=== PATIENT | male | born 1990 | race Caucasian/White ===

== ENCOUNTER 2016-11-16 18:32 | Emergency (ER) | payer BC, OTHER ==
[~2016-11-16] VITALS: Ht 175.3 cm; Wt 65.0 kg
[~2016-11-16 18:32] MED LIST: ONDA8TAB7 PO; XLD/500 PO
[2016-11-16 18:42] VITALS: TEMP 36.5; Ht 175.3 cm; Wt 65.0 kg
[2016-11-16] MEDS ORDERED: ONDANSETRON INJ 2 MG/ML 2 ML VIAL IV STA (20:11)
[2016-11-16] MEDS ORDERED: SODIUM CHLORIDE 0.9% 1000ML 1,000 ML IV ONE (20:11)
[2016-11-16] MEDS ORDERED: SODIUM CHLORIDE 0.9% 1000ML 1,000 ML IV STA (20:11)
--- NOTE | 2016-11-16 20:16 | EMERGENCY ROOM VISIT NOTE ---
History Report prepared by Jemma: Guerrero Roberts Under the Supervision of: Dr. Guerrero Cervantes M.D. First contact with patient: 19:48 Chief Complaint: VOMITING Stated Complaint: PAIN,THROWING UP, DIZZY LIGHTHEADED History of Present Illness The patient is a 26 year old male who presents to the Emergency Room with complaints of persistent vomiting beginning earlier today. He notes that he has colon cancer which has metastasized to his liver. He takes Capecitabine 500 mg 3 tablets BID, but thinks he took an extra 3 tablets today unintentionally. He has had radiation in the past but not in the last couple of months. He also has a stent in his ureter that he notes is due to come out. He admits to having nausea, chills, lightheadedness, diarrhea last night, lower back pain, and redness in his feet. He denies having any fever, headache, cough, abdominal pain , or groin or testicular pain. He also denies recent trauma or injury. The patient denies having any other medical problems. Source of History: patient, parent, family, spouse/significant other Onset: earlier today Position: other (global) Quality: other (vomiting) Timing: other (persistent) Associated Symptoms: + back pain, + chills, + diarrhea, + nausea, No abdominal pain, No cough, No headache Note: The patient notes having redness in his feet. He denies groin or testicular pain. Review of Systems See HPI for pertinent positives & negatives. A total of 10 systems reviewed and were otherwise negative. Past Medical & Surgical Medical Problems: (1) Cecum mass (2) Colon cancer metastasized to liver (3) GI bleed (4) Hydronephrosis of left kidney (5) Hydronephrosis of right kidney (6) Kidney stone Surgical Problems: (1) History of ureter stent Old medical records were reviewed. Nurse's notes were reviewed and I agree with. Family History FH: cardiovascular disease Social History Smoking Status: Never Smoker Alcohol Use: occasionally Drug Use: none Marital Status: in relationship Housing Status: lives with family Occupation Status: employed Current/Historical Medications Scheduled Capecitabine (Xeloda), 500 MG PO UD Ondansetron Tab (Zofran), 1 TAB PO Q8 Probiotic Product (Probiotic), 1 CAP PO TW Scheduled PRN Ibuprofen Tab (Advil), 400 MG PO Q6H PRN for Pain Allergies Coded Allergies: Cranberry Extract (Verified Allergy, Unknown, HIVES, 11/16/16) Lactose Intolerance (GI) (Verified Allergy, Unknown, ., 11/16/16) Physical Exam Vital Signs Date Time Temp Pulse Resp B/P Pulse Ox O2 Delivery O2 Flow Rate FiO2 11/16/16 22:42 86 16 109/70 98 11/16/16 20:47 78 16 105/61 99 Room Air 11/16/16 18:42 36.5 84 16 108/73 99 Room Air Physical Exam General: Well developed well nourished in no acute distress, breathing comfortably on room air. Normal speech. Non-ill appearing, young male. HEENT: Normal cephalic atraumatic. Pupils are equal round and reactive to light. Extraocular movements are intact. Oropharynx is pink with moist mucous membranes. No swelling of the mouth lips or tongue. Neck: Supple with a midline trachea. No meningeal signs or stiffness, no JVD or bruits. No Stridor. Negative Kernig and Brudzinski signs Chest: Clear to auscultation bilaterally. No wheezes or rhonchi. No increased work of breathing. Heart: regular rate and rhythm. Abdomen: Soft nontender, nondistended without rebound guarding or rigidity. Extremities: No cyanosis clubbing or edema. No calf tenderness or assymetry Spine/Back. Non tender to palpation. No CVA tenderness Skin: Good turgor without rashes. Neurologic exam: Cranial nerves two through 12 are intact. Motor and sensation are intact and symmetrical throughout. Medical Decision & Procedures ER Provider Diagnostic Interpretation: CT results as stated below per my review and radiologist interpretation: CT HEAD WITHOUT CONTRAST (CT) FINDINGS: No intra or extra-axial mass lesions are visualized. There is no CT evidence of acute cortical infarction. There is no evidence of midline shift. There is no acute hemorrhage. No calvarial fractures are visualized. There is no evidence of pathologic ventricular dilatation. There is no evidence of acute sinusitis IMPRESSION: No acute intracranial findings. No evidence of metastatic disease on this noncontrast study Electronically signed by: Brandon Soto M.D. 11/16/2016 9:28 PM Dictated Date/Time: 11/16/2016 9:[address] ABD/PELVIS IV CONTRAST ONLY FINDINGS: Lower chest: The heart is normal in size and configuration, without pericardial effusion. The lung bases and pleural spaces are clear. Liver: There is a 44 mm hypodense mass within the right hepatic lobe centrally. There is a 19 mm hypodense lesion within the right hepatic lobe peripherally. As a 14 mm hypodense mass within the left lobe anteriorly. There is a 5 mm hypodense mass within the lateral segment the left lobe. The findings are consistent with hepatic metastasis. There is trace perihepatic fluid. Gallbladder: Unremarkable. Spleen: Normal in size and attenuation. Pancreas: Unremarkable. Adrenal glands: Unremarkable. Kidneys: There is right-sided hydronephrosis. There is right-sided hydroureter. There is an indwelling right-sided nephroureteral stent. Bowel: There are no transition zones indicate bowel obstruction. There is pathologic bowel wall thickening in the region of the cecum. This could be either neoplastic or inflammatory. Peritoneum: There is trace perihepatic fluid. No free air is visualized. Vasculature: The abdominal aorta is normal in course and caliber. Adenopathy: There are no pathologically enlarged lymph nodes Pelvic viscera: The bladder, and pelvic viscera are unremarkable. Skeletal structures: There are few sclerotic lesions within the left acetabular region, likely representing bone islands. IMPRESSION: 1. No evidence of bowel obstruction. No evidence of free air 2. Increasing hepatic masses, suspicious for progressive metastatic disease 3. Pathologic bowel wall thickening involving the cecum. This could be inflammatory or neoplastic. 4. Increasing right-sided hydroureteronephrosis. Indwelling right-sided nephroureteral stent Electronically signed by: Brandon Soto M.D. 11/16/2016 9:35 PM Dictated Date/Time: 11/16/2016 9:28 PM Laboratory Results 11/16/16 20:00 Red Blood Count 4.90, Mean Corpuscular Volume 88.0, Mean Corpuscular Hemoglobin 32.2, Mean Corpuscular Hemoglobin Concent 36.7, Mean Platelet Volume 9.7, Neutrophils (%) (Auto) 87.8, Lymphocytes (%) (Auto) 4.6, Monocytes (%) (Auto) 5.8, Eosinophils (%) (Auto) 0.9, Basophils (%) (Auto) 0.5, Neutrophils # (Auto) 9.06, Lymphocytes # (Auto) 0.47, Monocytes # (Auto) 0.60, Eosinophils # (Auto) 0.09, Basophils # (Auto) 0.05 11/16/16 20:00 Test 11/16/16 20:00 11/16/16 20:14 11/16/16 20:19 11/16/16 21:15 White Blood Count 10.31 K/uL (4.8-10.8) Red Blood Count 4.90 M/uL (4.7-6.1) Hemoglobin 15.8 g/dL (14.0-18.0) Hematocrit 43.1 % (42-52) Mean Corpuscular Volume 88.0 fL (80-100) Mean Corpuscular Hemoglobin 32.2 pg (25-34) Mean Corpuscular Hemoglobin Concent 36.7 g/dl (32-36) Platelet Count 193 K/uL (130-400) Mean Platelet Volume 9.7 fL (7.4-10.4) Neutrophils (%) (Auto) 87.8 % Lymphocytes (%) (Auto) 4.6 % Monocytes (%) (Auto) 5.8 % Eosinophils (%) (Auto) 0.9 % Basophils (%) (Auto) 0.5 % Neutrophils # (Auto) 9.06 K/uL (1.4-6.5) Lymphocytes # (Auto) 0.47 K/uL (1.2-3.4) Monocytes # (Auto) 0.60 K/uL (0.11-0.59) Eosinophils # (Auto) 0.09 K/uL (0-0.5) Basophils # (Auto) 0.05 K/uL (0-0.2) RDW Standard Deviation 45.0 fL (36.4-46.3) RDW Coefficient of Variation 14.1 % (11.5-14.5) Immature Granulocyte % (Auto) 0.4 % Immature Granulocyte # (Auto) 0.04 K/uL (0.00-0.02) Prothrombin Time 11.1 SECONDS (9.0-12.0) Prothromb Time International Ratio 1.0 (0.9-1.1) Activated Partial Thromboplast Time 24.3 SECONDS (21.0-31.0) Partial Thromboplastin Ratio 0.9 Est Creatinine Clear Calc Drug Dose 107.2 ml/min Estimated GFR () 125.9 Estimated GFR (Non- 108.7 BUN/Creatinine Ratio 12.0 (10-20) Calcium Level 9.2 mg/dl (8.5-10.1) Total Bilirubin 1.2 mg/dl (0.2-1) Direct Bilirubin 0.2 mg/dl (0-0.2) Aspartate Amino Transf (AST/SGOT) 21 U/L (15-37) Alanine Aminotransferase (ALT/SGPT) 25 U/L (12-78) Alkaline Phosphatase 83 U/L (45-117) Total Protein 7.6 gm/dl (6.4-8.2) Albumin 4.2 gm/dl (3.4-5.0) Lipase 77 U/L (73-393) Bedside Hemoglobin 15.6 g/dl (14.0-18.0) Bedside Hematocrit 46 % (42-52) Bedside Sodium 139 mEq/L (135-144) Bedside Potassium 4.3 mEq/L (3.3-5.0) Bedside Chloride 101 mEq/L (101-112) Bedside Total CO2 26 mEq/l (24-31) Anion Gap 17.0 mmol/L (16-25) Bedside Blood Urea Nitrogen 13 mg/dl (7-18) Bedside Creatinine 0.9 mg/dl (0.6-1.3) Bedside Glucose (other) 95 mg/dl (70-99) Bedside Ionized Calcium (Jayson) 1.16 mmol/l (1.12-1.32) Bedside Troponin I 0.000 ng/ml (0-0.045) Urine Color YELLOW Urine Appearance CLEAR (CLEAR) Urine pH 6.5 (4.5-7.5) Urine Specific Brothers 1.019 (1.000-1.030) Urine Protein NEG (NEG) Urine Glucose (UA) NEG (NEG) Urine Ketones NEG (NEG) Urine Occult Blood 2+ (NEG) Urine Nitrite NEG (NEG) Urine Bilirubin NEG (NEG) Urine Urobilinogen NEG (NEG) Urine Leukocyte Esterase NEG (NEG) Urine WBC (Auto) 1-5 /hpf (0-5) Urine RBC (Auto) 10-30 /hpf (0-4) Urine Hyaline Casts (Auto) 1-5 /lpf (0-5) Urine Epithelial Cells (Auto) 20-30 /lpf (0-5) Urine Bacteria (Auto) NEG (NEG) Laboratory studies as stated above per my review. Medications Administered Medications (Trade) Dose Ordered Sig/Raúl Route Start Time Stop Time Status Last Admin Dose Admin Sodium Chloride 1,000 ml @ 999 mls/hr Q1H1M STAT IV 11/16/16 20:11 11/16/16 21:11 DC 11/16/16 20:42 999 MLS/HR Sodium Chloride (Nss 1000ml) 1,000 ml @ 200 mls/hr Q5H ONCE IV 11/16/16 20:11 11/17/16 00:30 DC 11/16/16 21:48 200 MLS/HR Ondansetron HCl (Zofran Inj) 4 mg NOW STAT IV 11/16/16 20:11 11/16/16 20:12 DC 11/16/16 20:41 4 MG ECG Indication: vomiting Rate (beats per minute): 77 Rhythm: normal sinus Findings: no acute ischemic change, no ectopy Comparison ECG Date: January 11, 2015 Change: no significant change ED Course 1957: Past medical records reviewed. The patient was evaluated in room A12B, and a complete history and physical examination were performed. 2010: Ordered Zofran Inj 4 mg IV, NSS 1,000 ml @ 200 mls/hr IV, and NSS 1,000 ml @ 999 mls/hr IV. 2230: I reassessed the patient and he is feeling better. 2240: Upon reevaluation, the patient is hemodynamically stable. I discussed the results and treatment plan with the patient. He verbalized agreement of the treatment plan. The patient was discharged home. Medical Decision Differentials include side-effect from chemotherapy, accidental overdose, infection, electrolyte or metabolic abnormality, and arrhythmia. This patient comes in as described above. He was placed in room A 12. He does have a history of metastatic colon cancer and is on oral chemotherapeutic agent. he may have accidentally taken an extra dose last night had some nausea and vomiting today although is feeling a little bit better. IV access was established and he was hydrated with IV normal saline and given IV Zofran and felt significantly better. He had multiple blood tests was obtained. he has no white count or fever to suggest infection. he is not anemic. He has no acute electrolyte or metabolic abnormalities. I did a CAT scan of his head and he has no acute cranial process. He had a CAT scan of his abdomen and pelvis and he may have some more mets in his liver compared to a CAT scan a year and half ago. he does have hydronephrosis on the right which might be a more pronounced. his urinalysis does not suggest definite UTI with a suboptimal specimen. At this point, he has nothing to suggest sepsis. He has no flank tenderness or abdominal tenderness. he feels up to go home and I think it is reasonable to discharge him home. this may be a side effect from his chemotherapy but I do think he needs close follow-up with his regular doctor and urologist. he should rest and drink plenty fluids. use Zofran if needed for nausea. return if not tolerating fluids, fever or chills, worsening of symptoms , any new problems or concerns. The patient and his family are happy with the plan and he was discharged to home. Impression Primary Impression: Vomiting Additional Impression: Chemotherapy adverse reaction Scribe Attestation The scribe's documentation has been prepared under my direction and personally reviewed by me in its entirety. I confirm that the note above accurately reflects all work, treatment, procedures, and medical decision making performed by me. Departure Information Referrals Luisito Cheema D.O. (PCP) Patient Instructions My [facility] Additional Instructions Rest. Drink plenty of fluids. May use Zofran if needed for nausea Return if: Fever, worsening symptoms, not tolerating fluids, any new problems or concerns. Follow-up with your doctor, call tomorrow for recheck. Problem Qualifiers
[2016-11-16 20:25] LABS: BASO % 0.5 %; BASO ABS # 0.05 K/uL (0-0.2); COMPLETE YES; EOS % 0.9 %; HEMATOCRIT 43.1 % (42-52); IG% 0.4 %; LYMPH % 4.6 %; LYMPH ABS # 0.47 K/uL (1.2-3.4); MEAN CORPUSCULAR HEMOGLOBIN 32.2 pg (25-34); MEAN CORPUSCULAR HGB CONC 36.7 g/dl (32-36); MEAN PLATELET VOLUME 9.7 fL (7.4-10.4); MONO % 5.8 %; NEUT % 87.8 %; PLATELET COUNT 193 K/uL (130-400); WHITE BLOOD COUNT 10.31 K/uL (4.8-10.8)
[2016-11-16 20:31] LABS: ISTAT CREATININE 0.9 mg/dl (0.6-1.3); ISTAT HEMOGLOBIN 15.6 g/dl (14.0-18.0); ISTAT IONIZED CALCIUM 1.16 mmol/l (1.12-1.32)
[2016-11-16 20:40] LABS: PARTIAL THROMBOPLASTIN RATIO 0.9; PROTHROMBIN TIME (PATIENT) 11.1 SECONDS (9.0-12.0)
[2016-11-16 20:45] LABS: CALCIUM 9.2 mg/dl (8.5-10.1); CREATININE 0.96 mg/dl (0.60-1.40); POTASSIUM 4.2 mmol/L (3.5-5.1)
[2016-11-16] MEDS ORDERED: OPTIRAY 320 IV PRN (21:00)
[2016-11-16 21:29] LABS: URINE APPEARANCE CLEAR (CLEAR); URINE BILIRUBIN NEG (NEG); URINE COLOR YELLOW; URINE EPITHELIAL CELL AUTO 20-30 /lpf (0-5); URINE NITRITE NEG (NEG); URINE PH 6.5 (4.5-7.5); URINE SPECIFIC GRAVITY 1.019 (1.000-1.030); UROBILINOGEN NEG (NEG)
--- NOTE | 2016-11-16 21:30 | DIAGNOSTIC IMAGING REPORT ---
CT HEAD WITHOUT CONTRAST (CT) CLINICAL HISTORY: Change in mental status. Metastatic colon carcinoma. COMPARISON STUDY: 04/23/2012 TECHNIQUE: Axial CT of the brain is performed from the vertex to the skull base. IV contrast was not administered for this examination. CT DOSE: FINDINGS: No intra or extra-axial mass lesions are visualized. There is no CT evidence of acute cortical infarction. There is no evidence of midline shift. There is no acute hemorrhage. No calvarial fractures are visualized. There is no evidence of pathologic ventricular dilatation. There is no evidence of acute sinusitis IMPRESSION: No acute intracranial findings. No evidence of metastatic disease on this noncontrast study Electronically signed by: Brandon Soto M.D. 11/16/2016 9:28 PM Dictated Date/Time: 11/16/2016 9:26 PM
[2016-11-16 21:31] LABS: MANUAL MICROSCOPIC REQUIRED? NO; REVIEW REQ? NO
--- NOTE | 2016-11-16 21:37 | DIAGNOSTIC IMAGING REPORT ---
CT ABD/PELVIS IV CONTRAST ONLY CLINICAL HISTORY: Abdominal pain. Metastatic colon carcinoma. History of right ureteral stent. COMPARISON STUDY: CT scan dated 05/09/2015 TECHNIQUE: Following the IV administration of 93 mL of [id number], CT scan of the abdomen and pelvis was performed from the lung bases to the proximal femurs. Images are reviewed in the axial, sagittal, and coronal planes. IV contrast was administered without complication. CT DOSE: 964.46 mGy.cm FINDINGS: Lower chest: The heart is normal in size and configuration, without pericardial effusion. The lung bases and pleural spaces are clear. Liver: There is a 44 mm hypodense mass within the right hepatic lobe centrally. There is a 19 mm hypodense lesion within the right hepatic lobe peripherally. As a 14 mm hypodense mass within the left lobe anteriorly. There is a 5 mm hypodense mass within the lateral segment the left lobe. The findings are consistent with hepatic metastasis. There is trace perihepatic fluid. Gallbladder: Unremarkable. Spleen: Normal in size and attenuation. Pancreas: Unremarkable. Adrenal glands: Unremarkable. Kidneys: There is right-sided hydronephrosis. There is right-sided hydroureter. There is an indwelling right-sided nephroureteral stent. Bowel: There are no transition zones indicate bowel obstruction. There is pathologic bowel wall thickening in the region of the cecum. This could be either neoplastic or inflammatory. Peritoneum: There is trace perihepatic fluid. No free air is visualized. Vasculature: The abdominal aorta is normal in course and caliber. Adenopathy: There are no pathologically enlarged lymph nodes Pelvic viscera: The bladder, and pelvic viscera are unremarkable. Skeletal structures: There are few sclerotic lesions within the left acetabular region, likely representing bone islands. IMPRESSION: 1. No evidence of bowel obstruction. No evidence of free air 2. Increasing hepatic masses, suspicious for progressive metastatic disease 3. Pathologic bowel wall thickening involving the cecum. This could be inflammatory or neoplastic. 4. Increasing right-sided hydroureteronephrosis. Indwelling right-sided nephroureteral stent Electronically signed by: Brandon Soto M.D. 11/16/2016 9:35 PM Dictated Date/Time: 11/16/2016 9:28 PM
[2016-11-16 22:42] VITALS: BP 109/70; PULSE 86; O2SAT 98
[2017-04-01] MEDS ORDERED: ZLF/100 PO (15:16)
[2017-04-01] MEDS ORDERED: ONDA-63 PO (15:16)
[2017-04-01] MEDS ORDERED: IBUP-103 PO (15:55)
[2017-04-01] MEDS ORDERED: MISCCAP80 PO (16:48)
== END 2016-11-16 22:42 | disposition home or self-care (01) ==
LOC: C.EDB 18:33 → C.EDA 22:42
DX: T88.7XXA Unspecified adverse effect of drug or medicament, initial encounter (principal); X58.XXXA Exposure to other specified factors, initial encounter; R11.2 Nausea with vomiting, unspecified; Z85.038 Personal history of other malignant neoplasm of large intestine; N13.30 Unspecified hydronephrosis; Z92.3 Personal history of irradiation; Z87.19 Personal history of other diseases of the digestive system; Z87.442 Personal history of urinary calculi; Z85.05 Personal history of malignant neoplasm of liver; Z79.899 Other long term (current) drug therapy; Z91.018 Allergy to other foods; Z91.011 Allergy to milk products; Z82.49 Family history of ischemic heart disease and other diseases of the circulatory system

== ENCOUNTER 2017-03-22 13:08 | Emergency (ER) | payer BC, OTHER ==
[2017-03-22 13:12] VITALS: TEMP 36.7; Ht 175.3 cm
[2017-03-22] MEDS ORDERED: SODIUM CHLORIDE 0.9% 1000ML 1,000 ML IV STA (13:24)
--- NOTE | 2017-03-22 13:43 | EMERGENCY ROOM VISIT NOTE ---
History Report prepared by Jemma: Carlos Manuel Wahl Under the Supervision of: Dr. Lupis Donis M.D. First contact with patient: 13:24 Chief Complaint: ILLNESS Stated Complaint: DISORIENTED,BLOODY URINE/STOOL,CANCER PT History of Present Illness The patient is a 27 year old male who presents to the Emergency Room with concerns over blood in his urine and stool that he first noticed a few hours prior to arrival. The patient also notes that he was light headed and dizzy today, as well as intermittently disoriented and fatigued. He claims that a small cut on his finger from a few days ago started to bleed yesterday, and he seemed to be bleeding easily. He has also had multiple nose bleeds over the past couple of days. 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 He has had a GI bleed in the past. The patient notes that he has not eaten much today secondary to his nausea. 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 Review of Systems See HPI for pertinent positives & negatives. A total of 10 systems reviewed and were otherwise negative. Past Medical & Surgical Medical Problems: (1) Cecum mass (2) Colon cancer metastasized to liver (3) GI bleed (4) Hydronephrosis of left kidney (5) Hydronephrosis of right kidney (6) Kidney stone Surgical Problems: (1) History of ureter stent Family History FH: cardiovascular disease Social History Smoking Status: Never Smoker Alcohol Use: occasionally Drug Use: none Marital Status: in relationship Housing Status: lives with family Occupation Status: employed Current/Historical Medications Scheduled Cephalexin Monohydrate (Keflex), 500 MG PO TID Probiotic Product (Probiotic), 1 CAP PO TW Scheduled PRN Ibuprofen Tab (Advil), 400 MG PO Q6H PRN for Pain Ondansetron (Ondansetron HCl), 1 TAB PO Q8 PRN for Nausea or Vomiting Sertraline HCl (Sertraline HCl), 0.5 TAB PO for Depression Allergies Coded Allergies: Cranberry Extract (Verified Allergy, Unknown, HIVES, 03/22/17) Lactose Intolerance (GI) (Verified Allergy, Unknown, ., 03/22/17) Physical Exam Vital Signs Date Time Temp Pulse Resp B/P Pulse Ox O2 Delivery O2 Flow Rate FiO2 03/22/17 14:53 88 18 127/86 97 Room Air 03/22/17 14:39 74 03/22/17 13:12 36.7 84 16 121/80 96 Room Air Physical Exam Vital signs reviewed. General: Chronically-ill appearing male, in no significant distress. HEENT: No scleral icterus, PERRLA, neck supple. Atraumatic. Cardiovascular: Regular rate and rhythm, no extra sounds. Pulmonary: Clear to auscultation bilaterally, normal work of breathing. Abdomen: Soft, nontender, nondistended, positive bowel sounds. Musculoskeletal: Atraumatic, no peripheral edema. Neurologic: Patient awake alert and oriented x 3, full strength in all 4 extremities. Cranial nerves 2 through 12 grossly intact. Skin: Warm, dry, no rash Medical Decision & Procedures Laboratory Results 03/22/17 13:47 Red Blood Count 4.28, Mean Corpuscular Volume 86.9, Mean Corpuscular Hemoglobin 29.4, Mean Corpuscular Hemoglobin Concent 33.9, Mean Platelet Volume 9.6, Neutrophils (%) (Auto) 81.7, Lymphocytes (%) (Auto) 11.1, Monocytes (%) (Auto) 5.6, Eosinophils (%) (Auto) 0.8, Basophils (%) (Auto) 0.5, Neutrophils # (Auto) 5.22, Lymphocytes # (Auto) 0.71, Monocytes # (Auto) 0.36, Eosinophils # (Auto) 0.05, Basophils # (Auto) 0.03 03/22/17 13:47 Test 03/22/17 13:47 03/22/17 13:58 White Blood Count 6.39 K/uL (4.8-10.8) Red Blood Count 4.28 M/uL (4.7-6.1) Hemoglobin 12.6 g/dL (14.0-18.0) Hematocrit 37.2 % (42-52) Mean Corpuscular Volume 86.9 fL (80-100) Mean Corpuscular Hemoglobin 29.4 pg (25-34) Mean Corpuscular Hemoglobin Concent 33.9 g/dl (32-36) Platelet Count 206 K/uL (130-400) Mean Platelet Volume 9.6 fL (7.4-10.4) Neutrophils (%) (Auto) 81.7 % Lymphocytes (%) (Auto) 11.1 % Monocytes (%) (Auto) 5.6 % Eosinophils (%) (Auto) 0.8 % Basophils (%) (Auto) 0.5 % Neutrophils # (Auto) 5.22 K/uL (1.4-6.5) Lymphocytes # (Auto) 0.71 K/uL (1.2-3.4) Monocytes # (Auto) 0.36 K/uL (0.11-0.59) Eosinophils # (Auto) 0.05 K/uL (0-0.5) Basophils # (Auto) 0.03 K/uL (0-0.2) RDW Standard Deviation 45.1 fL (36.4-46.3) RDW Coefficient of Variation 14.1 % (11.5-14.5) Immature Granulocyte % (Auto) 0.3 % Immature Granulocyte # (Auto) 0.02 K/uL (0.00-0.02) Prothrombin Time 10.5 SECONDS (9.0-12.0) Prothromb Time International Ratio 1.0 (0.9-1.1) Activated Partial Thromboplast Time 42.9 SECONDS (21.0-31.0) Partial Thromboplastin Ratio 1.7 Anion Gap 6.0 mmol/L (3-11) Estimated GFR () 122.0 Estimated GFR (Non- 105.2 BUN/Creatinine Ratio 14.3 (10-20) Calcium Level 8.3 mg/dl (8.5-10.1) Total Bilirubin 0.8 mg/dl (0.2-1) Direct Bilirubin 0.2 mg/dl (0-0.2) Aspartate Amino Transf (AST/SGOT) 13 U/L (15-37) Alanine Aminotransferase (ALT/SGPT) 21 U/L (12-78) Alkaline Phosphatase 53 U/L (45-117) Total Protein 6.5 gm/dl (6.4-8.2) Albumin 3.7 gm/dl (3.4-5.0) Lipase 103 U/L (73-393) Urine Color ORANGE Urine Appearance CLEAR (CLEAR) Urine pH (4.5-7.5) Urine Specific [place] 1.025 (1.000-1.030) Urine Protein POS (NEG) Urine Glucose (UA) (NEG) Urine Ketones (NEG) Urine Occult Blood (NEG) Urine Nitrite (NEG) Urine Bilirubin (NEG) Urine Urobilinogen (NEG) Urine Leukocyte Esterase (NEG) Urine RBC >30 /hpf (0-4) Urine WBC 10-30 /hpf (0-5) Urine Epithelial Cells 10-20 /lpf (0-5) Urine Bacteria 1+ (NEG) Laboratory results per my review. Medications Administered Medications (Trade) Dose Ordered Sig/Raúl Route Start Time Stop Time Status Last Admin Dose Admin Sodium Chloride (Nss 1000ml) 1,000 ml @ 125 mls/hr Q8H STAT IV 03/22/17 13:24 03/22/17 16:34 DC 03/22/17 13:53 125 MLS/HR Ondansetron HCl (Zofran Inj) 4 mg NOW STAT IV 03/22/17 14:03 03/22/17 14:10 DC 03/22/17 14:06 4 MG Cephalexin Monohydrate (Keflex Cap) 500 mg NOW ONCE PO 03/22/17 15:00 03/22/17 15:01 DC 03/22/17 15:22 500 MG Heparin Sodium (Porcine) (Heparin 100 Unit/ml 5ml Flush) 5 ml STK-MED ONCE .ROUTE 03/22/17 15:00 03/22/17 15:01 DC 03/22/17 15:22 5 ML ED Course 1329: Past medical records reviewed. The patient was evaluated in room B3. A complete history and physical examination was performed. 1324: Ordered Sodium Chloride 1000 mL @ 125 mL/hr IV. 1403: Ordered Zofran 4 mg IV. 1427: Upon reevaluation, the patient appeared to have improvement of his symptoms. I discussed findings with him. He verbalized agreement of the treatment plan. The patient was discharged home. 1500: Ordered Keflex 500 mg PO. Medical Decision Differential diagnosis: Etiologies such as diverticulosis, AVM, coagulopathy, colitis, inflammatory bowel disease, malignancy, [place] tear, esophagitis, peptic ulcer disease , variceal bleed, gastritis, epistaxis, fissure, hemorrhoids, as well as others were entertained. This patient was evaluated and appeared to be in no significant distress. IV access was obtained and laboratory work was drawn. The patient was placed on the home administrator and found to be in a normal sinus rhythm. Vital signs are stable. The patient was hydrated with normal saline solution. Rectal exam reveals guaiac negative sample. Rectal mucosa is normal. Laboratory work reveals a stable H&H. Urinalysis is discolored, likely due to [id number] Azo. Given the patient's elevated WBC and urinary stent, patient will be placed on Keflex 500 mg 3 times a day for 7 days and urine cultures are pending. I do not believe the patient is unstable at this time. Is encouraged to drink plenty of fluids, take the antibiotics as prescribed and follow-up with his physician within the next several days for reevaluation. He will return to the ER for worsening of symptoms or any medical concerns. Impression Primary Impression: Hematuria Additional Impressions: Ureteral stent retained Personal history of colon cancer, stage IV Scribe Attestation The scribe's documentation has been prepared under my direction and personally reviewed by me in its entirety. I confirm that the note above accurately reflects all work, treatment, procedures, and medical decision making performed by me. Departure Information Dispostion Home / Self-Care Prescriptions Cephalexin Monohydrate (Keflex) 500 Mg Cap 500 MG PO TID, #21 CAP Prov: Lupis Donis M.D. 03/22/17 Referrals Luisito Cheema D.OCatie (PCP) Forms HOME CARE DOCUMENTATION FORM, IMPORTANT VISIT INFORMATION, WORK / SCHOOL INSTRUCTIONS Patient Instructions My [facility] [employer] Additional Instructions Diagnosis: Hematuria, ureteral stent Keflex 500 mg 3 times daily for 7 days. Drink plenty of clear fluids. Follow-up with Dr. Shabazz of oncology and Dr. Doran of urology. Return to the emergency department for worsening of symptoms, fever, increased bleeding or any medical concerns. Problem Qualifiers
[2017-03-22 14:00] LABS: BASO % 0.5 %; BASO ABS # 0.03 K/uL (0-0.2); COMPLETE YES; EOS % 0.8 %; HEMATOCRIT 37.2 % (42-52); IG% 0.3 %; LYMPH % 11.1 %; LYMPH ABS # 0.71 K/uL (1.2-3.4); MEAN CELL VOLUME 86.9 fL (80-100); MEAN CORPUSCULAR HEMOGLOBIN 29.4 pg (25-34); MEAN CORPUSCULAR HGB CONC 33.9 g/dl (32-36); MEAN PLATELET VOLUME 9.6 fL (7.4-10.4); MONO % 5.6 %; NEUT % 81.7 %; PLATELET COUNT 206 K/uL (130-400); RED BLOOD COUNT 4.28 M/uL (4.7-6.1); WHITE BLOOD COUNT 6.39 K/uL (4.8-10.8)
[2017-03-22] MEDS ORDERED: ONDANSETRON INJ 2 MG/ML 2 ML VIAL IV STA (14:03)
[2017-03-22 14:10] LABS: PARTIAL THROMBOPLASTIN RATIO 1.7; PROTHROMBIN TIME (PATIENT) 10.5 SECONDS (9.0-12.0)
[2017-03-22 14:20] LABS: ALT/SGPT 21 U/L (12-78); AST/SGOT 13 U/L (15-37); BLOOD UREA NITROGEN 14 mg/dl (7-18); BUN/CREATININE RATIO 14.3 (10-20); CALCIUM 8.3 mg/dl (8.5-10.1); CARBON DIOXIDE 26 mmol/L (21-32); CHLORIDE 110 mmol/L (98-107); CREATININE 0.98 mg/dl (0.60-1.40); GLUCOSE 81 mg/dl (70-99); POTASSIUM 3.8 mmol/L (3.5-5.1); SODIUM 142 mmol/L (136-145)
[2017-03-22 14:22] LABS: ALKALINE PHOSPHATASE 53 U/L (45-117)
[2017-03-22 14:22] LABS: MANUAL MICROSCOPIC REQUIRED? YES; REVIEW REQ? NO; URINE APPEARANCE CLEAR (CLEAR); URINE COLOR ORANGE
[2017-03-22 14:27] LABS: URINE SPECIFIC GRAVITY 1.025 (1.000-1.030)
[2017-03-22 14:37] LABS: URINE BACTERIA 1+ (NEG); URINE RBC >30 /hpf (0-4)
[2017-03-22 14:38] LABS: ZZUR CULT IF INDIC CLEAN CATCH YES
[2017-03-22 14:53] VITALS: BP 127/86; PULSE 88; O2SAT 97
[2017-03-22] MEDS ORDERED: CEPH500C PO (14:54)
[2017-03-22] MEDS ORDERED: CEPHALEXIN MONOHYDRATE 250 MG CAP PO ONE (15:00)
[2017-04-01] MEDS ORDERED: ZLF/100 PO (15:16)
[2017-04-01] MEDS ORDERED: ONDA-63 PO (15:16)
[2017-04-01] MEDS ORDERED: IBUP-103 PO (15:55)
[2017-04-01] MEDS ORDERED: MISCCAP80 PO (16:48)
[2017-07-11] MEDS ORDERED: DIPH1TAB87 PO (18:22)
== END 2017-03-22 15:10 | disposition home or self-care (01) ==
LOC: C.EDB 13:10
DX: R31.9 Hematuria, unspecified (principal); Z96.0 Presence of urogenital implants; C78.7 Secondary malignant neoplasm of liver and intrahepatic bile duct; Z85.038 Personal history of other malignant neoplasm of large intestine; Z87.442 Personal history of urinary calculi; Z79.899 Other long term (current) drug therapy; Z91.018 Allergy to other foods; Z91.011 Allergy to milk products; Z82.49 Family history of ischemic heart disease and other diseases of the circulatory system

== ENCOUNTER 2017-04-01 20:16 | Emergency (ER) | payer BC, OTHER ==
[~2017-04-01] VITALS: Ht 175.3 cm; Wt 61.1 kg
[~2017-04-01 20:16] MED LIST changes: +CEPH500C PO; +IBUP-103 PO; +MISCCAP80 PO; +ONDA-63 PO; -ONDA8TAB7 PO; -XLD/500 PO; +ZLF/100 PO
[2017-04-01 20:17] VITALS: TEMP 36.3; Ht 175.3 cm; Wt 61.1 kg
[2017-04-01] MEDS ORDERED: SODIUM CHLORIDE 0.9% 1000ML 1,000 ML IV STA (20:37)
[2017-04-01] MEDS ORDERED: HYDROmorphone INJ 1 MG/ML SYR IV STA (20:37)
[2017-04-01] MEDS ORDERED: KETOROLAC TROMETHAMINE 30 MG/ML VIAL IV STA (20:37)
[2017-04-01] MEDS ORDERED: ONDANSETRON INJ 2 MG/ML 2 ML VIAL IV STA (20:37)
--- NOTE | 2017-04-01 20:52 | EMERGENCY ROOM VISIT NOTE ---
History Report prepared by Jemma: Rosa Thomason Under the Supervision of: Dr. Remy Mckeon M.D. First contact with patient: 20:28 Chief Complaint: FLANK PAIN Stated Complaint: R SIDE PAIN History of Present Illness The patient is a 27 year old male who presents to the Emergency Room with complaints of an episode of severe flank pain starting a few days ago. He describes the pain like "someone is punching me in the back." The patient states that he was here eighteen days ago with similar symptoms and found to have kidney stones. He states that a stent was placed. He reports that he talked to his urologist's office, but his urologist is one vacation and they didn't seem worried about it. He reports that the Peridium he is taking is not helping and that he has run out of Keflex. The patient reports that he has taken nothing for the pain today. He notes that he has stage four colon cancer that has spread. The patient states his last chemotherapy treatment was almost two weeks ago. Source of History: patient Onset: few days ago Position: other (flank) Symptom Intensity: severe Quality: other ("someone is punching me in the back") Timing: other (episode) Associated Symptoms: + back pain Review of Systems See HPI for pertinent positives & negatives. A total of 10 systems reviewed and were otherwise negative. Past Medical & Surgical Medical Problems: (1) Cecum mass (2) Colon cancer metastasized to liver (3) GI bleed (4) Hydronephrosis of left kidney (5) Hydronephrosis of right kidney (6) Kidney stone Surgical Problems: (1) History of ureter stent Family History FH: cardiovascular disease Social History Smoking Status: Former Smoker Alcohol Use: occasionally Drug Use: none Marital Status: in relationship Housing Status: lives with family Occupation Status: employed Current/Historical Medications Scheduled Docusate Sodium (Colace), 1 CAP PO BID Probiotic Product (Probiotic), 1 CAP PO DAILY Sennosides (Senokot), 8.6 MG PO HS Sulfa/Trimethoprim (Bactrim Ds 800MG/160MG), 1 TAB PO BID Scheduled PRN Hydrocodone/Acetaminophen 5MG/325MG ([place] 5MG/325MG), 2 TABLETS PO Q6 PRN for Pain Ibuprofen Tab (Advil), 400 MG PO Q6H PRN for Pain Ondansetron (Ondansetron HCl), 1 TAB PO Q8 PRN for Nausea or Vomiting Sertraline HCl (Sertraline HCl), 0.5 TAB PO for Depression Allergies Coded Allergies: Cranberry Extract (Verified Allergy, Unknown, HIVES, 03/22/17) Lactose Intolerance (GI) (Verified Allergy, Unknown, ., 03/22/17) Physical Exam Vital Signs Date Time Temp Pulse Resp B/P Pulse Ox O2 Delivery O2 Flow Rate FiO2 04/01/17 23:56 80 18 127/81 97 04/01/17 23:07 84 18 122/89 97 Room Air 04/01/17 21:52 80 04/01/17 21:49 86 18 124/86 96 Room Air 04/01/17 20:17 36.3 78 16 122/78 100 Room Air Physical Exam GENERAL: Patient is a healthy-appearing well-nourished HEAD: Normocephalic atraumatic EYES: Ocular movements intact pupils equal and react to light OROPHARYNX mucous membranes are moist no exudates present no erythema or edema present NECK: Supple no nuchal rigidity CHEST: Good equal expansion LUNGS: Clear and equal to auscultation CARDIAC: Normal S1 and S2 ABDOMEN: Soft, tender in right lower quadrant, no guarding BACK: No CVA tenderness EXTREMITIES: No pain upon palpation normal muscle strength in all groups no clubbing cyanosis or edema NEURO: Patient is following commands is answering questions appropriately. Alert and oriented x3 Cranial Nerves 2-12 grossly intact Medical Decision & Procedures ER Provider Diagnostic Interpretation: KUB HISTORY: Pt c/o Rt sided flank pain COMPARISON: Abdomen and pelvis CT 11/16/2016. FINDINGS: The bowel gas pattern is unremarkable. There are no dilated loops of small bowel to suggest an obstruction. No renal calculi. No ureteral calculi. No pneumoperitoneum or pneumatosis. A right ureteral stent appears to be in good position. There are a few pelvic phleboliths. IMPRESSION: No renal or ureteral stones. A right ureteral stent appears to be in good position. Electronically signed by: Yuniel Quevedo M.D. 04/01/2017 11:03 PM Dictated Date/Time: 04/01/2017 11:02 PM ENAL ULTRASOUND HISTORY: Pt c/o Rt sided flank pain COMPARISON: Abdomen and pelvis CT 11/16/2016. FINDINGS: Right kidney: 9.1 cm. Mild to moderate hydronephrosis which has improved. A right ureteral stent is identified. Left kidney: 10.9 cm. No hydronephrosis. Bladder: No bladder wall thickening. The ureteral stent is identified within the bladder. Small amount of debris surrounding the ureteral stent. IMPRESSION: Mild to moderate right-sided hydronephrosis which has improved. No left-sided hydronephrosis. A right ureteral stent appears to be in good position. Electronically signed by: Yuniel Quevedo M.D. 04/01/2017 10:58 PM Dictated Date/Time: 04/01/2017 10:56 PM Laboratory Results 04/01/17 22:04 Red Blood Count 4.08, Mean Corpuscular Volume 88.7, Mean Corpuscular Hemoglobin 29.7, Mean Corpuscular Hemoglobin Concent 33.4, Mean Platelet Volume 8.8, Neutrophils (%) (Auto) 68.6, Lymphocytes (%) (Auto) 17.9, Monocytes (%) (Auto) 9.0, Eosinophils (%) (Auto) 3.5, Basophils (%) (Auto) 0.6, Neutrophils # (Auto) 3.58, Lymphocytes # (Auto) 0.93, Monocytes # (Auto) 0.47, Eosinophils # (Auto) 0.18, Basophils # (Auto) 0.03 04/01/17 21:00 Test 04/01/17 21:00 04/01/17 21:08 04/01/17 22:04 Urine Color YELLOW Urine Appearance CLEAR (CLEAR) Urine pH >= 9.0 (4.5-7.5) Urine Specific [place] 1.023 (1.000-1.030) Urine Protein 1+ (NEG) Urine Glucose (UA) NEG (NEG) Urine Ketones NEG (NEG) Urine Occult Blood 3+ (NEG) Urine Nitrite NEG (NEG) Urine Bilirubin NEG (NEG) Urine Urobilinogen NEG (NEG) Urine Leukocyte Esterase SMALL (NEG) Urine WBC (Auto) 1-5 /hpf (0-5) Urine RBC (Auto) >30 /hpf (0-4) Urine Hyaline Casts (Auto) 1-5 /lpf (0-5) Urine Epithelial Cells (Auto) 10-20 /lpf (0-5) Urine Bacteria (Auto) NEG (NEG) Anion Gap 6.0 mmol/L (3-11) Est Creatinine Clear Calc Drug Dose 105.4 ml/min Estimated GFR () 133.4 Estimated GFR (Non- 115.1 BUN/Creatinine Ratio 13.8 (10-20) Calcium Level 8.3 mg/dl (8.5-10.1) Total Bilirubin 0.5 mg/dl (0.2-1) Direct Bilirubin 0.1 mg/dl (0-0.2) Aspartate Amino Transf (AST/SGOT) 13 U/L (15-37) Alanine Aminotransferase (ALT/SGPT) 23 U/L (12-78) Alkaline Phosphatase 57 U/L (45-117) Total Protein 6.6 gm/dl (6.4-8.2) Albumin 3.4 gm/dl (3.4-5.0) Lipase 93 U/L (73-393) Bedside Lactic Acid Venous 0.72 mmol/L (0.90-1.70) White Blood Count 5.21 K/uL (4.8-10.8) Red Blood Count 4.08 M/uL (4.7-6.1) Hemoglobin 12.1 g/dL (14.0-18.0) Hematocrit 36.2 % (42-52) Mean Corpuscular Volume 88.7 fL (80-100) Mean Corpuscular Hemoglobin 29.7 pg (25-34) Mean Corpuscular Hemoglobin Concent 33.4 g/dl (32-36) Platelet Count 200 K/uL (130-400) Mean Platelet Volume 8.8 fL (7.4-10.4) Neutrophils (%) (Auto) 68.6 % Lymphocytes (%) (Auto) 17.9 % Monocytes (%) (Auto) 9.0 % Eosinophils (%) (Auto) 3.5 % Basophils (%) (Auto) 0.6 % Neutrophils # (Auto) 3.58 K/uL (1.4-6.5) Lymphocytes # (Auto) 0.93 K/uL (1.2-3.4) Monocytes # (Auto) 0.47 K/uL (0.11-0.59) Eosinophils # (Auto) 0.18 K/uL (0-0.5) Basophils # (Auto) 0.03 K/uL (0-0.2) RDW Standard Deviation 46.9 fL (36.4-46.3) RDW Coefficient of Variation 14.3 % (11.5-14.5) Immature Granulocyte % (Auto) 0.4 % Immature Granulocyte # (Auto) 0.02 K/uL (0.00-0.02) Labs reviewed by ED physician. Medications Administered Medications (Trade) Dose Ordered Sig/Raúl Route Start Time Stop Time Status Last Admin Dose Admin Sodium Chloride (Nss 1000ml) 1,000 ml @ 999 mls/hr Q1H1M STAT IV 04/01/17 20:37 04/01/17 21:37 DC 04/01/17 21:16 999 MLS/HR Ketorolac Tromethamine (Toradol Inj) 30 mg NOW STAT IV 04/01/17 20:37 04/01/17 20:39 DC 04/01/17 21:16 30 MG Hydromorphone HCl (Dilaudid Inj) 1 mg NOW STAT IV 04/01/17 20:37 04/01/17 20:39 DC 04/01/17 21:16 1 MG Ondansetron HCl (Zofran Inj) 4 mg NOW STAT IV 04/01/17 20:37 04/01/17 20:39 DC 04/01/17 21:26 4 MG Trimethoprim/ Sulfamethoxazole (Septra Ds 800/ 160MG Tab) 1 tab NOW STAT PO 04/01/17 22:25 04/01/17 22:26 DC 04/01/17 23:02 1 TAB Ceftriaxone Sodium (Rocephin Inj) 1 gm NOW STAT IV 04/01/17 22:25 04/01/17 22:26 DC 04/01/17 23:02 1 GM Acetaminophen/ Hydrocodone Bitart ([place] 5/325mg Home Pack) 1 homepack UD ONCE PO 04/01/17 23:30 04/01/17 23:31 DC 04/01/17 23:45 1 HOMEPACK Trimethoprim/ Sulfamethoxazole (Sulfameth/ Trimeth Ds 800/ 160MG Home Pack) 1 homepack UD ONCE PO 04/01/17 23:30 04/01/17 23:31 DC 04/01/17 23:45 1 HOMEPACK Heparin Sodium (Porcine) (Heparin 100 Unit/ml 5ml Flush) 5 ml STK-MED ONCE .ROUTE 04/01/17 23:49 04/01/17 23:50 DC 04/01/17 23:51 5 ML ED Course 2030: Past medical records reviewed. The patient was evaluated in room B8. A complete history and physical examination was performed. 2036: Ordered Zofran Inj 4 mg IV, Dilaudid Inj 1 mg IV, Toradol Inj 30 mg IV, NSS 1000 ml @ 999 mls/hr IV. Medical Decision Medication Reconciliation: I attest that I have personally reviewed the patient' s current medication list Blood Pressure Screening: Patient was found to have an elevated blood pressure and was referred to their primary care doctor for recheck and further treatment Differential diagnosis: Etiologies such as appendicitis, diverticulitis, PUD, biliary pathology, UTI, pancreatitis, obstruction, mesenteric ischemia, aortic pathology, infections, inflammatory bowel disease, renal colic, as well as others were entertained. This is a 27-year-old male who presents emergency department complaining of right-sided flank pain. The patient does have a urinary stent placement. He has a moderate amount of blood in his urine. The patient feels he needs an antibiotic. I will note that he does not have an elevation in his white blood count. Serial abdominal examinations were performed on the patient in the emergency department and at no tender the patient exhibited a surgical abdomen. Using shared medical decision-making with the patient and family we decided that we could forgo a CAT scan instead settled on a KUB as well as a ultrasound. The ultrasound shows improving hydronephrosis and I believe that the patient can be safely discharged home. He was given Bactrim for possible UTI. I stressed the need for follow-up with urology. Patient family were in agreement with the treatment plan. Impression Primary Impression: Right flank pain Scribe Attestation The scribe's documentation has been prepared under my direction and personally reviewed by me in its entirety. I confirm that the note above accurately reflects all work, treatment, procedures, and medical decision making performed by me. Departure Information Dispostion Home / Self-Care Prescriptions Docusate Sodium (COLACE) 100 Mg Cap 1 CAP PO BID for 10 Days, #20 CAP Prov: Remy Mckeon MD 04/01/17 Sennosides (SENOKOT) 8.6 Mg Tab 8.6 MG PO HS, #10 TAB Prov: Remy Mckeon MD 04/01/17 Hydrocodone/Acetaminophen 5MG/325MG ([place] 5MG/325MG) Tab 2 TABLETS PO Q6 Y for Pain, #14 TAB Prov: Remy Mckeon MD 04/01/17 Sulfa/Trimethoprim (Bactrim Ds 800MG/160MG) Tab 1 TAB PO BID for 10 Days, #20 TAB Prov: Remy Mckeon MD 04/01/17 Referrals Luisito Cheema D.OCatie (PCP) Patient Instructions [facility]
[2017-04-01 21:28] LABS: URINE APPEARANCE CLEAR (CLEAR); URINE BILIRUBIN NEG (NEG); URINE COLOR YELLOW; URINE NITRITE NEG (NEG); URINE PH >= 9.0 (4.5-7.5); URINE SPECIFIC GRAVITY 1.023 (1.000-1.030); UROBILINOGEN NEG (NEG)
[2017-04-01 21:31] LABS: MANUAL MICROSCOPIC REQUIRED? NO; REVIEW REQ? NO
[2017-04-01 21:32] LABS: BUN/CREATININE RATIO 13.8 (10-20); CREATININE 0.91 mg/dl (0.60-1.40); POTASSIUM 3.5 mmol/L (3.5-5.1)
[2017-04-01 21:46] LABS: SULFASALICYLIC ACID POS (NEG)
[2017-04-01 21:56] LABS: CALCIUM 8.3 mg/dl (8.5-10.1)
[2017-04-01 22:17] LABS: BASO % 0.6 %; BASO ABS # 0.03 K/uL (0-0.2); COMPLETE YES; EOS % 3.5 %; HEMATOCRIT 36.2 % (42-52); IG% 0.4 %; LYMPH % 17.9 %; LYMPH ABS # 0.93 K/uL (1.2-3.4); MEAN CELL VOLUME 88.7 fL (80-100); MEAN CORPUSCULAR HEMOGLOBIN 29.7 pg (25-34); MEAN CORPUSCULAR HGB CONC 33.4 g/dl (32-36); MEAN PLATELET VOLUME 8.8 fL (7.4-10.4); NEUT % 68.6 %; PLATELET COUNT 200 K/uL (130-400); RED BLOOD COUNT 4.08 M/uL (4.7-6.1); WHITE BLOOD COUNT 5.21 K/uL (4.8-10.8)
[2017-04-01] MEDS ORDERED: SULFAMETHOXAZOLE/TRIMETHOPRIM DS 800/160MG TAB PO STA (22:25)
[2017-04-01] MEDS ORDERED: CEFTRIAXONE SOD INJ 1 GM ADDVIAL IV STA (22:25)
--- NOTE | 2017-04-01 23:00 | DIAGNOSTIC IMAGING REPORT ---
RENAL ULTRASOUND HISTORY: Pt c/o Rt sided flank pain COMPARISON: Abdomen and pelvis CT 11/16/2016. FINDINGS: Right kidney: 9.1 cm. Mild to moderate hydronephrosis which has improved. A right ureteral stent is identified. Left kidney: 10.9 cm. No hydronephrosis. Bladder: No bladder wall thickening. The ureteral stent is identified within the bladder. Small amount of debris surrounding the ureteral stent. IMPRESSION: Mild to moderate right-sided hydronephrosis which has improved. No left-sided hydronephrosis. A right ureteral stent appears to be in good position. Electronically signed by: Yuniel Quevedo M.D. 04/01/2017 10:58 PM Dictated Date/Time: 04/01/2017 10:56 PM
--- NOTE | 2017-04-01 23:05 | DIAGNOSTIC IMAGING REPORT ---
KUB HISTORY: Pt c/o Rt sided flank pain COMPARISON: Abdomen and pelvis CT 11/16/2016. FINDINGS: The bowel gas pattern is unremarkable. There are no dilated loops of small bowel to suggest an obstruction. No renal calculi. No ureteral calculi. No pneumoperitoneum or pneumatosis. A right ureteral stent appears to be in good position. There are a few pelvic phleboliths. IMPRESSION: No renal or ureteral stones. A right ureteral stent appears to be in good position. Electronically signed by: Yuniel Quevedo M.D. 04/01/2017 11:03 PM Dictated Date/Time: 04/01/2017 11:02 PM
[2017-04-01] MEDS ORDERED: SULF800T23 PO (23:23)
[2017-04-01] MEDS ORDERED: SENN1TAB77 PO (23:23)
[2017-04-01] MEDS ORDERED: DOCU-94 PO (23:23)
[2017-04-01] MEDS ORDERED: HYDR-5688 PO (23:23)
[2017-04-01] MEDS ORDERED: NORCO 5/325MG HOME PACK PO ONE (23:30)
[2017-04-01] MEDS ORDERED: SEPTRA DS HOME PACK 1 EA VIAL PO ONE (23:30)
[2017-04-01 23:56] VITALS: BP 127/81; PULSE 80; O2SAT 97
[2017-07-11] MEDS ORDERED: DIPH1TAB87 PO (18:22)
== END 2017-04-01 23:56 | disposition home or self-care (01) ==
LOC: C.EDB 20:17
DX: R10.9 Unspecified abdominal pain (principal); R31.9 Hematuria, unspecified; C18.9 Malignant neoplasm of colon, unspecified; C78.7 Secondary malignant neoplasm of liver and intrahepatic bile duct; Z79.899 Other long term (current) drug therapy; Z87.19 Personal history of other diseases of the digestive system; Z87.448 Personal history of other diseases of urinary system; Z82.49 Family history of ischemic heart disease and other diseases of the circulatory system

== ENCOUNTER 2017-04-07 04:03 | Emergency (ER) | payer BC, OTHER ==
[~2017-04-07] VITALS: Ht 175.3 cm; Wt 65.0 kg
[~2017-04-07 04:03] MED LIST changes: -CEPH500C PO; +DOCU-94 PO; +HYDR-5688 PO; +SENN1TAB77 PO; +SULF800T23 PO
[2017-04-07 04:09] VITALS: TEMP 36.4; Ht 175.3 cm; Wt 65.0 kg
[2017-04-07] MEDS ORDERED: SODIUM CHLORIDE 0.9% 1000ML 1,000 ML IV STA (04:21)
[2017-04-07] MEDS ORDERED: ONDANSETRON INJ 2 MG/ML 2 ML VIAL IV STA (04:21)
--- NOTE | 2017-04-07 04:29 | EMERGENCY ROOM VISIT NOTE ---
History Report prepared by Jemma: Carlos Manuel Wahl Under the Supervision of: Dr. Gomez Reyes D.O. First contact with patient: 04:13 Chief Complaint: VOMITING Stated Complaint: EXTREME PAIN,VOMITING History of Present Illness The patient is a 27 year old male who presents to the Emergency Room with complaints of persistent and severe abdominal pain and vomiting that began today several hours prior to arrival. He has not been able to eat secondary to his pain. The patient has been diagnosed with Stage IV colon cancer with metastasis to the abdomen. He had a Chemotherapy treatment on Sunday, four days prior to this visit. The patient commonly experiences nausea with his chemo treatments, but never to this severity. 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 A total of ten systems were reviewed and were otherwise negative. Past Medical & Surgical Medical Problems: (1) Cecum mass (2) Colon cancer metastasized to liver (3) GI bleed (4) Hydronephrosis of left kidney (5) Hydronephrosis of right kidney (6) Kidney stone Surgical Problems: (1) History of ureter stent Family History FH: cardiovascular disease Social History Smoking Status: Never Smoker Alcohol Use: occasionally Drug Use: none Marital Status: in relationship Housing Status: lives with family Occupation Status: employed Current/Historical Medications Scheduled Docusate Sodium (Colace), 1 CAP PO BID Probiotic Product (Probiotic), 1 CAP PO DAILY Sennosides (Senokot), 8.6 MG PO HS Sulfa/Trimethoprim (Bactrim Ds 800MG/160MG), 1 TAB PO BID Scheduled PRN Hydrocodone/Acetaminophen 5MG/325MG (Clint 5MG/325MG), 2 TABLETS PO Q6 PRN for Pain Ibuprofen Tab (Advil), 400 MG PO Q6H PRN for Pain Ondansetron (Ondansetron HCl), 1 TAB PO Q8 PRN for Nausea or Vomiting Sertraline HCl (Sertraline HCl), 0.5 TAB PO for Depression Allergies Coded Allergies: Cranberry Extract (Verified Allergy, Unknown, HIVES, 03/22/17) Lactose Intolerance (GI) (Verified Allergy, Unknown, ., 03/22/17) Physical Exam Vital Signs Date Time Temp Pulse Resp B/P (MAP) Pulse Ox O2 Delivery O2 Flow Rate FiO2 04/07/17 05:05 71 04/07/17 04:09 36.4 88 18 103/68 99 Room Air Physical Exam GENERAL: Awake, alert, cachetic appearing appearing and in pain. HENT: Normocephalic, atraumatic. Oropharynx unremarkable. EYES: Normal conjunctiva. Sclera non-icteric. NECK: Supple. No nuchal rigidity. FROM. No JVD. RESPIRATORY: Clear to auscultation. CARDIAC: Regular rate, normal rhythm. Extremities warm and well perfused. Pulses equal. ABDOMEN: Soft, non-distended. Tenderness in the RUQ. No rebound or guarding. No masses. RECTAL: Deferred. MUSCULOSKELETAL: Chest examination reveals no tenderness. The back is symmetrical on inspection without obvious abnormality. There is no CVA tenderness to palpation. No joint edema. LOWER EXTREMITIES: Calves are equal size bilaterally and non-tender. No edema. No discoloration. NEURO: Normal sensorium. No sensory or motor deficits noted. SKIN: No rash or jaundice noted. Medical Decision & Procedures ER Provider Diagnostic Interpretation: X ray results as stated below per my interpretation and radiologist interpretation. Other radiology results as stated below per my review and radiologist interpretation CT ABDOMEN & PELVIS: Comparison: CT abdomen and pelvis, 11/16/16. Hypoattenuating liver masses consistent with metastases. Gallbladder, spleen, pancreas, and adrenal glands are unremarkable. Right-sided ureteral stent appropriately positioned. Atrophic right kidney without hydronephrosis. Normal-appearing left kidney without hydronephrosis. No evidence of bowel obstruction. Again demonstrated is mural thickening in the cecum and distal ileum, and poorly evaluated without contrast. The appendix is not identified. Mild free pelvic fluid. Unremarkable urinary bladder and prostate. No acute osseous findings. Radiologist: Natan Noel M.D. Laboratory Results 04/07/17 04:45 Red Blood Count 4.46, Mean Corpuscular Volume 86.5, Mean Corpuscular Hemoglobin 29.8, Mean Corpuscular Hemoglobin Concent 34.5, Mean Platelet Volume 9.0, Neutrophils (%) (Auto) 75.5, Lymphocytes (%) (Auto) 14.8, Monocytes (%) (Auto) 6.5, Eosinophils (%) (Auto) 2.3, Basophils (%) (Auto) 0.7, Neutrophils # (Auto) 3.26, Lymphocytes # (Auto) 0.64, Monocytes # (Auto) 0.28, Eosinophils # (Auto) 0.10, Basophils # (Auto) 0.03 04/07/17 04:45 Test 04/07/17 04:45 White Blood Count 4.32 K/uL (4.8-10.8) Red Blood Count 4.46 M/uL (4.7-6.1) Hemoglobin 13.3 g/dL (14.0-18.0) Hematocrit 38.6 % (42-52) Mean Corpuscular Volume 86.5 fL (80-100) Mean Corpuscular Hemoglobin 29.8 pg (25-34) Mean Corpuscular Hemoglobin Concent 34.5 g/dl (32-36) Platelet Count 219 K/uL (130-400) Mean Platelet Volume 9.0 fL (7.4-10.4) Neutrophils (%) (Auto) 75.5 % Lymphocytes (%) (Auto) 14.8 % Monocytes (%) (Auto) 6.5 % Eosinophils (%) (Auto) 2.3 % Basophils (%) (Auto) 0.7 % Neutrophils # (Auto) 3.26 K/uL (1.4-6.5) Lymphocytes # (Auto) 0.64 K/uL (1.2-3.4) Monocytes # (Auto) 0.28 K/uL (0.11-0.59) Eosinophils # (Auto) 0.10 K/uL (0-0.5) Basophils # (Auto) 0.03 K/uL (0-0.2) RDW Standard Deviation 43.9 fL (36.4-46.3) RDW Coefficient of Variation 13.9 % (11.5-14.5) Immature Granulocyte % (Auto) 0.2 % Immature Granulocyte # (Auto) 0.01 K/uL (0.00-0.02) Anion Gap 8.0 mmol/L (3-11) Est Creatinine Clear Calc Drug Dose 92.7 ml/min Estimated GFR () 106.1 Estimated GFR (Non- 91.5 BUN/Creatinine Ratio 12.6 (10-20) Calcium Level 8.5 mg/dl (8.5-10.1) Total Bilirubin 0.8 mg/dl (0.2-1) Direct Bilirubin 0.2 mg/dl (0-0.2) Aspartate Amino Transf (AST/SGOT) 14 U/L (15-37) Alanine Aminotransferase (ALT/SGPT) 21 U/L (12-78) Alkaline Phosphatase 56 U/L (45-117) Total Protein 7.0 gm/dl (6.4-8.2) Albumin 3.8 gm/dl (3.4-5.0) Lipase 79 U/L (73-393) Laboratory results reviewed by me Medications Administered Medications (Trade) Dose Ordered Sig/Raúl Route Start Time Stop Time Status Last Admin Dose Admin Ondansetron HCl (Zofran Inj) 4 mg NOW STAT IV 04/07/17 04:21 04/07/17 04:24 DC 04/07/17 04:57 4 MG Hydromorphone HCl (Dilaudid Inj) 1 mg Q15M PRN IV 04/07/17 04:30 04/21/17 04:29 04/07/17 04:57 1 MG Sodium Chloride 1,000 ml @ 999 mls/hr Q1H1M STAT IV 04/07/17 04:21 04/07/17 05:21 DC 04/07/17 04:57 999 MLS/HR ED Course 0416: The patient was evaluated in room B6. A complete history and physical exam was performed. 0421: Ordered Sodium Chloride 1000 mL @ 999 mL/hr IV, Zofran 4 mg IV. 0430: Ordered Dilaudid 1 mg IV. 0539: I reevaluated the patient. Discussed results and discharge instructions with the patient and his family: He verbalized understanding and agreement. The patient is ready for discharge. Medical Decision Blood pressure screening: Patient was found to have normal blood pressure on screening and does not require follow-up. Medication Reconciliation: I attest that I have personally reviewed the patient' s current medication list. Differential Diagnosis include; exacerbation of cancer, bowel obstruction, gastroenteritis, dehydration. Resting in no distress on repeat examination. I discussed the evaluation the patient patient's family at bedside. Patient states he's much improved. Patient's CAT scan was reviewed by me labs were reviewed I discussed those results with the patient and family. Impression Primary Impression: Abdominal pain Additional Impression: Liver cancer Scribe Attestation The scribe's documentation has been prepared under my direction and personally reviewed by me in its entirety. I confirm that the note above accurately reflects all work, treatment, procedures, and medical decision making performed by me. Departure Information Dispostion Home / Self-Care Referrals Luisito Cheema D.O. (PCP) Patient Instructions Abdominal Pain, My [facility] Problem Qualifiers
[2017-04-07] MEDS ORDERED: HYDROmorphone INJ 1 MG/ML SYR IV PRN (04:30)
[2017-04-07 04:58] LABS: BASO % 0.7 %; BASO ABS # 0.03 K/uL (0-0.2); COMPLETE YES; EOS % 2.3 %; HEMATOCRIT 38.6 % (42-52); IG% 0.2 %; LYMPH % 14.8 %; LYMPH ABS # 0.64 K/uL (1.2-3.4); MEAN CELL VOLUME 86.5 fL (80-100); MEAN CORPUSCULAR HEMOGLOBIN 29.8 pg (25-34); MEAN CORPUSCULAR HGB CONC 34.5 g/dl (32-36); MONO % 6.5 %; NEUT % 75.5 %; PLATELET COUNT 219 K/uL (130-400); RED BLOOD COUNT 4.46 M/uL (4.7-6.1); WHITE BLOOD COUNT 4.32 K/uL (4.8-10.8)
[2017-04-07 05:19] LABS: BUN/CREATININE RATIO 12.6 (10-20); CALCIUM 8.5 mg/dl (8.5-10.1); CREATININE 1.1 mg/dl (0.60-1.40)
[2017-04-07 05:58] VITALS: BP 112/70; PULSE 75; O2SAT 100
--- NOTE | 2017-04-07 07:13 | DIAGNOSTIC IMAGING REPORT ---
ABDOMEN AND PELVIS CT WITHOUT CONTRAST CT DOSE: 276.19 mGy.cm HISTORY: Generalized abdominal pain pain TECHNIQUE: Multiaxial CT images of the abdomen and pelvis were performed without contrast. COMPARISON STUDY: Abdomen and pelvis CT 11/16/2016. FINDINGS: The lung bases are clear. No suspicious lytic or blastic osseous lesions. There are few hypodense lesions within the liver. Dominant lesion within the right hepatic lobe measures 3.7 x 3.1 cm, previously measuring 3.6 x 2.7 cm. There is a new 11 mm hypodense lesion within the anterior segment of the right hepatic lobe. There is increased in size in an 11 mm lesion within the left hepatic lobe. The unenhanced gallbladder, spleen, pancreas, and adrenal glands are unremarkable. Normal left kidney. Mild atrophy of the right kidney. A right ureteral stent is in good position. No bladder wall thickening. Suboptimal evaluation for bowel pathology due to the lack of intravenous and oral contrast. No evidence for bowel obstruction. There is again noted thickening of the cecum. There is also mild thickening of the distal ileal loops within the right lower quadrant. This is similar to the prior study. No retroperitoneal lymphadenopathy. Trace pelvic free fluid. IMPRESSION: 1. Slight increase in size and number of the hepatic masses consistent with metastases. 2. Pathologic bowel wall thickening involving the cecum in the distal ileal loops within the right lower quadrant. This is similar to the prior study. 3. Right ureteral stent is in good position. No right hydronephrosis. Electronically signed by: Yuniel Quevedo M.D. 04/07/2017 7:11 AM Dictated Date/Time: 04/07/2017 7:04 AM
[2017-07-11] MEDS ORDERED: DIPH1TAB87 PO (18:22)
== END 2017-04-07 05:59 | disposition home or self-care (01) ==
LOC: C.EDB 04:04
DX: C78.7 Secondary malignant neoplasm of liver and intrahepatic bile duct (principal); R10.9 Unspecified abdominal pain; C18.9 Malignant neoplasm of colon, unspecified; Z87.442 Personal history of urinary calculi; Z87.19 Personal history of other diseases of the digestive system; Z79.899 Other long term (current) drug therapy; Z91.018 Allergy to other foods; Z91.011 Allergy to milk products; Z82.49 Family history of ischemic heart disease and other diseases of the circulatory system

== ENCOUNTER 2017-06-25 12:05 | Emergency (ER) | payer BC, OTHER ==
[~2017-06-25] VITALS: Ht 177.8 cm; Wt 65.0 kg
[~2017-06-25 12:05] MED LIST changes: -DOCU-94 PO; -SENN1TAB77 PO; -SULF800T23 PO
[2017-06-25 12:15] VITALS: Ht 177.8 cm; Wt 65.0 kg
[2017-06-25] MEDS ORDERED: TRAM-10 PO (13:02)
[2017-06-25] MEDS ORDERED: MoRPHine SULFATE 4 MG/ML 1 ML CARP\\VIAL IV STA ×2 (14:11→17:06)
[2017-06-25] MEDS ORDERED: SODIUM CHLORIDE 0.9% 1000ML 1,000 ML IV STA ×2 (14:11→17:14)
[2017-06-25] MEDS ORDERED: ONDANSETRON INJ 2 MG/ML 2 ML VIAL IV STA (14:11)
--- NOTE | 2017-06-25 14:23 | EMERGENCY ROOM VISIT NOTE ---
History First contact with patient: 13:47 Chief Complaint: DIZZY Stated Complaint: FAINTED IN PARKING LOT, Nursing Triage Summary: hx colon cancer last chemo last week pt c/o nausea, vomiting for "last couple days." pt was shopping and fainted in a parking lot. +loc History of Present Illness The patient is a 27 year old male with past medical history stage IV colon cancer with metastasis to the liver who presents to the Emergency Room for evaluation of abdominal pain and a syncopal episode. The patient states that he last received chemotherapy 6 days ago. He states he has not been feeling well since then. He has had vomiting and has been unable to keep much food down. He does report he was able to eat this morning. He states that he went to the store with his girlfriend, and when he got out of the car he was not feeling well and felt like he was going to pass out. He had a syncopal episode which was witnessed by his girlfriend. She reports positive loss of consciousness which lasted less than 30 seconds. He reports he has had a sharp right-sided abdominal pain. He has had abdominal pain in the past, but states this is slightly more severe than previous. He reports he has been feeling fatigued over the last few days. He currently denies any chest pain, shortness of breath, changes in bowel movements, blood in his stools or urinary symptoms. He denies any recent illnesses or fevers/chills. Review of Systems A complete 10 point review of systems was reviewed with the patient with pertinent positives and negatives as per history of present illness. All else were negative. Past Medical/Surgical History Medical Problems: (1) Cecum mass (2) Colon cancer metastasized to liver (3) GI bleed (4) Hydronephrosis of left kidney (5) Hydronephrosis of right kidney (6) Kidney stone Surgical Problems: (1) History of ureter stent Family History FH: cardiovascular disease Social History Smoking Status: Former Smoker Alcohol Use: occasionally Drug Use: none Marital Status: in relationship Housing Status: lives with family Occupation Status: employed Current/Historical Medications Scheduled Probiotic Product (Probiotic), 1 CAP PO DAILY Scheduled PRN Ondansetron (Ondansetron HCl), 1 TAB PO Q8 PRN for Nausea or Vomiting Prochlorperazine Maleate (Compazine), 5-10 MG PO QID PRN for Nausea or Vomiting Sertraline HCl (Sertraline HCl), 0.5 TAB PO for Depression Tramadol (Ultram), 1 TAB PO TID PRN for Pain Allergies Coded Allergies: Cranberry Extract (Verified Allergy, Unknown, HIVES, 04/07/17) Lactose Intolerance (GI) (Verified Allergy, Unknown, ., 04/07/17) Physical Exam Vital Signs Date Time Temp Pulse Resp B/P (MAP) Pulse Ox O2 Delivery O2 Flow Rate FiO2 06/25/17 19:45 37.0 88 16 135/69 96 06/25/17 19:17 88 16 135/69 96 Room Air 06/25/17 19:05 87 16 06/25/17 18:35 88 21 06/25/17 18:05 97 17 06/25/17 17:35 94 15 06/25/17 17:30 96 22 06/25/17 17:25 91 20 06/25/17 17:22 115 06/25/17 17:21 145/78 06/25/17 15:45 80 12 06/25/17 15:40 78 14 06/25/17 15:35 87 17 06/25/17 15:30 79 16 131/95 06/25/17 15:00 79 20 129/91 06/25/17 14:55 76 14 06/25/17 14:50 83 24 06/25/17 14:45 88 19 06/25/17 14:40 81 23 06/25/17 14:35 85 18 06/25/17 14:30 87 26 06/25/17 14:25 87 15 06/25/17 14:20 104 24 06/25/17 14:15 73 14 06/25/17 14:10 79 16 06/25/17 14:05 85 22 06/25/17 14:00 89 15 06/25/17 13:55 78 13 06/25/17 13:50 94 19 06/25/17 13:46 113/71 06/25/17 13:45 84 18 06/25/17 13:40 76 16 06/25/17 13:35 79 14 06/25/17 13:30 83 18 06/25/17 13:25 72 9 06/25/17 13:20 85 13 06/25/17 13:15 74 11 06/25/17 13:10 80 21 06/25/17 13:05 82 13 06/25/17 13:02 109 06/25/17 13:01 130/73 06/25/17 13:01 90 128/77 98 Room Air 101 116/82 106 130/73 06/25/17 12:15 37.0 92 18 111/78 94 Room Air Physical Exam VITALS: Vitals are noted on the nurse's note and reviewed by myself. Vital signs stable. GENERAL: This is a 27-year-old male, in no acute distress, very thin appearing. HEAD: Normocephalic atraumatic. EARS: External auditory canals clear, tympanic membranes pearly [place] without erythema or effusion bilaterally. EYES: Pupils equal round and reactive to light and accommodation. Conjunctivae without injection, sclerae without icterus. Extraocular movements intact. MOUTH: Mucous membranes moist. NECK: Supple without nuchal rigidity. HEART: Regular rate and rhythm without murmurs gallops or rubs. LUNGS: Clear to auscultation bilaterally without wheezes, rales or rhonchi. ABDOMEN: Positive bowel sounds x 4. Soft, nondistended. There is tenderness to palpation in the right upper quadrant and right lower quadrant with no guarding or rebound tenderness. MUSCULOSKELETAL: Full range of motion throughout. NEURO: Patient was alert and oriented to person place and time. Medical Decision & Procedures ER Provider Diagnostic Interpretation: ABDOMEN 2VIEW W/PA CHEST RTN CLINICAL HISTORY: 27 years-old Male presenting with right sided abd pain, hx colon ca. TECHNIQUE: PA view of the chest and supine and upright views of the abdomen were obtained. COMPARISON: 04/01/[address] from 04/07/2017. FINDINGS: Left subclavian Mediport terminates in the superior vena cava. Cardiomediastinal silhouette normal. Lungs and pleural spaces clear. Right ureteral stent in place. Moderate stool burden in the ascending and descending colon. Stool degrade evaluation of the kidneys for calculi. Normal bowel gas pattern. No evidence of free intraperitoneal gas, pneumatosis, or portal venous gas. Osseous structures normal. IMPRESSION: 1. No acute cardiopulmonary disease. 2. No radiographic evidence of acute intra-abdominal pathology. Laboratory Results 06/25/17 14:30 Red Blood Count 4.32, Mean Corpuscular Volume 86.8, Mean Corpuscular Hemoglobin 29.9, Mean Corpuscular Hemoglobin Concent 34.4, Mean Platelet Volume 9.8, Neutrophils (%) (Auto) 73.2, Lymphocytes (%) (Auto) 16.5, Monocytes (%) (Auto) 7.5, Eosinophils (%) (Auto) 1.4, Basophils (%) (Auto) 0.9, Neutrophils # (Auto) 4.12, Lymphocytes # (Auto) 0.93, Monocytes # (Auto) 0.42, Eosinophils # (Auto) 0.08, Basophils # (Auto) 0.05 06/25/17 14:30 Test 06/25/17 14:30 06/25/17 16:50 White Blood Count 5.63 K/uL (4.8-10.8) Red Blood Count 4.32 M/uL (4.7-6.1) Hemoglobin 12.9 g/dL (14.0-18.0) Hematocrit 37.5 % (42-52) Mean Corpuscular Volume 86.8 fL (80-100) Mean Corpuscular Hemoglobin 29.9 pg (25-34) Mean Corpuscular Hemoglobin Concent 34.4 g/dl (32-36) Platelet Count 227 K/uL (130-400) Mean Platelet Volume 9.8 fL (7.4-10.4) Neutrophils (%) (Auto) 73.2 % Lymphocytes (%) (Auto) 16.5 % Monocytes (%) (Auto) 7.5 % Eosinophils (%) (Auto) 1.4 % Basophils (%) (Auto) 0.9 % Neutrophils # (Auto) 4.12 K/uL (1.4-6.5) Lymphocytes # (Auto) 0.93 K/uL (1.2-3.4) Monocytes # (Auto) 0.42 K/uL (0.11-0.59) Eosinophils # (Auto) 0.08 K/uL (0-0.5) Basophils # (Auto) 0.05 K/uL (0-0.2) RDW Standard Deviation 41.4 fL (36.4-46.3) RDW Coefficient of Variation 12.8 % (11.5-14.5) Immature Granulocyte % (Auto) 0.5 % Immature Granulocyte # (Auto) 0.03 K/uL (0.00-0.02) Anion Gap 8.0 mmol/L (3-11) Est Creatinine Clear Calc Drug Dose 132.5 ml/min Estimated GFR () 144.1 Estimated GFR (Non- 124.4 BUN/Creatinine Ratio 15.8 (10-20) Calcium Level 7.8 mg/dl (8.5-10.1) Magnesium Level 2.0 mg/dl (1.8-2.4) Total Bilirubin 0.4 mg/dl (0.2-1) Aspartate Amino Transf (AST/SGOT) 11 U/L (15-37) Alanine Aminotransferase (ALT/SGPT) 15 U/L (12-78) Alkaline Phosphatase 51 U/L (45-117) Total Protein 6.1 gm/dl (6.4-8.2) Albumin 3.3 gm/dl (3.4-5.0) Globulin 2.8 gm/dl (2.5-4.0) Albumin/Globulin Ratio 1.2 (0.9-2) Lipase 70 U/L (73-393) Urine Color DK YELLOW Urine Appearance CLOUDY (CLEAR) Urine pH 8.5 (4.5-7.5) Urine Specific [place] 1.026 (1.000-1.030) Urine Protein NEG (NEG) Urine Glucose (UA) NEG (NEG) Urine Ketones 1+ (NEG) Urine Occult Blood 2+ (NEG) Urine Nitrite NEG (NEG) Urine Bilirubin NEG (NEG) Urine Urobilinogen NEG (NEG) Urine Leukocyte Esterase TRACE (NEG) Urine WBC (Auto) 1-5 /hpf (0-5) Urine RBC (Auto) >30 /hpf (0-4) Urine Hyaline Casts (Auto) 5-10 /lpf (0-5) Urine Epithelial Cells (Auto) >30 /lpf (0-5) Urine Bacteria (Auto) 1+ (NEG) Urine Renal Epithelial Cells 0-5 /lpf (0-5) Medications Administered Medications (Trade) Dose Ordered Sig/Raúl Route Start Time Stop Time Status Last Admin Dose Admin Sodium Chloride 1,000 ml @ 999 mls/hr Q1H1M STAT IV 06/25/17 14:11 06/25/17 15:11 DC 06/25/17 14:56 999 MLS/HR Ondansetron HCl (Zofran Inj) 4 mg NOW STAT IV 06/25/17 14:11 06/25/17 14:13 DC 06/25/17 14:56 4 MG Morphine Sulfate (MoRPHine SULFATE INJ) 4 mg NOW STAT IV 06/25/17 14:11 06/25/17 14:13 DC 06/25/17 14:55 4 MG Morphine Sulfate (MoRPHine SULFATE INJ) 4 mg NOW STAT IV 06/25/17 17:06 06/25/17 17:07 DC 06/25/17 17:33 4 MG Prochlorperazine Edisylate (Compazine Inj) 10 mg NOW STAT IV 06/25/17 17:14 06/25/17 17:16 DC 06/25/17 17:33 10 MG Sodium Chloride 1,000 ml @ 999 mls/hr Q1H1M STAT IV 06/25/17 17:14 06/25/17 18:14 DC 06/25/17 17:32 999 MLS/HR Diphenhydramine HCl (Benadryl Inj) 25 mg NOW STAT IV 06/25/17 18:08 06/25/17 18:09 DC 06/25/17 18:10 25 MG Heparin Sodium (Porcine) (Heparin 10 Unit/ ml 5 ml Flush) 5 ml STK-MED ONCE .ROUTE 06/25/17 19:17 06/25/17 19:18 DC 06/25/17 19:17 5 ML ECG Rate (beats per minute): 77 Rhythm: normal sinus Findings: no acute ischemic change, no ectopy Change: no significant change ED Course The patient was evaluated as above. Labs were drawn and IV access was obtained. Patient was medicated with 4 mg morphine, 4 mg Zofran and 1 L normal saline solution. Patient was reevaluated and findings were discussed. His pain is returning. He was given an additional 4 mg morphine. Patient states he is feeling nauseous again. He was given 10 mg Compazine. Patient was feeling slightly anxious and shaky. He was given a dose of Benadryl with relief. Patient was reevaluated and states he is feeling much better. Discharge instructions were discussed. The patient verbalized understanding of my assessment and treatment plan and was discharged home in good condition. Medical Decision Differential diagnosis includes chemotherapy-induced vomiting, bowel obstruction , colitis, cholecystitis, appendicitis, gastroenteritis, among others. The patient is a 27-year-old male with history of stage IV colon cancer who presents today complaining of vomiting and a syncopal episode. Labs revealed no leukocytosis. Patient has a stable, chronic anemia. Calcium was low, however when corrected for albumin was found to be 8.3. X-ray showed no evidence of obstruction. EKG was interpreted by myself and is unremarkable. Orthostatic vital signs were positive for increase of heart rate by 16 bpm. The patient has not been eating or drinking much due to nausea and vomiting. I feel he was likely dehydrated, causing the syncopal episode today. The patient takes Zofran at home for his nausea, but states that this does not always work. I spoke with the ED pharmacist, who consulted one of the oncology pharmacist, who recommended adding on Compazine for adequate control of nausea and vomiting. This will be prescribed to him at home. The patient does have some right lower quadrant abdominal pain, which has been intermittent for him since his diagnosis of colon cancer. He does state it is more severe today than it is at other times. We discussed possibly performing a CT scan versus discharge home with close observation and the patient prefers to be discharged home. He understands he is welcome to return at any time if further testing or treatment is needed. The patient's case was reviewed with Dr. Vicente, ED attending physician, who agreed with my assessment and treatment plan. Based on the patient's presentation and work up, I feel the patient is stable for outpatient treatment. The patient was educated to return to the emergency department for any worsening of their current condition or new/concerning symptoms. He will follow up with his oncologist. Medication reconciliation: I attest that I have personally reviewed the patient 's current medication list. Blood pressure screening: Patient was found to have normal blood pressure on screening and does not require follow-up. Impression Primary Impression: Dehydration Additional Impression: Vomiting due to chemotherapy Departure Information Dispostion Home / Self-Care Condition GOOD Prescriptions Prochlorperazine Maleate (COMPAZINE) 5 Mg Tab 5-10 MG PO QID Y for Nausea or Vomiting, #30 TAB Prov: Janene Lynn .CARLY 06/25/17 Referrals Luisito Cheema D.O. (PCP) Patient Instructions My [facility] Additional Instructions You may take the Compazine, 1-2 tablets up to 4 times daily as needed for nausea /vomiting that is not controlled by the Zofran. Rest and stay well hydrated. For pain control, you can use the following [id number] medicines (if >12 yo): - Regular strength (325mg/tab) Tylenol (acetaminophen) 2 tabs every 4-6 hours as needed. Do not exceed 12 tablets in a 24 hour period. Avoid taking more than 4 grams (4000 mg) of Tylenol per day. This includes any other sources of acetaminophen you may take on a regular basis. - Regular strength (200 mg/tab) Advil (ibuprofen) 1-2 tabs every 4-6 hours as needed. Do not exceed a dose of 3200 mg per day. Follow-up with your oncologist and primary care provider for further hydration. Return to the emergency department with any worsening pain, intractable vomiting , fevers or other new/concerning symptoms. Problem Qualifiers
[2017-06-25 14:59] LABS: BASO % 0.9 %; BASO ABS # 0.05 K/uL (0-0.2); COMPLETE YES; EOS % 1.4 %; HEMATOCRIT 37.5 % (42-52); IG% 0.5 %; LYMPH % 16.5 %; LYMPH ABS # 0.93 K/uL (1.2-3.4); MEAN CELL VOLUME 86.8 fL (80-100); MEAN CORPUSCULAR HEMOGLOBIN 29.9 pg (25-34); MEAN CORPUSCULAR HGB CONC 34.4 g/dl (32-36); MEAN PLATELET VOLUME 9.8 fL (7.4-10.4); MONO % 7.5 %; NEUT % 73.2 %; PLATELET COUNT 227 K/uL (130-400); RED BLOOD COUNT 4.32 M/uL (4.7-6.1); WHITE BLOOD COUNT 5.63 K/uL (4.8-10.8)
[2017-06-25 15:13] LABS: BUN/CREATININE RATIO 15.8 (10-20); CALCIUM 7.8 mg/dl (8.5-10.1); CREATININE 0.77 mg/dl (0.60-1.40); POTASSIUM 3.7 mmol/L (3.5-5.1)
[2017-06-25 15:15] LABS: ALB/GLOB RATIO 1.2 (0.9-2)
--- NOTE | 2017-06-25 15:32 | DIAGNOSTIC IMAGING REPORT ---
ABDOMEN 2VIEW W/PA CHEST RTN CLINICAL HISTORY: 27 years-old Male presenting with right sided abd pain, hx colon ca. TECHNIQUE: PA view of the chest and supine and upright views of the abdomen were obtained. COMPARISON: 04/01/[address] from 04/07/2017. FINDINGS: Left subclavian Mediport terminates in the superior vena cava. Cardiomediastinal silhouette normal. Lungs and pleural spaces clear. Right ureteral stent in place. Moderate stool burden in the ascending and descending colon. Stool degrade evaluation of the kidneys for calculi. Normal bowel gas pattern. No evidence of free intraperitoneal gas, pneumatosis, or portal venous gas. Osseous structures normal. IMPRESSION: 1. No acute cardiopulmonary disease. 2. No radiographic evidence of acute intra-abdominal pathology. Electronically signed by: Pancho Kendrick M.D. 06/25/2017 3:31 PM Dictated Date/Time: 06/25/2017 3:29 PM
[2017-06-25 17:07] LABS: URINE APPEARANCE CLOUDY (CLEAR); URINE BILIRUBIN NEG (NEG); URINE COLOR DK YELLOW; URINE EPITHELIAL CELL AUTO >30 /lpf (0-5); URINE NITRITE NEG (NEG); URINE PH 8.5 (4.5-7.5); URINE SPECIFIC GRAVITY 1.026 (1.000-1.030); UROBILINOGEN NEG (NEG); ZZUR CULT IF INDIC CLEAN CATCH NO
[2017-06-25 17:09] LABS: MANUAL MICROSCOPIC REQUIRED? NO; REVIEW REQ? YES
[2017-06-25 17:10] LABS: SULFASALICYLIC ACID NEG (NEG)
[2017-06-25] MEDS ORDERED: PROCHLORPERAZINE 5 MG/ML 2 ML VIAL IV STA (17:14)
[2017-06-25] MEDS ORDERED: DiphenhydrAMINE HCL 50 MG/ML VIAL IV STA (18:08)
[2017-06-25] MEDS ORDERED: DiphenhydrAMINE HCL 50 MG/ML VIAL ONE (18:10)
[2017-06-25] MEDS ORDERED: PROC5TAB PO (19:21)
[2017-06-25 19:45] VITALS: BP 135/69; PULSE 88; TEMP 37; O2SAT 96
== END 2017-06-25 19:52 | disposition home or self-care (01) ==
LOC: C.EDB 12:06 → C.EDC 19:52
DX: E86.0 Dehydration (principal); R11.10 Vomiting, unspecified; Z87.891 Personal history of nicotine dependence

== ENCOUNTER 2017-07-11 17:48 | Inpatient (IN) | payer BC, OTHER ==
[~2017-07-11] VITALS: Ht 177.8 cm; Wt 56.5 kg
[~2017-07-11 17:48] MED LIST changes: -HYDR-5688 PO; -IBUP-103 PO; +TRAM-10 PO
[2017-07-11] MEDS ORDERED: LORAZEPAM 2 MG/ML 1 ML VIAL IV STA (17:58)
[2017-07-11] MEDS ORDERED: ONDANSETRON INJ 2 MG/ML 2 ML VIAL IV STA (17:58)
[2017-07-11] MEDS ORDERED: SODIUM CHLORIDE 0.9% 1000ML 1,000 ML IV ONE (18:00)
[2017-07-11] MEDS ORDERED: DIPH1TAB PO (18:22)
--- NOTE | 2017-07-11 18:24 | DIAGNOSTIC IMAGING REPORT ---
CHEST ONE VIEW PORTABLE CLINICAL HISTORY: Syncope vs seizure COMPARISON STUDY: Chest radiograph June 25, 2017. FINDINGS: A left subclavian [id number]-j-[id number] is in place. Lung volumes are normal. There is no pneumothorax or pleural effusion. Pulmonary vascularity is normal. Cardiomediastinal silhouette is normal. IMPRESSION: No acute cardiopulmonary findings. Electronically signed by: Naeem Alvarado M.D. 07/11/2017 6:22 PM Dictated Date/Time: 07/11/2017 6:20 PM
[2017-07-11 18:26] LABS: BASO % 0.7 %; BASO ABS # 0.06 K/uL (0-0.2); COMPLETE YES; EOS % 1.1 %; HEMATOCRIT 43.3 % (42-52); LYMPH % 12.3 %; LYMPH ABS # 1.11 K/uL (1.2-3.4); MEAN CELL VOLUME 88.4 fL (80-100); MEAN CORPUSCULAR HEMOGLOBIN 28.8 pg (25-34); MEAN CORPUSCULAR HGB CONC 32.6 g/dl (32-36); MEAN PLATELET VOLUME 9.5 fL (7.4-10.4); MONO % 10.3 %; NEUT % 74.6 %; PLATELET COUNT 245 K/uL (130-400); WHITE BLOOD COUNT 9.01 K/uL (4.8-10.8)
[2017-07-11 18:38] LABS: PROTHROMBIN TIME (PATIENT) 10.8 SECONDS (9.0-12.0)
[2017-07-11 18:53] LABS: BUN/CREATININE RATIO 9.5 (10-20); CALCIUM 9.2 mg/dl (8.5-10.1); CREATININE 1.3 mg/dl (0.60-1.40); MAGNESIUM 2.3 mg/dl (1.8-2.4); POTASSIUM 3.5 mmol/L (3.5-5.1)
[2017-07-11 19:04] LABS: ALB/GLOB RATIO 1.1 (0.9-2); PHOSPHORUS 2.4 mg/dl (2.5-4.9); THYROID STIMULATING HORMONE 2.55 uIu/ml (0.300-4.500)
--- NOTE | 2017-07-11 19:11 | DIAGNOSTIC IMAGING REPORT ---
CT OF THE HEAD WITHOUT CONTRAST CLINICAL HISTORY: Syncope vs Seizure. History of colon cancer. COMPARISON STUDY: Head CT November 16, 2016. CT DOSE: 537.48 mGy.cm TECHNIQUE: Helical axial images of the head were obtained without IV contrast. Automated exposure control was utilized for the study. A dose lowering technique was utilized adhering to the principles of ALARA. FINDINGS: No acute intracranial hemorrhage, midline shift or mass effect is present. Brain volume is normal. Ventricular system is normal. Basilar cisterns are patent. There are no extra-axial collections. Malagon-white differentiation is maintained. There are no findings to suggest acute dural sinus thrombosis or acute territorial infarct. There are no significant calvarial abnormalities. Visualized portions of the sinuses and mastoid air cells are clear. IMPRESSION: No acute intracranial findings. Electronically signed by: Naeem Alvarado M.D. 07/11/2017 7:10 PM Dictated Date/Time: 07/11/2017 7:07 PM
[2017-07-11 19:51] LABS: URINE APPEARANCE CLOUDY (CLEAR); URINE BILIRUBIN NEG (NEG); URINE COLOR YELLOW; URINE EPITHELIAL CELL AUTO >30 /lpf (0-5); URINE NITRITE NEG (NEG); URINE SPECIFIC GRAVITY 1.024 (1.000-1.030); UROBILINOGEN NEG (NEG); ZZUR CULT IF INDIC CLEAN CATCH YES
[2017-07-11 19:52] LABS: MANUAL MICROSCOPIC REQUIRED? NO; REVIEW REQ? YES
[2017-07-11 20:10] LABS: BENZODIAZEPINE, URINE NEG (NEG); COCAINE,URINE NEG (NEG); PHENCYCLIDINE, URINE NEG (NEG)
[2017-07-11] MEDS ORDERED: OPTIRAY 320 IV PRN (21:30)
--- NOTE | 2017-07-11 22:07 | EMERGENCY ROOM VISIT NOTE ---
History First contact with patient: 17:53 Chief Complaint: SEIZURE Stated Complaint: POSS. 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 History of Present Illness The patient is a 27 year old male who presents to the Emergency Room with complaints of syncopal episode versus seizure that happened just prior to arrival. The patient's was at a local department store when he awoke on the floor. The patient arrives via ambulance and while he was mildly confused initially did not seem distinct the post ictal. The patient is not having shoulder pain or mouth pain. He is nauseated and did have one episode of emesis. The patient has a significant history of stage IV colon cancer. He is not currently undergoing chemotherapy, and evidently his last treatment was about 3 or 4 weeks ago. The patient has now had 2 of these syncopal versus seizure episodes in the past 16 days. He is having significant dizziness with change in position. He is describing the room as spinning. He is not complaining of head pain, neck pain, chest pain, chest tightness, shortness of breath, palpitations, or abdominal discomfort. He does not describe any cardiac symptoms before or after the event. He rates his current discomfort a 5 /10. Review of Systems More than 10 systems were reviewed and otherwise negative with the exception of history of present illness. Past Medical/Surgical History Medical Problems: (1) Cecum mass (2) Colon cancer metastasized to liver (3) GI bleed (4) Hydronephrosis of left kidney (5) Hydronephrosis of right kidney (6) Kidney stone Surgical Problems: (1) History of ureter stent Family History FH: cardiovascular disease Social History Smoking Status: Never Smoker Alcohol Use: occasionally Drug Use: none Marital Status: in relationship Housing Status: lives with family Occupation Status: employed Current/Historical Medications Scheduled Probiotic Product (Probiotic), 1 CAP PO DAILY Scheduled PRN Diphenhydramine Hcl (Benadryl Allergy), 25 MG PO DAILY PRN for PRN Ondansetron (Ondansetron HCl), 1 TAB PO Q8 PRN for Nausea or Vomiting Sertraline HCl (Sertraline HCl), 0.5 TAB PO for Depression Tramadol (Ultram), 1 TAB PO TID PRN for Pain Physical Exam Vital Signs Date Time Temp Pulse Resp B/P (MAP) Pulse Ox O2 Delivery O2 Flow Rate FiO2 07/11/17 22:53 86 16 124/84 97 Room Air 07/11/17 22:50 82 07/11/17 20:47 36.4 90 24 132/85 100 Room Air 07/11/17 18:43 103 18 133/91 98 Room Air 07/11/17 18:23 36.5 137 20 140/86 Room Air 98 07/11/17 18:17 98 Room Air 07/11/17 18:17 98 Room Air 07/11/17 18:17 98 Room Air 07/11/17 18:02 98 Room Air 07/11/17 18:02 98 Room Air 07/11/17 18:02 36.5 137 20 148/86 98 Room Air 07/11/17 17:59 129 Physical Exam VITALS: Vitals are noted on the nurse's note and reviewed by myself. Vital signs with tachycardia GENERAL: Thin and pale appearing white male who is resting comfortably in his emergency department bed. He is answering questions appropriate. GCS 15. HEAD: Normocephalic atraumatic. MOUTH: Mucous membranes moist. Tonsils are not enlarged. Pharynx without erythema, blood, or exudate. Uvula midline. Airway patent. NECK: Supple without nuchal rigidity. No lymphadenopathy. No thyromegaly. Cervical spine is nontender. HEART: Tachycardic rate with regular rhythm LUNGS: Clear to auscultation bilaterally without wheezes, rales or rhonchi. No retractions or accessory muscle use. ABDOMEN: Positive normal bowel sounds x 4. Soft, nontender, without masses or organomegaly. No guarding or rebound tenderness. MUSCULOSKELETAL: No muscle atrophy, erythema, or edema noted. Full range of motion without joint tenderness in all extremities. NEURO: Patient was alert and oriented to person place and time. CN II through XII grossly intact. Deep tendon reflexes 2+ throughout. No focal neurological deficits SKIN: The skin was without rashes, erythema, edema, or bruising. Capillary reflex less than 2 seconds. Medical Decision & Procedures ER Provider Diagnostic Interpretation: CT OF THE HEAD WITHOUT CONTRAST CLINICAL HISTORY: Syncope vs Seizure. History of colon cancer. COMPARISON STUDY: Head CT November 16, 2016. CT DOSE: 537.48 mGy.cm TECHNIQUE: Helical axial images of the head were obtained without IV contrast. Automated exposure control was utilized for the study. A dose lowering technique was utilized adhering to the principles of ALARA. FINDINGS: No acute intracranial hemorrhage, midline shift or mass effect is present. Brain volume is normal. Ventricular system is normal. Basilar cisterns are patent. There are no extra-axial collections. Malagon-white differentiation is maintained. There are no findings to suggest acute dural sinus thrombosis or acute territorial infarct. There are no significant calvarial abnormalities. Visualized portions of the sinuses and mastoid air cells are clear. IMPRESSION: No acute intracranial findings. CHEST ONE VIEW PORTABLE CLINICAL HISTORY: Syncope vs seizure COMPARISON STUDY: Chest radiograph June 25, 2017. FINDINGS: A left subclavian [id number]-a-[id number] is in place. Lung volumes are normal. There is no pneumothorax or pleural effusion. Pulmonary vascularity is normal. Cardiomediastinal silhouette is normal. IMPRESSION: No acute cardiopulmonary findings. Laboratory Results 07/11/17 18:15 Red Blood Count 4.90, Mean Corpuscular Volume 88.4, Mean Corpuscular Hemoglobin 28.8, Mean Corpuscular Hemoglobin Concent 32.6, Mean Platelet Volume 9.5, Neutrophils (%) (Auto) 74.6, Lymphocytes (%) (Auto) 12.3, Monocytes (%) (Auto) 10.3, Eosinophils (%) (Auto) 1.1, Basophils (%) (Auto) 0.7, Neutrophils # (Auto ) 6.72, Lymphocytes # (Auto) 1.11, Monocytes # (Auto) 0.93, Eosinophils # (Auto ) 0.10, Basophils # (Auto) 0.06 07/11/17 18:15 Test 07/11/17 18:15 07/11/17 18:22 07/11/17 19:24 White Blood Count 9.01 K/uL (4.8-10.8) Red Blood Count 4.90 M/uL (4.7-6.1) Hemoglobin 14.1 g/dL (14.0-18.0) Hematocrit 43.3 % (42-52) Mean Corpuscular Volume 88.4 fL (80-100) Mean Corpuscular Hemoglobin 28.8 pg (25-34) Mean Corpuscular Hemoglobin Concent 32.6 g/dl (32-36) Platelet Count 245 K/uL (130-400) Mean Platelet Volume 9.5 fL (7.4-10.4) Neutrophils (%) (Auto) 74.6 % Lymphocytes (%) (Auto) 12.3 % Monocytes (%) (Auto) 10.3 % Eosinophils (%) (Auto) 1.1 % Basophils (%) (Auto) 0.7 % Neutrophils # (Auto) 6.72 K/uL (1.4-6.5) Lymphocytes # (Auto) 1.11 K/uL (1.2-3.4) Monocytes # (Auto) 0.93 K/uL (0.11-0.59) Eosinophils # (Auto) 0.10 K/uL (0-0.5) Basophils # (Auto) 0.06 K/uL (0-0.2) RDW Standard Deviation 42.0 fL (36.4-46.3) RDW Coefficient of Variation 12.9 % (11.5-14.5) Immature Granulocyte % (Auto) 1.0 % Immature Granulocyte # (Auto) 0.09 K/uL (0.00-0.02) Prothrombin Time 10.8 SECONDS (9.0-12.0) Prothromb Time International Ratio 1.0 (0.9-1.1) Activated Partial Thromboplast Time 26.6 SECONDS (21.0-31.0) Partial Thromboplastin Ratio 1.0 Anion Gap 18.0 mmol/L (3-11) Est Creatinine Clear Calc Drug Dose 77.0 ml/min Estimated GFR () 86.7 Estimated GFR (Non- 74.8 BUN/Creatinine Ratio 9.5 (10-20) Bedside Glucose 115 mg/dl (70-99) Calcium Level 9.2 mg/dl (8.5-10.1) Phosphorus Level 2.4 mg/dl (2.5-4.9) Magnesium Level 2.3 mg/dl (1.8-2.4) Total Bilirubin 0.3 mg/dl (0.2-1) Aspartate Amino Transf (AST/SGOT) 19 U/L (15-37) Alanine Aminotransferase (ALT/SGPT) 18 U/L (12-78) Alkaline Phosphatase 66 U/L (45-117) Total Protein 7.7 gm/dl (6.4-8.2) Albumin 4.1 gm/dl (3.4-5.0) Globulin 3.6 gm/dl (2.5-4.0) Albumin/Globulin Ratio 1.1 (0.9-2) Thyroid Stimulating Hormone (TSH) 2.550 uIu/ml (0.300-4.500) Bedside Troponin I < 0.030 ng/ml (0-0.045) Urine Color YELLOW Urine Appearance CLOUDY (CLEAR) Urine pH 5.0 (4.5-7.5) Urine Specific [place] 1.024 (1.000-1.030) Urine Protein 2+ (NEG) Urine Glucose (UA) NEG (NEG) Urine Ketones NEG (NEG) Urine Occult Blood 3+ (NEG) Urine Nitrite NEG (NEG) Urine Bilirubin NEG (NEG) Urine Urobilinogen NEG (NEG) Urine Leukocyte Esterase NEG (NEG) Urine WBC (Auto) 10-30 /hpf (0-5) Urine RBC (Auto) >30 /hpf (0-4) Urine Hyaline Casts (Auto) /lpf (0-5) Urine Epithelial Cells (Auto) >30 /lpf (0-5) Urine Bacteria (Auto) 1+ (NEG) Urine Renal Epithelial Cells /lpf (0-5) Urine Pathogenic Casts /lpf (0) Urine Opiates Screen NEG (NEG) Urine Methadone, Qualitative NEG (NEG) Urine Barbiturates NEG (NEG) Urine Phencyclidine (PCP) Level NEG (NEG) Ur Amphetamine/Methamphetamine NEG (NEG) MDMA (Ecstasy) Screen NEG (NEG) Urine Benzodiazepines Screen NEG (NEG) Urine Cocaine Metabolite NEG (NEG) Urine Marijuana (THC) NEG (NEG) Medications Administered Medications (Trade) Dose Ordered Sig/Raúl Route Start Time Stop Time Status Last Admin Dose Admin Sodium Chloride 1,000 ml @ 999 mls/hr Q1H1M ONCE IV 07/11/17 18:00 07/11/17 19:00 DC 07/11/17 18:29 999 MLS/HR Ondansetron HCl (Zofran Inj) 4 mg NOW STAT IV 07/11/17 17:58 07/11/17 18:03 DC 07/11/17 18:09 4 MG Lorazepam (Ativan Inj) 0.5 mg NOW STAT IV 07/11/17 17:58 07/11/17 18:03 DC 07/11/17 17:58 0.5 MG ED Course Physical exam and history were performed. Nursing notes, EMR, and Medication List were personally reviewed. Patient appears to have had a syncopal versus seizure episode today prompting his presentation to the department. The patient has a history of stage IV colon cancer. IV access was established and labs were obtained. The patient placed on the court recording monitor. EKG showed sinus tachycardia without acute ST elevation or evidence of ischemia. The patient was hydrated and medicated as above. He does describe some vertiginous symptoms at this point, and I did elect to perform CT scan of his head. Portable chest was performed that did not show acute findings. The patient was reevaluated multiple times with course of his stay. He does not have a significant elevated white blood cell count or gross anemia, bandemia , or significant electrolyte imbalance. His CT scan of his head does not show significant acute findings, and after hydration and medication his heart rate did begin to normalize. I discussed the case with the patient's on-call oncologist. He normally sees Dr. Shabazz of [facility] oncology, and I did speak with Dr. Malagon. Evidently the patient did have a routine follow-up 5 days ago with the oncology office, and orders for outpatient CT scan of the chest, abdomen, and pelvis were ordered for staging, but not scheduled. The episodes of syncope versus seizure are new for the patient, and oncology felt that admission may be necessary. Considering that the patient has new symptoms and he is tachycardic today I certainly will need a CT scan of his chest now that his headache has been cleared. I will also add on the abdomen and pelvis studies due to his significant history of colon cancer. The patient and I had a lengthy discussion regarding further options of care. I do feel the patient needs admission for further care and evaluation. The case was discussed with the on-call hospitalist, who agreed to evaluate the patient here in the department. Please see their dictation for further vision course, plan, and disposition. The chart was completed utilizing [employer] Voice Recognition Software. Grammatical errors, random word insertions, pronoun errors, and incomplete sentences are an occasional consequence of this system due to software limitations, ambient noise, and hardware issues. Any formal questions or concerns about the content, text, or information contained within the body of this dictation should be directly addressed to the provider for clarification. . Medical Decision Differential diagnosis: Etiologies such as vasovagal event, infection, hypoglycemia, electrolyte abnormalities, cardiac sources, intracerebral event, toxicologic, neurologic, as well as others were entertained. Head Trauma GCS Score: 15 Medication Reconcilliation Current Medication List: was personally reviewed by me Blood Pressure Screening Blood pressure disposition: Elevated BP felt to be situational Impression Primary Impression: Syncope and collapse Additional Impressions: Tachycardia Nausea & vomiting Vertigo Departure Information Referrals Luisito Cheema D.O. (PCP) Patient Instructions My [facility] Problem Qualifiers
--- NOTE | 2017-07-11 22:15 | DIAGNOSTIC IMAGING REPORT ---
CT ANGIOGRAPHY OF THE CHEST, PULMONARY EMBOLUS PROTOCOL CLINICAL HISTORY: Possible seizure. History of colon cancer. COMPARISON STUDY: Chest CT January 31, 2016, PET CT April 12, 2016 and chest radiograph performed earlier today. TECHNIQUE: Following IV administration of 115 mL of Optiray-320, helical axial images of the chest were obtained utilizing the pulmonary embolus protocol. Maximal intensity projections and sagittal and coronal reformats were viewed on an independent 3D workstation. IV contrast was administered without complication. A dose lowering technique was utilized adhering to the principles of ALARA. CT DOSE: 510.25 mGy.cm FINDINGS: No pulmonary emboli are identified. There is no evidence of thoracic aortic dissection. The size of the heart is normal. There is no pericardial effusion. A left subclavian Cgiecu-r-Kowd is in place. No enlarged axillary, mediastinal or hilar lymph nodes are present. There are no areas of consolidation. No pneumothorax or pleural effusion is present. There are no suspicious pulmonary nodule. No acute rib or thoracic spine fracture is identified on this exam. Multiple hepatic masses are better depicted on the CT of the abdomen and pelvis. Right hydroureteronephrosis with ureteral stent is in place. Right renal atrophy is noted. These findings are better depicted on the abdominal CT. IMPRESSION: 1. No pulmonary emboli identified. 2. No acute intrathoracic findings. 3. No evidence of metastatic disease within the chest. 4. Multiple hepatic lesions which are better depicted on the abdominal CT. Please see that report for further description. Electronically signed by: Naeem Alvarado M.D. 07/11/2017 10:14 PM Dictated Date/Time: 07/11/2017 10:04 PM
--- NOTE | 2017-07-11 22:30 | DIAGNOSTIC IMAGING REPORT ---
CT OF THE ABDOMEN AND PELVIS WITH CONTRAST CLINICAL HISTORY: Seizure/Syncope. History of metastatic colon cancer COMPARISON STUDY: CT of the abdomen and pelvis April 07, 2017. TECHNIQUE: Following IV administration of 115 mL of Optiray-320, axial images of the abdomen and pelvis were obtained from the lung bases to the proximal femurs. Images were reviewed in the axial, sagittal, and coronal planes. IV contrast was administered without complication. A dose lowering technique was utilized adhering to the principles of ALARA. Oral contrast was administered. FINDINGS: No pneumoperitoneum is present. There is a small amount of low-attenuation fluid within the left lower quadrant. Several hepatic lesions have not significantly changed since exam of April 07, 2017 and include a right hepatic lobe lesion that measures 2.6 x 2.9 cm. A segment 5 lesion measures 1 cm. A segment 2 lesion measures 1.3 cm. No new hepatic lesions are present. The spleen, adrenal glands and pancreas are normal as is the left kidney. Severe right hydronephrosis has increased since prior exam. A right ureteral stent is in place. There is moderate right renal atrophy. Wall thickening of the cecum and terminal ileum is noted. This is either stable or slightly increased since prior exam. This is at site of primary tumor shown on CT of January 11, 2015. No enlarged abdominal or pelvic lymph nodes are present. No acute lumbar spine or pelvic fracture is identified. IMPRESSION: 1. Small amount of low-attenuation fluid within the left lower quadrant, a nonspecific finding. 2. No significant change in several hepatic lesions since exam of April 07, 2017. These likely reflect metastases. No new hepatic lesions identified. 3. Severe right hydronephrosis which has increased since prior exam. Right ureteral stent in place. Moderate right renal atrophy. 4. Mild wall thickening of the cecum and terminal ileum which is either stable or slightly increased since prior exam. This is at site of primary tumor shown on CT of January 11, 2015. No abdominal or pelvic lymphadenopathy. Electronically signed by: Naeem Alvarado M.D. 07/11/2017 10:28 PM Dictated Date/Time: 07/11/2017 10:18 PM
[2017-07-12] MEDS ORDERED: ACETAMINOPHEN 325 MG TAB PO PRN (01:00)
[2017-07-12] MEDS ORDERED: POLYETHYLENE (MIRALAX) 17 GM PACK PO PRN (01:00)
[2017-07-12] MEDS ORDERED: ONDANSETRON 8 MG TAB PO PRN (01:00)
[2017-07-12] MEDS ORDERED: ONDANSETRON INJ 2 MG/ML 2 ML VIAL IV PRN (01:00)
[2017-07-12] MEDS ORDERED: ALUMINUM/MAGNESIUM/SIMETH (MAALOX MAX) 30 ML UDC PO PRN (01:00)
[2017-07-12] MEDS ORDERED: SERTRALINE HCL 100 MG TAB PO PRN (01:00)
--- NOTE | 2017-07-12 01:04 | History and Physical ---
History & Physical Date & Time of Service: Jul 12, 2017 at 01:04 Chief Complaint: Poss. Seizure Primary Care Physician: Luisito Cheema D.O. History of Present Illness Source: patient 27-year-old male with a past medical history of cecal cancer with liver metastasis presented to the ER with complaints of a possible syncopal episode prior to arrival. Per the patient's fianc, he had passed out at a department store and was probably unconscious for about 2-5 minutes . This episode was not witnessed by anyone. There was no bowel or bladder incontinence or tongue biting. He was mildly confused initially but was still oriented. He was diagnosed with stage IV cecal cancer and is currently undergoing chemotherapy. His last chemotherapy was about 3 weeks ago. Complains of nausea and diarrhea which is at baseline. Denies any fevers or chills, urinary complaints. He does have a history of urinary stenting on his right side due to obstruction by the cancer. Denies any chest pain, shortness of breath, palpitations. Denies any injury to the head. Past Medical/Surgical History Medical Problems: (1) Cecum mass Status: Chronic (2) Colon cancer metastasized to liver Permanent Comment: DIAGNOSIS: Colorectal, cecum, adenocarcinoma, metastatic to the liver TREATMENT: 1. Currently receiving FOLFOX chemotherapy 2. Status post completion of radiation therapy 06/26/2016 combined with chemotherapy. Chemotherapy comprised of Xeloda. Radiation dose 5400 cGy Status: Chronic (3) GI bleed Status: Resolved (4) Hydronephrosis of left kidney Status: Resolved (5) Hydronephrosis of right kidney Status: Resolved (6) Kidney stone Status: Resolved Surgical Problems: (1) History of ureter stent Status: Chronic Family History FH: cardiovascular disease Social History Smoking Status: Never Smoker Smokeless Tobacco Use: No Alcohol Use: none Drug Use: none Marital Status: in relationship Housing status: lives with family Occupational Status: employed Immunizations History of Influenza Vaccine: Unknown History of Tetanus Vaccine?: Unknown History of Pneumococcal: Unknown History of Hepatitis B Vaccine: Unknown Multi-Drug Resistant Organisms History of MDRO: No Allergies Coded Allergies: Cranberry Extract (Verified Allergy, Unknown, HIVES, 07/11/17) Lactose Intolerance (GI) (Verified Allergy, Unknown, ., 07/11/17) Oxaliplatin (Unverified Allergy, Unknown, THROAT CLOSING, 07/11/17) Home Medications Scheduled Probiotic Product (Probiotic), 1 CAP PO DAILY Scheduled PRN Diphenhydramine Hcl (Benadryl Allergy), 25 MG PO DAILY PRN for PRN Ondansetron (Ondansetron HCl), 1 TAB PO Q8 PRN for Nausea or Vomiting Sertraline HCl (Sertraline HCl), 0.5 TAB PO for Depression Tramadol (Ultram), 1 TAB PO TID PRN for Pain Review of Systems Constitutional: No fever, No chills Eyes: No worsening of vision ENT: No hearing loss Respiratory: No cough, No sputum Cardiovascular: No chest pain Abdomen: + nausea (chronic), + diarrhea (chronic), No pain Genitourinary - Male: No hematuria, No dysuria Endocrine: No fatigue Hematologic / Lymphatic: No abnormal bleeding/bruising Physical Exam Vital Signs Date Time Temp Pulse Resp B/P (MAP) Pulse Ox O2 Delivery O2 Flow Rate FiO2 07/12/17 00:24 75 16 116/74 97 Room Air 07/11/17 22:53 86 16 124/84 97 Room Air 07/11/17 22:50 82 07/11/17 20:47 36.4 90 24 132/85 100 Room Air 07/11/17 18:43 103 18 133/91 98 Room Air 07/11/17 18:23 36.5 137 20 140/86 Room Air 98 07/11/17 18:17 98 Room Air 07/11/17 18:17 98 Room Air 07/11/17 18:17 98 Room Air 07/11/17 18:02 98 Room Air 07/11/17 18:02 98 Room Air 07/11/17 18:02 36.5 137 20 148/86 98 Room Air 07/11/17 17:59 129 General Appearance: WD/WN, + thin Eyes: normal inspection ENT: hearing grossly normal Neck: supple Respiratory/Chest: chest non-tender, lungs clear, normal breath sounds, no respiratory distress, no accessory muscle use Cardiovascular: + tachycardia Abdomen/GI: normal bowel sounds, non tender, soft Back: normal range of motion Neurologic/Psych: alert, normal mood/affect, oriented x 3 Diagnostics Laboratory Results Results Past 24 Hours Test 07/11/17 18:15 07/11/17 18:22 07/11/17 19:24 Range/Units White Blood Count 9.01 4.8-10.8 K/uL Red Blood Count 4.90 4.7-6.1 M/uL Hemoglobin 14.1 14.0-18.0 g/dL Hematocrit 43.3 42-52 % Mean Corpuscular Volume 88.4 80-100 fL Mean Corpuscular Hemoglobin 28.8 25-34 pg Mean Corpuscular Hemoglobin Concent 32.6 32-36 g/dl Platelet Count 245 130-400 K/uL Mean Platelet Volume 9.5 7.4-10.4 fL Neutrophils (%) (Auto) 74.6 % Lymphocytes (%) (Auto) 12.3 % Monocytes (%) (Auto) 10.3 % Eosinophils (%) (Auto) 1.1 % Basophils (%) (Auto) 0.7 % Neutrophils # (Auto) 6.72 1.4-6.5 K/uL Lymphocytes # (Auto) 1.11 1.2-3.4 K/uL Monocytes # (Auto) 0.93 0.11-0.59 K/uL Eosinophils # (Auto) 0.10 0-0.5 K/uL Basophils # (Auto) 0.06 0-0.2 K/uL RDW Standard Deviation 42.0 36.4-46.3 fL RDW Coefficient of Variation 12.9 11.5-14.5 % Immature Granulocyte % (Auto) 1.0 % Immature Granulocyte # (Auto) 0.09 0.00-0.02 K/uL Prothrombin Time 10.8 9.0-12.0 SECONDS Prothromb Time International Ratio 1.0 0.9-1.1 Activated Partial Thromboplast Time 26.6 21.0-31.0 SECONDS Partial Thromboplastin Ratio 1.0 Sodium Level 136 136-145 mmol/L Potassium Level 3.5 3.5-5.1 mmol/L Chloride Level 102 98-107 mmol/L Carbon Dioxide Level 16 21-32 mmol/L Anion Gap 18.0 3-11 mmol/L Blood Urea Nitrogen 12 7-18 mg/dl Creatinine 1.30 0.60-1.40 mg/dl Est Creatinine Clear Calc Drug Dose 77.0 ml/min Estimated GFR () 86.7 Estimated GFR (Non- 74.8 BUN/Creatinine Ratio 9.5 10-20 Bedside Glucose 115 70-99 mg/dl Random Glucose 113 70-99 mg/dl Calcium Level 9.2 8.5-10.1 mg/dl Phosphorus Level 2.4 2.5-4.9 mg/dl Magnesium Level 2.3 1.8-2.4 mg/dl Total Bilirubin 0.3 0.2-1 mg/dl Aspartate Amino Transf (AST/SGOT) 19 15-37 U/L Alanine Aminotransferase (ALT/SGPT) 18 12-78 U/L Alkaline Phosphatase 66 45-117 U/L Total Protein 7.7 6.4-8.2 gm/dl Albumin 4.1 3.4-5.0 gm/dl Globulin 3.6 2.5-4.0 gm/dl Albumin/Globulin Ratio 1.1 0.9-2 Thyroid Stimulating Hormone (TSH) 2.550 0.300-4.500 uIu/ml Bedside Troponin I < 0.030 0-0.045 ng/ml Urine Color YELLOW Urine Appearance CLOUDY CLEAR Urine pH 5.0 4.5-7.5 Urine Specific [place] 1.024 1.000-1.030 Urine Protein 2+ NEG Urine Glucose (UA) NEG NEG Urine Ketones NEG NEG Urine Occult Blood 3+ NEG Urine Nitrite NEG NEG Urine Bilirubin NEG NEG Urine Urobilinogen NEG NEG Urine Leukocyte Esterase NEG NEG Urine WBC (Auto) 10-30 0-5 /hpf Urine RBC (Auto) >30 0-4 /hpf Urine Hyaline Casts (Auto) 0-5 /lpf Urine Epithelial Cells (Auto) >30 0-5 /lpf Urine Bacteria (Auto) 1+ NEG Urine Renal Epithelial Cells 0-5 /lpf Urine Pathogenic Casts 0 /lpf Urine Opiates Screen NEG NEG Urine Methadone, Qualitative NEG NEG Urine Barbiturates NEG NEG Urine Phencyclidine (PCP) Level NEG NEG Ur Amphetamine/Methamphetamine NEG NEG MDMA (Ecstasy) Screen NEG NEG Urine Benzodiazepines Screen NEG NEG Urine Cocaine Metabolite NEG NEG Urine Marijuana (THC) NEG NEG Microbiology Results 07/11/17 Urine Culture, Received Pending Diagnostic Radiology [~ rep ct add3]] CT OF THE HEAD WITHOUT CONTRAST CLINICAL HISTORY: Syncope vs Seizure. History of colon cancer. COMPARISON STUDY: Head CT November 16, 2016. CT DOSE: 537.48 mGy.cm TECHNIQUE: Helical axial images of the head were obtained without IV contrast. Automated exposure control was utilized for the study. A dose lowering technique was utilized adhering to the principles of ALARA. FINDINGS: No acute intracranial hemorrhage, midline shift or mass effect is present. Brain volume is normal. Ventricular system is normal. Basilar cisterns are patent. There are no extra-axial collections. Malagon-white differentiation is maintained. There are no findings to suggest acute dural sinus thrombosis or acute territorial infarct. There are no significant calvarial abnormalities. Visualized portions of the sinuses and mastoid air cells are clear. IMPRESSION: No acute intracranial findings. Electronically signed by: Naeem Alvarado M.D. 07/11/2017 7:10 PM CHEST ONE VIEW PORTABLE CLINICAL HISTORY: Syncope vs seizure COMPARISON STUDY: Chest radiograph June 25, 2017. FINDINGS: A left subclavian [id number] is in place. Lung volumes are normal. There is no pneumothorax or pleural effusion. Pulmonary vascularity is normal. Cardiomediastinal silhouette is normal. IMPRESSION: No acute cardiopulmonary findings. Electronically signed by: Naeem Alvarado M.D. 07/11/2017 6:22 PM Dictated Date/Time: 07/11/2017 6:20 PM [~ rep ct add3]] CT ANGIOGRAPHY OF THE CHEST, PULMONARY EMBOLUS PROTOCOL CLINICAL HISTORY: Possible seizure. History of colon cancer. COMPARISON STUDY: Chest CT January 31, 2016, PET CT April 12, 2016 and chest radiograph performed earlier today. TECHNIQUE: Following IV administration of 115 mL of Optiray-320, helical axial images of the chest were obtained utilizing the pulmonary embolus protocol. Maximal intensity projections and sagittal and coronal reformats were viewed on an independent 3D workstation. IV contrast was administered without complication. A dose lowering technique was utilized adhering to the principles of ALARA. CT DOSE: 510.25 mGy.cm FINDINGS: No pulmonary emboli are identified. There is no evidence of thoracic aortic dissection. The size of the heart is normal. There is no pericardial effusion. A left subclavian Jefrwc-[id number]-[id number] is in place. No enlarged axillary, mediastinal or hilar lymph nodes are present. There are no areas of consolidation. No pneumothorax or pleural effusion is present. There are no suspicious pulmonary nodule. No acute rib or thoracic spine fracture is identified on this exam. Multiple hepatic masses are better depicted on the CT of the abdomen and pelvis. Right hydroureteronephrosis with ureteral stent is in place. Right renal atrophy is noted. These findings are better depicted on the abdominal CT. IMPRESSION: 1. No pulmonary emboli identified. 2. No acute intrathoracic findings. 3. No evidence of metastatic disease within the chest. 4. Multiple hepatic lesions which are better depicted on the abdominal CT. Please see that report for further description. Electronically signed by: Naeem Alvarado M.D. 07/11/2017 10:14 PM Dictated Date/Time: 07/11/2017 10:04 PM [~ rep ct add3]] CT OF THE ABDOMEN AND PELVIS WITH CONTRAST CLINICAL HISTORY: Seizure/Syncope. History of metastatic colon cancer COMPARISON STUDY: CT of the abdomen and pelvis April 07, 2017. TECHNIQUE: Following IV administration of 115 mL of Optiray-320, axial images of the abdomen and pelvis were obtained from the lung bases to the proximal femurs. Images were reviewed in the axial, sagittal, and coronal planes. IV contrast was administered without complication. A dose lowering technique was utilized adhering to the principles of ALARA. Oral contrast was administered. FINDINGS: No pneumoperitoneum is present. There is a small amount of low-attenuation fluid within the left lower quadrant. Several hepatic lesions have not significantly changed since exam of April 07, 2017 and include a right hepatic lobe lesion that measures 2.6 x 2.9 cm. A segment 5 lesion measures 1 cm. A segment 2 lesion measures 1.3 cm. No new hepatic lesions are present. The spleen, adrenal glands and pancreas are normal as is the left kidney. Severe right hydronephrosis has increased since prior exam. A right ureteral stent is in place. There is moderate right renal atrophy. Wall thickening of the cecum and terminal ileum is noted. This is either stable or slightly increased since prior exam. This is at site of primary tumor shown on CT of January 11, 2015. No enlarged abdominal or pelvic lymph nodes are present. No acute lumbar spine or pelvic fracture is identified. IMPRESSION: 1. Small amount of low-attenuation fluid within the left lower quadrant, a nonspecific finding. 2. No significant change in several hepatic lesions since exam of April 07, 2017. These likely reflect metastases. No new hepatic lesions identified. 3. Severe right hydronephrosis which has increased since prior exam. Right ureteral stent in place. Moderate right renal atrophy. 4. Mild wall thickening of the cecum and terminal ileum which is either stable or slightly increased since prior exam. This is at site of primary tumor shown on CT of January 11, 2015. No abdominal or pelvic lymphadenopathy. Electronically signed by: Naeem Alvarado M.D. 07/11/2017 10:28 PM Dictated Date/Time: 07/11/2017 10:18 PM EKG Sinus tachycardia Rightward axis Borderline ECG When compared with ECG of 25-JUN-2017 15:02, Vent. rate has increased BY 38 BPM Nonspecific T wave abnormality no longer evident in Anterior leads Confirmed by EUSEBIA HALLMAN MD ([id number]) on 07/11/2017 7:45:06 PM 25mm/s 10mm/mV 150Hz 8.0 SP2 12SL 241 JACKIE: 0 Referred by: ED Confirmed By: EUSEBIA Impression Assessment and Plan 27-year-old male with a past medical history of cecal cancer with liver metastasis presented to the ER with complaints of a possible syncopal episode prior to arrival. Unwitnessed syncopal episode versus seizure - Questionable postictal state - EKG revealed sinus tachycardia - CT chest negative for PE, no metastases found - CT head negative for intracranial bleed - MRI brain ordered to rule out possible metastases - EEG ordered - Orthostatic vitals - Continue IV hydration Severe right-sided hydronephrosis: - History of right-sided ureteral stent performed in 2014 - Urology consult Stage IV cecal cancer with hepatic metastases- stable - Currently undergoing chemotherapy Full code DVT prophylaxis: scds Disposition: Admitted to telemetry Attending Addendum: I have physically seen and examined this patient, have directed the resident's medical activities, and agree with the H&P as noted above with the following exceptions as noted. The patient is awake, alert and oriented 3, well-developed and well-nourished , normocephalic and atraumatic, lying in bed and in no acute distress. HEENT--PERRL, EOMI, mucous membranes and oropharynx dry. Neck--supple, no JVD or bruits, thyroid normal, trachea midline, no adenopathy. Heart--normal S1 and S2, no extra beats, no murmurs, rubs or gallops. Lungs--clear bilaterally with good air movement, no respiratory distress, no accessory muscle use. Abdomen--normal bowel sounds and soft, nontender and nondistended, no hernias or masses, no organomegaly. Extremities--no cyanosis, clubbing or edema. There are good distal pulses b/l. Dermatologic--normal skin turgor, normal color, warm and dry, no abnormal lymph nodes, no rash. Neurologic--cranial nerves II through XII grossly intact, motor and sensory examination normal. Rheumatologic--normal range of motion, nontender, muscles and joints. Psychiatric--normal affect. Assessment and Plan: Unwitnessed syncopal episode versus seizure-- Admitted to the telemetry unit for frequent neuro checks and rhythm monitoring. Order MRI the brain combo to assess for possible metastases. Order EEG. Continue IV fluids for rehydration. Seizure precautions. Consult neurology. Progressive severe right hydronephrosis/status post right sided ureteral stent in 2015-- Question possibility of UTI/dysfunctional stent/contribution to metabolic encephalopathy. Place on ceftriaxone 1 g IV daily. Consult urology Dr. Doran who placed the stent in 2014. Level of Care Telemetry Advanced Directives Existing Advance Directive: No Existing Living Will: No Existing Power of Mental Health Coordinator: No Resuscitation Status FULL RESUSCITATION VTE Prophylaxis VTE Risk Assessment Done? Y/N: Yes Risk Level: Moderate Given or contraindicated: SCD's Resident Tracking Resident Involvement: Resident Care Provided Care Provided: Adult Hospital Medicine
[2017-07-12 02:00] VITALS: BP 135/96; PULSE 80; TEMP 36.5; O2SAT 98; Ht 177.8 cm; Wt 56.5 kg
[2017-07-12] MEDS: TRAMADOL HCL 50 MG TAB PO PRN ×2 (02:24→14:36)
[2017-07-12] MEDS ORDERED: SODIUM CHLORIDE 0.9% 1000ML 1,000 ML IV SCH (02:30)
[2017-07-12 04:00] VITALS: BP 116/82; PULSE 78; TEMP 36.6; O2SAT 98
[2017-07-12 06:36] LABS: HEMATOCRIT 35.4 % (42-52); MEAN CELL VOLUME 88.1 fL (80-100); MEAN CORPUSCULAR HEMOGLOBIN 29.9 pg (25-34); MEAN CORPUSCULAR HGB CONC 33.9 g/dl (32-36); MEAN PLATELET VOLUME 9.3 fL (7.4-10.4); PLATELET COUNT 183 K/uL (130-400); RED BLOOD COUNT 4.02 M/uL (4.7-6.1); WHITE BLOOD COUNT 4.92 K/uL (4.8-10.8)
--- NOTE | 2017-07-12 06:37 | DIAGNOSTIC IMAGING REPORT ---
ORBITS FOR MRI HISTORY: Pre-MRI pre-MRI screening. COMPARISON: None. FINDINGS: There are no radiopaque foreign bodies identified within the orbits. IMPRESSION: No radiopaque foreign bodies identified within the orbits. The above report was generated using voice recognition software. It may contain grammatical, syntax or spelling errors. Electronically signed by: Pardeep Duron M.D. 07/12/2017 6:36 AM Dictated Date/Time: 07/12/2017 6:35 AM
[2017-07-12 07:16] LABS: BUN/CREATININE RATIO 12.6 (10-20); CALCIUM 8.1 mg/dl (8.5-10.1); CREATININE 0.7 mg/dl (0.60-1.40); POTASSIUM 3.6 mmol/L (3.5-5.1)
[2017-07-12 07:57] VITALS: BP 114/76; PULSE 78; TEMP 36.7; O2SAT 99
[2017-07-12] MEDS ORDERED: LACTOBACILLUS ACIDOPHILUS (FLORANEX) TAB PO SCH (09:00)
[2017-07-12] MEDS ORDERED: GADAVIST IV PRN (09:15)
--- NOTE | 2017-07-12 09:24 | DIAGNOSTIC IMAGING REPORT ---
MRI OF THE BRAIN COMBO CLINICAL HISTORY: Colon cancer. Question syncope versus seizure. COMPARISON STUDY: CT of the brain dated 07/11/2017. TECHNIQUE: MRI of the brain was performed utilizing various T1 and T2-weighted sequences in the axial, sagittal, and coronal planes. Contrast-enhanced sequences were acquired following the administration of 5.5 cc of Gadavist. The examination is performed using the seizure protocol. FINDINGS: Brain parenchyma: There are at least 2 punctate foci of signal in amount within the frontal white matter. This is of doubtful significance as an isolated finding. The brain parenchyma is otherwise normal in appearance. There is no hemorrhage or mass effect. There is no restricted diffusion to suggest acute ischemia. No enhancing mass lesion is identified on the postcontrast images. Malagon-white matter differentiation is preserved. No extra-axial fluid collection is seen. The cerebellar tonsils are normal in configuration. The hippocampi are normal and symmetric. Ventricles, sulci, and cisterns: Normal in configuration. Pituitary and sella: Unremarkable. Intracranial vasculature: Normal flow voids are maintained at the skull base. Orbits: The bony orbits are grossly intact. Orbital contents are normal in appearance. Sinuses and mastoids: There is a retention cyst in the right maxillary antrum. The remaining paranasal sinuses are clear. Calvarium: Unremarkable. Cervical cord: Partially visualized cervical spinal cord is normal in morphology and signal intensity. IMPRESSION: No acute intracranial abnormality. Specifically, there is no evidence of intracranial metastatic disease as clinically queried. Electronically signed by: Damian Buitrago M.D. 07/12/2017 9:22 AM Dictated Date/Time: 07/12/2017 9:17 AM
[2017-07-12 12:00] VITALS: BP_SYST 118; BP_SYST 122; BP_SYST 127; BP_DIAS 72; BP_DIAS 80; BP_DIAS 82; PULSE 100; PULSE 82; PULSE 88; TEMP 36.6; O2SAT 98
--- NOTE | 2017-07-12 16:05 | ECHOCARDIOGRAM REPORT ---
*NOTICE TO RECEIVING REPUBLICAN AGENCY This information is strictly Confidential and protected under [place] law. [place] law prohibits you from making any further disclosure of this information unless further disclosure is expressly permitted by the written consent of the person to whom it pertains or is authorized by law. A general authorization for the release of medical or other information is not sufficient for this purpose. Hospital accepts no responsibility if the information is made available to any other person, INCLUDING THE PATIENT. Interpretation Summary * Name: TORO GOMEZ Study Date: 07/12/2017 02:14 PM BP: 122/82 mmHg * Patient Location: .2T\S\S239\S\1 HR: 100 * : 1990 (M/d/yyyy) Gender: Male Height: 70 in * Age: 27 yrs Ethnicity: [place] Weight: 124 lb * Ordering Physician: Ammon Mcbride * Referring Physician: Self, Referred * Performed By: Angélica Lema RDCS * * Reason For Study: SYNCOPE * BSA: 1.7 m2 * -- Conclusions -- * 1. Normal left ventricular size and systolic function. EF 55-60%. No regional wall motion abnormalities. No left ventricular hypertrophy. No significant diastolic dysfunction. * 2. No significant valvular abnormalities visualized. * 3. No prior study available for comparison. Procedure Details * A complete two-dimensional transthoracic echocardiogram was performed (2D, M-mode, Doppler and color flow Doppler). Left Ventricle * Normal left ventricular size and systolic function. EF 55-60%. No regional wall motion abnormalities. No left ventricular hypertrophy. No significant diastolic dysfunction. Right Ventricle * The right ventricle is normal in size and function. * The right ventricular systolic function is normal as assessed by tricuspid annular plane systolic excursion (TAPSE) (normal >1.5 cm). Atria * The left atrial size is normal. * Right atrial size is normal. * There is no evidence of atrial septal defect, but resolution does not allow assessment for a patent foramen ovale. Mitral Valve * The mitral valve leaflets appear normal. There is no evidence of stenosis, fluttering, or prolapse. * There is trace mitral regurgitation. Tricuspid Valve * The tricuspid valve anatomy is normal. * There is no tricuspid stenosis. * There is trace tricuspid regurgitation. Aortic Valve * The aortic valve is trileaflet. * The aortic valve is normal in structure and function. * No hemodynamically significant valvular aortic stenosis. * No aortic regurgitation is present. Pulmonic Valve * The pulmonic valve is not well seen, but is grossly normal. * There is no pulmonic valvular stenosis. * Trace pulmonic valvular regurgitation. Great Vessels * The aortic root is normal size. Pericardium/Pleural * There is no pericardial effusion. Great Vessels * Normal inferior vena cava size and collapsability with sniff indicates a normal right atrial pressure of 3 mmHg MMode 2D Measurements and Calculations IVSd 0.98 cm IVSs 1.4 cm LVIDd 4.9 cm LVIDs 3.2 cm LVPWd 0.93 cm LVPWs 1.2 cm IVS/LVPW 1.1 FS 35.2 % EDV(Teich) 112.4 ml ESV(Teich) 40.0 ml EF(Teich) 64.4 % EDV(cubed) 117.2 ml ESV(cubed) 31.9 ml EF(cubed) 72.8 % % IVS thick 41.8 % % LVPW thick 32.0 % LV mass(C)d 165.5 grams LV mass(C)dI 97.1 grams/m\S\2 LV mass(C)s 135.7 grams LV mass(C)sI 79.7 grams/m\S\2 SV(Teich) 72.4 ml SI(Teich) 42.5 ml/m\S\2 SV(cubed) 85.3 ml SI(cubed) 50.1 ml/m\S\2 Ao root diam 3.0 cm Ao root area 7.2 cm\S\2 LA dimension 3.1 cm LA/Ao 1.0 LVAd ap4 28.1 cm\S\2 LVLd ap4 7.6 cm EDV(MOD-sp4) 87.6 ml EDV(sp4-el) 88.5 ml LVAs ap4 16.8 cm\S\2 LVLs ap4 6.5 cm ESV(MOD-sp4) 38.9 ml ESV(sp4-el) 36.9 ml EF(MOD-sp4) 55.7 % EF(sp4-el) 58.3 % LVAd ap2 26.7 cm\S\2 LVLd ap2 7.6 cm EDV(MOD-sp2) 80.2 ml EDV(sp2-el) 80.3 ml LVAs ap2 15.9 cm\S\2 LVLs ap2 6.6 cm ESV(MOD-sp2) 33.5 ml ESV(sp2-el) 32.2 ml EF(MOD-sp2) 58.3 % EF(sp2-el) 59.9 % LVLd %diff 2.5 % EDV(MOD-bp) 85.0 ml LVLs %diff 4.8 % ESV(MOD-bp) 36.8 ml EF(MOD-bp) 56.7 % SV(MOD-sp4) 48.8 ml SI(MOD-sp4) 28.6 ml/m\S\2 SV(MOD-sp2) 46.7 ml SI(MOD-sp2) 27.4 ml/m\S\2 SV(MOD-bp) 48.2 ml SI(MOD-bp) 28.3 ml/m\S\2 SV(sp4-el) 51.6 ml SI(sp4-el) 30.3 ml/m\S\2 SV(sp2-el) 48.1 ml SI(sp2-el) 28.2 ml/m\S\2 Doppler Measurements and Calculations MV E max deisi 64.4 cm/sec MV A max deisi 57.9 cm/sec MV E/A 1.1 MV dec time 0.30 sec Ao V2 max 105.5 cm/sec Ao max PG 4.4 mmHg Ao max PG (full) 1.5 mmHg LV V1 max PG 2.9 mmHg LV V1 max 85.3 cm/sec TV E max deisi 57.4 cm/sec RAP systole 3.0 mmHg
[2017-07-12 16:13] VITALS: BP 117/72; PULSE 89; TEMP 37; O2SAT 99
--- NOTE | 2017-07-12 18:14 | Urology Consultation ---
History General Date of Service: Jul 12, 2017. Primary Care Physician: Luisito Cheema D.O. History of Present Illness patient well known to me I reviewed ct scan right hydro is worse. He feels fine today. His creatinine is normal with fluids. He has poor tolerance to the stent due to bladder pain. The current size location and softness of stent is good for him pain mora. Urine not infected. Imaging Imaging: CT Laboratory Results Past 24 Hours Test 07/11/17 18:15 07/11/17 18:22 07/11/17 19:24 07/12/17 06:17 Range/Units White Blood Count 9.01 4.92 4.8-10.8 K/uL Red Blood Count 4.90 4.02 4.7-6.1 M/uL Hemoglobin 14.1 12.0 14.0-18.0 g/dL Hematocrit 43.3 35.4 42-52 % Mean Corpuscular Volume 88.4 88.1 80-100 fL Mean Corpuscular Hemoglobin 28.8 29.9 25-34 pg Mean Corpuscular Hemoglobin Concent 32.6 33.9 32-36 g/dl Platelet Count 245 183 130-400 K/uL Mean Platelet Volume 9.5 9.3 7.4-10.4 fL Neutrophils (%) (Auto) 74.6 % Lymphocytes (%) (Auto) 12.3 % Monocytes (%) (Auto) 10.3 % Eosinophils (%) (Auto) 1.1 % Basophils (%) (Auto) 0.7 % Neutrophils # (Auto) 6.72 1.4-6.5 K/uL Lymphocytes # (Auto) 1.11 1.2-3.4 K/uL Monocytes # (Auto) 0.93 0.11-0.59 K/uL Eosinophils # (Auto) 0.10 0-0.5 K/uL Basophils # (Auto) 0.06 0-0.2 K/uL RDW Standard Deviation 42.0 42.4 36.4-46.3 fL RDW Coefficient of Variation 12.9 13.1 11.5-14.5 % Immature Granulocyte % (Auto) 1.0 % Immature Granulocyte # (Auto) 0.09 0.00-0.02 K/uL Prothrombin Time 10.8 9.0-12.0 SECONDS Prothromb Time International Ratio 1.0 0.9-1.1 Activated Partial Thromboplast Time 26.6 21.0-31.0 SECONDS Partial Thromboplastin Ratio 1.0 Sodium Level 136 138 136-145 mmol/L Potassium Level 3.5 3.6 3.5-5.1 mmol/L Chloride Level 102 107 98-107 mmol/L Carbon Dioxide Level 16 27 21-32 mmol/L Anion Gap 18.0 4.0 3-11 mmol/L Blood Urea Nitrogen 12 9 7-18 mg/dl Creatinine 1.30 0.70 0.60-1.40 mg/dl Est Creatinine Clear Calc Drug Dose 77.0 126.7 ml/min Estimated GFR () 86.7 149.9 Estimated GFR (Non- 74.8 129.3 BUN/Creatinine Ratio 9.5 12.6 10-20 Bedside Glucose 115 70-99 mg/dl Random Glucose 113 67 70-99 mg/dl Calcium Level 9.2 8.1 8.5-10.1 mg/dl Phosphorus Level 2.4 2.5-4.9 mg/dl Magnesium Level 2.3 1.8-2.4 mg/dl Total Bilirubin 0.3 0.2-1 mg/dl Aspartate Amino Transf (AST/SGOT) 19 15-37 U/L Alanine Aminotransferase (ALT/SGPT) 18 12-78 U/L Alkaline Phosphatase 66 45-117 U/L Total Protein 7.7 6.4-8.2 gm/dl Albumin 4.1 3.4-5.0 gm/dl Globulin 3.6 2.5-4.0 gm/dl Albumin/Globulin Ratio 1.1 0.9-2 Thyroid Stimulating Hormone (TSH) 2.550 0.300-4.500 uIu/ml Bedside Troponin I < 0.030 0-0.045 ng/ml Urine Color YELLOW Urine Appearance CLOUDY CLEAR Urine pH 5.0 4.5-7.5 Urine Specific [place] 1.024 1.000-1.030 Urine Protein 2+ NEG Urine Glucose (UA) NEG NEG Urine Ketones NEG NEG Urine Occult Blood 3+ NEG Urine Nitrite NEG NEG Urine Bilirubin NEG NEG Urine Urobilinogen NEG NEG Urine Leukocyte Esterase NEG NEG Urine WBC (Auto) 10-30 0-5 /hpf Urine RBC (Auto) >30 0-4 /hpf Urine Hyaline Casts (Auto) 0-5 /lpf Urine Epithelial Cells (Auto) >30 0-5 /lpf Urine Bacteria (Auto) 1+ NEG Urine Renal Epithelial Cells 0-5 /lpf Urine Pathogenic Casts 0 /lpf Urine Opiates Screen NEG NEG Urine Methadone, Qualitative NEG NEG Urine Barbiturates NEG NEG Urine Phencyclidine (PCP) Level NEG NEG Ur Amphetamine/Methamphetamine NEG NEG MDMA (Ecstasy) Screen NEG NEG Urine Benzodiazepines Screen NEG NEG Urine Cocaine Metabolite NEG NEG Urine Marijuana (THC) NEG NEG Microbiology Results 07/11/17 Urine Culture - Preliminary, Resulted NO GROWTH - LESS THAN 1,000 COLONIES/... Labs were reviewed and are within normal limits unless listed below. 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) Pt had a problem w anesthesia?: No Past Surgical History: no surgical history, colonoscopy Family History FH: cardiovascular disease Social History Hx Tobacco Use In Past Year?: No Smoking: less than 1 pack/day Alcohol: occasional Drug use: none Marital status: in relationship Housing status: lives with family Occupation status: disabled History of MDRO No Allergies Coded Allergies: Cranberry Extract (Verified Allergy, Unknown, HIVES, 07/11/17) Lactose Intolerance (GI) (Verified Allergy, Unknown, ., 07/11/17) Oxaliplatin (Unverified Allergy, Unknown, THROAT CLOSING, 07/11/17) Medications Home Medications: Home Meds and Scripts Medications Dose Route/Sig Max Daily Dose Days Date Category Dose Instructions Benadryl Allergy (Diphenhydramine Hcl) 25 Mg Tab 25 Mg PO DAILY PRN 07/11/17 Reported Ultram (Tramadol HCl) 50 Mg Tab 1 Tab PO TID PRN 30 06/25/17 Reported Ondansetron HCl (Ondansetron) 8 Mg Tab 1 Tab PO Q8 PRN 03/22/17 Reported Sertraline HCl 100 Mg Tab 0.5 Tab PO PRN 03/22/17 Reported Probiotic (Probiotic Product) 1 Cap Cap 1 Cap PO DAILY 06/05/16 Reported "takes when the diarrhea gets bad " Inpatient Medications: Current Inpatient Medications Medications (Trade) Dose Ordered Sig/Raúl Route Start Time Stop Time Status Last Admin Dose Admin Ioversol (Optiray 320) 100 ml UD PRN IV 07/11/17 21:30 07/15/17 21:29 Sodium Chloride 1,000 ml @ 100 mls/hr Q10H IV 07/12/17 02:30 08/11/17 02:29 07/12/17 02:25 80 MLS/HR Acetaminophen (Tylenol Tab) 650 mg Q4H PRN PO 07/12/17 01:00 08/11/17 00:59 Al Hydrox/Mg Hydrox/Simethicone (Maalox Max Susp) 15 ml Q4H PRN PO 07/12/17 01:00 08/11/17 00:59 Ondansetron HCl (Zofran Inj) 4 mg Q6H PRN IV 07/12/17 01:00 08/11/17 00:59 Polyethylene (Miralax Powder Packet) 17 gm DAILY PRN PO 07/12/17 01:00 08/11/17 00:59 Ondansetron HCl (Zofran Tab) 8 mg Q8 PRN PO 07/12/17 01:00 08/11/17 00:59 Sertraline HCl (Zoloft Tab) 50 mg DAILY PRN PO 07/12/17 01:00 08/11/17 00:59 Tramadol HCl (Ultram Tab) 50 mg TID PRN PO 07/12/17 01:00 08/11/17 00:59 07/12/17 14:36 50 MG Diphenhydramine HCl (Benadryl Cap) 25 mg DAILY PRN PO 07/12/17 01:00 08/11/17 00:59 Lactobacillus Acidophilus (Floranex Tab) 1 tab DAILY PO 07/12/17 09:00 08/11/17 08:59 Gadobutrol (Gadavist) 5.5 mmol UD PRN IV 07/12/17 09:15 07/16/17 09:14 Miscellaneous Information (Nursing Heparin Flush Order) 1 ea PRN PRN N/A 07/12/17 17:45 08/11/17 17:44 UNV Review of Systems Review of Systems Constitutional: No fever, No chills Neurological: + dizzy, + passing out Male : + frequent urination, + painful urination, + blood in urine, + infections Physical Exam Vital Signs: Vital Signs Past 12 Hours Date Time Temp Pulse Resp B/P (MAP) Pulse Ox O2 Delivery O2 Flow Rate FiO2 07/12/17 16:13 37.0 89 16 117/72 (87) 99 Room Air 07/12/17 16:00 Room Air 07/12/17 12:00 36.6 82 16 127/72 (90) 98 Room Air 88 118/80 (93) 100 122/82 (95) 07/12/17 12:00 Room Air 07/12/17 08:00 Room Air 07/12/17 07:57 36.7 78 16 114/76 (89) 99 Room Air Physical Exam: General Appearance: WD/WN, no apparent distress, + thin Eyes: bilateral eyes normal inspection ENT: hearing grossly normal Neurologic/Psychiatric: alert, normal mood/affect, oriented x 3 Assessment & Plan Assessment & Plan right hydronephrosis worse than last scan I offered him options; do nothing as this stent is comfortable and his renal function is safe. upsize the stent. this will improve drainage but at the expense of bladder pain. [place] [facility] [place]rost[place]- will provide maximal drainage but in very thin people there is discomfort from the plastic tubes outside the body. He opts to do nothing for now.
--- NOTE | 2017-07-12 18:17 | Discharge Instructions ---
Discharge Instructions Date of Service Jul 12, 2017. Admission Reason for Admission: Episode Of Syncope Discharge Discharge Diagnosis / Problem: syncope (fainting spell) likely from volume depletion and transient BP drop Discharge Goals Goal(s): Diagnostic testing, Therapeutic intervention Activity Recommendations Activity Limitations: resume your previous activity . Instructions / Follow-Up Instructions / Follow-Up the fainting spell was most likely a "vasoactive" event (in the family of what would be called vasovagal events or orthostatic events, but a bit of a crossover between the two) -- what appears to have happened is that from everything you're going through you got volume depleted (dehydrated, but more from medical circumstances than what you'd typically look at as getting dehydrated) and then from there, these vasoactive events typically are an inappropriate drop in blood pressure that makes you faint. fortunately with time and IV fluids this has resolved, and is unlikely to happen again your testing for cardiac, neurologic, and infectious reasons for the faint were all very reassuring/normal. the EEG (brainwave test) is still pending being read by neurology, but I do not anticipate any abnormalities - if there are we' ll call you right away Current Hospital Diet Patient's current hospital diet: Regular Diet Discharge Diet Recommended Diet: Regular Diet (try to get in at least 70oz of fluid a day) Pending Studies Studies pending at discharge: yes List of pending studies: EEG reading Medical Emergencies . Who to Call and When: Medical Emergencies: If at any time you feel your situation is an emergency, please call 911 immediately. . Non-Emergent Contact Non-Emergency issues call your: Primary Care Provider . . "Provider Documentation" section prepared by Ammon Mcbride. . VTE Core Measure Inpt VTE Proph given/why not?: SCD's
[2017-07-12 19:00] VITALS: BP 117/72; PULSE 89; TEMP 37; O2SAT 99
--- NOTE | 2017-07-12 20:48 | Medical Student: [facility] ---
Med Student History & Physical Date & Time of Service: Jul 12, 2017 at 20:01 Chief Complaint: Episode Of Syncope Primary Care Physician: Luisito Cheema D.O. History of Present Illness Source: patient Mr. Maldonado is a 27yo male with a medical history significant for stage IV colon cancer who presented to the ED with a syncopal episode. On 07/11/17, he was pushing a cart through an aisle of [employer] when he suddenly felt dizzy and passed out. He experienced a loss of consciousness for a unspecified period of time. His fall was not witnessed, but he reported no loss of bowel or bladder function and no tongue bleeding. He remembers regaining consciousness as he was being transported out of the ambulance and into the ED. Upon regaining consciousness, he reported slow mentation and disorientation. Denies nausea, fever, vomiting, shortness of breath, and palpitations. Mr. Maldonado was seen in the ED on 06/25/2017 for a fainting episode that was attributed to dehydration. Past Medical/Surgical History Past medical history stage IV colon cancer metastatic to the liver-- diagnosed 2yrs ago; currently on chemotherapy regimen right hydronephrosis No past surgical history Family History Father- living; no medical conditions Mother- living; CKD- etiology unknown Maternal family history of brain aneurysms Social History Smoking Status: Former Smoker (1 pack year history; quit 3-4 years ago) Smokeless Tobacco Use: No Alcohol Use: socially (not while on chemotherapy ) Drug Use: none Marital Status: in relationship Housing status: lives with family Occupational Status: disabled Allergies Coded Allergies: Cranberry Extract (Verified Allergy, Unknown, HIVES, 07/11/17) Lactose Intolerance (GI) (Verified Allergy, Unknown, ., 07/11/17) Oxaliplatin (Unverified Allergy, Unknown, THROAT CLOSING, 07/11/17) Medications Diphenhydramine Hcl (Benadryl Allergy), 25 MG PO DAILY PRN for PRN Ondansetron (Ondansetron HCl), 1 TAB PO Q8 PRN for Nausea or Vomiting Probiotic Product (Probiotic), 1 CAP PO DAILY Sertraline HCl (Sertraline HCl), 0.5 TAB PO for Depression Tramadol (Ultram), 1 TAB PO TID PRN for Pain Review of Systems Constitutional: + fatigue, No fever, No chills, No sweats Eyes: No worsening of vision, No eye pain ENT: + sore throat (2 day history of odynophagia), No hearing loss, No nasal symptoms Respiratory: No cough, No sputum, No wheezing, No shortness of breath Cardiovascular: No chest pain, No palpitations Abdomen: + diarrhea (a couple days of loose stools), + problem reported (right lower abdominal pain), No pain, No nausea, No vomiting Musculoskeletal: No joint pain, No muscle pain, No swelling Genitourinary - Male: No dysuria, No urinary frequency, No urinary urgency Neurologic: No paralysis, No numbness/tingling Endocrine: No excessive thirst, No excessive urination Hematologic / Lymphatic: No abnormal bleeding/bruising, No swollen lymph nodes Integumentary: No rash Physical Exam Vital Signs (24 Hours) Date Time Temp Pulse Resp B/P (MAP) Pulse Ox O2 Delivery O2 Flow Rate FiO2 07/12/17 19:00 37.0 89 16 99 Room Air 07/12/17 16:13 37.0 89 16 117/72 (87) 99 Room Air 07/12/17 16:00 Room Air 07/12/17 12:00 36.6 82 16 127/72 (90) 98 Room Air 88 118/80 (93) 100 122/82 (95) 07/12/17 12:00 Room Air 07/12/17 08:00 Room Air 07/12/17 07:57 36.7 78 16 114/76 (89) 99 Room Air 07/12/17 04:00 98 Room Air 07/12/17 04:00 36.6 78 116/82 (93) 98 Room Air 07/12/17 02:00 36.5 80 18 135/96 98 Room Air 07/12/17 01:52 65 16 130/83 97 07/12/17 01:11 81 16 125/84 98 Room Air 07/12/17 00:24 75 16 116/74 97 Room Air 07/11/17 22:53 86 16 124/84 97 Room Air 07/11/17 22:50 82 07/11/17 20:47 36.4 90 24 132/85 100 Room Air General Appearance: WD/WN, + thin Head: normocephalic, atraumatic Eyes: normal inspection, EOMI, sclerae normal ENT: + pharyngeal erythema Neck: supple, no adenopathy, thyroid normal Respiratory/Chest: lungs clear, normal breath sounds Cardiovascular: regular rate, rhythm, no edema, no murmur Abdomen/GI: normal bowel sounds, + tenderness (right lower quadrant ) Back: + right CVA tenderness Extremities/Musculoskelatal: normal inspection, no pedal edema Neurologic/Psych: alert, normal mood/affect, oriented x 3 Skin: normal color, warm/dry, no rash Diagnostics Laboratory Results Results Past 24 Hours Test 07/12/17 06:17 Range/Units White Blood Count 4.92 4.8-10.8 K/uL Red Blood Count 4.02 4.7-6.1 M/uL Hemoglobin 12.0 14.0-18.0 g/dL Hematocrit 35.4 42-52 % Mean Corpuscular Volume 88.1 80-100 fL Mean Corpuscular Hemoglobin 29.9 25-34 pg Mean Corpuscular Hemoglobin Concent 33.9 32-36 g/dl RDW Standard Deviation 42.4 36.4-46.3 fL RDW Coefficient of Variation 13.1 11.5-14.5 % Platelet Count 183 130-400 K/uL Mean Platelet Volume 9.3 7.4-10.4 fL Sodium Level 138 136-145 mmol/L Potassium Level 3.6 3.5-5.1 mmol/L Chloride Level 107 98-107 mmol/L Carbon Dioxide Level 27 21-32 mmol/L Anion Gap 4.0 3-11 mmol/L Blood Urea Nitrogen 9 7-18 mg/dl Creatinine 0.70 0.60-1.40 mg/dl Est Creatinine Clear Calc Drug Dose 126.7 ml/min Estimated GFR () 149.9 Estimated GFR (Non- 129.3 BUN/Creatinine Ratio 12.6 10-20 Random Glucose 67 70-99 mg/dl Calcium Level 8.1 8.5-10.1 mg/dl Diagnostic Radiology CT OF THE HEAD WITHOUT CONTRAST CLINICAL HISTORY: Syncope vs Seizure. History of colon cancer. COMPARISON STUDY: Head CT November 16, 2016. CT DOSE: 537.48 mGy.cm TECHNIQUE: Helical axial images of the head were obtained without IV contrast. Automated exposure control was utilized for the study. A dose lowering technique was utilized adhering to the principles of ALARA. FINDINGS: No acute intracranial hemorrhage, midline shift or mass effect is present. Brain volume is normal. Ventricular system is normal. Basilar cisterns are patent. There are no extra-axial collections. Malagon-white differentiation is maintained. There are no findings to suggest acute dural sinus thrombosis or acute territorial infarct. There are no significant calvarial abnormalities. Visualized portions of the sinuses and mastoid air cells are clear. IMPRESSION: No acute intracranial findings. Electronically signed by: Naeem Alvarado M.D. 07/11/2017 7:10 PM CHEST ONE VIEW PORTABLE CLINICAL HISTORY: Syncope vs seizure COMPARISON STUDY: Chest radiograph June 25, 2017. FINDINGS: A left subclavian [id number] is in place. Lung volumes are normal. There is no pneumothorax or pleural effusion. Pulmonary vascularity is normal. Cardiomediastinal silhouette is normal. IMPRESSION: No acute cardiopulmonary findings. Electronically signed by: Naeem Alvarado M.D. 07/11/2017 6:22 PM Dictated Date/Time: 07/11/2017 6:[address] ANGIOGRAPHY OF THE CHEST, PULMONARY EMBOLUS PROTOCOL CLINICAL HISTORY: Possible seizure. History of colon cancer. COMPARISON STUDY: Chest CT January 31, 2016, PET CT April 12, 2016 and chest radiograph performed earlier today. TECHNIQUE: Following IV administration of 115 mL of Optiray-320, helical axial images of the chest were obtained utilizing the pulmonary embolus protocol. Maximal intensity projections and sagittal and coronal reformats were viewed on an independent 3D workstation. IV contrast was administered without complication. A dose lowering technique was utilized adhering to the principles of ALARA. CT DOSE: 510.25 mGy.cm FINDINGS: No pulmonary emboli are identified. There is no evidence of thoracic aortic dissection. The size of the heart is normal. There is no pericardial effusion. A left subclavian [id number] is in place. No enlarged axillary, mediastinal or hilar lymph nodes are present. There are no areas of consolidation. No pneumothorax or pleural effusion is present. There are no suspicious pulmonary nodule. No acute rib or thoracic spine fracture is identified on this exam. Multiple hepatic masses are better depicted on the CT of the abdomen and pelvis. Right hydroureteronephrosis with ureteral stent is in place. Right renal atrophy is noted. These findings are better depicted on the abdominal CT. IMPRESSION: 1. No pulmonary emboli identified. 2. No acute intrathoracic findings. 3. No evidence of metastatic disease within the chest. 4. Multiple hepatic lesions which are better depicted on the abdominal CT. Please see that report for further description. Electronically signed by: Naeem Alvarado M.D. 07/11/2017 10:14 PM Dictated Date/Time: 07/11/2017 10:[address] OF THE ABDOMEN AND PELVIS WITH CONTRAST CLINICAL HISTORY: Seizure/Syncope. History of metastatic colon cancer COMPARISON STUDY: CT of the abdomen and pelvis April 07, 2017. TECHNIQUE: Following IV administration of 115 mL of Optiray-320, axial images of the abdomen and pelvis were obtained from the lung bases to the proximal femurs. Images were reviewed in the axial, sagittal, and coronal planes. IV contrast was administered without complication. A dose lowering technique was utilized adhering to the principles of ALARA. Oral contrast was administered. FINDINGS: No pneumoperitoneum is present. There is a small amount of low-attenuation fluid within the left lower quadrant. Several hepatic lesions have not significantly changed since exam of April 07, 2017 and include a right hepatic lobe lesion that measures 2.6 x 2.9 cm. A segment 5 lesion measures 1 cm. A segment 2 lesion measures 1.3 cm. No new hepatic lesions are present. The spleen, adrenal glands and pancreas are normal as is the left kidney. Severe right hydronephrosis has increased since prior exam. A right ureteral stent is in place. There is moderate right renal atrophy. Wall thickening of the cecum and terminal ileum is noted. This is either stable or slightly increased since prior exam. This is at site of primary tumor shown on CT of January 11, 2015. No enlarged abdominal or pelvic lymph nodes are present. No acute lumbar spine or pelvic fracture is identified. IMPRESSION: 1. Small amount of low-attenuation fluid within the left lower quadrant, a nonspecific finding. 2. No significant change in several hepatic lesions since exam of April 07, 2017. These likely reflect metastases. No new hepatic lesions identified. 3. Severe right hydronephrosis which has increased since prior exam. Right ureteral stent in place. Moderate right renal atrophy. 4. Mild wall thickening of the cecum and terminal ileum which is either stable or slightly increased since prior exam. This is at site of primary tumor shown on CT of January 11, 2015. No abdominal or pelvic lymphadenopathy. Electronically signed by: Neaem Alvarado M.D. 07/11/2017 10:28 PM Dictated Date/Time: 07/11/2017 10:18 PM MRI OF THE BRAIN COMBO CLINICAL HISTORY: Colon cancer. Question syncope versus seizure. COMPARISON STUDY: CT of the brain dated 07/11/2017. TECHNIQUE: MRI of the brain was performed utilizing various T1 and T2-weighted sequences in the axial, sagittal, and coronal planes. Contrast-enhanced sequences were acquired following the administration of 5.5 cc of Gadavist. The examination is performed using the seizure protocol. FINDINGS: Brain parenchyma: There are at least 2 punctate foci of signal in amount within the frontal white matter. This is of doubtful significance as an isolated finding. The brain parenchyma is otherwise normal in appearance. There is no hemorrhage or mass effect. There is no restricted diffusion to suggest acute ischemia. No enhancing mass lesion is identified on the postcontrast images. Malagon-white matter differentiation is preserved. No extra-axial fluid collection is seen. The cerebellar tonsils are normal in configuration. The hippocampi are normal and symmetric. Ventricles, sulci, and cisterns: Normal in configuration. Pituitary and sella: Unremarkable. Intracranial vasculature: Normal flow voids are maintained at the skull base. Orbits: The bony orbits are grossly intact. Orbital contents are normal in appearance. Sinuses and mastoids: There is a retention cyst in the right maxillary antrum. The remaining paranasal sinuses are clear. Calvarium: Unremarkable. Cervical cord: Partially visualized cervical spinal cord is normal in morphology and signal intensity. IMPRESSION: No acute intracranial abnormality. Specifically, there is no evidence of intracranial metastatic disease as clinically queried. Electronically signed by: Damian Buitrago M.D. 07/12/2017 9:22 AM Dictated Date/Time: 07/12/2017 9:17 AM Impression Assessment and Plan Assessment Mr. Maldonado is a 27yo male with a medical history significant for stage IV colon cancer who is on day 1 of hospitalization for a syncopal episode. Seizure is unlikely given lack of clinical seizure-like symptoms coupled with unremarkable head CT and MRI. Although he was tachycardic at presentation, an arrhythmia is unlikely given his EKG was normal. Cardiac valvular source can be ruled out based on a normal echo and absence of murmur. Negative urine tox screen r/o illicit drug source. Afebrile with WBC WNL r/o infection. Reasonable glucose levels r/o hypoglycemia. RBC, Hgb, and Hct WNL r/o anemia. Given his elevated Cr and high urine specific gravity at presentation, he was likely volume depleted and fainted due to hypotension. Plan Syncopal episode --resolved --responded well to IV fluids --will d/c patient today --will recommend adequate hydration and nutrition as pt is currently receiving chemotherapy Level of Care Med/Surg Advanced Directives Existing Living Will: No Existing Power of Metal Coater: No
--- NOTE | 2017-07-13 20:07 | Discharge Summary ---
Discharge Summary Date of Service Jul 12, 2017. Discharge Summary Admission Date: Jul 12, 2017 at 01:03 Discharge Date: Jul 12, 2017 Discharge Disposition: Home Principal Diagnosis: vasoactive syncope, volume depletion Immunizations: Have You Had Influenza Vaccine: Unknown History of Tetanus Vaccine?: Unknown History of Pneumococcal: Unknown History of Hepatitis B Vaccine: Unknown Procedures: Interpretation Summary * Name: TORO GOMEZ Study Date: 07/12/2017 02:14 PM BP: 122/82 mmHg * Patient Location: [facility]S\\1 HR: 100 * : 1990 (M/d/yyyy) Gender: Male Height: 70 in * Age: 27 yrs Ethnicity: MO Weight: 124 lb * Ordering Physician: Ammon Mcbride * Referring Physician: Self, Referred * Performed By: Angélica Lema RDCS * * Reason For Study: SYNCOPE * BSA: 1.7 m2 * -- Conclusions -- * 1. Normal left ventricular size and systolic function. EF 55-60%. No regional wall motion abnormalities. No left ventricular hypertrophy. No significant diastolic dysfunction. * 2. No significant valvular abnormalities visualized. * 3. No prior study available for comparison. Procedure Details * A complete two-dimensional transthoracic echocardiogram was performed (2D, M-mode, Doppler and color flow Doppler). Left Ventricle * Normal left ventricular size and systolic function. EF 55-60%. No regional wall motion abnormalities. No left ventricular hypertrophy. No significant diastolic dysfunction. Right Ventricle * The right ventricle is normal in size and function. * The right ventricular systolic function is normal as assessed by tricuspid annular plane systolic excursion (TAPSE) (normal >1.5 cm). Atria * The left atrial size is normal. * Right atrial size is normal. * There is no evidence of atrial septal defect, but resolution does not allow assessment for a patent foramen ovale. Mitral Valve * The mitral valve leaflets appear normal. There is no evidence of stenosis, fluttering, or prolapse. * There is trace mitral regurgitation. Tricuspid Valve * The tricuspid valve anatomy is normal. * There is no tricuspid stenosis. * There is trace tricuspid regurgitation. Aortic Valve * The aortic valve is trileaflet. * The aortic valve is normal in structure and function. * No hemodynamically significant valvular aortic stenosis. * No aortic regurgitation is present. Pulmonic Valve * The pulmonic valve is not well seen, but is grossly normal. * There is no pulmonic valvular stenosis. * Trace pulmonic valvular regurgitation. Great Vessels * The aortic root is normal size. Pericardium/Pleural * There is no pericardial effusion. Great Vessels * Normal inferior vena cava size and collapsability with sniff indicates a normal right atrial pressure of 3 mmHg EEG results pending MRI OF THE BRAIN COMBO CLINICAL HISTORY: Colon cancer. Question syncope versus seizure. COMPARISON STUDY: CT of the brain dated 07/11/2017. TECHNIQUE: MRI of the brain was performed utilizing various T1 and T2-weighted sequences in the axial, sagittal, and coronal planes. Contrast-enhanced sequences were acquired following the administration of 5.5 cc of Gadavist. The examination is performed using the seizure protocol. FINDINGS: Brain parenchyma: There are at least 2 punctate foci of signal in amount within the frontal white matter. This is of doubtful significance as an isolated finding. The brain parenchyma is otherwise normal in appearance. There is no hemorrhage or mass effect. There is no restricted diffusion to suggest acute ischemia. No enhancing mass lesion is identified on the postcontrast images. Malagon-white matter differentiation is preserved. No extra-axial fluid collection is seen. The cerebellar tonsils are normal in configuration. The hippocampi are normal and symmetric. Ventricles, sulci, and cisterns: Normal in configuration. Pituitary and sella: Unremarkable. Intracranial vasculature: Normal flow voids are maintained at the skull base. Orbits: The bony orbits are grossly intact. Orbital contents are normal in appearance. Sinuses and mastoids: There is a retention cyst in the right maxillary antrum. The remaining paranasal sinuses are clear. Calvarium: Unremarkable. Cervical cord: Partially visualized cervical spinal cord is normal in morphology and signal intensity. IMPRESSION: No acute intracranial abnormality. Specifically, there is no evidence of intracranial metastatic disease as clinically queried. Electronically signed by: Damian Buitrago M.D. 07/12/2017 9:22 AM Dictated Date/Time: 07/12/2017 9:17 AM [~ rep ct add3]] CT OF THE ABDOMEN AND PELVIS WITH CONTRAST CLINICAL HISTORY: Seizure/Syncope. History of metastatic colon cancer COMPARISON STUDY: CT of the abdomen and pelvis April 07, 2017. TECHNIQUE: Following IV administration of 115 mL of Optiray-320, axial images of the abdomen and pelvis were obtained from the lung bases to the proximal femurs. Images were reviewed in the axial, sagittal, and coronal planes. IV contrast was administered without complication. A dose lowering technique was utilized adhering to the principles of ALARA. Oral contrast was administered. FINDINGS: No pneumoperitoneum is present. There is a small amount of low-attenuation fluid within the left lower quadrant. Several hepatic lesions have not significantly changed since exam of April 07, 2017 and include a right hepatic lobe lesion that measures 2.6 x 2.9 cm. A segment 5 lesion measures 1 cm. A segment 2 lesion measures 1.3 cm. No new hepatic lesions are present. The spleen, adrenal glands and pancreas are normal as is the left kidney. Severe right hydronephrosis has increased since prior exam. A right ureteral stent is in place. There is moderate right renal atrophy. Wall thickening of the cecum and terminal ileum is noted. This is either stable or slightly increased since prior exam. This is at site of primary tumor shown on CT of January 11, 2015. No enlarged abdominal or pelvic lymph nodes are present. No acute lumbar spine or pelvic fracture is identified. IMPRESSION: 1. Small amount of low-attenuation fluid within the left lower quadrant, a nonspecific finding. 2. No significant change in several hepatic lesions since exam of April 07, 2017. These likely reflect metastases. No new hepatic lesions identified. 3. Severe right hydronephrosis which has increased since prior exam. Right ureteral stent in place. Moderate right renal atrophy. 4. Mild wall thickening of the cecum and terminal ileum which is either stable or slightly increased since prior exam. This is at site of primary tumor shown on CT of January 11, 2015. No abdominal or pelvic lymphadenopathy. Electronically signed by: Naeem Alvarado M.D. 07/11/2017 10:28 PM Dictated Date/Time: 07/11/2017 10:18 PM [~ rep ct add3]] CT ANGIOGRAPHY OF THE CHEST, PULMONARY EMBOLUS PROTOCOL CLINICAL HISTORY: Possible seizure. History of colon cancer. COMPARISON STUDY: Chest CT January 31, 2016, PET CT April 12, 2016 and chest radiograph performed earlier today. TECHNIQUE: Following IV administration of 115 mL of Optiray-320, helical axial images of the chest were obtained utilizing the pulmonary embolus protocol. Maximal intensity projections and sagittal and coronal reformats were viewed on an independent 3D workstation. IV contrast was administered without complication. A dose lowering technique was utilized adhering to the principles of ALARA. CT DOSE: 510.25 mGy.cm FINDINGS: No pulmonary emboli are identified. There is no evidence of thoracic aortic dissection. The size of the heart is normal. There is no pericardial effusion. A left subclavian [id number] is in place. No enlarged axillary, mediastinal or hilar lymph nodes are present. There are no areas of consolidation. No pneumothorax or pleural effusion is present. There are no suspicious pulmonary nodule. No acute rib or thoracic spine fracture is identified on this exam. Multiple hepatic masses are better depicted on the CT of the abdomen and pelvis. Right hydroureteronephrosis with ureteral stent is in place. Right renal atrophy is noted. These findings are better depicted on the abdominal CT. IMPRESSION: 1. No pulmonary emboli identified. 2. No acute intrathoracic findings. 3. No evidence of metastatic disease within the chest. 4. Multiple hepatic lesions which are better depicted on the abdominal CT. Please see that report for further description. Electronically signed by: Naeem Alvarado M.D. 07/11/2017 10:14 PM Dictated Date/Time: 07/11/2017 10:04 PM CHEST ONE VIEW PORTABLE CLINICAL HISTORY: Syncope vs seizure COMPARISON STUDY: Chest radiograph June 25, 2017. FINDINGS: A left subclavian [id number] is in place. Lung volumes are normal. There is no pneumothorax or pleural effusion. Pulmonary vascularity is normal. Cardiomediastinal silhouette is normal. IMPRESSION: No acute cardiopulmonary findings. Electronically signed by: Naeem Alvarado M.D. 07/11/2017 6:22 PM Dictated Date/Time: 07/11/2017 6:[address] OF THE HEAD WITHOUT CONTRAST CLINICAL HISTORY: Syncope vs Seizure. History of colon cancer. COMPARISON STUDY: Head CT November 16, 2016. CT DOSE: 537.48 mGy.cm TECHNIQUE: Helical axial images of the head were obtained without IV contrast. Automated exposure control was utilized for the study. A dose lowering technique was utilized adhering to the principles of ALARA. FINDINGS: No acute intracranial hemorrhage, midline shift or mass effect is present. Brain volume is normal. Ventricular system is normal. Basilar cisterns are patent. There are no extra-axial collections. Malagon-white differentiation is maintained. There are no findings to suggest acute dural sinus thrombosis or acute territorial infarct. There are no significant calvarial abnormalities. Visualized portions of the sinuses and mastoid air cells are clear. IMPRESSION: No acute intracranial findings. Electronically signed by: Naeem Alvarado M.D. 07/11/2017 7:10 PM Last Resulted CBC 07/12/17 06:17 Last Resulted BMP 07/12/17 06:17 Consultations: urology Medication Reconciliation Continued Medications: Diphenhydramine Hcl (Benadryl Allergy) 25 Mg Tab 25 MG PO DAILY PRN for PRN Ondansetron (Ondansetron HCl) 8 Mg Tab 1 TAB PO Q8 PRN for Nausea or Vomiting, #60 Probiotic Product (Probiotic) 1 Cap Cap 1 CAP PO DAILY "takes when the diarrhea gets bad " Sertraline HCl (Sertraline HCl) 100 Mg Tab 0.5 TAB PO PRN for Depression, #30 Tramadol (Ultram) 50 Mg Tab 1 TAB PO TID PRN for Pain for 30 Days, #90 TAB Discharge Exam Physical Exam: General Appearance: no apparent distress Eyes: EOMI ENT: hearing grossly normal Neck: trachea midline Respiratory/Chest: no respiratory distress, no accessory muscle use Extremities: normal inspection Neurologic/Psychiatric: 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 concern on multitude of etiologies due to his metastatic cancer status --nothign appearing cardiac (EKG, rhythm monitoring, echo OK) --nothing appearing neurologic (MRI brain without lesions, no reported findings on EEG although formal read still pending) --most c/w volume depletion and vasoactive (vasovagal//orthostatic) type of event -- Cr was up --> improved w fluid, urine sp grav was high, he noted he'd not really eaten that day extensive discussions - he and agree w dx and plan. stable for home. PO fluids, PCP and oncology f/u Total Time Spent: Less than 30 minutes This includes examination of the patient, discharge planning, medication reconciliation, and communication with other providers. Discharge Instructions Please refer to the electronic Patient Visit Report (Discharge Instructions) for additional information. Additional Copies To Luisito Cheema D.O.
== END 2017-07-12 19:15 | disposition home or self-care (01) | DRG 312 ==
LOC: EDBD 17:48 → C.EDC 17:49 → EEVIPCON 07-12 01:03 → C.2T 07-12 01:03 → UNDOADMIN 07-12 01:30 → EDBEDREQ 07-12 01:44 → ENRESERV 07-12 01:48 → EDBEDREQ 07-12 01:48 → C.2T 07-12 02:15 → EEVIPCON 07-12 02:15 → UNDOADMIN 07-12 02:15
PROVIDERS: ADMIT Family Medicine; ATTEND Family Medicine
DX: R55 Syncope and collapse (principal); N13.30 Unspecified hydronephrosis; C18.0 Malignant neoplasm of cecum; C78.7 Secondary malignant neoplasm of liver and intrahepatic bile duct; E86.9 Volume depletion, unspecified; Z82.49 Family history of ischemic heart disease and other diseases of the circulatory system; Z96.0 Presence of urogenital implants

== ENCOUNTER → 2017-08-08 | Outpatient (CLI) | payer BC, OTHER ==
[~2017-08-08] MED LIST changes: +DIPH1TAB PO
--- NOTE | 2017-08-08 14:11 | DIAGNOSTIC IMAGING REPORT ---
KUB CLINICAL HISTORY: 27 years-old Male presenting with N13.30 Hydronephrosis of right [id number]. TECHNIQUE: Single supine view of the abdomen was obtained. COMPARISON: 06/25/2017. FINDINGS: Right ureteral stent remains in place. No renal calculi evident. Moderate stool burden in the right colon. No gross pneumoperitoneum. Multiple pelvic phleboliths unchanged in distribution. Osseous structures demonstrate a bone island in the left superior acetabulum. IMPRESSION: 1. No change from the prior exam. Right ureteral stent remains in place. Electronically signed by: Pancho Kendrick M.D. 08/08/2017 2:10 PM Dictated Date/Time: 08/08/2017 1:58 PM
== END | disposition home or self-care (01) ==
LOC: C.RAD 13:12
PROVIDERS: ATTEND Urology
DX: N13.30 Unspecified hydronephrosis (principal)

== ENCOUNTER → 2017-08-15 | Outpatient (CLI) | payer BC, OTHER ==
[~2017-08-15] MED LIST changes: +GADOXETATE DISODIUM (NON-WT BASED PROCEDURE) IV PRN
--- NOTE | 2017-08-15 14:33 | DIAGNOSTIC IMAGING REPORT ---
LIVER COMBO CLINICAL HISTORY: 27 years-old Male presenting with COLORECTAL CA. TECHNIQUE: Multisequence, multiplanar MR imaging of the abdomen was performed before and after the administration of intravenous contrast. IV contrast: 10 mL of Eovist. COMPARISON: CT from 07/11/2017. FINDINGS: Localizer images: Unremarkable. Lung bases: Lung bases clear. Normal heart size. No pericardial or pleural effusion. Liver: Normal morphology. No evidence of hepatic steatosis. Patent hepatic vasculature. Multiple T2 hyperintense lesions in the liver which demonstrate early thin peripheral enhancement and do not retain hepatobiliary specific contrast. These lesions are numerous below: -Segment 8 measuring 3.5 x 2.8 cm, previously 3.6 x 2.9 cm, unchanged. -Segment 2 measuring 1.4 cm, previously 1.3 cm, unchanged. -Segment 2 measuring 1.7 cm, previously 1.3 cm, differing measurements likely technical related to different imaging modalities. -Segment 5/8 measuring 9 mm, previously 10 mm, unchanged. Biliary: No intrahepatic or extrahepatic biliary ductal dilatation. Normal gallbladder. Pancreas: Normal. Spleen: Normal. Adrenal glands: Normal. Kidneys: The right renal collecting system is decompressed with a right ureteral stent. Atrophy of the right kidney noted. Left kidney normal. Bowel: Normal. No bowel obstruction. Peritoneal cavity: No free fluid or intraperitoneal gas. Lymph nodes: No enlarged lymph nodes in the abdomen or pelvis. Vasculature: Aorta and IVC patent and normal in caliber. Abdominal wall: Normal. Musculoskeletal: Normal. IMPRESSION: 1. Multiple hepatic masses, which do not retain hepatobiliary specific contrast. If there has been tissue confirmation of hepatic metastatic disease, these are most consistent with metastases, overall stable from prior. No new hepatic lesions. If there has not been tissue confirmation, differential considerations include hemangiomas. Subsequent follow-up liver MR could be performed with Gadavist, which would allow differentiation of these two entities if clinically necessary. Electronically signed by: Pancho Kendrick M.D. 08/15/2017 2:32 PM Dictated Date/Time: 08/15/2017 2:12 PM
== END | disposition home or self-care (01) ==
LOC: C.MRI 12:06
PROVIDERS: ATTEND Surgery
DX: C19 Malignant neoplasm of rectosigmoid junction (principal); C78.7 Secondary malignant neoplasm of liver and intrahepatic bile duct

== ENCOUNTER → 2017-08-21 | Outpatient (CLI) | payer BC, OTHER ==
[~2017-08-21] MED LIST changes: -GADOXETATE DISODIUM (NON-WT BASED PROCEDURE) IV PRN
--- NOTE | 2017-08-22 08:14 | DIAGNOSTIC IMAGING REPORT ---
RENAL SCAN DIURETIC (MAG 3) CLINICAL HISTORY: Right-sided hydronephrosis. Right ureteral stent in place. COMPARISON STUDY: CT of the abdomen and pelvis July 11, 2017, KUB August 08, 2017 and liver MRI August 15, 2017. TECHNIQUE: 8.084 mCi of technetium 99m MAG3 was injected IV at 1:00 PM on August 21, 2017. Flow images were obtained immediately and the posterior projection. Flow and function curves were obtained. 20 mg of Lasix was administered IV at 1:21 PM. Imaging was carried out for an additional 20 minutes. FINDINGS: Flow to the left kidney is preserved. There is asymmetric decreased flow and function within the right kidney. Split function was 84% left kidney and 16% right kidney. Excretion from the left kidney was normal. There was delayed excretion of radiotracer from the right kidney. Excretion into the right ureter/stent was noted following Lasix administration IMPRESSION: 1. Significantly decreased flow and function of the right kidney. Split function of 84% left kidney and 16% right kidney. 2. Excretion into the right ureter/stent following Lasix administration. No evidence for obstruction with stent in place. Electronically signed by: Naeem Alvarado M.D. 08/22/2017 8:13 AM Dictated Date/Time: 08/21/2017 2:09 PM
== END | disposition home or self-care (01) ==
LOC: C.NUCL 12:15
PROVIDERS: ATTEND Urology
DX: N13.30 Unspecified hydronephrosis (principal); N25.9 Disorder resulting from impaired renal tubular function, unspecified

== ENCOUNTER → 2017-08-22 | Outpatient (CLI) | payer BC, OTHER | END | disposition home or self-care (01) | LOC: C.LABSPEC 10:29 | PROVIDERS: ATTEND Urology | DX: T83.84XA Pain due to genitourinary prosthetic devices, implants and grafts, initial encounter (principal); X58.XXXA Exposure to other specified factors, initial encounter; R33.9 Retention of urine, unspecified; N39.0 Urinary tract infection, site not specified; N26.1 Atrophy of kidney (terminal) ==

== ENCOUNTER 2017-09-17 09:44 | Inpatient (IN) | payer BC, OTHER ==
[~2017-09-17] VITALS: Ht 170.2 cm; Wt 53.0 kg
[~2017-09-17 09:44] MED LIST changes: -DIPH1TAB PO; +DIPH1TAB87 PO
[2017-09-17] MEDS ORDERED: HYDROmorphone INJ 1 MG/ML SYR IV STA (10:02)
[2017-09-17] MEDS ORDERED: SODIUM CHLORIDE 0.9% 1000ML 1,000 ML IV STA (10:02)
[2017-09-17] MEDS ORDERED: ONDANSETRON INJ 2 MG/ML 2 ML VIAL IV STA (10:02)
[2017-09-17] MEDS ORDERED: OPTIRAY 320 IV PRN (10:15)
[2017-09-17] MEDS ORDERED: FENTANYL CITRATE INJ 50 MCG/1 ML 2 ML VIAL IV STA (10:34)
[2017-09-17 10:45] LABS: ISTAT HEMOGLOBIN 12.6 g/dl (14.0-18.0); ISTAT IONIZED CALCIUM 1.13 mmol/l (1.12-1.32)
[2017-09-17 10:53] LABS: BASO % 0.5 %; BASO ABS # 0.04 K/uL (0-0.2); COMPLETE YES; EOS % 0.8 %; HEMATOCRIT 37.7 % (42-52); IG% 0.2 %; LYMPH % 10.3 %; LYMPH ABS # 0.87 K/uL (1.2-3.4); MEAN CELL VOLUME 85.9 fL (80-100); MEAN CORPUSCULAR HEMOGLOBIN 29.6 pg (25-34); MEAN CORPUSCULAR HGB CONC 34.5 g/dl (32-36); MEAN PLATELET VOLUME 9.9 fL (7.4-10.4); MONO % 7.5 %; NEUT % 80.7 %; PLATELET COUNT 279 K/uL (130-400); RED BLOOD COUNT 4.39 M/uL (4.7-6.1); WHITE BLOOD COUNT 8.41 K/uL (4.8-10.8)
[2017-09-17 11:11] LABS: BUN/CREATININE RATIO 13.7 (10-20); CALCIUM 8.9 mg/dl (8.5-10.1); CREATININE 0.92 mg/dl (0.60-1.40); POTASSIUM 3.2 mmol/L (3.5-5.1)
--- NOTE | 2017-09-17 11:36 | DIAGNOSTIC IMAGING REPORT ---
ABD/PELVIS IV CONTRAST ONLY CLINICAL HISTORY: 27 years-old Male presenting with 4 hrs diffuse abdominal pain. Colon CA.. TECHNIQUE: Multidetector CT of the abdomen and pelvis was performed after the administration of intravenous contrast. IV contrast: 94 L of Optiray 320. A dose lowering technique was used consistent with the principles of ALARA (as low as reasonably achievable). COMPARISON: 07/11/2017. CT DOSE (mGy.cm): The estimated cumulative dose is 260.47 mGy.cm. FINDINGS: [employer] Crewmember topogram: Unremarkable. Lung bases: Lung bases clear. Normal heart size. No pericardial or pleural effusion. Liver: Normal morphology. Interval increase in size of hepatic metastatic disease. The dominant lesion in the right hepatic lobe now measures 5.2 cm in maximal axial dimension, previously 3.4 cm. Conglomerate lesion in the lateral left hepatic lobe now measures 4.0 cm, previously 1.2 cm more superior lateral left hepatic lobe lesion now measures 2.2 cm, previously 1.2 cm. Patent hepatic vasculature. Biliary: No intrahepatic or extrahepatic biliary ductal dilatation. Normal gallbladder. Pancreas: Normal. Spleen: Normal. Adrenal glands: Normal. Kidneys and ureters: Significant interval increase in severe right hydronephrosis with chronic thinning of the right renal parenchyma. The right ureteral stent has been removed. Diffuse dilatation of the right ureter. Left renal collecting system nondilated. Bladder: Incompletely evaluated secondary to underdistention. Pelvic organs: Prostate and seminal vesicles normal. Bowel: Interval development of small bowel wall thickening in the distal ileum. Masslike thickening at the terminal ileum and ileocecal valve unchanged, site of primary malignancy. Interval development of colonic wall thickening primarily involving the transverse colon through the sigmoid. No bowel obstruction. Peritoneal cavity: Trace free fluid in the pelvis. Lymph nodes: No enlarged lymph nodes in the abdomen or pelvis. Vasculature: Aorta and IVC patent and normal in caliber. Abdominal wall: Normal. Musculoskeletal: Normal. IMPRESSION: 1. Findings concerning for progression of disease given increased size of multiple hepatic metastatic lesions. 2. Interval development of diffuse large bowel wall thickening concerning for an infectious colitis. Distal small bowel enteritis may also be present given new distal small bowel wall thickening. 3. Unchanged appearance of the masslike thickening at the terminal ileum/ileocecal valve at the site of primary malignancy. 4. Significant worsening of severe right hydroureteronephrosis with chronic atrophy of the right kidney. Electronically signed by: Pancho Kendrick M.D. 09/17/2017 11:35 AM Dictated Date/Time: 09/17/2017 11:26 AM
[2017-09-17 13:00] VITALS: O2SAT 96; BMI 17.7
[2017-09-17] MEDS ORDERED: ONDANSETRON INJ 2 MG/ML 2 ML VIAL IV PRN (13:00)
[2017-09-17] MEDS: POTASSIUM CHLR 10 MEQ / WTR 10 MEQ in PREMIXED WATER 100 ML IV SCH ×2 (13:11→14:33)
--- NOTE | 2017-09-17 13:55 | EMERGENCY ROOM VISIT NOTE ---
History Report prepared by Jemma: Matheus Thompson Under the Supervision of: Dr. Ritesh Conklin M.D. First contact with patient: 09:58 Chief Complaint: ABDOMINAL PAIN Stated Complaint: SEVERE PAIN, THROWING UP, STOMACH PAIN Nursing Triage Summary: pt to the ED with abd pain for that started this am and pt thought it might be just constipation but is not sure has CA stage 4 colon to liver c/o hands feel tingling just had a ton of tests done in [place] and is being seen there + nausea no vomitting only pain med he took today is tramadol History of Present Illness The patient is a 27 year old male who presents to the Emergency Room with complaints of constant left sided abdominal pain beginning one hour ago. He has a history of stage 4 colon cancer with metastases to the liver. The patient also complains of vomiting, and hand and lip tingling. He has taken Tramadol for his pain, but nothing has improved his symptoms. His last bowel movement was this morning, though appeared small. The patient is schedule for partial colectomy within the next few weeks. He notes that he had a right ureteral stent removed two weeks ago by Dr. Stewart. Source of History: patient Onset: One hour ago Position: abdomen (left sided) Timing: constant Modifying Factors (Relieving): other (none) Associated Symptoms: + vomiting Note: The patient also complains of lip and hand tingling. Review of Systems See HPI for pertinent positives & negatives. A total of 10 systems reviewed and were otherwise negative. Past Medical & Surgical Medical Problems: (1) Abdominal pain (2) Cecum mass (3) Colon cancer metastasized to liver (4) Episode of syncope (5) GI bleed (6) Hydronephrosis of left kidney (7) Hydronephrosis of right kidney (8) Kidney stone Surgical Problems: (1) History of ureter stent Family History FH: cardiovascular disease Social History Smoking Status: Former Smoker Alcohol Use: occasionally Drug Use: none Marital Status: in relationship Housing Status: lives with family Occupation Status: disabled Current/Historical Medications Scheduled PRN Diphenhydramine Hcl (Benadryl Allergy), 25 MG PO DAILY PRN for PRN Ondansetron (Ondansetron HCl), 1 TAB PO Q8 PRN for Nausea or Vomiting Sertraline HCl (Sertraline HCl), 0.5 TAB PO for Depression Tramadol (Ultram), 1 TAB PO TID PRN for Pain Allergies Coded Allergies: Cranberry Extract (Verified Allergy, Unknown, HIVES, 09/17/17) Lactose Intolerance (GI) (Verified Allergy, Unknown, ., 09/17/17) Oxaliplatin (Unverified Allergy, Unknown, THROAT CLOSING, 09/17/17) Physical Exam Vital Signs Date Time Temp Pulse Resp B/P (MAP) Pulse Ox O2 Delivery O2 Flow Rate FiO2 09/17/17 13:17 82 09/17/17 13:10 87 16 120/93 96 Room Air 09/17/17 13:00 96 Nasal Cannula 3.0 09/17/17 11:26 89 18 122/78 96 Nasal Cannula 3.0 09/17/17 09:45 36.4 72 40 129/78 100 Physical Exam GENERAL: Patient is very uncomfortable appearing and in moderate distress. Cachectic. Wasted extremities. HEENT: No acute trauma, normocephalic atraumatic, mucous membranes moist, no nasal congestion, no scleral icterus. NECK: No stridor, no adenopathy, no meningismus, trachea is midline. LUNGS: No dyspnea. Clear to auscultation and equal bilaterally. No wheeze, no rhonchi. HEART: Regular rate and rhythm. No murmurs, rubs, gallops appreciated. ABDOMEN: Soft, bowel sounds positive, no masses appreciated, no peritonitis. Severe tenderness with light palpation of the abdomen. BACK: No midline tenderness, no CVA tenderness EXTREMITIES: Normal motion all extremities, no cyanosis, no edema. NEUROLOGIC: Alert and oriented, no acute motor or sensory deficits, no focal weakness, cranial nerves grossly intact. SKIN: No rash, no jaundice, no diaphoresis. Medical Decision & Procedures ER Provider Diagnostic Interpretation: Radiology results and stated below per my review and radiologist interpretation: ABD/PELVIS IV CONTRAST ONLY FINDINGS: Pole Climber topogram: Unremarkable. Lung bases: Lung bases clear. Normal heart size. No pericardial or pleural effusion. Liver: Normal morphology. Interval increase in size of hepatic metastatic disease. The dominant lesion in the right hepatic lobe now measures 5.2 cm in maximal axial dimension, previously 3.4 cm. Conglomerate lesion in the lateral left hepatic lobe now measures 4.0 cm, previously 1.2 cm more superior lateral left hepatic lobe lesion now measures 2.2 cm, previously 1.2 cm. Patent hepatic vasculature. Biliary: No intrahepatic or extrahepatic biliary ductal dilatation. Normal gallbladder. Pancreas: Normal. Spleen: Normal. Adrenal glands: Normal. Kidneys and ureters: Significant interval increase in severe right hydronephrosis with chronic thinning of the right renal parenchyma. The right ureteral stent has been removed. Diffuse dilatation of the right ureter. Left renal collecting system nondilated. Bladder: Incompletely evaluated secondary to underdistention. Pelvic organs: Prostate and seminal vesicles normal. Bowel: Interval development of small bowel wall thickening in the distal ileum. Masslike thickening at the terminal ileum and ileocecal valve unchanged, site of primary malignancy. Interval development of colonic wall thickening primarily involving the transverse colon through the sigmoid. No bowel obstruction. Peritoneal cavity: Trace free fluid in the pelvis. Lymph nodes: No enlarged lymph nodes in the abdomen or pelvis. Vasculature: Aorta and IVC patent and normal in caliber. Abdominal wall: Normal. Musculoskeletal: Normal. IMPRESSION: 1. Findings concerning for progression of disease given increased size of multiple hepatic metastatic lesions. 2. Interval development of diffuse large bowel wall thickening concerning for an infectious colitis. Distal small bowel enteritis may also be present given new distal small bowel wall thickening. 3. Unchanged appearance of the masslike thickening at the terminal ileum/ileocecal valve at the site of primary malignancy. 4. Significant worsening of severe right hydroureteronephrosis with chronic atrophy of the right kidney. Electronically signed by: Pancho Kendrick M.D. 09/17/2017 11:35 AM Laboratory Results 09/17/17 10:10 Red Blood Count 4.39, Mean Corpuscular Volume 85.9, Mean Corpuscular Hemoglobin 29.6, Mean Corpuscular Hemoglobin Concent 34.5, Mean Platelet Volume 9.9, Neutrophils (%) (Auto) 80.7, Lymphocytes (%) (Auto) 10.3, Monocytes (%) (Auto) 7.5, Eosinophils (%) (Auto) 0.8, Basophils (%) (Auto) 0.5, Neutrophils # (Auto) 6.78, Lymphocytes # (Auto) 0.87, Monocytes # (Auto) 0.63, Eosinophils # (Auto) 0.07, Basophils # (Auto) 0.04 09/17/17 10:10 Test 09/17/17 10:10 09/17/17 10:20 09/17/17 10:24 White Blood Count 8.41 K/uL (4.8-10.8) Red Blood Count 4.39 M/uL (4.7-6.1) Hemoglobin 13.0 g/dL (14.0-18.0) Hematocrit 37.7 % (42-52) Mean Corpuscular Volume 85.9 fL (80-100) Mean Corpuscular Hemoglobin 29.6 pg (25-34) Mean Corpuscular Hemoglobin Concent 34.5 g/dl (32-36) Platelet Count 279 K/uL (130-400) Mean Platelet Volume 9.9 fL (7.4-10.4) Neutrophils (%) (Auto) 80.7 % Lymphocytes (%) (Auto) 10.3 % Monocytes (%) (Auto) 7.5 % Eosinophils (%) (Auto) 0.8 % Basophils (%) (Auto) 0.5 % Neutrophils # (Auto) 6.78 K/uL (1.4-6.5) Lymphocytes # (Auto) 0.87 K/uL (1.2-3.4) Monocytes # (Auto) 0.63 K/uL (0.11-0.59) Eosinophils # (Auto) 0.07 K/uL (0-0.5) Basophils # (Auto) 0.04 K/uL (0-0.2) RDW Standard Deviation 39.5 fL (36.4-46.3) RDW Coefficient of Variation 12.5 % (11.5-14.5) Immature Granulocyte % (Auto) 0.2 % Immature Granulocyte # (Auto) 0.02 K/uL (0.00-0.02) Est Creatinine Clear Calc Drug Dose 95.5 ml/min Estimated GFR () 131.6 Estimated GFR (Non- 113.6 BUN/Creatinine Ratio 13.7 (10-20) Calcium Level 8.9 mg/dl (8.5-10.1) Magnesium Level 2.1 mg/dl (1.8-2.4) Total Bilirubin 0.5 mg/dl (0.2-1) Direct Bilirubin 0.1 mg/dl (0-0.2) Aspartate Amino Transf (AST/SGOT) 26 U/L (15-37) Alanine Aminotransferase (ALT/SGPT) 25 U/L (12-78) Alkaline Phosphatase 74 U/L (45-117) Total Protein 7.3 gm/dl (6.4-8.2) Albumin 3.8 gm/dl (3.4-5.0) Lipase 89 U/L (73-393) Bedside Lactic Acid Venous 1.73 mmol/L (0.90-1.70) Bedside Hemoglobin 12.6 g/dl (14.0-18.0) Bedside Hematocrit 37 % (42-52) Bedside Sodium 140 mEq/L (135-144) Bedside Potassium 3.2 mEq/L (3.3-5.0) Bedside Chloride 103 mEq/L (101-112) Bedside Total CO2 20 mEq/l (24-31) Anion Gap 21.0 mmol/L (16-25) Bedside Blood Urea Nitrogen 12 mg/dl (7-18) Bedside Creatinine 1.0 mg/dl (0.6-1.3) Bedside Glucose (other) 118 mg/dl (70-99) Bedside Ionized Calcium (Jayson) 1.13 mmol/l (1.12-1.32) Laboratory results as reviewed by me. Medications Administered Medications (Trade) Dose Ordered Sig/Raúl Route Start Time Stop Time Status Last Admin Dose Admin Hydromorphone HCl (Dilaudid Inj) 1 mg NOW STAT IV 09/17/17 10:02 09/17/17 10:04 DC 09/17/17 10:19 1 MG Ondansetron HCl (Zofran Inj) 4 mg NOW STAT IV 09/17/17 10:02 09/17/17 10:04 DC 09/17/17 10:21 4 MG Sodium Chloride 1,000 ml @ 999 mls/hr Q1H1M STAT IV 09/17/17 10:02 09/17/17 11:02 DC 09/17/17 10:02 999 MLS/HR Fentanyl Citrate (Fentanyl Inj) 100 mcg NOW STAT IV 09/17/17 10:34 09/17/17 10:35 DC 09/17/17 10:41 100 MCG Potassium Chloride 10 meq/ Prmx 100 ml @ 100 mls/hr TODAY@1300,1400 IV 09/17/17 13:00 09/17/17 14:59 09/17/17 13:11 100 MLS/HR ED Course 0959: The patient was evaluated in room B4B. A complete history and physical exam was performed. 1002: Ordered Sodium Chloride 1000 ml @ 999 mls/hr IV, Zofran Inj 4 mg IV, Dilaudid Inj 1 mg IV. 1034: Ordered Fentanyl Inj 100 mcg IV. 1128: I reassessed the patient. He feels better. 1200: spoke with mother. She demanded that the patient have his colon surgery moved to today. I advised that she speak with his surgeon. The patient is agreeable to staying in the hospital here. 1210: Upon reevaluation, the patient is resting. Discussed results and treatment plan with the patient. He verbalized understanding and agreement with the treatment plan. The patient will be evaluated for further management. Medical Decision Differential: Ruptured bowel, obstruction, bleeding, appendicitis, PUD/ Gastritis, Biliary Pathology, Pyelonephritis, Renal Colic, amongst other pathologies entertained. 27 yr old male arrives with acute abdominal pain in setting of metastatic colon CA. Recently had right ureteral stent removed after treatment for hydro. Quite uncomfortable on arrival though much improved with IV narcotics and fluids. CT with evidence severe right hydro and some enteritis. Urology on board and hospitalist to bring in for further treatment. Stable and feeling much better at time of admission. Medication Reconcilliation Current Medication List: was personally reviewed by me Blood Pressure Screening Patient's blood pressure: Normal blood pressure Blood pressure disposition: Did not require urgent referral Consults Time Called: 1149 Consulting Physician: Xiomara COLBY -Urology Returned Call: 1150 Discussed the patient's case. Xiomara COLBY will discuss the patient's case with Dr. Stewart and return the call. 1158: I spoke with Xiomara COLBY again. Urology is willing to take care of the patient's hydronephrosis if the hospitalist service is willing to admit him. Additional Consults: Time Called: 1201 Consulted [facility] [place] Call: 1205 Additional Comments: Discussed the patient's case. The patient will be evaluated for further treatment and disposition. Impression Primary Impression: Hydronephrosis of right kidney Additional Impressions: Enteritis Dehydration Colon cancer metastasized to liver Scribe Attestation The scribe's documentation has been prepared under my direction and personally reviewed by me in its entirety. I confirm that the note above accurately reflects all work, treatment, procedures, and medical decision making performed by me. Departure Information Dispostion Being Evaluated By Hospitalist Referrals Luisito Cheema D.O. (PCP) Patient Instructions [facility] Problem Qualifiers
--- NOTE | 2017-09-17 13:55 | History and Physical ---
History & Physical Date & Time of Service: Sep 17, 2017 at 12:18 Chief Complaint: Severe Pain, Throwing Up, Stomach Pain Primary Care Physician: Luisito Cheema D.O. History of Present Illness 27yo male with stage 4 colon cancer who presents with epigastric abdominal pain starting 3 hours prior to presentation. He was driving with his fiance this morning when the pain started acutely. He mentions he had a very small bowel movement that was very hard and associated with straining early this am prior to leaving his home. After getting home from dropping his fiance off he tried to give himself a dulcolax suppository (thinking his pain was constipation related) but had no results. About 15 minutes later he had severe vomiting. No fever. No diarrhea. No dysuria or hematuria. No radiation of his pain to the back. He last saw [facility] for his colon ca last Sunday. He is scheduled for hemicolectomy with Dr. Norris at [place] within the next few of weeks. Last chemotherapy was about 2 months ago under the direction of Dr. Andres at [facility]. He uses tramadol prn for pain at home. He had a right-sided ureteral stent for hydronephrosis but this was removed about [address] Stewart. Past Medical/Surgical History Medical Problems: (1) Cecum mass Status: Chronic (2) Colon cancer metastasized to liver Permanent Comment: DIAGNOSIS: Colorectal, cecum, adenocarcinoma, metastatic to the liver TREATMENT: 1. Currently receiving FOLFOX chemotherapy 2. Status post completion of radiation therapy 06/26/2016 combined with chemotherapy. Chemotherapy comprised of Xeloda. Radiation dose 5400 cGy Status: Chronic (3) GI bleed Status: Resolved (4) Hydronephrosis of left kidney Status: Resolved (5) Hydronephrosis of right kidney Status: Resolved (6) Kidney stone Status: Resolved Surgical Problems: (1) History of ureter stent on right Status: Chronic (2) port placement Family History colon cancer - multiple family members - both sides of family...but at older ages mother - CKD, HTN father - HTN Social History Smoking Status: Former Smoker Smokeless Tobacco Use: No Alcohol Use: none Drug Use: none Marital Status: in relationship Housing status: lives with family (in [place]) Occupational Status: disabled (various jobs prior) Immunizations History of Influenza Vaccine: Unknown History of Tetanus Vaccine?: Unknown History of Pneumococcal: Unknown History of Hepatitis B Vaccine: Unknown Multi-Drug Resistant Organisms History of MDRO: No Allergies Coded Allergies: Cranberry Extract (Verified Allergy, Unknown, HIVES, 09/17/17) Lactose Intolerance (GI) (Verified Allergy, Unknown, ., 09/17/17) Oxaliplatin (Unverified Allergy, Unknown, THROAT CLOSING, 09/17/17) Home Medications Scheduled PRN Diphenhydramine Hcl (Benadryl Allergy), 25 MG PO DAILY PRN for PRN Ondansetron (Ondansetron HCl), 1 TAB PO Q8 PRN for Nausea or Vomiting Sertraline HCl (Sertraline HCl), 0.5 TAB PO for Depression Tramadol (Ultram), 1 TAB PO TID PRN for Pain Review of Systems Constitutional: No fever, No chills, No weight loss Eyes: No worsening of vision ENT: + sore throat, No hearing loss Respiratory: No cough, No shortness of breath, No dyspnea on exertion Cardiovascular: No chest pain Abdomen: + pain, + nausea, + vomiting, + constipation, No GI bleeding Genitourinary - Male: No hematuria, No dysuria, No urinary hesitancy, No urinary retention, No urinary incontinence Neurologic: No paralysis, No weakness, No numbness/tingling Psychiatric: + depression symptoms, + anxiety Endocrine: + fatigue Hematologic / Lymphatic: No abnormal bleeding/bruising Integumentary: No rash Physical Exam Vital Signs Date Time Temp Pulse Resp B/P (MAP) Pulse Ox O2 Delivery O2 Flow Rate FiO2 09/17/17 11:26 89 18 122/78 96 Nasal Cannula 3.0 09/17/17 09:45 36.4 72 40 129/78 100 General Appearance: no apparent distress, + cachetic Head: normocephalic, atraumatic Eyes: PERRL ENT: hearing grossly normal, TMs normal, pharynx normal Neck: supple, no adenopathy, thyroid normal, no JVD Respiratory/Chest: lungs clear, normal breath sounds, no respiratory distress, no accessory muscle use Cardiovascular: regular rate, rhythm, no gallop, no murmur, normal peripheral pulses Abdomen/GI: normal bowel sounds, soft, + tenderness (epigastric area, junction of RUQ/RLQ, as well as left side of abdomen; worst is epigastric to the right of midline), + hepatomegaly (liver edge palpable), + pertinent finding ( fullness of the right side of abdomen) Back: no CVA tenderness Extremities/Musculoskelatal: no pedal edema Neurologic/Psych: no motor/sensory deficits, alert, normal reflexes, oriented x 3 Skin: no rash, + pertinent finding (port, left upper chest, clean/nontender) Lymphatic: no adenopathy (cervical or inguinal ) Diagnostics Laboratory Results Results Past 24 Hours Test 09/17/17 10:10 09/17/17 10:20 09/17/17 10:24 Range/Units White Blood Count 8.41 4.8-10.8 K/uL Red Blood Count 4.39 4.7-6.1 M/uL Hemoglobin 13.0 14.0-18.0 g/dL Hematocrit 37.7 42-52 % Mean Corpuscular Volume 85.9 80-100 fL Mean Corpuscular Hemoglobin 29.6 25-34 pg Mean Corpuscular Hemoglobin Concent 34.5 32-36 g/dl Platelet Count 279 130-400 K/uL Mean Platelet Volume 9.9 7.4-10.4 fL Neutrophils (%) (Auto) 80.7 % Lymphocytes (%) (Auto) 10.3 % Monocytes (%) (Auto) 7.5 % Eosinophils (%) (Auto) 0.8 % Basophils (%) (Auto) 0.5 % Neutrophils # (Auto) 6.78 1.4-6.5 K/uL Lymphocytes # (Auto) 0.87 1.2-3.4 K/uL Monocytes # (Auto) 0.63 0.11-0.59 K/uL Eosinophils # (Auto) 0.07 0-0.5 K/uL Basophils # (Auto) 0.04 0-0.2 K/uL RDW Standard Deviation 39.5 36.4-46.3 fL RDW Coefficient of Variation 12.5 11.5-14.5 % Immature Granulocyte % (Auto) 0.2 % Immature Granulocyte # (Auto) 0.02 0.00-0.02 K/uL Sodium Level 139 136-145 mmol/L Potassium Level 3.2 3.5-5.1 mmol/L Chloride Level 105 98-107 mmol/L Carbon Dioxide Level 22 21-32 mmol/L Anion Gap 12.0 21.0 16-25 mmol/L Blood Urea Nitrogen 13 7-18 mg/dl Creatinine 0.92 0.60-1.40 mg/dl Est Creatinine Clear Calc Drug Dose 95.5 ml/min Estimated GFR () 131.6 Estimated GFR (Non- 113.6 BUN/Creatinine Ratio 13.7 10-20 Random Glucose 115 70-99 mg/dl Calcium Level 8.9 8.5-10.1 mg/dl Total Bilirubin 0.5 0.2-1 mg/dl Direct Bilirubin 0.1 0-0.2 mg/dl Aspartate Amino Transf (AST/SGOT) 26 15-37 U/L Alanine Aminotransferase (ALT/SGPT) 25 12-78 U/L Alkaline Phosphatase 74 45-117 U/L Total Protein 7.3 6.4-8.2 gm/dl Albumin 3.8 3.4-5.0 gm/dl Lipase 89 73-393 U/L Bedside Lactic Acid Venous 1.73 0.90-1.70 mmol/L Bedside Hemoglobin 12.6 14.0-18.0 g/dl Bedside Hematocrit 37 42-52 % Bedside Sodium 140 135-144 mEq/L Bedside Potassium 3.2 3.3-5.0 mEq/L Bedside Chloride 103 101-112 mEq/L Bedside Total CO2 20 24-31 mEq/l Bedside Blood Urea Nitrogen 12 7-18 mg/dl Bedside Creatinine 1.0 0.6-1.3 mg/dl Bedside Glucose (other) 118 70-99 mg/dl Bedside Ionized Calcium (Jayson) 1.13 1.12-1.32 mmol/l Diagnostic Radiology CT abd/pelvis: IMPRESSION: 1. Findings concerning for progression of disease given increased size of multiple hepatic metastatic lesions. 2. Interval development of diffuse large bowel wall thickening concerning for an infectious colitis. Distal small bowel enteritis may also be present given new distal small bowel wall thickening. 3. Unchanged appearance of the masslike thickening at the terminal ileum/ileocecal valve at the site of primary malignancy. 4. Significant worsening of severe right hydroureteronephrosis with chronic atrophy of the right kidney. Impression Assessment and Plan 27yo male with known stage 4 colon cancer, original primary site was the ileocecal valve, s/p chemo/radiation, who presents with acute abdominal pain beginning this AM. On CT he has evidence of worsening right-sided hydronephrosis, worsening liver mets, and evidence of colitis. The right-sided hydronephrosis has been managed by Dr. Modesto Stewart and he had a stent as recently as two weeks ago. At that time the stent was removed. 1. abdominal pain - Dr. York from urology and Dr. Holland from [facility] have been consulted. Dr. York feels that the bulk of the pain is colon in origin. I tend to agree with Dr. York. The colitis is certainly a new finding from his previous CT. I am uncertain of the etiology. He is not having diarrhea stools to suggest infectious colitis. He is rather young to have ischemia. He has had radiation in the past but I doubt this is radiation colitis. Dr. Holland will see him later today; will await his recommendations. In the meantime will do the following - * NPO except meds * IVF * IV pain meds and anti-emetics * H2 Marshall IV if there is any gastritis * IV cipro/flagyl for the colitis * check c. diff toxin and stool culture if he has diarrhea stools I have spoken directly with Dr. Holland and with Dr. Yuri Wang, onc-surgery at [facility] -- who just saw him last week in the onc clinic (he confirmed he is planning on colonic resection next month). Dr. Wang recommended treatment of the colitis and agreed with the current plan of care. 2. right-sided hydronephrosis - appreciate Dr. York' consult. At this time he is planning to hold off on ureteral stenting. Check u/a and urine culture to r/o concomitant UTI. 3. hypokalemia - 2nd to vomiting - check mag level. 20meq of KCL IV x 1 now. Then add KCL to maintenance fluids. 4. mild lactic acidosis - likely due to vomiting/dehydration. He does not appear toxic to suggest an acute surgical abdominal emergency. 5. DVT proph - since no procedure is planned at this time will give heparin 5000 BID. 6. FEN - NPO except meds, IVF, BMP in am. If there is no vomiting as the day goes on then consider starting clears. 7. depression/anxiety - continue zoloft. 8. constipation - the patient reports severe constipation as of late, having to take numerous meds for this. In light of the CT findings will hold off on any bowel agents. I suspect this is related to the cancer itself (he only takes prn tramadol at home and thus I don't believe it is narcotic-related). Spoke with Dr. Andres, oncology, who is aware that the patient is here. He confirms there is nothing from an oncological standpoint to do at the current moment. I agree with such. Level of Care Med/Surg Resuscitation Status FULL RESUSCITATION VTE Prophylaxis Risk Level: High Given or contraindicated: SCD's Note time 70 minutes Additional Copies To Luisito Cheema D.O.; Wayne Andres D.O.; Modesto Stewart MD, Urology; Minor York D.O. Reggie Madrid M.D.
[2017-09-17 14:05] VITALS: BP 126/86; PULSE 89; TEMP 36.7; O2SAT 96
--- NOTE | 2017-09-17 14:05 | Urology Consultation ---
History General Date of Service: Sep 17, 2017. Chief Complaint: Abd Pain. Colon Cancer Primary Care Physician: Luisito Cheema D.O. Pt seen a urologist before?: Yes If yes, why?: Right obstruction History of Present Illness 27 Male with known stage 4 Colon Ca with history of right ureteral obstruction and poor functioning kidney and liver mets. Patient had stent removed as kidney on right had minimal function and stent caused considerable symptoms. Patient had worsening of disease and is currently being set up to have surgery in [place] for resection of primary tumor. CT imaging found worsening thickening and concern for inflammation near the mass. Increased hydro on right. Has been having poor oral intake, ill feelings, and worsening abd pain for 1-2 days and now severe. Had small BM yesterday. No flank pain. Is urinating well per patient without blood in urine. Improved urinary symptoms since stent removal. Severe pain in rlq comes in waves and localized with moderate periumbilical discomfort. HPI - Stones Patient has: + nausea, + hydronephrosis Laboratory Labs were reviewed and are within normal limits unless listed below. Labs are available in the chart and at [facility] Problem List Medical Problems: (1) Abdominal pain Status: Acute (2) Chemotherapy adverse reaction Status: Acute (3) Corneal foreign body Status: Acute (4) Liver cancer Status: Acute (5) Nausea & vomiting Status: Acute (6) Personal history of colon cancer, stage IV Status: Acute (7) Right flank pain Status: Acute (8) Syncope and collapse Status: Acute (9) Tachycardia Status: Acute (10) Ureteral stent retained Status: Acute (11) Vertigo Status: Acute (12) Vomiting Status: Acute Past History bowel obstruction, cancer - colon, liver disease, pyelonephritis, other Pt had a problem w anesthesia?: No Past Surgical History: no surgical history, colonoscopy, ureteral stent Family History FH: cardiovascular disease Social History Hx Tobacco Use In Past Year?: No Smoking: less than 1 pack/day Alcohol: occasional Drug use: none Marital status: in relationship Housing status: lives with family Occupation status: disabled Immunizations History of Influenza Vaccine: Unknown History of Tetanus Vaccine?: Unknown History of Pneumococcal: Unknown History of Hepatitis B Vaccine: Unknown History of MDRO No Allergies Coded Allergies: Cranberry Extract (Verified Allergy, Unknown, HIVES, 09/17/17) Lactose Intolerance (GI) (Verified Allergy, Unknown, ., 09/17/17) Oxaliplatin (Unverified Allergy, Unknown, THROAT CLOSING, 09/17/17) Medications Home Medications: Home Meds and Scripts Medications Dose Route/Sig Max Daily Dose Days Date Category Benadryl Allergy (Diphenhydramine Hcl) 25 Mg Tab 25 Mg PO DAILY PRN 07/11/17 Reported Ultram (Tramadol HCl) 50 Mg Tab 1 Tab PO TID PRN 30 06/25/17 Reported Ondansetron HCl (Ondansetron) 8 Mg Tab 1 Tab PO Q8 PRN 03/22/17 Reported Sertraline HCl 100 Mg Tab 0.5 Tab PO PRN 03/22/17 Reported Inpatient Medications: Current Inpatient Medications Medications (Trade) Dose Ordered Sig/Raúl Route Start Time Stop Time Status Last Admin Dose Admin Ioversol (Optiray 320) 125 ml UD PRN IV 09/17/17 10:15 09/21/17 10:14 Potassium Chloride 10 meq/ Prmx 100 ml @ 100 mls/hr TODAY@1300,1400 IV 09/17/17 13:00 09/17/17 14:59 09/17/17 13:11 100 MLS/HR Ondansetron HCl (Zofran Inj) 4 mg Q6H PRN IV 09/17/17 13:00 10/17/17 12:59 Sertraline HCl (Zoloft Tab) 50 mg DAILY PO 09/18/17 09:00 10/18/17 08:59 UNV Potassium Chloride/Dextrose/ Sod Cl 1,000 ml @ 125 mls/hr Q8H IV 09/17/17 13:00 10/17/17 12:59 UNV Hydromorphone HCl (Dilaudid Inj) 0.5 mg Q3H PRN IV 09/17/17 13:00 10/01/17 12:59 Famotidine 20 mg/ Dextrose 102 ml @ 200 mls/hr Q12H IV 09/17/17 13:00 10/17/17 12:59 UNV Ciprofloxacin/ Dextrose 400 mg/ Prmx 200 ml @ 100 mls/hr Q12 IV 09/17/17 13:45 09/27/17 13:44 UNV Metronidazole 500 mg/Prmx 100 ml @ 100 mls/hr Q8H IV 09/17/17 13:45 09/27/17 13:44 UNV Heparin Sodium (Porcine) (Heparin Sq 5000 Unit/0.5ml) 5,000 unit Q12 SQ 09/17/17 21:00 10/17/17 20:59 UNV Review of Systems Review of Systems All Other Systems: Reviewed and Negative Additional Comments: All reviewed. Pertinent positives and negatives in HPI. Physical Exam Vital Signs: Vital Signs Past 12 Hours Date Time Temp Pulse Resp B/P (MAP) Pulse Ox O2 Delivery O2 Flow Rate FiO2 09/17/17 13:17 82 09/17/17 13:10 87 16 120/93 96 Room Air 09/17/17 13:00 96 Nasal Cannula 3.0 09/17/17 11:26 89 18 122/78 96 Nasal Cannula 3.0 09/17/17 09:45 36.4 72 40 129/78 100 Physical Exam: General Appearance: WD/WN, no apparent distress Eyes: bilateral eyes normal inspection ENT: normal ENT inspection, hearing grossly normal Neck: supple, no JVD Respiratory/Chest: chest non-tender, no respiratory distress, no accessory muscle use Cardiovascular: regular rate, rhythm Gastrointestinal: Abdomen: RLQ tenderness Bladder: normal bladder Renal: normal renal Extremities: normal range of motion, non-tender Neurologic/Psychiatric: chief resource officer II-XII nml as tested, no motor/sensory deficits, alert, normal mood/affect, oriented x 3 Skin: normal color, warm/dry, no rash Lymphatic: no adenopathy (moderate diffuse abd pain localizing into right lower quadrant. No flank or suprapubic discomfort. moderate distension. ) Assessment & Plan Assessment & Plan 1. Obst Right Kidney with 15% function 2. Stage 4 colon ca 3. Colitis vs enterocolitis Long discussion with patient, family, and hospitalist team. Patient had severe discomfort with stent that had been removed. Poor functioning right kidney on imaging. Patient's abd pain and illness more likely related to advancing malignancy with possibility of obstruction or local invasion with perforation. Patient to be seen by GI and medicine who will likely will need to discuss with the Patient's surgical team in [place]. Due to concern of worsening/ advancement of disease, may need to consider change in plan/surgical intervention. Patient wishes to hold off on stent at this time. Also discussed nephrostomy tube as option. Will be available for stent placement should need arise. Call if any concerns.
[2017-09-17] MEDS ORDERED: METRONIDAZOLE / NSS 500 MG in PREMIXED NSS 100 ML IV SCH (14:30)
[2017-09-17] MEDS ORDERED: CIPROFLOXACIN / D5W 400 MG in PREMIXED IN D5W 200 ML IV SCH (14:30)
[2017-09-17 14:53] LABS: HEMATOCRIT 37.7 % (42-52); MEAN CELL VOLUME 87.5 fL (80-100); MEAN CORPUSCULAR HEMOGLOBIN 29.2 pg (25-34); MEAN CORPUSCULAR HGB CONC 33.4 g/dl (32-36); MEAN PLATELET VOLUME 9.7 fL (7.4-10.4); PLATELET COUNT 255 K/uL (130-400); RED BLOOD COUNT 4.31 M/uL (4.7-6.1); WHITE BLOOD COUNT 10.02 K/uL (4.8-10.8)
[2017-09-17 15:00] LABS: INR 1.6 (0.9-1.1); PROTHROMBIN TIME (PATIENT) 17.2 SECONDS (9.0-12.0)
[2017-09-17 15:01] LABS: URINE APPEARANCE CLEAR (CLEAR); URINE BILIRUBIN NEG (NEG); URINE COLOR YELLOW; URINE NITRITE NEG (NEG); URINE SPECIFIC GRAVITY > 1.045 (1.000-1.030); UROBILINOGEN NEG (NEG); ZZUR CULT IF INDIC CLEAN CATCH NO
[2017-09-17 15:15] LABS: MANUAL MICROSCOPIC REQUIRED? NO; REVIEW REQ? NO
[2017-09-17] MEDS: FAMOTIDINE IV INJ 20 MG in SYRINGE 3 ML IV SCH (15:18)
[2017-09-17] MEDS: HYDROmorphone INJ 0.5 MG/0.5 ML SYR IV PRN ×2 (15:18→23:36)
[2017-09-17] MEDS: D5NSS + 20MEQ KCL 1,000 ML IV SCH ×2 (15:19→23:36)
[2017-09-17] MEDS: VANCOMYCIN HCL 125 MG/2.5ML SOLN PO SCH ×2 (17:08→20:32)
[2017-09-17] MEDS: RASPBERRY SYRUP 5 ML UDP PO SCH ×2 (17:08→20:32)
[2017-09-17] MEDS ORDERED: FAMOTIDINE IV INJ 20 MG in DEXTROSE 5% 100ML 100 ML IV SCH (18:00)
[2017-09-17 19:43] VITALS: BP 127/85; PULSE 77; TEMP 36.8; O2SAT 99
[2017-09-17] MEDS: HEPARIN SOD 5000 UNIT/0.5 ML CARP SQ SCH (20:00)
--- NOTE | 2017-09-17 20:01 | Progress Note ---
Progress Note Date of Service Sep 17, 2017. Progress Note C diff returned positive. This is likely the cause of his presenting GI symptoms and colitis seen on CT. Vanco QID started. Pt aware of c. diff. Can stop the cipro/flagyl. Jaciel FARMER MD
[2017-09-17] MEDS: ONDANSETRON INJ 8 MG in DEXTROSE 5% 50ML 50 ML IV PRN (20:37)
[2017-09-18] VITALS (8 sets, daily range): BP systolic 113–137; BP diastolic 74–88; PULSE 74–86; TEMP 36.5–36.8; O2SAT 98–100; BMI 18.5
[2017-09-18] MEDS: FAMOTIDINE IV INJ 20 MG in SYRINGE 3 ML IV SCH ×2 (01:50→15:05)
[2017-09-18 05:45] LABS: BASO % 0.7 %; BASO ABS # 0.04 K/uL (0-0.2); COMPLETE YES; EOS % 3.1 %; HEMATOCRIT 34.4 % (42-52); IG% 0.3 %; LYMPH % 13.2 %; LYMPH ABS # 0.76 K/uL (1.2-3.4); MEAN CELL VOLUME 88.2 fL (80-100); MEAN CORPUSCULAR HEMOGLOBIN 28.7 pg (25-34); MEAN CORPUSCULAR HGB CONC 32.6 g/dl (32-36); MEAN PLATELET VOLUME 9.4 fL (7.4-10.4); MONO % 10.9 %; NEUT % 71.8 %; PLATELET COUNT 217 K/uL (130-400); WHITE BLOOD COUNT 5.77 K/uL (4.8-10.8)
[2017-09-18] MEDS: ONDANSETRON INJ 8 MG in DEXTROSE 5% 50ML 50 ML IV PRN (06:14)
[2017-09-18] MEDS: HYDROmorphone INJ 0.5 MG/0.5 ML SYR IV PRN ×3 (06:15→20:33)
[2017-09-18 06:25] LABS: BLOOD UREA NITROGEN 4 mg/dl (7-18); BUN/CREATININE RATIO 5.9 (10-20); CARBON DIOXIDE 24 mmol/L (21-32); CHLORIDE 109 mmol/L (98-107); CREATININE 0.68 mg/dl (0.60-1.40); GLUCOSE 91 mg/dl (70-99); POTASSIUM 4.2 mmol/L (3.5-5.1); SODIUM 141 mmol/L (136-145)
[2017-09-18] MEDS: HEPARIN SOD 5000 UNIT/0.5 ML CARP SQ SCH ×2 (07:10→19:34)
[2017-09-18] MEDS: RASPBERRY SYRUP 5 ML UDP PO SCH ×4 (07:57→20:26)
[2017-09-18] MEDS: SERTRALINE HCL 100 MG TAB PO SCH (07:57)
[2017-09-18] MEDS: D5NSS + 20MEQ KCL 1,000 ML IV SCH ×2 (07:57→15:05)
[2017-09-18] MEDS: VANCOMYCIN HCL 125 MG/2.5ML SOLN PO SCH ×4 (07:57→20:27)
[2017-09-18] MEDS ORDERED: NURSING VERBAL MED ORDER ONE (08:15)
[2017-09-18] MEDS: PROMETHAZINE HCL INJ 25 MG in SODIUM CHLORIDE 0.9% 50ML 50 ML IV PRN ×2 (08:57→21:20)
--- NOTE | 2017-09-18 09:36 | GASTROINTESTINAL CONSULTATION ---
DATE OF CONSULTATION: 09/17/2017 TIME: 6:00 p.m. CHIEF COMPLAINT: Abdominal pain. REQUESTING PHYSICIAN: Dr. Allen. HISTORY OF PRESENT ILLNESS: Mr. Maldonado is a 27-year-old white male with a history of stage IV colorectal cancer with metastasis to the liver and involvement of the right ureter due to the mass in the region of the right pelvis. The patient was anticipating surgery for resection of this area on 10/11/2017, however, developed abdominal pain. The patient is followed by Dr. Winters at [facility]. There was evidence of an increasing hydronephrosis on the right side and the patient had previously had ureteral stents in place, although these apparently were symptomatic for the patient and not providing any meaningful relief given that his renal function is only at 15% on that side. Therefore, they were removed. The patient denied any fever or shaking chills but did have episodes of nausea and vomiting on the period of time leading up to his admission to the hospital. Pain actually started fairly acutely and represented discomfort in more of the upper abdomen than down in the lower pelvic region. He has been experiencing constipation, mostly presumably through the use of Ultram for pain control. He denied any fevers, shaking chills, dysuria, hematuria or blood in the stool. The patient received chemotherapy approximately 2 months ago and a couple sessions of radiation therapy. He has no other significant past medical history regarding kidneys, lungs, blood pressure, cardiopulmonary disease or prior surgeries. FAMILY HISTORY: Significant for colon cancer in multiple family members on both sides but generally in a sporadic pattern and not at an early age. His father has hypertension. Mother has chronic kidney disease as well as hypertension. SOCIAL HISTORY: The patient did smoke but no longer uses tobacco products. Denies alcoholic beverages. Lives with his family. Has a fiancee and is currently disabled. REVIEW OF SYSTEMS: Otherwise noncontributory based on 13-point exam except for mentioned above. ALLERGIES: HE IS ALLERGIC TO LACTOSE, CRANBERRY AND OXALIPLATIN. HOME MEDICATIONS: Include Benadryl, Zofran, Zoloft and tramadol. PHYSICAL EXAMINATION: VITAL SIGNS: On admission showed a temperature of 36.4, heart rate 72, respirations 40, blood pressure 129/78 and pulse ox 100%. Subsequent evaluation an hour and a half later showed a heart rate of 89, respirations 18, blood pressure 122/78 and 96% on 3 liters. GENERAL: At this present time, the patient is resting comfortably in bed overall, he has no significant abdominal pain and is not in respiratory distress. HEENT: Sclerae are anicteric, conjunctivae moist. Oral mucosa moist. Normocephalic, atraumatic. LUNGS: Clear to auscultation without rales, rhonchi or wheezes. HEART: Normal S1, S2. ABDOMEN: Soft, minimally tender in the epigastrium and across the upper abdomen more so than in the lower portion of the abdomen, below the umbilicus. There is no rebound or guarding. I do not appreciate any tense ascites or evidence of shifting dullness. EXTREMITIES: Normal range of motion. Without clubbing, cyanosis or edema. RECTAL: Deferred at this time. LABORATORY STUDIES: On admission, white count 8.4, hemoglobin 13, MCV 86, platelets 279,000. BUN and creatinine at 13 and 0.9, potassium is low at 3.2, bicarbonate 22. LFTs: Total bilirubin 0.5, direct 0.1, AST 26, ALT 25, alkaline phosphatase 74, albumin 3.8, lipase 89. The patient had a CT of the abdomen and pelvis which showed thickening in the colon wall in a diffuse pattern suggesting a possible infectious colitis. There is also probable distal small-bowel enteritis. The mass appearance in the terminal ileum-ileocecal valve region is unchanged. There is worsening, however, of the right hydronephrosis. There is no adenopathy; however, the liver shows an interval increase in the size of the hepatic mass up to 5.2 cm and had been 3.4. Conglomerate lesion in the left lobe is 4 cm, previously 1.2 cm. His urinalysis revealed 2+ ketones but no convincing evidence for urinary tract infection with negative nitrites, leukocyte esterase, white blood cells of 1-5 and no urine bacteria. LFTs were all normal as was albumin and lipase levels. Microbiology did, however, show positive C. diff toxin and this is a likely cause of the diffuse colon wall thickening identified on today's CT scan. CURRENT MEDICATIONS: Include recent initiation of oral vancomycin 125 mg 4 times daily, famotidine, metronidazole, ciprofloxacin, Zofran and pain management medications. I made the following recommendations. I suspect the patient's abdominal pain may reflect the diffuse pattern of colitis that is likely C. difficile colitis. Oral vancomycin is reasonable. In addition, if there is any concern that this is more advanced, addition of IV Flagyl, which is currently on, can be continued, although currently the patient is afebrile without a leukocytosis. There is no clear evidence of a bowel obstruction on today's exam and on imaging studies. At some point, once this colitis is resolved, it may be prudent to have the patient follow with Dr. Winters locally in order to see if any change in his timing for colon resection is recommended. We will continue to follow with you. At the present time, would maintain a liquid diet this evening and into tomorrow, but at some point can advance slowly with a low-residue diet if the patient tolerates. Regarding his chronic constipation, in the absence of an obstruction, this likely reflects the use of Ultram and it may be reasonable to provide a home dose of either MiraLax or Senokot in order to aid in bowel evacuation. Dr. Montes will be covering on Sunday. All questions answered for the patient.
--- NOTE | 2017-09-18 12:14 | Progress Note ---
Subjective Date of Service: Sep 18, 2017. Subjective Pt evaluation today including: conversation w/ patient, conversation w/ family , chart review, lab review Voiding: no voiding problems 27 yo male with stage IV colon cancer. Pt reports his abdominal pain has improved today. Positive c-diff culture noted. He denies diarrhea today. + n/v earlier, but this has improved. Renal function remains stable. Problem List Medical Problems: (1) Abdominal pain Status: Acute (2) Chemotherapy adverse reaction Status: Acute (3) Colon cancer metastasized to liver Permanent Comment: DIAGNOSIS: Colorectal, cecum, adenocarcinoma, metastatic to the liver TREATMENT: 1. Currently receiving FOLFOX chemotherapy 2. Status post completion of radiation therapy 06/26/2016 combined with chemotherapy. Chemotherapy comprised of Xeloda. Radiation dose 5400 cGy Status: Chronic (4) Corneal foreign body Status: Acute (5) Dehydration Status: Acute (6) Enteritis Status: Acute (7) Liver cancer Status: Acute (8) Nausea & vomiting Status: Acute (9) Personal history of colon cancer, stage IV Status: Acute (10) Right flank pain Status: Acute (11) Syncope and collapse Status: Acute (12) Tachycardia Status: Acute (13) Ureteral stent retained Status: Acute (14) Vertigo Status: Acute (15) Vomiting Status: Acute Review of Systems Constitutional: No fever, No chills Respiratory: No shortness of breath Cardiac: No chest pain Abdomen: + see HPI, No pain, No diarrhea Male : No dysuria, No hematuria Heme: No abnormal bleeding/bruising Objective Vital Signs Date Time Temp Pulse Resp B/P (MAP) Pulse Ox O2 Delivery O2 Flow Rate FiO2 09/18/17 11:49 36.8 74 13 121/82 (95) 98 Room Air 09/18/17 10:12 99 Room Air 09/18/17 08:03 Room Air 09/18/17 07:32 36.5 79 16 137/88 (104) 100 Room Air 09/18/17 04:00 36.6 80 20 117/77 (90) 99 Room Air 09/18/17 00:25 36.7 86 20 124/81 (95) 100 Room Air 09/17/17 20:00 Room Air 09/17/17 19:43 36.8 77 16 127/85 (99) 99 Room Air 09/17/17 16:20 Room Air 09/17/17 14:05 36.7 89 18 126/86 (99) 96 Room Air 09/17/17 13:17 82 09/17/17 13:10 87 16 120/93 96 Room Air 09/17/17 13:00 96 Nasal Cannula 3.0 Physical Exam General Appearance: no apparent distress Eyes: normal inspection ENT: hearing grossly normal Neck: no JVD Respiratory/Chest: no respiratory distress, no accessory muscle use Cardiovascular: no JVD Extremities: normal inspection Neurologic/Psychiatric: alert, normal mood/affect, oriented x 3 Skin: normal color Laboratory Results Last 24 Hours Test 09/17/17 14:28 09/17/17 14:39 09/18/17 05:37 White Blood Count 10.02 K/uL 5.77 K/uL Red Blood Count 4.31 M/uL 3.90 M/uL Hemoglobin 12.6 g/dL 11.2 g/dL Hematocrit 37.7 % 34.4 % Mean Corpuscular Volume 87.5 fL 88.2 fL Mean Corpuscular Hemoglobin 29.2 pg 28.7 pg Mean Corpuscular Hemoglobin Concent 33.4 g/dl 32.6 g/dl RDW Standard Deviation 40.4 fL 41.1 fL RDW Coefficient of Variation 12.5 % 12.7 % Platelet Count 255 K/uL 217 K/uL Mean Platelet Volume 9.7 fL 9.4 fL Prothrombin Time 17.2 SECONDS Prothromb Time International Ratio 1.6 Urine Color YELLOW Urine Appearance CLEAR Urine pH 6.0 Urine Specific [place] > 1.045 Urine Protein NEG Urine Glucose (UA) NEG Urine Ketones 2+ Urine Occult Blood NEG Urine Nitrite NEG Urine Bilirubin NEG Urine Urobilinogen NEG Urine Leukocyte Esterase NEG Urine WBC (Auto) 1-5 /hpf Urine RBC (Auto) 0-4 /hpf Urine Hyaline Casts (Auto) 1-5 /lpf Urine Epithelial Cells (Auto) 5-10 /lpf Urine Bacteria (Auto) NEG Neutrophils (%) (Auto) 71.8 % Lymphocytes (%) (Auto) 13.2 % Monocytes (%) (Auto) 10.9 % Eosinophils (%) (Auto) 3.1 % Basophils (%) (Auto) 0.7 % Neutrophils # (Auto) 4.14 K/uL Lymphocytes # (Auto) 0.76 K/uL Monocytes # (Auto) 0.63 K/uL Eosinophils # (Auto) 0.18 K/uL Basophils # (Auto) 0.04 K/uL Immature Granulocyte % (Auto) 0.3 % Immature Granulocyte # (Auto) 0.02 K/uL Sodium Level 141 mmol/L Potassium Level 4.2 mmol/L Chloride Level 109 mmol/L Carbon Dioxide Level 24 mmol/L Anion Gap 8.0 mmol/L Blood Urea Nitrogen 4 mg/dl Creatinine 0.68 mg/dl Est Creatinine Clear Calc Drug Dose 129.2 ml/min Estimated GFR () > 150.0 Estimated GFR (Non- 130.9 BUN/Creatinine Ratio 5.9 Random Glucose 91 mg/dl Calcium Level 8.0 mg/dl Assessment and Plan A/P: Right hydronephrosis secondary to obstruction from stage IV colon cancer AFVSS. Abdominal pain improved. Suspect this has most likely been r/t to his colitis rather than hydro. Renal function remains stable. Would avoid replacing stent at this time as the pt's pain has improved, previous stent was poorly tolerated, renal function is stable, and right kidney noted to be atrophic with 14% function left. Would consider PCN placement if the kidney needed decompression in the future as likely to be better tolerated by the pt. Will continue to follow along with primary service.
--- NOTE | 2017-09-18 15:57 | PROGRESS NOTE ---
DATE: 09/18/2017 SUBJECTIVE: The patient has some mild abdominal pain. OBJECTIVE: He has only had 1 bowel movement today. His stools positive for C. diff and he was started on oral vancomycin yesterday. This is day #2. He remains afebrile and his white count is normal. IMPRESSION: The patient has metastatic colon cancer with liver metastases and right ureteral obstruction. I had had a discussion with Dr. Winters, colorectal surgeon from [place] today and he recommends that he stay on vancomycin through to the time of the surgery that which originally scheduled for October 11. This may be modified and he contacted the liver surgeons at [facility] as there are surgical interventions taking priority over the colon surgery at this time once they have a decision about the timing of when they think they can begin surgery. I will notify the patient. In the meantime, he will stay on vancomycin up until the time of his surgery. We will continue to follow him during his hospital stay.
--- NOTE | 2017-09-18 16:38 | Family Medicine Progress Note ---
Progress Note Date of Service Sep 18, 2017. Subjective Pt evaluation today including: conversation w/ patient, conversation w/ family , physical exam, chart review, lab review, conversation w/ sap basis consultant, review of inpatient medication list Pain: minimal PO Intake: poor Voiding: no voiding problems Patient nauseated this morning but since receiving phenergan has been feeling better Diarrhea has improved today He still has mild abdominal pain Appetite is poor Denies any fevers, chills or sweats Constitutional: + fatigue, No fever, No chills, No sweats Respiratory: No cough, No sputum, No shortness of breath Cardiovascular: No chest pain, No edema, No palpitations Abdomen: + pain, + nausea, + diarrhea, No vomiting, No GI bleeding Musculoskeletal: No joint pain Male : No dysuria, No urinary frequency, No hematuria Skin: No rash, No itch Medications Current Inpatient Medications Medications (Trade) Dose Ordered Sig/Raúl Route Start Time Stop Time Status Last Admin Dose Admin Ioversol (Optiray 320) 125 ml UD PRN IV 09/17/17 10:15 09/21/17 10:14 Ondansetron HCl (Zofran Inj) 4 mg Q6H PRN IV 09/17/17 13:00 10/17/17 12:59 09/17/17 16:50 4 MG Sertraline HCl (Zoloft Tab) 50 mg DAILY PO 09/18/17 08:00 10/18/17 08:59 09/18/17 07:57 50 MG Potassium Chloride/Dextrose/ Sod Cl 1,000 ml @ 125 mls/hr Q8H IV 09/17/17 14:30 10/17/17 14:29 09/18/17 15:05 125 MLS/HR Hydromorphone HCl (Dilaudid Inj) 0.5 mg Q3H PRN IV 09/17/17 13:00 10/01/17 12:59 09/18/17 06:15 0.5 MG Heparin Sodium (Porcine) (Heparin Sq 5000 Unit/0.5ml) 5,000 unit Q12@0800,2000 SQ 09/17/17 20:00 10/17/17 19:59 Famotidine 20 mg/ Syringe 5 ml @ 2.5 mls/min Q12@0200,1400 IV 09/17/17 14:30 10/17/17 14:29 09/18/17 15:05 2.5 MLS/MIN Vancomycin HCl (Vancomycin Oral Soln) 125 mg QID PO 09/17/17 17:00 09/27/17 16:59 09/18/17 12:04 125 MG Raspberry (Raspberry Syrup 5ml Cup) 5 ml QID PO 09/17/17 17:00 09/27/17 16:59 09/18/17 12:04 5 ML Ondansetron HCl 8 mg/Dextrose 54 ml @ 200 mls/hr Q8 PRN IV 09/17/17 19:45 10/17/17 19:44 09/18/17 06:14 200 MLS/HR Heparin Sodium (Porcine) (Heparin 100 Unit/ml 5ml Flush) 5 ml PRN PRN IV 09/18/17 00:45 10/18/17 00:44 Promethazine HCl 25 mg/Sodium Chloride 51 ml @ 204 mls/hr Q4H PRN IV 09/18/17 08:15 10/18/17 08:14 09/18/17 08:57 204 MLS/HR Objective Vital Signs Date Time Temp Pulse Resp B/P (MAP) Pulse Ox O2 Delivery O2 Flow Rate FiO2 09/18/17 15:47 36.6 81 16 120/76 (91) 99 Room Air 09/18/17 11:49 36.8 74 13 121/82 (95) 98 Room Air 09/18/17 10:12 99 Room Air 09/18/17 08:03 Room Air 09/18/17 07:32 36.5 79 16 137/88 (104) 100 Room Air 09/18/17 04:00 36.6 80 20 117/77 (90) 99 Room Air 09/18/17 00:25 36.7 86 20 124/81 (95) 100 Room Air 09/17/17 20:00 Room Air 09/17/17 19:43 36.8 77 16 127/85 (99) 99 Room Air 09/17/17 16:20 Room Air Physical Exam General Appearance: WD/WN, no apparent distress ENT: hearing grossly normal Neck: no JVD, trachea midline Respiratory/Chest: lungs clear, no respiratory distress, no accessory muscle use Cardiovascular: regular rate, rhythm, no JVD, no murmur, + pertinent finding ( permcath in R upper chest (without surrounding erythema)) Abdomen: normal bowel sounds, soft, + tenderness (mild tenderness throughout) Extremities: non-tender, no pedal edema, no calf tenderness Neurologic/Psychiatric: alert, normal mood/affect, oriented x 3 Skin: normal color, warm/dry, no rash Laboratory Results Results Past 24 Hours Test 09/18/17 05:37 Range/Units White Blood Count 5.77 4.8-10.8 K/uL Red Blood Count 3.90 4.7-6.1 M/uL Hemoglobin 11.2 14.0-18.0 g/dL Hematocrit 34.4 42-52 % Mean Corpuscular Volume 88.2 80-100 fL Mean Corpuscular Hemoglobin 28.7 25-34 pg Mean Corpuscular Hemoglobin Concent 32.6 32-36 g/dl Platelet Count 217 130-400 K/uL Mean Platelet Volume 9.4 7.4-10.4 fL Neutrophils (%) (Auto) 71.8 % Lymphocytes (%) (Auto) 13.2 % Monocytes (%) (Auto) 10.9 % Eosinophils (%) (Auto) 3.1 % Basophils (%) (Auto) 0.7 % Neutrophils # (Auto) 4.14 1.4-6.5 K/uL Lymphocytes # (Auto) 0.76 1.2-3.4 K/uL Monocytes # (Auto) 0.63 0.11-0.59 K/uL Eosinophils # (Auto) 0.18 0-0.5 K/uL Basophils # (Auto) 0.04 0-0.2 K/uL RDW Standard Deviation 41.1 36.4-46.3 fL RDW Coefficient of Variation 12.7 11.5-14.5 % Immature Granulocyte % (Auto) 0.3 % Immature Granulocyte # (Auto) 0.02 0.00-0.02 K/uL Sodium Level 141 136-145 mmol/L Potassium Level 4.2 3.5-5.1 mmol/L Chloride Level 109 98-107 mmol/L Carbon Dioxide Level 24 21-32 mmol/L Anion Gap 8.0 3-11 mmol/L Blood Urea Nitrogen 4 7-18 mg/dl Creatinine 0.68 0.60-1.40 mg/dl Est Creatinine Clear Calc Drug Dose 129.2 ml/min Estimated GFR () > 150.0 Estimated GFR (Non- 130.9 BUN/Creatinine Ratio 5.9 10-20 Random Glucose 91 70-99 mg/dl Calcium Level 8.0 8.5-10.1 mg/dl Assessment and Plan 27yo male with known stage 4 colon cancer, original primary site was the ileocecal valve, s/p chemo/radiation, who presented with acute abdominal pain & was found to have c.diff and is currently being treated with PO vancomycin Acute abdominal pain sec to C.difficile colitis continue 125mg PO vancomycin qid nausea medication with phenergen 25mg q4 and zofran 8mg q8 famotidine q12 for gastritis IVF 125mls/hr as patient with poor appetite pain medication with dilaudid 0.5 q3hrs Stage 4 colorectal cancer worsening metastasis to the liver Currently receiving FOLFOX chemotherapy (last chemotherapy session was 1 month ago) Status post completion of radiation therapy 06/26/2016 combined with chemotherapy. Chemotherapy comprised of Xeloda. Radiation dose 5400 cGy plan to go to [place] October 11 for debulking surgery- GI spoke to surgeons in [place] and recommend continuing vancomycin PO until surgery Right sided hydronephrosis urology was consulted and currently going to hold off on replacing stent creatinine has been stable, continue to monitor I/O's Hypokalemia (resolved) received 20meq of KCLx1 and KCL in maintenance fluids Depression continue zoloft Constipation of note had been taking several meds at home will continue to monitor as diarrhea resolves DVT prophylaxis: heparin 5000 bid Diet: currently on clear liquid diet Code: Full Continued [facility] stay due to: inadequate po fluid intake Discharge planning: uncertain Reviewed: Pt Seen/Exam by Me History diarrhea better today no more abdominal pain Constitutional: denies: fever Respiratory: negative: short of breath Cardiovascular: denies chest pain General Appearance: no apparent distress Respiratory: lungs clear, no respiratory distress Cardiovascular: regular rate, rhythm Gastrointestinal: normal bowel sounds, non tender, soft Neurologic/Psychiatric: alert, oriented x 3 Skin Characteristics: warm/dry Assessment/Plan Resident Physician Supervision Note: I independently interviewed and examined the patient and verified the gregory history and physical, reviewed labs and image studies, discussed the case with the resident Dr. Dye and agree with the findings and care plan.
[2017-09-19] VITALS (7 sets, daily range): BP systolic 114–144; BP diastolic 76–83; PULSE 76–88; TEMP 36.5–37; O2SAT 97–100; Ht 170.2 cm; Wt 53.0 kg
[2017-09-19] MEDS: D5NSS + 20MEQ KCL 1,000 ML IV SCH ×3 (00:15→14:17)
[2017-09-19] MEDS: FAMOTIDINE IV INJ 20 MG in SYRINGE 3 ML IV SCH ×2 (01:46→14:13)
[2017-09-19] MEDS: HYDROmorphone INJ 0.5 MG/0.5 ML SYR IV PRN ×3 (05:38→11:56)
[2017-09-19 06:07] LABS: BASO ABS # 0.05 K/uL (0-0.2); COMPLETE YES; EOS % 3.5 %; HEMATOCRIT 34.3 % (42-52); IG% 0.2 %; LYMPH % 13.2 %; LYMPH ABS # 0.68 K/uL (1.2-3.4); MEAN CELL VOLUME 89.1 fL (80-100); MEAN CORPUSCULAR HEMOGLOBIN 29.1 pg (25-34); MEAN CORPUSCULAR HGB CONC 32.7 g/dl (32-36); MEAN PLATELET VOLUME 9.3 fL (7.4-10.4); NEUT % 71.1 %; PLATELET COUNT 209 K/uL (130-400); RED BLOOD COUNT 3.85 M/uL (4.7-6.1); WHITE BLOOD COUNT 5.17 K/uL (4.8-10.8)
[2017-09-19 06:41] LABS: CALCIUM 8.2 mg/dl (8.5-10.1); CREATININE 0.73 mg/dl (0.60-1.40)
[2017-09-19 06:44] LABS: ALB/GLOB RATIO 0.9 (0.9-2)
[2017-09-19] MEDS: HEPARIN SOD 5000 UNIT/0.5 ML CARP SQ SCH (08:00)
[2017-09-19] MEDS: PROMETHAZINE HCL INJ 25 MG in SODIUM CHLORIDE 0.9% 50ML 50 ML IV PRN (08:01)
[2017-09-19] MEDS: RASPBERRY SYRUP 5 ML UDP PO SCH ×2 (08:04→11:59)
[2017-09-19] MEDS: VANCOMYCIN HCL 125 MG/2.5ML SOLN PO SCH ×2 (08:04→11:59)
[2017-09-19] MEDS: SERTRALINE HCL 100 MG TAB PO SCH (08:04)
--- NOTE | 2017-09-19 09:03 | ONCOLOGY CONSULTATION ---
DATE OF CONSULTATION: 09/19/2017 REASON FOR CONSULTATION: Continuum of care of a 27-year-old gentleman with metastatic colorectal cancer. HISTORY OF PRESENT ILLNESS: Thomas is a pleasant but unfortunate 27-year-old well-known to [facility] with a diagnosis of metastatic colorectal cancer (hepatic metastasis). The patient was admitted on 09/17/2017 for subacute onset epigastric pain. He denied any diarrhea, fevers, chills; however, the crampy-like pain intensified despite giving himself stool softeners. Thomas was recently seen by Dr. Madrid who is considering limited hepatic resection along with resection of cecal mass. Thomas's case will be presented to [facility]'s tumor board and final decision is upcoming. Thomas imparts recently having right ureteral stent removed by Dr. Modesto Stewart. Again, on admission, CT scan of the abdomen and pelvis was performed with findings concerning for disease progression and interval development of diffuse large bowel wall thickening concerning for infectious colitis. Stool sample was taken confirming the presence of Clostridium difficile toxin. He is now on broad-spectrum antimicrobials. From an oncologic standpoint, the plan will be medical stability, followed by limited resection and further adjuvant chemotherapy. PAST MEDICAL HISTORY: Again, significant for metastatic colorectal cancer, hydronephrosis necessitating ureteral stenting. MEDICATIONS: Prior to admission include Zofran 8 mg p.o. q. 8 hours p.r.n. for nausea, sertraline 0.5 mg p.o. for depression, tramadol 50 mg p.o. t.i.d. p.r.n. for pain and Benadryl 25 mg daily p.r.n. ALLERGIES: TO CRANBERRY EXTRACT, LACTOSE INTOLERANCE AND OXALIPLATIN. FAMILY HISTORY: Multiple members with colorectal cancer. Mother, chronic kidney disease and hypertension. Father suffers from hypertension. SOCIAL HISTORY: The patient lives with his family, currently on disability. He is a former smoker. Negative for alcohol or illicit drugs. REVIEW OF SYSTEMS: GENERAL: Negative for fevers, chills or night sweats. Positive for anorexia. No current weight loss. SKIN: No rashes or lesions. No history of dermatosis. HEENT: Negative for headaches, lightheadedness or dizziness. No visual or hearing deficits. No sinus symptoms, sore throat or dysphagia. LYMPH: No history of lymphoproliferative disease. CARDIAC: Negative for coronary artery disease. No angina or palpitation. PULMONARY: Negative for shortness of breath, dyspnea or orthopnea. No cough or hemoptysis. GASTROINTESTINAL: Positive for epigastric abdominal pain, nausea, vomiting. Positive for constipation. No hematochezia, melena or kvng rectal bleeding presently. GENITOURINARY: No history of prostate disease. No hematuria, dysuria or urinary incontinence. PSYCHIATRIC: Positive for depression. Positive for anxiety. ENDOCRINE: Negative for diabetes or thyroid disease. NEUROLOGIC: Negative for seizure, stroke or migraine headache. HEMATOLOGIC: Negative for anemia, thrombophilia or bleeding diathesis. PHYSICAL EXAMINATION: GENERAL: Cachectic-appearing 27-year-old gentleman, in no acute distress. VITAL SIGNS: Temperature 36.7, pulse 88, respirations 18, blood pressure 119/79. SKIN: Warm, dry, noncyanotic, without petechia, rash or ecchymosis. HEENT: Head atraumatic, normocephalic. Eyes, PERRLA, EOMI. Sclerae nonicteric. No conjunctival injection. Nares are patent without rhinorrhea or discharge. Throat is clear. Tongue is midline. Mucous membranes are moist. NECK: Supple without JVD or thyromegaly. LYMPH: No cervical, supraclavicular or axillary palpable nodes. HEART: Regular rate and rhythm. No clicks, rubs, murmurs, gallops. LUNGS: Clear to auscultation bilaterally. ABDOMEN: Soft, nontender, nondistended. No palpable hepatosplenomegaly. EXTREMITIES: Musculoskeletal strength and pulses are equal. No clubbing, cyanosis or edema. NEUROLOGICAL: He is awake, alert and oriented x3. Cranial nerves II-XII are intact. No gross motor or sensory deficits are noted. LABORATORY DATA: WBC count 5170, hemoglobin 11.2, platelet count 209,000. Sodium 142, potassium 4.0, chloride 112, carbon dioxide 25, creatinine 0.73. Albumin 2.9. RADIOGRAPHIC DATA: CT scan of the abdomen and pelvis, again suggestive of disease progression and pancolitis. IMPRESSION: 1. Clostridium difficile colitis. 2. Metastatic colorectal cancer (hepatic metastasis). 3. Hypoalbuminemia. PLAN: Thomas is well known to [facility] with a diagnosis of metastatic colorectal cancer. He was admitted to [facility] on 09/17/[address] scan of the abdomen and pelvis suggestive of disease progression and pancolitis. C. diff toxin is present and the patient is now on Flagyl and vancomycin. Abdominal pain has subsided. Thomas was recently down at [facility] in consultation with Dr. Madrid to discuss limited hepatic resection and resection of the primary colonic tumor. Obviously, with Clostridium, surgery is not feasible until he is well past his infection. There are no plans to initiate chemotherapy until his surgery is complete. I have encouraged him to maintain appointments with Dr. Madrid and myself. I agree with current medical management and have nothing further to add. Thank you very much for allowing me to participate in the care of this very pleasant gentleman.
--- NOTE | 2017-09-19 10:13 | Progress Note ---
Subjective Date of Service: Sep 19, 2017. Subjective Pt evaluation today including: conversation w/ patient, chart review, lab review Voiding: no voiding problems Pt denies pain, n/v, dysuria, or hematuria today. Cr stable. Problem List Medical Problems: (1) Abdominal pain Status: Acute (2) Chemotherapy adverse reaction Status: Acute (3) Colon cancer metastasized to liver Permanent Comment: DIAGNOSIS: Colorectal, cecum, adenocarcinoma, metastatic to the liver TREATMENT: 1. Currently receiving FOLFOX chemotherapy 2. Status post completion of radiation therapy 06/26/2016 combined with chemotherapy. Chemotherapy comprised of Xeloda. Radiation dose 5400 cGy Status: Chronic (4) Corneal foreign body Status: Acute (5) Dehydration Status: Acute (6) Enteritis Status: Acute (7) Liver cancer Status: Acute (8) Nausea & vomiting Status: Acute (9) Personal history of colon cancer, stage IV Status: Acute (10) Right flank pain Status: Acute (11) Syncope and collapse Status: Acute (12) Tachycardia Status: Acute (13) Ureteral stent retained Status: Acute (14) Vertigo Status: Acute (15) Vomiting Status: Acute Review of Systems Constitutional: No fever, No chills Respiratory: No shortness of breath Cardiac: No chest pain Abdomen: No pain, No nausea, No vomiting Male : No dysuria, No hematuria Heme: No abnormal bleeding/bruising Objective Vital Signs Date Time Temp Pulse Resp B/P (MAP) Pulse Ox O2 Delivery O2 Flow Rate FiO2 09/19/17 08:34 97 Room Air 09/19/17 04:04 36.7 88 18 119/79 (92) 97 Room Air 09/19/17 00:27 36.9 78 18 117/83 (94) 99 Room Air 09/18/17 23:59 100 Room Air 09/18/17 20:01 36.8 80 16 113/74 (87) 100 09/18/17 20:00 Room Air 09/18/17 16:58 Room Air 09/18/17 15:47 36.6 81 16 120/76 (91) 99 Room Air 09/18/17 11:49 36.8 74 13 121/82 (95) 98 Room Air 09/18/17 10:12 99 Room Air Physical Exam General Appearance: no apparent distress Eyes: normal inspection ENT: hearing grossly normal Neck: no JVD Respiratory/Chest: no respiratory distress, no accessory muscle use Cardiovascular: no JVD Extremities: normal inspection Neurologic/Psychiatric: alert, normal mood/affect, oriented x 3 Skin: normal color Laboratory Results Last 24 Hours Test 09/19/17 05:58 White Blood Count 5.17 K/uL Red Blood Count 3.85 M/uL Hemoglobin 11.2 g/dL Hematocrit 34.3 % Mean Corpuscular Volume 89.1 fL Mean Corpuscular Hemoglobin 29.1 pg Mean Corpuscular Hemoglobin Concent 32.7 g/dl Platelet Count 209 K/uL Mean Platelet Volume 9.3 fL Neutrophils (%) (Auto) 71.1 % Lymphocytes (%) (Auto) 13.2 % Monocytes (%) (Auto) 11.0 % Eosinophils (%) (Auto) 3.5 % Basophils (%) (Auto) 1.0 % Neutrophils # (Auto) 3.68 K/uL Lymphocytes # (Auto) 0.68 K/uL Monocytes # (Auto) 0.57 K/uL Eosinophils # (Auto) 0.18 K/uL Basophils # (Auto) 0.05 K/uL RDW Standard Deviation 41.1 fL RDW Coefficient of Variation 12.9 % Immature Granulocyte % (Auto) 0.2 % Immature Granulocyte # (Auto) 0.01 K/uL Sodium Level 142 mmol/L Potassium Level 4.0 mmol/L Chloride Level 112 mmol/L Carbon Dioxide Level 25 mmol/L Anion Gap 5.0 mmol/L Blood Urea Nitrogen 1 mg/dl Creatinine 0.73 mg/dl Est Creatinine Clear Calc Drug Dose 115.5 ml/min Estimated GFR () 147.3 Estimated GFR (Non- 127.1 BUN/Creatinine Ratio 2.0 Random Glucose 136 mg/dl Calcium Level 8.2 mg/dl Total Bilirubin 0.3 mg/dl Aspartate Amino Transf (AST/SGOT) 18 U/L Alanine Aminotransferase (ALT/SGPT) 19 U/L Alkaline Phosphatase 60 U/L Total Protein 6.1 gm/dl Albumin 2.9 gm/dl Globulin 3.2 gm/dl Albumin/Globulin Ratio 0.9 Assessment and Plan A/P: Right hydronephrosis secondary to obstruction from stage IV colon cancer AFVSS. Abdominal pain improved. Suspect this has most likely been r/t to his colitis rather than hydro. Renal function remains stable. Would avoid replacing stent at this time as the pt's pain has improved, previous stent was poorly tolerated, renal function is stable, and right kidney noted to be atrophic with 14% function left. Would consider PCN placement if the kidney needed decompression in the future as likely to be better tolerated by the pt. No further management at this time. Recall PRN issues. Will arrange for outpatient f/u with Dr. Stewart in 1-2 weeks. Continued [facility] stay due to: inadequate po fluid intake Discharge planning: uncertain
[2017-09-19] MEDS ORDERED: PROM25TA9 PO (14:50)
[2017-09-19] MEDS ORDERED: NF1094 PO (14:50)
--- NOTE | 2017-09-19 14:55 | Discharge Instructions ---
Discharge Instructions Date of Service Sep 19, 2017. Admission Reason for Admission: Abdominal Pain Discharge Discharge Diagnosis / Problem: Clostridium Difficile infection Discharge Goals Goal(s): Decrease discomfort, Therapeutic intervention, Prevent Disease Progression Activity Recommendations Activity Limitations: per Instructions/Follow-up section . Instructions / Follow-Up Instructions / Follow-Up You came to the hospital because of abdominal pain, and nausea. You were found to have an abdominal infection called Clostridium Difficile. We will be prescribing you with a medication to help cure this infection. Please take the vancomycin as prescribed. You will need to take it up until your surgery. Please follow up with your surgeon in [place] as well as Dr. Andres for the management of your cancer. If you have any worsening abdominal pain, vomiting, or fever >100.4 then please come back to the emergency department. Current Hospital Diet Patient's current hospital diet: Regular Diet, Low Lactose Diet Discharge Diet Recommended Diet: Regular Diet Pending Studies Studies pending at discharge: no Medical Emergencies . Who to Call and When: Medical Emergencies: If at any time you feel your situation is an emergency, please call 911 immediately. . Non-Emergent Contact Non-Emergency issues call your: Primary Care Provider, Oncologist . . "Provider Documentation" section prepared by Ritesh Dye. . VTE Core Measure Inpt VTE Proph given/why not?: SCD's
--- NOTE | 2017-09-19 15:32 | Discharge Summary ---
Discharge Summary Date of Service Sep 19, 2017. (Ritesh Dye MD) Discharge Summary Admission Date: Sep 17, 2017 at 13:02 Discharge Date: Sep 19, 2017 Discharge Disposition: Home Principal Diagnosis: Clostridium Difficile Problems/Secondary Diagnoses: (1) Colon cancer metastasized to liver Status: Chronic Immunizations: Have You Had Influenza Vaccine: Unknown History of Tetanus Vaccine?: Unknown History of Pneumococcal: Unknown History of Hepatitis B Vaccine: Unknown Consultations: GI Oncology (Ritesh Dye MD) Medication Reconciliation New Medications: Promethazine Hcl (Phenergan) 25 Mg Tab 25 MG PO Q6H PRN for Nausea for 10 Days, #40 TAB Vancomycin HCl (Vancomycin HCl) 100 Mg/Ml Inj 125 MG PO DIRECTED for 21 Days, #210 ML Please take 125 mg 4 times daily for 7 days then please take 125mg 2 times daily for 14 days Continued Medications: Diphenhydramine Hcl (Benadryl Allergy) 25 Mg Tab 25 MG PO DAILY PRN for PRN Ondansetron (Ondansetron HCl) 8 Mg Tab 1 TAB PO Q8 PRN for Nausea or Vomiting, #60 Sertraline HCl (Sertraline HCl) 100 Mg Tab 0.5 TAB PO PRN for Depression, #30 Tramadol (Ultram) 50 Mg Tab 1 TAB PO TID PRN for Pain for 30 Days, #90 TAB Discharge Exam Patient without any abdominal pain, nausea or vomiting Patient was able to tolerate meal without any problem Very small amount of diarrhea yesterday Feeling much better Review of Systems: Constitutional: No fever, No chills, No sweats Respiratory: No cough, No sputum, No shortness of breath Cardiovascular: No chest pain Abdomen: + diarrhea, No pain, No nausea, No vomiting Genitourinary - Male: No hematuria, No dysuria, No urinary frequency Hematologic / Lymphatic: No abnormal bleeding/bruising, No clotting problems Integumentary: No rash, No itch Physical Exam: General Appearance: WD/WN, no apparent distress ENT: hearing grossly normal, pharynx normal Respiratory/Chest: lungs clear, no respiratory distress, no accessory muscle use Cardiovascular: regular rate, rhythm, no murmur, normal peripheral pulses, + pertinent finding (permacath on left chest wall) Abdomen / GI: normal bowel sounds, soft, + tenderness (very mild tenderness throughout) Neurologic/Psychiatric: alert, normal mood/affect, oriented x 3 (Ritesh Dye MD) no more abdominal pain/diarrhea. Ate well Review of Systems: Constitutional: No fever Respiratory: No shortness of breath Cardiovascular: No chest pain Physical Exam: General Appearance: no apparent distress Respiratory/Chest: lungs clear, no respiratory distress Cardiovascular: regular rate, rhythm Abdomen / GI: normal bowel sounds, non tender, soft Neurologic/Psychiatric: alert, oriented x 3 Skin: warm/dry (Pattie Rashid M.D.) Hospital Course 27yo male with known stage 4 colon cancer, original primary site was the ileocecal valve, s/p chemo/radiation, who presented with acute abdominal pain & was found to have c.diff and is currently being treated with PO vancomycin Acute abdominal pain sec to C.difficile colitis continue 125mg PO vancomycin qid for 7 days and then bid until GI surgery discharged with nausea medication with phenergen 25mg q6 and zofran 8mg q8 famotidine q12 IV while in hospital pain medication with dilaudid 0.5 q3hrs IV while in hospital Stage 4 colorectal cancer worsening metastasis to the liver Currently receiving FOLFOX chemotherapy (last chemotherapy session was 1 month ago) Status post completion of radiation therapy 06/26/2016 combined with chemotherapy. Chemotherapy comprised of Xeloda. Radiation dose 5400 cGy plan to go to [place] October 11 for debulking surgery- GI spoke to surgeons in [place] and recommend continuing vancomycin PO until surgery Right sided hydronephrosis urology was consulted and currently going to hold off on replacing stent creatinine has been stable Hypokalemia (resolved) received 20meq of KCLx1 and KCL in maintenance fluids 4.0 upon discharge Depression continue zoloft Constipation of note had been taking several meds at home will continue to monitor as diarrhea resolves Total Time Spent: Less than 30 minutes This includes examination of the patient, discharge planning, medication reconciliation, and communication with other providers. (Ritesh Dye MD) Resident Physician Supervision Note: I independently interviewed and examined the patient and verified the gregory history and physical, reviewed labs and image studies, discussed the case with the resident Dr. Dye and agree with the findings and care plan. Total Time Spent: Greater than 30 minutes (35) (Pattie Rashid M.D.) Discharge Instructions Please refer to the electronic Patient Visit Report (Discharge Instructions) for additional information. (Ritesh Dye MD) Additional Copies To Luisito Cheema D.O.; Louie Montes M.D.; Wayne Andres D.O.; Dorina Winters M.D.
== END 2017-09-19 16:00 | disposition home or self-care (01) | DRG 372 ==
LOC: C.EDB 09:45 → C.4E 13:02 → ENRESERV 13:24
PROVIDERS: ADMIT Internal Medicine; ATTEND Family Medicine
DX: A04.72 Enterocolitis due to Clostridium difficile, not specified as recurrent (principal); C18.0 Malignant neoplasm of cecum; C78.7 Secondary malignant neoplasm of liver and intrahepatic bile duct; E87.2 Acidosis; R64 Cachexia; Z68.1 Body mass index [BMI] 19.9 or less, adult; N13.39 Other hydronephrosis; N26.1 Atrophy of kidney (terminal); N28.9 Disorder of kidney and ureter, unspecified; E87.6 Hypokalemia; E88.09 Other disorders of plasma-protein metabolism, not elsewhere classified; E86.0 Dehydration; R11.2 Nausea with vomiting, unspecified; K59.00 Constipation, unspecified; T40.4X5A Adverse effect of other synthetic narcotics, initial encounter; F41.9 Anxiety disorder, unspecified; F32.9 Major depressive disorder, single episode, unspecified; Z92.21 Personal history of antineoplastic chemotherapy; Z79.899 Other long term (current) drug therapy

== ENCOUNTER 2017-10-16 04:05 | Emergency (ER) | payer BC, OTHER ==
[~2017-10-16] VITALS: Ht 175.3 cm; Wt 53.0 kg
[~2017-10-16 04:05] MED LIST changes: -MISCCAP80 PO; +NF1094 PO
[2017-10-16 04:08] VITALS: Ht 175.3 cm; Wt 53.0 kg
--- NOTE | 2017-10-16 04:29 | EMERGENCY ROOM VISIT NOTE ---
History First contact with patient: 04:13 Chief Complaint: BACK PAIN Stated Complaint: PAIN,MUSCLE SPASMS,NAUSEA,ABDOMINAL PAIN History of Present Illness The patient is a 27 year old male who presents to the Emergency Room for evaluation of thoracic back spasms. h/o metastatic colon CA to liver with Chemo over last 2 years, periodic issues with right hydronephrosis and awaiting surgical resection of primary tumor at ileocecal area. He notes periodic issues with spasm of muscles in back. Chronic vomiting/nausea and after vomiting yesterday with mid thoracic spasm. Spasm has not resolved with tramadol nor massage. Does get better briefly with massage. Worse with raising arms. Denies leg weakness, urinary/bowel loss of control. Chronic abdominal pain, diarrhea, fatigue, weakness. Fiance notes he does look a bit paler than usual. Tramadol and Zofran [employer]. Currently no nausea. Denies trauma , injury nor falls. Denies cp, sob, syncope, swelling, rashes, fevers, headache /neck pain, nor other symptoms. Review of Systems See HPI for pertinent positives & negatives. A total of 10 systems reviewed and were otherwise negative. Past Medical/Surgical History Medical Problems: (1) Abdominal pain (2) Cecum mass (3) Colon cancer metastasized to liver (4) Episode of syncope (5) GI bleed (6) Hydronephrosis of left kidney (7) Hydronephrosis of right kidney (8) Kidney stone Surgical Problems: (1) History of ureter stent Family History FH: cardiovascular disease Social History Smoking Status: Never Smoker Alcohol Use: occasionally Drug Use: none Marital Status: in relationship Housing Status: lives with family Occupation Status: disabled Current/Historical Medications Scheduled Vancomycin Hcl (Vancomycin), 125 MG PO DIRECTED Scheduled PRN Diazepam (Valium), 5 MG PO Q6H PRN for Pain Diphenhydramine Hcl (Benadryl Allergy), 25 MG PO DAILY PRN for PRN Naproxen (Aleve), 220-440 MG PO DIRECTED PRN for Pain Ondansetron (Ondansetron HCl), 1 TAB PO Q8 PRN for Nausea or Vomiting Promethazine Hcl (Phenergan), 25 MG PO DIRECTED PRN for Nausea Tramadol (Ultram), 1 TAB PO TID PRN for Pain Physical Exam Vital Signs Date Time Temp Pulse Resp B/P (MAP) Pulse Ox O2 Delivery O2 Flow Rate FiO2 12/12/17 05:57 36.7 92 20 112/59 99 Room Air 10/16/17 04:08 36.7 108 20 110/76 99 Room Air Physical Exam GENERAL: Patient is chronically unwell appearing and in mild distress. Pale and cachectic HEENT: Pale Conjunctiva, no acute trauma, normocephalic atraumatic, mucous membranes moist, no nasal congestion, no scleral icterus. NECK: No stridor, no adenopathy, no meningismus, trachea is midline. LUNGS: No dyspnea. Clear to auscultation and equal bilaterally. No wheeze, no rhonchi. HEART: Regular rate and rhythm. No murmurs, rubs, gallops appreciated. ABDOMEN: Vague diffuse TTP which patient notes is at baseline. Soft, nontender , bowel sounds positive, no masses appreciated, no peritonitis. BACK: TTP and spasm of the bilateral mid thoracic paraspinal/rhomboid muscles. No midline tenderness, no CVA tenderness EXTREMITIES: Normal motion all extremities, no cyanosis, no edema. NEUROLOGIC: Alert and oriented, no acute motor or sensory deficits, no focal weakness, cranial nerves grossly intact. SKIN: No rash, no jaundice, no diaphoresis. Medical Decision & Procedures ER Provider Diagnostic Interpretation: X ray results are stated below per my interpretation: Chest: 1 view: No infiltrate, no effusion, normal cardiac border. Thoracic: 3 view: Mild straightening. No fractures. No compressions appreciated. No dislocation. Laboratory Results 10/16/17 04:30 Red Blood Count 4.11, Mean Corpuscular Volume 86.4, Mean Corpuscular Hemoglobin 28.7, Mean Corpuscular Hemoglobin Concent 33.2, Mean Platelet Volume 9.4, Neutrophils (%) (Auto) 73.1, Lymphocytes (%) (Auto) 13.0, Monocytes (%) (Auto) 10.5, Eosinophils (%) (Auto) 2.5, Basophils (%) (Auto) 0.6, Neutrophils # (Auto ) 5.77, Lymphocytes # (Auto) 1.03, Monocytes # (Auto) 0.83, Eosinophils # (Auto ) 0.20, Basophils # (Auto) 0.05 10/16/17 04:30 Test 10/16/17 04:30 White Blood Count 7.90 K/uL (4.8-10.8) Red Blood Count 4.11 M/uL (4.7-6.1) Hemoglobin 11.8 g/dL (14.0-18.0) Hematocrit 35.5 % (42-52) Mean Corpuscular Volume 86.4 fL (80-100) Mean Corpuscular Hemoglobin 28.7 pg (25-34) Mean Corpuscular Hemoglobin Concent 33.2 g/dl (32-36) Platelet Count 308 K/uL (130-400) Mean Platelet Volume 9.4 fL (7.4-10.4) Neutrophils (%) (Auto) 73.1 % Lymphocytes (%) (Auto) 13.0 % Monocytes (%) (Auto) 10.5 % Eosinophils (%) (Auto) 2.5 % Basophils (%) (Auto) 0.6 % Neutrophils # (Auto) 5.77 K/uL (1.4-6.5) Lymphocytes # (Auto) 1.03 K/uL (1.2-3.4) Monocytes # (Auto) 0.83 K/uL (0.11-0.59) Eosinophils # (Auto) 0.20 K/uL (0-0.5) Basophils # (Auto) 0.05 K/uL (0-0.2) RDW Standard Deviation 40.3 fL (36.4-46.3) RDW Coefficient of Variation 12.6 % (11.5-14.5) Immature Granulocyte % (Auto) 0.3 % Immature Granulocyte # (Auto) 0.02 K/uL (0.00-0.02) Anion Gap 5.0 mmol/L (3-11) Est Creatinine Clear Calc Drug Dose 109.4 ml/min Estimated GFR () 144.9 Estimated GFR (Non- 125.0 BUN/Creatinine Ratio 15.6 (10-20) Calcium Level 8.7 mg/dl (8.5-10.1) Total Bilirubin 0.6 mg/dl (0.2-1) Aspartate Amino Transf (AST/SGOT) 32 U/L (15-37) Alanine Aminotransferase (ALT/SGPT) 24 U/L (12-78) Alkaline Phosphatase 78 U/L (45-117) Total Protein 6.9 gm/dl (6.4-8.2) Albumin 3.5 gm/dl (3.4-5.0) Globulin 3.4 gm/dl (2.5-4.0) Albumin/Globulin Ratio 1.0 (0.9-2) Medications Administered Medications (Trade) Dose Ordered Sig/Raúl Route Start Time Stop Time Status Last Admin Dose Admin Sodium Chloride 1,000 ml @ 999 mls/hr Q1H1M STAT IV 10/16/17 04:21 10/16/17 05:21 DC 10/16/17 04:30 999 MLS/HR Fentanyl Citrate (Fentanyl Inj) 100 mcg NOW STAT IV 10/16/17 04:21 10/16/17 04:24 DC 10/16/17 04:31 100 MCG Diazepam (Valium Inj) 5 mg NOW STAT IV 10/16/17 04:59 10/16/17 05:00 DC 10/16/17 05:05 5 MG Medical Decision Differential: Musculoskeletal, Metastasis, Disc Herniation, Fracture, Cord Compression, Discitis, Infectious, Cauda Equina, amongst other pathologies entertained. 27 yr old male on chemo with known metastatic colon CA arrives with complaint of bilateral upper thoracic back pain. Clearly having muscular spasm on exam. Admits this has happened before. With his history labs done to make sure electrolytes/hgb OK which are at baseline. I did get thoracic films which don' t show obvious evidence of thoracic fracture nor other obvious signs of metastasis. Feeling much improved with above. Wishes to go home. Declines further testing as he is feeling much better. His fiance is comfortable with him going home as well. We discussed symptoms requiring return. Impression Primary Impression: Muscle spasm of back Additional Impression: Malnutrition Departure Information Dispostion Home / Self-Care Condition FAIR Prescriptions Diazepam (Valium) 5 Mg Tab 5 MG PO Q6H Y for Pain, #15 TAB Prov: Ritesh Conklin M.D. 10/16/17 Referrals Luisito Cheema D.O. (PCP) Patient Instructions ED Spasm Back No Trauma, My [facility] Additional Instructions You have received a benzodiazepine medication prescription. These medications may cause drowsiness and should not be used with other sedative medications. Do not drive, drink alcohol, perform dangerous activities, nor make important decisions after taking these medications. [facility] use or inappropriate use may lead to addiction. Problem Qualifiers
[2017-10-16] MEDS: SODIUM CHLORIDE 0.9% 1000ML 1,000 ML IV STA (04:30)
[2017-10-16] MEDS: FENTANYL CITRATE INJ 50 MCG/1 ML 2 ML VIAL IV STA (04:31)
[2017-10-16] MEDS ORDERED: VANC5CAP PO (04:39)
[2017-10-16] MEDS ORDERED: PROM25TA9 PO (04:42)
[2017-10-16] MEDS ORDERED: NAPR1TAB9 PO (04:43)
[2017-10-16 04:51] LABS: BASO % 0.6 %; BASO ABS # 0.05 K/uL (0-0.2); COMPLETE YES; EOS % 2.5 %; HEMATOCRIT 35.5 % (42-52); IG% 0.3 %; LYMPH ABS # 1.03 K/uL (1.2-3.4); MEAN CELL VOLUME 86.4 fL (80-100); MEAN CORPUSCULAR HEMOGLOBIN 28.7 pg (25-34); MEAN CORPUSCULAR HGB CONC 33.2 g/dl (32-36); MEAN PLATELET VOLUME 9.4 fL (7.4-10.4); MONO % 10.5 %; NEUT % 73.1 %; PLATELET COUNT 308 K/uL (130-400); RED BLOOD COUNT 4.11 M/uL (4.7-6.1)
[2017-10-16] MEDS: DIAZEPAM INJ 5 MG/ML 2 ML CARP IV STA (05:05)
[2017-10-16 05:14] LABS: BUN/CREATININE RATIO 15.6 (10-20); CALCIUM 8.7 mg/dl (8.5-10.1); CREATININE 0.76 mg/dl (0.60-1.40); POTASSIUM 3.6 mmol/L (3.5-5.1)
[2017-10-16 05:57] VITALS: BP 112/59; PULSE 92; TEMP 36.7; O2SAT 99
[2017-10-16] MEDS ORDERED: DIAZ-165 PO (06:01)
--- NOTE | 2017-10-16 06:45 | DIAGNOSTIC IMAGING REPORT ---
CHEST ONE VIEW PORTABLE HISTORY: 27 years-old Male mid thoracic spine pain/spasm, h.o metastatic CA acute mid back pain with history of metastatic colon cancer COMPARISON: CT abdomen and pelvis 09/17/2017, chest radiograph 07/11/2017 TECHNIQUE: Upright PA view of the chest FINDINGS: Cardiomediastinal and hilar silhouettes are within normal limits. Left subclavian [id number] catheter is noted with distal tip in the region of the mid SVC. No pneumothorax, pleural effusion, focal airspace consolidation or overt pulmonary edema. IMPRESSION: No acute process. The above report was generated using voice recognition software. It may contain grammatical, syntax or spelling errors. Electronically signed by: David Schneider M.D. 10/16/2017 6:44 AM Dictated Date/Time: 10/16/2017 6:41 AM
--- NOTE | 2017-10-16 06:47 | DIAGNOSTIC IMAGING REPORT ---
THORACIC SPINE 3 VIEWS ROUTINE CLINICAL HISTORY: 27 years-old Male presenting with mid thoracic spine pain/spasm, h.o metastatic CA. TECHNIQUE: 3 views of the thoracic spine were obtained. COMPARISON: CT from 07/11/2017. FINDINGS: Left subclavian Mediport terminates in the SVC. Cardiac mediastinal silhouette normal. Visualized portion of the lungs and pleural spaces clear. No thoracic scoliosis. Normal thoracic kyphosis. Vertebral bodies maintain normal height and alignment. Intervertebral disc spaces maintained. Few Schmorl's nodes suggested in the lower thoracic spine. No evidence of a compression deformity in the thoracic spine. No subluxation. No advanced degenerative change. Evaluation for a destructive osseous lesion is limited on radiograph. IMPRESSION: No radiographic evidence of acute osseous injury of the thoracic spine. Assessment for osseous metastatic disease is extremely limited by radiograph. Electronically signed by: Pancho Kendrick M.D. 10/16/2017 6:46 AM Dictated Date/Time: 10/16/2017 6:44 AM
== END 2017-10-16 06:05 | disposition home or self-care (01) ==
LOC: C.EDB 04:06
DX: M62.830 Muscle spasm of back (principal); E46 Unspecified protein-calorie malnutrition; Z85.038 Personal history of other malignant neoplasm of large intestine; Z85.05 Personal history of malignant neoplasm of liver; Z87.19 Personal history of other diseases of the digestive system; Z87.891 Personal history of nicotine dependence; Z82.49 Family history of ischemic heart disease and other diseases of the circulatory system

== ENCOUNTER 2017-11-01 21:37 | Emergency (ER) | payer BC, OTHER ==
[~2017-11-01] VITALS: Ht 175.3 cm; Wt 52.0 kg
[~2017-11-01 21:37] MED LIST changes: +DIAZ-165 PO; +NAPR1TAB9 PO; -NF1094 PO; +PROM25TA9 PO; +VANC5CAP PO; -ZLF/100 PO
[2017-11-01 21:38] VITALS: TEMP 37.8; Ht 175.3 cm; Wt 52.0 kg
[2017-11-01] MEDS ORDERED: SODIUM CHLORIDE 0.9% 1000ML 1,000 ML IV STA (22:13)
[2017-11-01] MEDS ORDERED: IBUPROFEN 600 MG TAB PO STA (22:13)
--- NOTE | 2017-11-01 22:30 | DIAGNOSTIC IMAGING REPORT ---
CHEST ONE VIEW PORTABLE CLINICAL HISTORY: 27 years-old Male presenting with fever. TECHNIQUE: Portable upright AP view of the chest was obtained. COMPARISON: 10/16/2017. FINDINGS: Left subclavian Mediport terminates in the lower SVC. Cardiomediastinal silhouette normal. Lungs and pleural spaces clear. Osseous structures normal. Upper abdomen normal. IMPRESSION: 1. No acute cardiopulmonary disease. Electronically signed by: Pancho Kendrick M.D. 11/01/2017 10:29 PM Dictated Date/Time: 11/01/2017 10:28 PM
[2017-11-01 22:49] LABS: BASO % 1.1 %; BASO ABS # 0.05 K/uL (0-0.2); EOS % 0.6 %; EOS ABS # 0.03 K/uL (0-0.5); HEMATOCRIT 35.3 % (42-52); HEMOGLOBIN 11.9 g/dL (14.0-18.0); IG# 0.02 K/uL (0.00-0.02); LYMPH % 3.8 %; LYMPH ABS # 0.18 K/uL (1.2-3.4); MEAN CELL VOLUME 82.1 fL (80-100); MEAN CORPUSCULAR HEMOGLOBIN 27.7 pg (25-34); MEAN CORPUSCULAR HGB CONC 33.7 g/dl (32-36); MEAN PLATELET VOLUME 8.6 fL (7.4-10.4); MONO % 11.5 %; MONO ABS # 0.54 K/uL (0.11-0.59); NEUT % 82.6 %; NEUT ABS # 3.88 K/uL (1.4-6.5); PLATELET COUNT 182 K/uL (130-400); RED CELL DISTRIBUTION WIDTH CV 12.3 % (11.5-14.5); RED CELL DISTRIBUTION WIDTH SD 36.5 fL (36.4-46.3)
[2017-11-01 23:06] LABS: ALBUMIN 3.1 gm/dl (3.4-5.0); CALCIUM 8.4 mg/dl (8.5-10.1); CREATININE 0.78 mg/dl (0.60-1.40); POTASSIUM 3.6 mmol/L (3.5-5.1)
[2017-11-01 23:08] LABS: TOTAL PROTEIN 7.1 gm/dl (6.4-8.2)
[2017-11-01] MEDS ORDERED: REGO40TA PO (23:10)
[2017-11-01] MEDS ORDERED: OXYC-164 PO (23:10)
[2017-11-01] MEDS ORDERED: LOPERAMIDE HCL 2 MG CAP PO STA (23:21)
[2017-11-01 23:29] LABS: INFLUENZA B ANTIGEN Neg for Influ B (NEG)
[2017-11-02] MEDS ORDERED: OSELTAMIVIR PHOSPHATE 75 MG CAP PO STA (00:01)
[2017-11-02 00:05] VITALS: BP 133/85; PULSE 76; O2SAT 95
[2017-11-02] MEDS ORDERED: OSEL75CA12 PO ×2 (00:12→00:13)
--- NOTE | 2017-11-02 00:15 | EMERGENCY ROOM VISIT NOTE ---
History First contact with patient: 21:59 Chief Complaint: FEVER Stated Complaint: TEMP OF 103 CHILLS PAINS History of Present Illness The patient is a 27 year old male who presents to the Emergency Room with complaints of flulike symptoms. The patient reports he has had diarrhea, sore throat, fever, chills and body aches for the past 2 days. He has been taking Tylenol for his fevers. The patient has stage IV colon cancer and is currently on oral chemotherapy. He did not receive a flu vaccine this year. He reports overall discomfort a /10. He does state that several family members have been sick recently. He denies any blood in his stools, nausea/vomiting, cough, shortness of breath or chest pain. Review of Systems A complete 10 point review of systems was reviewed with the patient with pertinent positives and negatives as per history of present illness. All else were negative. Past Medical/Surgical History Medical Problems: (1) Abdominal pain (2) Cecum mass (3) Colon cancer metastasized to liver (4) Episode of syncope (5) GI bleed (6) Hydronephrosis of left kidney (7) Hydronephrosis of right kidney (8) Kidney stone Surgical Problems: (1) History of ureter stent Family History FH: cardiovascular disease Social History Smoking Status: Never Smoker Alcohol Use: occasionally Drug Use: none Marital Status: in relationship Housing Status: lives with family Occupation Status: disabled Current/Historical Medications Scheduled Oseltamivir (Tamiflu), 75 MG PO BID Oxycodone Hcl (Oxycodone Hcl), 10 MG PO PRN UD Regorafenib (Stivarga), 40 MG PO QID UD Scheduled PRN Diazepam (Valium), 5 MG PO Q6H PRN for Pain Diphenhydramine Hcl (Benadryl Allergy), 25 MG PO DAILY PRN for PRN Naproxen (Aleve), 220-440 MG PO DIRECTED PRN for Pain Ondansetron (Ondansetron HCl), 1 TAB PO Q8 PRN for Nausea or Vomiting Tramadol (Ultram), 1 TAB PO TID PRN for Pain Physical Exam Vital Signs Date Time Temp Pulse Resp B/P (MAP) Pulse Ox O2 Delivery O2 Flow Rate FiO2 11/02/17 00:05 76 16 133/85 95 Room Air 11/01/17 23:06 83 16 144/94 98 Room Air 11/01/17 21:38 37.8 105 20 121/76 96 Room Air Physical Exam VITALS: Vitals are noted on the nurse's note and reviewed by myself. Vital signs stable. GENERAL: This is a 27-year-old male, thin and chronically ill-appearing. SKIN: The skin was without rashes. EARS: External auditory canals clear, tympanic membranes mildly injected bilaterally. EYES: Pupils equal round and reactive to light and accommodation. NOSE: Patent, turbinates without inflammation or discharge. MOUTH: Mucous membranes moist. Tonsils are not enlarged. Posterior oropharynx mildly injected. NECK: Supple without nuchal rigidity. No lymphadenopathy. HEART: Regular rate and rhythm without murmurs gallops or rubs. LUNGS: Clear to auscultation bilaterally without wheezes, rales or rhonchi. No retractions or accessory muscle use. ABDOMEN: Positive bowel sounds x 4. Soft, mild right lower quadrant tenderness to palpation (patient states this is chronic). No guarding or rebound tenderness. NEURO: Patient was alert and oriented to person place and time. Medical Decision & Procedures ER Provider Diagnostic Interpretation: CHEST ONE VIEW PORTABLE CLINICAL HISTORY: 27 years-old Male presenting with fever. TECHNIQUE: Portable upright AP view of the chest was obtained. COMPARISON: 10/16/2017. FINDINGS: Left subclavian Mediport terminates in the lower SVC. Cardiomediastinal silhouette normal. Lungs and pleural spaces clear. Osseous structures normal. Upper abdomen normal. IMPRESSION: 1. No acute cardiopulmonary disease. Laboratory Results 11/01/17 22:23 Red Blood Count 4.30, Mean Corpuscular Volume 82.1, Mean Corpuscular Hemoglobin 27.7, Mean Corpuscular Hemoglobin Concent 33.7, Mean Platelet Volume 8.6, Neutrophils (%) (Auto) 82.6, Lymphocytes (%) (Auto) 3.8, Monocytes (%) (Auto) 11.5, Eosinophils (%) (Auto) 0.6, Basophils (%) (Auto) 1.1, Neutrophils # (Auto ) 3.88, Lymphocytes # (Auto) 0.18, Monocytes # (Auto) 0.54, Eosinophils # (Auto ) 0.03, Basophils # (Auto) 0.05 11/01/17 22:23 Test 11/01/17 22:23 11/01/17 22:42 11/01/17 23:05 White Blood Count 4.70 K/uL (4.8-10.8) Red Blood Count 4.30 M/uL (4.7-6.1) Hemoglobin 11.9 g/dL (14.0-18.0) Hematocrit 35.3 % (42-52) Mean Corpuscular Volume 82.1 fL (80-100) Mean Corpuscular Hemoglobin 27.7 pg (25-34) Mean Corpuscular Hemoglobin Concent 33.7 g/dl (32-36) Platelet Count 182 K/uL (130-400) Mean Platelet Volume 8.6 fL (7.4-10.4) Neutrophils (%) (Auto) 82.6 % Lymphocytes (%) (Auto) 3.8 % Monocytes (%) (Auto) 11.5 % Eosinophils (%) (Auto) 0.6 % Basophils (%) (Auto) 1.1 % Neutrophils # (Auto) 3.88 K/uL (1.4-6.5) Lymphocytes # (Auto) 0.18 K/uL (1.2-3.4) Monocytes # (Auto) 0.54 K/uL (0.11-0.59) Eosinophils # (Auto) 0.03 K/uL (0-0.5) Basophils # (Auto) 0.05 K/uL (0-0.2) RDW Standard Deviation 36.5 fL (36.4-46.3) RDW Coefficient of Variation 12.3 % (11.5-14.5) Immature Granulocyte % (Auto) 0.4 % Immature Granulocyte # (Auto) 0.02 K/uL (0.00-0.02) Anion Gap 7.0 mmol/L (3-11) Est Creatinine Clear Calc Drug Dose 104.6 ml/min Estimated GFR () 143.4 Estimated GFR (Non- 123.7 BUN/Creatinine Ratio 13.1 (10-20) Lactic Acid Level 0.9 mmol/L (0.4-2.0) Calcium Level 8.4 mg/dl (8.5-10.1) Total Bilirubin 0.9 mg/dl (0.2-1) Aspartate Amino Transf (AST/SGOT) 42 U/L (15-37) Alanine Aminotransferase (ALT/SGPT) 23 U/L (12-78) Alkaline Phosphatase 84 U/L (45-117) Total Protein 7.1 gm/dl (6.4-8.2) Albumin 3.1 gm/dl (3.4-5.0) Globulin 4.0 gm/dl (2.5-4.0) Albumin/Globulin Ratio 0.8 (0.9-2) Urine Color DK YELLOW Urine Appearance CLEAR (CLEAR) Urine pH 5.0 (4.5-7.5) Urine Specific [place] > 1.045 (1.000-1.030) Urine Protein 1+ (NEG) Urine Glucose (UA) NEG (NEG) Urine Ketones 2+ (NEG) Urine Occult Blood NEG (NEG) Urine Nitrite NEG (NEG) Urine Bilirubin NEG (NEG) Urine Urobilinogen NEG (NEG) Urine Leukocyte Esterase TRACE (NEG) Urine WBC (Auto) 1-5 /hpf (0-5) Urine RBC (Auto) 0-4 /hpf (0-4) Urine Hyaline Casts (Auto) 10-30 /lpf (0-5) Urine Epithelial Cells (Auto) >30 /lpf (0-5) Urine Bacteria (Auto) NEG (NEG) Influenza Type A Antigen Neg for Influ A (NEG) Influenza Type B Antigen Neg for Influ B (NEG) Medications Administered Medications (Trade) Dose Ordered Sig/Raúl Route Start Time Stop Time Status Last Admin Dose Admin Sodium Chloride 1,000 ml @ 999 mls/hr Q1H1M STAT IV 11/01/17 22:13 11/01/17 23:13 DC 11/01/17 22:46 999 MLS/HR Ibuprofen (Motrin Tab) 600 mg NOW STAT PO 11/01/17 22:13 11/01/17 22:16 DC 11/01/17 22:47 600 MG Loperamide HCl (Imodium Cap) 2 mg NOW STAT PO 11/01/17 23:21 11/01/17 23:22 DC 11/01/17 23:34 2 MG Oseltamivir Phosphate (Tamiflu Cap) 75 mg NOW STAT PO 11/02/17 00:01 11/02/17 00:02 DC 11/02/17 00:15 75 MG Heparin Sodium (Porcine) (Heparin 100 Unit/ml 5ml Flush) 5 ml STK-MED ONCE .ROUTE 11/02/17 00:07 11/02/17 00:08 DC 11/02/17 00:07 5 ML ED Course The patient was evaluated as above. Labs were drawn and IV access was obtained. Patient was medicated with 600 mg ibuprofen and 1 L normal saline solution. Patient requested an antidiarrheal medication and was given 2 mg loperamide. Patient was reevaluated and stated he was feeling better. Findings were discussed. One dose of Tamiflu was ordered. Discharge instructions were reviewed with the patient. The patient verbalized understanding of my assessment and treatment plan and was discharged home in good condition. Medical Decision Differential diagnosis includes influenza, viral illness, pneumonia, strep pharyngitis, sepsis, among others. The patient is a 27-year-old male who presents today complaining of flulike illness. Labs revealed mild leukopenia and anemia. There were no concerning electrolyte abnormalities. Lactic acid is not elevated. Urinalysis was not suggestive of infection. Chest x-ray shows no evidence of pneumonia. Rapid Influenza testing was negative. Blood cultures are pending. The patient's presentation is consistent with influenza or a flulike illness. Although his rapid testing was negative, I did feel the patient would benefit from Tamiflu empirically given his immunosuppression. He was treated with ibuprofen and fluids with good relief. He did receive antidiarrheal medication in the ER. On reassessment he was feeling better. He will contact his oncologist Nadir schedule follow-up. He will return for any worsening or new/concerning symptoms. The patient's case was reviewed with Dr. Hurst, ED attending physician, who agreed with my assessment and treatment plan. Based on the patient's presentation and work up, I feel the patient is stable for outpatient treatment. The patient was educated to return to the emergency department for any worsening of their current condition or new/concerning symptoms. He will follow up with his oncologist. Medication Reconcilliation Current Medication List: was personally reviewed by me Blood Pressure Screening Patient's blood pressure: Normal blood pressure Impression Primary Impression: Influenza-like symptoms Departure Information Dispostion Home / Self-Care Condition FAIR Prescriptions Oseltamivir (Tamiflu) 75 Mg Cap 75 MG PO BID for 5 Days, #9 CAP Prov: Janene Lynn ., CARLY 11/02/17 Referrals Luisito Cheema D.O. (PCP) Wayne Andres D.O. Patient Instructions [facility] Additional Instructions Tamiflu as prescribed. Alternate Tylenol and ibuprofen as needed for pain/fevers. Rest and drink plenty of fluids. Contact your oncologist tomorrow to schedule a follow-up appointment. Return here with worsening fever, lightheadedness/passing out, weakness or any other new/concerning or worsening symptoms.
[2018-02-06] MEDS ORDERED: VANC1SUS PO (13:24)
[2018-02-06] MEDS ORDERED: ATV/1 PO (13:24)
[2018-02-06] MEDS ORDERED: NYSS5 PO (13:24)
[2018-03-01] MEDS ORDERED: HYDR4TAB2 PO ×2 (18:15→18:18)
== END 2017-11-02 00:25 | disposition home or self-care (01) ==
LOC: C.EDB 21:38 → C.EDA 11-02 00:25
DX: R69 Illness, unspecified (principal); Z82.49 Family history of ischemic heart disease and other diseases of the circulatory system

== ENCOUNTER 2017-12-04 16:55 | Emergency (ER) | payer OTHER ==
[~2017-12-04] VITALS: Ht 175.3 cm; Wt 49.0 kg
[~2017-12-04 16:55] MED LIST changes: -MIRT15TA2 PO; -OPTIRAY 320 IV PRN; -PHEN-905 PO; -SERT-234 PO; -[UNRECOGNIZED DRUG - CODE] PO
[2017-12-04 17:08] VITALS: TEMP 36.8; Ht 175.3 cm; Wt 49.0 kg
--- NOTE | 2017-12-04 17:21 | EMERGENCY ROOM VISIT NOTE ---
History Report prepared by Jemma: Dashawn Diaz Under the Supervision of: Dr. Lucas Prakash M.D. First contact with patient: 17:13 Chief Complaint: ABNORMAL DIAGNOSTIC TESTING Stated Complaint: ABDOMINAL PAIN- ABN CT SCAN History of Present Illness The patient is a 27 year old white, male with a past medical history of stage IV colon cancer, kidney stones, ureter stent, bilateral hydronephrosis who presents to the ED with a cc of intermittent abdominal pain beginning a week ago. He rates his episodes a 10/10 in severity. Pt states he suffers chronic constipation, and it has worsened a week ago. He reports he has tried to use his routine stool softeners, and passed mild stool yesterday. The patient had a right ureteral stent placed by Dr. Stewart which was removed 4-5 months ago. Positive chills and nausea. Negative blood in stool, fevers, vomiting. Source of History: patient Onset: a week ago Position: abdomen Symptom Intensity: 10/10 Timing: intermittent Associated Symptoms: + chills, + nausea, No fevers, No vomiting Note: Associated symptoms: passing mild stool yesterday Denies: blood in stool Review of Systems See HPI for pertinent positives and negatives. A total of ten systems were reviewed and were otherwise negative. Past Medical & Surgical Medical Problems: (1) Abdominal pain (2) Cecum mass (3) Colon cancer metastasized to liver (4) Episode of syncope (5) GI bleed (6) Hydronephrosis of left kidney (7) Hydronephrosis of right kidney (8) Kidney stone Surgical Problems: (1) History of ureter stent Family History FH: cardiovascular disease Social History Smoking Status: Former Smoker Alcohol Use: occasionally Drug Use: none Marital Status: in relationship Housing Status: lives with family Occupation Status: disabled Current/Historical Medications Scheduled Mirtazapine Soltab (Remeron Soltab), 15 MG PO HS Oxycodone Hcl (Oxycodone Hcl), 10 MG PO PRN UD Regorafenib (Stivarga), 40 MG PO QID UD Sertraline (Zoloft), 100 MG PO DAILY Scheduled PRN Diphenhydramine Hcl (Benadryl Allergy), 25 MG PO DAILY PRN for PRN Naproxen (Aleve), 220-440 MG PO DIRECTED PRN for Pain Ondansetron (Ondansetron HCl), 1 TAB PO Q8 PRN for Nausea or Vomiting Allergies Coded Allergies: Cranberry Extract (Verified Allergy, Severe, HIVES, 12/04/17) Oxaliplatin (Verified Allergy, Severe, THROAT CLOSING, 12/04/17) Lactose Intolerance (GI) (Verified Allergy, Unknown, UNKNOWN, 12/04/17) Physical Exam Vital Signs Date Time Temp Pulse Resp B/P (MAP) Pulse Ox O2 Delivery O2 Flow Rate FiO2 12/04/17 19:50 76 20 124/72 96 Room Air 12/04/17 19:00 88 20 134/76 96 Room Air 12/04/17 17:08 36.8 105 20 121/89 96 Room Air Physical Exam GENERAL: Awake, alert, cachetic HENT: Normocephalic, atraumatic. EYES: Normal conjunctiva. Sclera non-icteric. NECK: Supple. No nuchal rigidity. FROM. RESPIRATORY: CTAB, no rhonchi, wheezing, crackles CARDIAC: Tachy and regular, no MRG ABDOMEN: Soft, ND, BS+. Right sided abdominal pain. Non-surgical abdomen. MSK: No chest wall TTP, no LE edema NEURO: GCS 15, CN 2-12 intact, moves all 4s on command SKIN: No rash or jaundice noted. Medical Decision & Procedures Laboratory Results 12/04/17 18:00 Red Blood Count 3.62, Mean Corpuscular Volume 79.3, Mean Corpuscular Hemoglobin 26.0, Mean Corpuscular Hemoglobin Concent 32.8, Mean Platelet Volume 8.8, Neutrophils (%) (Auto) 78.1, Lymphocytes (%) (Auto) 8.3, Monocytes (%) (Auto) 11.9, Eosinophils (%) (Auto) 1.0, Basophils (%) (Auto) 0.4, Neutrophils # (Auto ) 7.06, Lymphocytes # (Auto) 0.75, Monocytes # (Auto) 1.08, Eosinophils # (Auto ) 0.09, Basophils # (Auto) 0.04 12/04/17 18:00 Test 12/04/17 18:00 White Blood Count 9.05 K/uL (4.8-10.8) Red Blood Count 3.62 M/uL (4.7-6.1) Hemoglobin 9.4 g/dL (14.0-18.0) Hematocrit 28.7 % (42-52) Mean Corpuscular Volume 79.3 fL (80-100) Mean Corpuscular Hemoglobin 26.0 pg (25-34) Mean Corpuscular Hemoglobin Concent 32.8 g/dl (32-36) Platelet Count 330 K/uL (130-400) Mean Platelet Volume 8.8 fL (7.4-10.4) Neutrophils (%) (Auto) 78.1 % Lymphocytes (%) (Auto) 8.3 % Monocytes (%) (Auto) 11.9 % Eosinophils (%) (Auto) 1.0 % Basophils (%) (Auto) 0.4 % Neutrophils # (Auto) 7.06 K/uL (1.4-6.5) Lymphocytes # (Auto) 0.75 K/uL (1.2-3.4) Monocytes # (Auto) 1.08 K/uL (0.11-0.59) Eosinophils # (Auto) 0.09 K/uL (0-0.5) Basophils # (Auto) 0.04 K/uL (0-0.2) RDW Standard Deviation 43.8 fL (36.4-46.3) RDW Coefficient of Variation 15.2 % (11.5-14.5) Immature Granulocyte % (Auto) 0.3 % Immature Granulocyte # (Auto) 0.03 K/uL (0.00-0.02) Anion Gap 8.0 mmol/L (3-11) Est Creatinine Clear Calc Drug Dose 187.6 ml/min Estimated GFR () > 150.0 Estimated GFR (Non- > 150.0 BUN/Creatinine Ratio 9.2 (10-20) Calcium Level 7.1 mg/dl (8.5-10.1) Total Bilirubin 0.5 mg/dl (0.2-1) Aspartate Amino Transf (AST/SGOT) 55 U/L (15-37) Alanine Aminotransferase (ALT/SGPT) 71 U/L (12-78) Alkaline Phosphatase 237 U/L (45-117) Total Protein 5.4 gm/dl (6.4-8.2) Albumin 2.1 gm/dl (3.4-5.0) Globulin 3.3 gm/dl (2.5-4.0) Albumin/Globulin Ratio 0.6 (0.9-2) Lipase 48 U/L (73-393) Laboratory results reviewed by me Medications Administered Medications (Trade) Dose Ordered Sig/Raúl Route Start Time Stop Time Status Last Admin Dose Admin Sodium Chloride 1,000 ml @ 999 mls/hr Q1H1M IV 12/04/17 18:00 12/04/17 21:36 DC 12/04/17 18:27 999 MLS/HR Ondansetron HCl (Zofran Inj) 4 mg Q4H PRN IV 12/04/17 18:00 12/04/17 21:36 DC 12/04/17 18:27 4 MG Morphine Sulfate (MoRPHine SULFATE INJ) 4 mg NOW STAT IV 12/04/17 18:08 12/04/17 18:10 DC 12/04/17 18:27 4 MG Heparin Sodium (Porcine) (Heparin 10 Unit/ ml 5 ml Flush) 5 ml STK-MED ONCE .ROUTE 12/04/17 19:52 12/04/17 19:53 DC 12/04/17 19:52 5 ML ED Course 1720: The patient was evaluated in room C08 by the resident under my supervision. A complete history and physical exam was performed. 1751: The patient was evaluated in room C08 by me. A complete history and physical exam was performed. 1758: The resident discussed the patient's case with Dr. Rashid, [facility]. She states she has prior knowledge about the case. There is no current treatment due to the patient's chronic condition. 1950: The resident reevaluated the patient. Discussed results and discharge instructions: he verbalized understanding and agreement. The patient is ready for discharge. Medical Decision The patient is a 27 year old white, male with a past medical history of stage IV colon cancer, kidney stones, ureter stent, bilateral hydronephrosis who presents to the ED with a cc of intermittent abdominal pain beginning a week ago. Differential diagnosis: Etiologies such as appendicitis, diverticulitis, PUD, biliary pathology, UTI, pancreatitis, obstruction, mesenteric ischemia, aortic pathology, infections, inflammatory bowel disease, renal colic, as well as others were entertained. Patient was seen and evaluated the bedside after being seen by the resident physician. Patient unfortunately does have a history of stage IV colon cancer. Patient was complaining some abdominal pain. Patient was seen in primary care clinic and given his discomfort was referred for CT scan. Patient's CT does show worsening metastatic burden. Patient does have worsening right-sided hydronephrosis. Patient does have some mild swelling of the bowel. The resident physician did contact the primary care physician. There was discussion that there may be needed for other palliative or hospitalist to be involved. Patient did have blood work that was completed. Patient was also given pain control medications as well as anti-medics. Patient's blood work did show some anemia which is likely chronic in nature. Patient did have approximately a 2 point drop last 4 weeks of the patient has not had any blood in the stool and is otherwise asymptomatic without any shortness of breath or dyspnea on exertion. Patient does not take any blood thinning medications. Patient has normal kidney function. Given hydronephrosis this may be related to his worsening intra-abdominal process however no need for urology at this time as the patient has normal kidney function. The resident did discuss with the patient the possibility for admission as well as discussion with the palliative and/or hospice care in house however he declined. Patient was referred to his primary oncologist after speaking with case management who stated that the outpatient physician would be better able to coordinate palliative and/or hospice care. Patient was deemed suitable for outpatient follow-up and treatment at this time. Patient was given strict follow-up, discharge, and return precautions. All questions were answered. Patient was deemed suitable for outpatient follow-up at this time. Patient agreed with the plan of care and was safely discharged home. The chart was completed utilizing [employer] Speech voice recognition software. Grammatical errors, random word insertions, pronoun errors, and incomplete sentences are an occasional consequence of this system due to software limitations, ambient noise, and hardware issues. Any formal questions or concerns about the content, text, or information contained within the body of this dictation should be directly addressed to the physician for clarification. Medication Reconcilliation Current Medication List: was personally reviewed by mi Blood Pressure Screening Patient's blood pressure: Normal blood pressure Blood pressure disposition: Did not require urgent referral Consults Time Called: 1750 Consulting Physician: Dr. Rashid, [facility] Returned Call: [phone] The resident discussed the patient's case with Dr. Rashid, [facility]. She states she has prior knowledge about the case. There is no current treatment due to the patient's chronic condition. Impression Primary Impression: Abdominal pain Additional Impressions: Anemia Hydronephrosis of right kidney Scribe Attestation The scribe's documentation has been prepared under my direction and personally reviewed by me in its entirety. I confirm that the note above accurately reflects all work, treatment, procedures, and medical decision making performed by me. Departure Information Dispostion Home / Self-Care Referrals Luisito Cheema D.O. (PCP) Forms HOME CARE DOCUMENTATION FORM, IMPORTANT VISIT INFORMATION, WORK / SCHOOL INSTRUCTIONS Patient Instructions My [facility] Additional Instructions Please followup with Dr. Andres at scheduled appointment. Please followup wiith Palliative Care If you experience worsening abdominal pain , fevers, chills, constipation unresponsive to medication, call clinic or if you feel concerned return to Emergency Dept. Problem Qualifiers Primary Impression: Abdominal pain Abdominal location: right lower quadrant Qualified Codes: R10.31 - Right lower quadrant pain Additional Impressions: Anemia Anemia type: unspecified type Qualified Codes: D64.9 - Anemia, unspecified
[2017-12-04] MEDS ORDERED: MIRT15TA2 PO (17:26)
[2017-12-04] MEDS ORDERED: SERT-234 PO (17:26)
[2017-12-04] MEDS ORDERED: ONDANSETRON INJ 2 MG/ML 2 ML VIAL IV PRN (18:00)
[2017-12-04] MEDS ORDERED: SODIUM CHLORIDE 0.9% 1000ML 1,000 ML IV SCH (18:00)
[2017-12-04] MEDS ORDERED: MoRPHine SULFATE 4 MG/ML 1 ML CARP\\VIAL IV STA (18:08)
--- NOTE | 2017-12-04 18:18 | EMERGENCY ROOM VISIT NOTE ---
History First contact with patient: 17:13 Chief Complaint: ABNORMAL DIAGNOSTIC TESTING Stated Complaint: ABDOMINAL PAIN- ABN CT SCAN History of Present Illness The patient is a 27 year old male with history of Stage IV Colon Cancer s/p chemo/radiation, history of Right sided hydronephrosis s/p R ureteral stent placement removed 4-5 mos ago, presenting from [facility]. Patient had presented to clinic with worsening of chronic constipation and intermittent abdominal cramping. Patient he had minimal bowel movement last night despite his typical bowel regimen of Miralax, Dulcolax suppository and citrate. Abdominal pain is intermittent, generalized lower abdominal pain, sharp 10/10 intensity, lasting a few seconds at a time typically. Patient also reports nausea without vomiting, chills. He denies fever, diarrhea, blood in stool. PCP Dr. Rashid ordered a CT abdomen after discussing case with Dr. Andres ( Oncologist) which showed severe right sided hydronephrosis with progressive right sided cortical thinning and a persistent hydro ureter. Otherwise there was interval increase in size of multiple hepatic masses and abnormal bowel wall mass like thickening. Source of History: patient Position: abdomen Symptom Intensity: severe Quality: sharp Timing: intermittent Modifying Factors (Worsening): other (none) Modifying Factors (Relieving): other (NSAIDS) Associated Symptoms: + nausea Review of Systems Pt denies headache, change in vision, fevers, chest pain, shortness of breath, vomiting, diarrhea, pain with urination, and melena. Past Medical/Surgical History Medical Problems: (1) Abdominal pain (2) Cecum mass (3) Colon cancer metastasized to liver (4) Episode of syncope (5) GI bleed (6) Hydronephrosis of left kidney (7) Hydronephrosis of right kidney (8) Kidney stone Surgical Problems: (1) History of ureter stent Family History FH: cardiovascular disease Social History Smoking Status: Former Smoker Alcohol Use: occasionally Drug Use: none Marital Status: in relationship Housing Status: lives with family Occupation Status: disabled Current/Historical Medications Scheduled Mirtazapine Soltab (Remeron Soltab), 15 MG PO HS Oxycodone Hcl (Oxycodone Hcl), 10 MG PO PRN UD Regorafenib (Stivarga), 40 MG PO QID UD Sertraline (Zoloft), 100 MG PO DAILY Scheduled PRN Diphenhydramine Hcl (Benadryl Allergy), 25 MG PO DAILY PRN for PRN Naproxen (Aleve), 220-440 MG PO DIRECTED PRN for Pain Ondansetron (Ondansetron HCl), 1 TAB PO Q8 PRN for Nausea or Vomiting Physical Exam Vital Signs Date Time Temp Pulse Resp B/P (MAP) Pulse Ox O2 Delivery O2 Flow Rate FiO2 12/04/17 19:50 76 20 124/72 96 Room Air 12/04/17 19:00 88 20 134/76 96 Room Air 12/04/17 17:08 36.8 105 20 121/89 96 Room Air Physical Exam GENERAL: alert, thin, no distress EYE EXAM: normal conjunctiva, PERRL and EOM's grossly intact OROPHARYNX: no exudate, no erythema, lips, buccal mucosa, and tongue normal and mucous membranes are moist NECK: supple, no adenopathy, non-tender LUNGS: Clear to auscultation. Normal chest wall mechanics HEART: no murmurs, S1 normal and S2 normal ABDOMEN: abdomen soft, non-specific tenderness to palpation in bilateral lower abdomen, normo-active bowel sounds, no masses, no rebound or guarding. SKIN: no rashes and no bruising UPPER EXTREMITIES: upper extremities are grossly normal. LOWER EXTREMITIES: No pitting edema. NEURO EXAM: Normal sensorium, cranial nerves II-XII grossly intact, normal speech Medical Decision & Procedures ER Provider Diagnostic Interpretation: CT ABD/PELVIS IV CONTRAST ONLY CLINICAL HISTORY: ABDOMINAL PAIN, NEOPLASM OF COLON COMPARISON STUDY: 09/17/2017 TECHNIQUE: Following the IV administration of 116 mL of Optiray-320, CT scan of the abdomen and pelvis was performed from the lung bases to the proximal femurs. Images are reviewed in the axial, sagittal, and coronal planes. IV contrast was administered without complication. A dose lowering technique was utilized adhering to the principles of ALARA. CT DOSE: 263.39 mGy.cm FINDINGS: Lower chest: The heart is normal in size and configuration, without pericardial effusion. The lung bases and pleural spaces are clear. Liver: There are enlarging hepatic masses. The dominant right lobe mass currently measures 92 mm in diameter. The dominant left lobe mass currently measures 61 mm in diameter. Gallbladder: Unremarkable. Spleen: Normal in size and attenuation. Pancreas: Unremarkable. Adrenal glands: Unremarkable. Kidneys: There is severe right-sided hydronephrosis with progressive right renal cortical thinning. No left renal masses are visualized. There is marked hydroureter down to the mid pelvic level. Bowel: There is abnormal bowel wall thickening involving the cecum and distal ileum. There are no transition zones to indicate a high-grade bowel obstruction. Peritoneum: There is a small amount of free pelvic fluid. There is no free intraperitoneal air. Vasculature: The abdominal aorta is normal in course and caliber. Adenopathy: None. Pelvic viscera: The uterus appears surgically absent. Skeletal structures: Small sclerotic lesions in the left acetabular region remain stable and likely represent bone islands IMPRESSION: 1. Significant interval increase in the size of the multiple hepatic masses, consistent with progressive metastatic disease 2. Severe right-sided hydronephrosis with progressive right renal cortical thinning. Persistent hydroureter on the right. 3. Abnormal bowel wall masslike thickening involving the colon and ileocecal valve with distal ileal wall thickening. 4. The previously described diffuse large bowel wall thickening, has diminished 5. Small amount of free fluid within the pelvis. Laboratory Results 12/04/17 18:00 Red Blood Count 3.62, Mean Corpuscular Volume 79.3, Mean Corpuscular Hemoglobin 26.0, Mean Corpuscular Hemoglobin Concent 32.8, Mean Platelet Volume 8.8, Neutrophils (%) (Auto) 78.1, Lymphocytes (%) (Auto) 8.3, Monocytes (%) (Auto) 11.9, Eosinophils (%) (Auto) 1.0, Basophils (%) (Auto) 0.4, Neutrophils # (Auto ) 7.06, Lymphocytes # (Auto) 0.75, Monocytes # (Auto) 1.08, Eosinophils # (Auto ) 0.09, Basophils # (Auto) 0.04 12/04/17 18:00 Test 12/04/17 18:00 White Blood Count 9.05 K/uL (4.8-10.8) Red Blood Count 3.62 M/uL (4.7-6.1) Hemoglobin 9.4 g/dL (14.0-18.0) Hematocrit 28.7 % (42-52) Mean Corpuscular Volume 79.3 fL (80-100) Mean Corpuscular Hemoglobin 26.0 pg (25-34) Mean Corpuscular Hemoglobin Concent 32.8 g/dl (32-36) Platelet Count 330 K/uL (130-400) Mean Platelet Volume 8.8 fL (7.4-10.4) Neutrophils (%) (Auto) 78.1 % Lymphocytes (%) (Auto) 8.3 % Monocytes (%) (Auto) 11.9 % Eosinophils (%) (Auto) 1.0 % Basophils (%) (Auto) 0.4 % Neutrophils # (Auto) 7.06 K/uL (1.4-6.5) Lymphocytes # (Auto) 0.75 K/uL (1.2-3.4) Monocytes # (Auto) 1.08 K/uL (0.11-0.59) Eosinophils # (Auto) 0.09 K/uL (0-0.5) Basophils # (Auto) 0.04 K/uL (0-0.2) RDW Standard Deviation 43.8 fL (36.4-46.3) RDW Coefficient of Variation 15.2 % (11.5-14.5) Immature Granulocyte % (Auto) 0.3 % Immature Granulocyte # (Auto) 0.03 K/uL (0.00-0.02) Anion Gap 8.0 mmol/L (3-11) Est Creatinine Clear Calc Drug Dose 187.6 ml/min Estimated GFR () > 150.0 Estimated GFR (Non- > 150.0 BUN/Creatinine Ratio 9.2 (10-20) Calcium Level 7.1 mg/dl (8.5-10.1) Total Bilirubin 0.5 mg/dl (0.2-1) Aspartate Amino Transf (AST/SGOT) 55 U/L (15-37) Alanine Aminotransferase (ALT/SGPT) 71 U/L (12-78) Alkaline Phosphatase 237 U/L (45-117) Total Protein 5.4 gm/dl (6.4-8.2) Albumin 2.1 gm/dl (3.4-5.0) Globulin 3.3 gm/dl (2.5-4.0) Albumin/Globulin Ratio 0.6 (0.9-2) Lipase 48 U/L (73-393) Laboratory results per my review. Medications Administered Medications (Trade) Dose Ordered Sig/Raúl Route Start Time Stop Time Status Last Admin Dose Admin Sodium Chloride 1,000 ml @ 999 mls/hr Q1H1M IV 12/04/17 18:00 1/30/18 21:36 DC 12/04/17 18:27 999 MLS/HR Ondansetron HCl (Zofran Inj) 4 mg Q4H PRN IV 12/04/17 18:00 12/04/17 21:36 DC 12/04/17 18:27 4 MG Morphine Sulfate (MoRPHine SULFATE INJ) 4 mg NOW STAT IV 12/04/17 18:08 12/04/17 18:10 DC 12/04/17 18:27 4 MG Heparin Sodium (Porcine) (Heparin 10 Unit/ ml 5 ml Flush) 5 ml STK-MED ONCE .ROUTE 12/04/17 19:52 12/04/17 19:53 DC 12/04/17 19:52 5 ML ED Course Given IV NS IL x 1 Given Morphine 4mg IV Given 4 mg IV Zofran Medical Decision 27 yo M with history of Stage IV Colon Cancer s/p chemo/radiation, history of Right sided hydronephrosis s/p R ureteral stent placement removed 4-5 mos ago, presenting from [facility] clinic after CT Abdomen showing worsening Right sided Hydronephrosis in addition to findings consistent with progressive metastatic disease, found to have normal BUN, creatine, anemia (h/h of 9.4 / 28.7 from 11.7 /36). Patient was initially tachycardic at 105 but improved with IV fluids. He denies sob though reported ongoing fatigue though this could be attributed to overall malignancy and recent chemo therapy. Alk phos was elevated at 237 from 124. Patient received IV Zofran, Morphine 4 mg IV which gave him relief. I discussed case with Dr. Rashid ( PCP who saw patient clinic) who clarified that after communicating with Dr. Andres, that goal would likely be palliative care/hospice evaluation. Upon reevaluation, the patient felt significantly better. I discussed the findings and plan of outpatient followup with Oncology and likely with Palliative care. Patient expressed agreement and understanding. Head Trauma GCS Score: 15 Medication Reconcilliation Current Medication List: was personally reviewed by me Impression Primary Impression: Abdominal pain Additional Impressions: Hydronephrosis of right kidney Anemia Departure Information Dispostion Home / Self-Care Referrals Luisito Cheema D.O. (PCP) Patient Instructions My [facility] Additional Instructions Please followup with Dr. Andres at scheduled appointment. Please followup with Palliative Care. If you experience worsening abdominal pain , fevers, chills, constipation unresponsive to medication, call clinic or if you feel concerned return to Emergency Dept. Resident Tracking Resident Involvement: Resident Care Provided Care Provided: Adult ED Problem Qualifiers Primary Impression: Abdominal pain Abdominal location: lower abdomen, unspecified Qualified Codes: R10.30 - Lower abdominal pain, unspecified
[2017-12-04 18:59] LABS: BASO % 0.4 %; BASO ABS # 0.04 K/uL (0-0.2); EOS ABS # 0.09 K/uL (0-0.5); HEMATOCRIT 28.7 % (42-52); HEMOGLOBIN 9.4 g/dL (14.0-18.0); IG# 0.03 K/uL (0.00-0.02); LYMPH % 8.3 %; LYMPH ABS # 0.75 K/uL (1.2-3.4); MEAN CELL VOLUME 79.3 fL (80-100); MEAN CORPUSCULAR HGB CONC 32.8 g/dl (32-36); MEAN PLATELET VOLUME 8.8 fL (7.4-10.4); MONO % 11.9 %; MONO ABS # 1.08 K/uL (0.11-0.59); NEUT % 78.1 %; NEUT ABS # 7.06 K/uL (1.4-6.5); PLATELET COUNT 330 K/uL (130-400); RED CELL DISTRIBUTION WIDTH CV 15.2 % (11.5-14.5); RED CELL DISTRIBUTION WIDTH SD 43.8 fL (36.4-46.3); WHITE BLOOD COUNT 9.05 K/uL (4.8-10.8)
[2017-12-04 19:00] LABS: ALBUMIN 2.1 gm/dl (3.4-5.0); ALT/SGPT 71 U/L (12-78); BLOOD UREA NITROGEN 4 mg/dl (7-18); CALCIUM 7.1 mg/dl (8.5-10.1); CARBON DIOXIDE 24 mmol/L (21-32); CREATININE 0.41 mg/dl (0.60-1.40); GLUCOSE 70 mg/dl (70-99); LIPASE 48 U/L (73-393); POTASSIUM 3.1 mmol/L (3.5-5.1); SODIUM 140 mmol/L (136-145)
[2017-12-04 19:03] LABS: ALKALINE PHOSPHATASE 237 U/L (45-117); AST/SGOT 55 U/L (15-37); TOTAL PROTEIN 5.4 gm/dl (6.4-8.2)
[2017-12-04 19:50] VITALS: BP 124/72; PULSE 76; O2SAT 96
== END 2017-12-04 20:02 | disposition home or self-care (01) ==
LOC: C.EDB 16:56 → C.EDC 20:02
DX: R10.31 Right lower quadrant pain (principal); D64.9 Anemia, unspecified; N13.30 Unspecified hydronephrosis; C18.9 Malignant neoplasm of colon, unspecified; C78.7 Secondary malignant neoplasm of liver and intrahepatic bile duct; Z87.442 Personal history of urinary calculi; Z87.891 Personal history of nicotine dependence

== ENCOUNTER → 2017-12-04 | Outpatient (CLI) | payer OTHER ==
[~2017-12-04] MED LIST changes: +MIRT15TA2 PO; +OPTIRAY 320 IV PRN; +OSEL75CA12 PO; +OXYC-164 PO; +PHEN-905 PO; -PROM25TA9 PO; +REGO40TA PO; +SERT-234 PO; -VANC5CAP PO; +[UNRECOGNIZED DRUG - CODE] PO
--- NOTE | 2017-12-04 16:01 | DIAGNOSTIC IMAGING REPORT ---
CT ABD/PELVIS IV CONTRAST ONLY CLINICAL HISTORY: ABDOMINAL PAIN, NEOPLASM OF COLON COMPARISON STUDY: 09/17/2017 TECHNIQUE: Following the IV administration of 116 mL of Optiray-320, CT scan of the abdomen and pelvis was performed from the lung bases to the proximal femurs. Images are reviewed in the axial, sagittal, and coronal planes. IV contrast was administered without complication. A dose lowering technique was utilized adhering to the principles of ALARA. CT DOSE: 263.39 mGy.cm FINDINGS: Lower chest: The heart is normal in size and configuration, without pericardial effusion. The lung bases and pleural spaces are clear. Liver: There are enlarging hepatic masses. The dominant right lobe mass currently measures 92 mm in diameter. The dominant left lobe mass currently measures 61 mm in diameter. Gallbladder: Unremarkable. Spleen: Normal in size and attenuation. Pancreas: Unremarkable. Adrenal glands: Unremarkable. Kidneys: There is severe right-sided hydronephrosis with progressive right renal cortical thinning. No left renal masses are visualized. There is marked hydroureter down to the mid pelvic level. Bowel: There is abnormal bowel wall thickening involving the cecum and distal ileum. There are no transition zones to indicate a high-grade bowel obstruction. Peritoneum: There is a small amount of free pelvic fluid. There is no free intraperitoneal air. Vasculature: The abdominal aorta is normal in course and caliber. Adenopathy: None. Pelvic viscera: The uterus appears surgically absent. Skeletal structures: Small sclerotic lesions in the left acetabular region remain stable and likely represent bone islands IMPRESSION: 1. Significant interval increase in the size of the multiple hepatic masses, consistent with progressive metastatic disease 2. Severe right-sided hydronephrosis with progressive right renal cortical thinning. Persistent hydroureter on the right. 3. Abnormal bowel wall masslike thickening involving the colon and ileocecal valve with distal ileal wall thickening. 4. The previously described diffuse large bowel wall thickening, has diminished 5. Small amount of free fluid within the pelvis. Electronically signed by: Brandon Soto M.D. 12/04/2017 3:59 PM Dictated Date/Time: 12/04/2017 3:52 PM
== END | disposition home or self-care (01) ==
LOC: C.CTS 15:17
PROVIDERS: ATTEND Family Medicine
DX: R10.84 Generalized abdominal pain (principal); C18.9 Malignant neoplasm of colon, unspecified; R16.0 Hepatomegaly, not elsewhere classified; N13.30 Unspecified hydronephrosis

== ENCOUNTER 2017-12-08 22:20 | Emergency (ER) | payer OTHER ==
[~2017-12-08] VITALS: Ht 175.3 cm; Wt 50.0 kg
[~2017-12-08 22:20] MED LIST changes: -DIAZ-165 PO; +MIRT15TA2 PO; -OSEL75CA12 PO; +SERT-234 PO; -TRAM-10 PO
[2017-12-08 22:22] VITALS: TEMP 36.7
[2017-12-08] MEDS ORDERED: TRAM-10 PO (23:09)
[2017-12-08] MEDS ORDERED: PHEN-905 PO (23:10)
[2017-12-08] MEDS ORDERED: [UNRECOGNIZED DRUG - CODE] PO (23:18)
[2017-12-08] MEDS ORDERED: HYDROmorphone INJ 0.5 MG/0.5 ML SYR IV STA (23:39)
--- NOTE | 2017-12-09 | EMERGENCY ROOM VISIT NOTE ---
History Report prepared by Jemma: Ketan Ingram Under the Supervision of: Dr. Lucy Stark D.O. First contact with patient: 23:21 Chief Complaint: RESPIRATORY PROBLEMS Stated Complaint: TROUBLE BREATHING,COLD LEGS, PAIN IN R SIDE Nursing Triage Summary: Pt has stage 4 CA, hasn't been feeling well today, chills, shortness of breath. History of Present Illness The patient is a 27 year old male who presents to the Emergency Room with complaints of worsening right sided abdominal pain that began prior to arrival. Patient states the pain is "wrapping around" his side and located beneath his ribs. Patient states that he has a history of similar pain. Patient has associated symptoms of cold legs, trouble breathing, sensitivity to light, constipation, right shoulder blade pain, "cloudy" urine, and a dry throat. Patient adds that the trouble breathing could be due to a possible panic attack. Patient states the right shoulder blade pain began yesterday. Patient states his dry throat is not resolved when drinking water. Patient denies symptoms of recent fevers, leg cramping, and leg swelling. Patient states he has stage 4 colon cancer. He adds that he was diagnosed 3 years ago. He states he has had chemotherapy and 1 round of radiation performed. He states he has not had any surgeries on the mass. Patient states his oncologist is Dr. Andres. He adds that he has a history of recently diagnosed. This is secondary to the mass compressing that right-sided ureter. Hydronephrosis. Patient states that he currently takes tramadol. Patient adds that he ate today. Source of History: patient Onset: Prior to arrival Position: abdomen (Right sided) Timing: worsening Associated Symptoms: + urinary symptoms ("Cloudy" urine), No fevers Note: Patient has trouble breathing, cold legs, sensitivity to light, right should blade pain, and a dry throat. He denies leg swelling and leg cramping. Review of Systems See HPI for pertinent positives & negatives. A total of 10 systems reviewed and were otherwise negative. Past Medical & Surgical Medical Problems: (1) Abdominal pain (2) Cecum mass (3) Colon cancer metastasized to liver (4) Episode of syncope (5) GI bleed (6) Hydronephrosis of left kidney (7) Hydronephrosis of right kidney (8) Kidney stone Surgical Problems: (1) History of ureter stent Family History FH: cardiovascular disease Social History Smoking Status: Never Smoker Alcohol Use: occasionally Drug Use: none Marital Status: in relationship Housing Status: lives with family Occupation Status: disabled Current/Historical Medications Scheduled Aprepitant (Aprepitant 80 & 125 mg), 1 DOSE PO DIRECTED Mirtazapine Soltab (Remeron Soltab), 15 MG PO HS Regorafenib (Stivarga), 40 MG PO QID UD Sertraline (Zoloft), 50 MG PO Q2D Scheduled PRN Diphenhydramine Hcl (Benadryl Allergy), 25 MG PO DAILY PRN for PRN Naproxen (Aleve), 220-440 MG PO DIRECTED PRN for Pain Ondansetron (Ondansetron HCl), 1 TAB PO Q8 PRN for Nausea or Vomiting Qsvaceyjogupv-Atlwyqknbw-Ssset (Nyquil Severe Cold/Flu 5-6.25-10-325 mg/15Ml), 1 DOSE PO DIRECTED PRN for cold sx Tramadol (Ultram), 50 MG PO DIRECTED PRN for Pain Allergies Coded Allergies: Cranberry Extract (Verified Allergy, Severe, HIVES, 12/08/17) Oxaliplatin (Verified Allergy, Severe, THROAT CLOSING, 12/08/17) Lactose Intolerance (GI) (Verified Allergy, Unknown, UNKNOWN, 12/08/17) Physical Exam Vital Signs Date Time Temp Pulse Resp B/P (MAP) Pulse Ox O2 Delivery O2 Flow Rate FiO2 12/09/17 02:35 95 14 98 12/09/17 02:32 98 12/09/17 02:30 142/102 12/09/17 02:20 92 14 98 12/09/17 02:05 96 13 99 12/09/17 02:00 138/97 12/09/17 01:51 134/95 12/09/17 01:50 97 13 99 12/09/17 01:35 97 14 98 12/09/17 01:30 132/93 12/09/17 01:20 97 13 98 12/09/17 01:05 96 17 98 12/09/17 01:00 101 15 135/99 97 Room Air 12/09/17 00:45 99 16 97 12/09/17 00:31 145/98 12/09/17 00:30 91 16 98 12/09/17 00:15 94 18 100 12/09/17 00:10 85 13 98 Room Air 12/09/17 00:01 117/91 12/08/17 23:55 95 14 99 12/08/17 23:40 89 18 98 12/08/17 23:30 125/96 12/08/17 23:25 94 15 99 12/08/17 23:10 95 17 97 12/08/17 23:05 90 16 98 12/08/17 23:00 128/95 12/08/17 22:50 94 23 99 12/08/17 22:35 89 16 100 Room Air 12/08/17 22:35 94 12/08/17 22:34 131/80 12/08/17 22:22 36.7 116 26 123/76 99 Room Air Physical Exam HEENT: Head - normocephalic and atraumatic Pupils are equal, round, and reactive to light. Extraocular eye muscles are intact, and sclera are anicteric. Nose - moist nasal mucosa without discharge. Mouth - dry buccal mucosa. Oropharynx is nonerythematous and there is no tonsillar exudate or edema noted. Neck: Supple; no JVD, nuchal rigidity, cervical lymphadenopathy. Heart: Regular rate and rhythm. There is a normal S1 and S2 with no murmurs, clicks, or gallops appreciated. Lungs: Clear to auscultation bilaterally with no wheezes, rales, or rhonchi. Abdomen: Exquisite pain to the RUQ and right CVA. Soft, nondistended, with good bowel sounds. There are no palpable pulsatile masses or hepatosplenomegaly. There is no rigidity appreciated. Extremities: No clubbing, or edema. There are easily palpable peripheral pulses. Skin: Pale, hot, and dry with good turgor and no rashes. Medical Decision & Procedures ER Provider Diagnostic Interpretation: Radiology results were interpreted by me: Chest X-Ray: Port in place and no pulmonary pathology. Laboratory Results 12/08/17 23:55 Red Blood Count 3.82, Mean Corpuscular Volume 79.1, Mean Corpuscular Hemoglobin 25.4, Mean Corpuscular Hemoglobin Concent 32.1, Mean Platelet Volume 8.4, Neutrophils (%) (Auto) 77.3, Lymphocytes (%) (Auto) 9.2, Monocytes (%) (Auto) 11.1, Eosinophils (%) (Auto) 1.4, Basophils (%) (Auto) 0.6, Neutrophils # (Auto ) 7.67, Lymphocytes # (Auto) 0.91, Monocytes # (Auto) 1.10, Eosinophils # (Auto ) 0.14, Basophils # (Auto) 0.06 12/08/17 23:55 Test 12/08/17 23:55 12/09/17 00:01 12/09/17 00:25 White Blood Count 9.92 K/uL (4.8-10.8) Red Blood Count 3.82 M/uL (4.7-6.1) Hemoglobin 9.7 g/dL (14.0-18.0) Hematocrit 30.2 % (42-52) Mean Corpuscular Volume 79.1 fL (80-100) Mean Corpuscular Hemoglobin 25.4 pg (25-34) Mean Corpuscular Hemoglobin Concent 32.1 g/dl (32-36) Platelet Count 345 K/uL (130-400) Mean Platelet Volume 8.4 fL (7.4-10.4) Neutrophils (%) (Auto) 77.3 % Lymphocytes (%) (Auto) 9.2 % Monocytes (%) (Auto) 11.1 % Eosinophils (%) (Auto) 1.4 % Basophils (%) (Auto) 0.6 % Neutrophils # (Auto) 7.67 K/uL (1.4-6.5) Lymphocytes # (Auto) 0.91 K/uL (1.2-3.4) Monocytes # (Auto) 1.10 K/uL (0.11-0.59) Eosinophils # (Auto) 0.14 K/uL (0-0.5) Basophils # (Auto) 0.06 K/uL (0-0.2) RDW Standard Deviation 45.0 fL (36.4-46.3) RDW Coefficient of Variation 15.7 % (11.5-14.5) Immature Granulocyte % (Auto) 0.4 % Immature Granulocyte # (Auto) 0.04 K/uL (0.00-0.02) Prothrombin Time 11.9 SECONDS (9.0-12.0) Prothromb Time International Ratio 1.1 (0.9-1.1) Activated Partial Thromboplast Time 31.9 SECONDS (21.0-31.0) Partial Thromboplastin Ratio 1.2 Anion Gap 8.0 mmol/L (3-11) Est Creatinine Clear Calc Drug Dose 122.6 ml/min Estimated GFR () > 150.0 Estimated GFR (Non- 134.2 BUN/Creatinine Ratio 14.1 (10-20) Calcium Level 8.2 mg/dl (8.5-10.1) Total Bilirubin 0.5 mg/dl (0.2-1) Aspartate Amino Transf (AST/SGOT) 114 U/L (15-37) Alanine Aminotransferase (ALT/SGPT) 122 U/L (12-78) Alkaline Phosphatase 387 U/L (45-117) Total Protein 6.9 gm/dl (6.4-8.2) Albumin 2.6 gm/dl (3.4-5.0) Globulin 4.3 gm/dl (2.5-4.0) Albumin/Globulin Ratio 0.6 (0.9-2) Bedside Lactic Acid Venous 0.77 mmol/L (0.90-1.70) Urine Color YELLOW Urine Appearance TURBID (CLEAR) Urine pH >= 9.0 (4.5-7.5) Urine Specific [place] 1.023 (1.000-1.030) Urine Protein NEG (NEG) Urine Glucose (UA) NEG (NEG) Urine Ketones 1+ (NEG) Urine Occult Blood NEG (NEG) Urine Nitrite NEG (NEG) Urine Bilirubin NEG (NEG) Urine Urobilinogen NEG (NEG) Urine Leukocyte Esterase NEG (NEG) Urine WBC (Auto) 1-5 /hpf (0-5) Urine RBC (Auto) 5-10 /hpf (0-4) Urine Hyaline Casts (Auto) 1-5 /lpf (0-5) Urine Epithelial Cells (Auto) 0-5 /lpf (0-5) Urine Bacteria (Auto) NEG (NEG) Influenza Type A Antigen Neg for Influ A (NEG) Influenza Type B Antigen Neg for Influ B (NEG) Laboratory results per my review. Medications Administered Medications (Trade) Dose Ordered Sig/Raúl Route Start Time Stop Time Status Last Admin Dose Admin Hydromorphone HCl (Dilaudid Inj) 0.5 mg NOW STAT IV 12/08/17 23:39 12/08/17 23:42 DC 12/09/17 00:14 0.5 MG Heparin Sodium (Porcine) (Heparin 100 Unit/ml 5ml Flush) 5 ml STK-MED ONCE .ROUTE 12/09/17 02:37 12/09/17 02:38 DC 12/09/17 02:39 5 ML Procedure Dilaudid Inj 0.5mg IV ED Course 2325: Past medical records reviewed. The patient was evaluated in room C5. A complete history and physical exam was performed. His port was accessed. Labs were drawn as above. His chest x-ray obtained. 2339: Dilaudid Inj 0.5mg IV 0120: Patient was moved to room B6. 0220: Upon reevaluation, the patient is resting comfortably. He describes significant relief of his discomfort in the right flank. I discussed findings and results with him. I informed the patient to follow up with Dr. York. He verbalized agreement of the treatment plan. He was discharged home. Medical Decision The patient is a 27 year old male who presents to the ED with right sided abdominal pain. Differential diagnosis includes hydronephrosis, pyelonephritis, bowel obstruction, sepsis, influenza, colitis, and pneumonia. Lab results show white blood cell count = 9.9, hemoglobin = 9.7 which is patients baseline, lactic acid = 0.7, normal renal function and glucose, abnormal LFTs which are baseline for the patient, urine 1+ ketones but did not appear infected, and negative influenza. This is a 27-year-old male patient with stage IV colon cancer who presents to the emergency department with severe right flank pain. The patient has a history of ureteral obstruction on the right with hydronephrosis. He has previously had a ureteral stent in place. This is removed some time ago. However, the patient has had recurrent right flank pain for which she underwent a CT scan last week. This showed obvious ureteral obstruction secondary to his known colon cancer with results severe hydronephrosis and cortical thinning. The patient is comfortable at this time. He is requesting discharge home. I' ve asked him to follow-up with Dr. York who is his urologist on Sunday morning as he may require repeat stent placement. He should return to the emergency department if he develops unbearable pain or high fevers. Medication Reconcilliation Current Medication List: was personally reviewed by me Blood Pressure Screening Patient's blood pressure: Elevated blood pressure Secondary to pain. Impression Primary Impression: Right flank pain Additional Impression: Hydronephrosis Scribe Attestation The scribe's documentation has been prepared under my direction and personally reviewed by me in its entirety. I confirm that the note above accurately reflects all work, treatment, procedures, and medical decision making performed by me. Departure Information Dispostion Home / Self-Care Referrals Luisito Cheema D.O. (PCP) Forms HOME CARE DOCUMENTATION FORM, IMPORTANT VISIT INFORMATION, WORK / SCHOOL INSTRUCTIONS Patient Instructions My [facility] Additional Instructions Rest. Take plenty of clear liquids Return to ED if you have recurrent pain that is unbearable Follow up with Dr. York on Sunday Problem Qualifiers Additional Impression: Hydronephrosis Hydronephrosis type: unspecified Qualified Codes: N13.30 - Unspecified hydronephrosis
[2017-12-09 00:14] LABS: BASO % 0.6 %; BASO ABS # 0.06 K/uL (0-0.2); EOS % 1.4 %; EOS ABS # 0.14 K/uL (0-0.5); HEMATOCRIT 30.2 % (42-52); HEMOGLOBIN 9.7 g/dL (14.0-18.0); IG# 0.04 K/uL (0.00-0.02); LYMPH % 9.2 %; LYMPH ABS # 0.91 K/uL (1.2-3.4); MEAN CELL VOLUME 79.1 fL (80-100); MEAN CORPUSCULAR HEMOGLOBIN 25.4 pg (25-34); MEAN CORPUSCULAR HGB CONC 32.1 g/dl (32-36); MEAN PLATELET VOLUME 8.4 fL (7.4-10.4); MONO % 11.1 %; NEUT % 77.3 %; NEUT ABS # 7.67 K/uL (1.4-6.5); PLATELET COUNT 345 K/uL (130-400); RED CELL DISTRIBUTION WIDTH CV 15.7 % (11.5-14.5); WHITE BLOOD COUNT 9.92 K/uL (4.8-10.8)
[2017-12-09 00:16] VITALS: Ht 175.3 cm; Wt 50.0 kg
[2017-12-09 00:26] LABS: INR 1.1 (0.9-1.1); PTT PATIENT 31.9 SECONDS (21.0-31.0)
[2017-12-09 00:37] LABS: ALBUMIN 2.6 gm/dl (3.4-5.0); ALT/SGPT 122 U/L (12-78); AST/SGOT 114 U/L (15-37); BLOOD UREA NITROGEN 9 mg/dl (7-18); CALCIUM 8.2 mg/dl (8.5-10.1); CARBON DIOXIDE 26 mmol/L (21-32); CREATININE 0.64 mg/dl (0.60-1.40); GLUCOSE 85 mg/dl (70-99); POTASSIUM 3.8 mmol/L (3.5-5.1); SODIUM 138 mmol/L (136-145)
[2017-12-09 00:39] LABS: ALKALINE PHOSPHATASE 387 U/L (45-117); TOTAL PROTEIN 6.9 gm/dl (6.4-8.2)
[2017-12-09 01:14] LABS: INFLUENZA B ANTIGEN Neg for Influ B (NEG)
[2017-12-09 02:30] VITALS: BP 142/102
[2017-12-09 02:35] VITALS: PULSE 95; O2SAT 98
--- NOTE | 2017-12-09 06:11 | DIAGNOSTIC IMAGING REPORT ---
CHEST ONE VIEW PORTABLE CLINICAL HISTORY: 27 years-old Male presenting with Sepsis. TECHNIQUE: Portable upright AP view of the chest was obtained. COMPARISON: 11/01/2017. FINDINGS: Left subclavian Mediport terminates in the mid SVC and has been accessed. Normal cardiomediastinal silhouette. Lungs and pleural spaces clear. Osseous structures normal. Upper abdomen normal. IMPRESSION: 1. No acute cardiopulmonary disease. Electronically signed by: Pancho Kendrick M.D. 12/09/2017 6:10 AM Dictated Date/Time: 12/09/2017 6:09 AM
== END 2017-12-09 02:41 | disposition home or self-care (01) ==
LOC: C.EDB 22:22
DX: R10.31 Right lower quadrant pain (principal); R10.11 Right upper quadrant pain; N13.1 Hydronephrosis with ureteral stricture, not elsewhere classified; C18.9 Malignant neoplasm of colon, unspecified; C78.7 Secondary malignant neoplasm of liver and intrahepatic bile duct; Z96.0 Presence of urogenital implants; Z84.1 Family history of disorders of kidney and ureter

== ENCOUNTER 2017-12-19 09:03 | Emergency (ER) | payer OTHER ==
[~2017-12-19] VITALS: Ht 175.3 cm; Wt 50.0 kg
[~2017-12-19 09:03] MED LIST changes: -OXYC-164 PO; +PHEN-905 PO; +TRAM-10 PO; +[UNRECOGNIZED DRUG - CODE] PO
[2017-12-19 09:13] VITALS: Ht 175.3 cm; Wt 50.0 kg
[2017-12-19] MEDS ORDERED: ONDANSETRON INJ 2 MG/ML 2 ML VIAL IV STA (09:36)
[2017-12-19] MEDS ORDERED: SODIUM CHLORIDE 0.9% 1000ML 1,000 ML IV STA ×2 (09:36→12:10)
[2017-12-19] MEDS ORDERED: HYDROmorphone INJ 1 MG/ML SYR IV STA (09:36)
[2017-12-19] MEDS ORDERED: OPTIRAY 320 IV PRN (09:45)
--- NOTE | 2017-12-19 09:47 | EMERGENCY ROOM VISIT NOTE ---
History Report prepared by Jemma: Carlos Manuel Wahl Under the Supervision of: Dr. Remy Mckeon M.D. First contact with patient: 09:25 Chief Complaint: NAUSEA Stated Complaint: STOMACH [id number]-[id number]-CONSTIPATION-DIARRHEA Nursing Triage Summary: Stage 4 Colon CA. No longer getting tx. pt c/o constipation with diarrhea at times, nausea with vomiting. Upper abd cramping. on and off for weeks. "not usually this bad". "Not sure if it's CDIff again or not, it feels like it". Hx of C Diff Enema last night History of Present Illness The patient is a 27 year old male who presents to the Emergency Room with complaints of severe abdominal pains that the patient has been experiencing for the past several days. Per the fiance, the patient has rated his current abdominal pain as a 11/10 in severity. The patient has Tramadol at home for his chronic pain, but it is not touching his pain at this time. The fiance also states that the patient has been vomiting and alternating between constipation and diarrhea. The patient did have C. defficile recently. He has been diagnosed with Stage IV colon cancer with metastasis to the liver. 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 A total of 10 systems reviewed and were otherwise negative. Past Medical & Surgical Medical Problems: (1) Abdominal pain (2) Cecum mass (3) Colon cancer metastasized to liver (4) Episode of syncope (5) GI bleed (6) Hydronephrosis of left kidney (7) Hydronephrosis of right kidney (8) Kidney stone Surgical Problems: (1) History of ureter stent Family History FH: cardiovascular disease Social History Smoking Status: Light Tobacco Smoker Alcohol Use: occasionally Drug Use: none Marital Status: in relationship Housing Status: lives with family Occupation Status: disabled Current/Historical Medications Scheduled Aprepitant (Aprepitant 80 & 125 mg), 1 DOSE PO DIRECTED Regorafenib (Stivarga), 40 MG PO UD Sertraline (Zoloft), 50 MG PO DAILY Scheduled PRN Diphenhydramine Hcl (Benadryl Allergy), 25 MG PO DAILY PRN for PRN Naproxen (Aleve), 220-440 MG PO DIRECTED PRN for Pain Ondansetron (Ondansetron HCl), 1 TAB PO Q8 PRN for Nausea or Vomiting Tramadol (Ultram), 50 MG PO DIRECTED PRN for Pain Allergies Coded Allergies: Cranberry Extract (Verified Allergy, Severe, HIVES, 12/19/17) Oxaliplatin (Verified Allergy, Severe, THROAT CLOSING, 12/19/17) Lactose Intolerance (GI) (Verified Allergy, Unknown, UNKNOWN, 12/19/17) Physical Exam Vital Signs Date Time Temp Pulse Resp B/P (MAP) Pulse Ox O2 Delivery O2 Flow Rate FiO2 12/19/17 14:10 100 20 96 12/19/17 13:00 36.7 100 29 143/103 96 Room Air 12/19/17 12:49 102 18 97 Room Air 12/19/17 12:00 121 18 136/89 98 Room Air 12/19/17 10:48 109 97 12/19/17 10:45 129/95 12/19/17 10:03 105 17 100 12/19/17 09:48 115 10 99 12/19/17 09:33 123 17 12/19/17 09:27 120 12/19/17 09:13 36.7 127 16 119/82 99 Room Air Physical Exam GENERAL: Patient is a chronically ill and cachectic in appearance. HEAD: Normocephalic atraumatic EYES: Ocular movements intact pupils equal and react to light OROPHARYNX mucous membranes are moist no exudates present no erythema or edema present NECK: Supple no nuchal rigidity CHEST: Good equal expansion LUNGS: Clear and equal to auscultation CARDIAC: Normal S1 and S2 ABDOMEN: Soft but exquisitely tender to touch. BACK: No CVA tenderness EXTREMITIES: No pain upon palpation normal muscle strength in all groups no clubbing cyanosis or edema NEURO: Patient is following commands and answering questions appropriately. Alert and oriented x3 Cranial Nerves 2-12 grossly intact Medical Decision & Procedures ER Provider Diagnostic Interpretation: Radiology results as stated below per my review and radiologist interpretation: CHEST ONE VIEW PORTABLE CLINICAL HISTORY: Epigastric pain. COMPARISON STUDY: Chest radiograph December 14, [address] July 11, 2017. FINDINGS: A left-sided Pydtmg-x-[id number] is in place. There is no pneumothorax or pleural effusion. No consolidation to suggest pneumonia. Cardiomediastinal silhouette is normal. Pulmonary vascularity is normal. The appearance of the chest is unchanged. IMPRESSION: No acute cardiopulmonary findings. Electronically signed by: Naeem Alvarado M.D. 12/19/2017 10:10 AM Dictated Date/Time: 12/19/2017 10:[address] OF THE ABDOMEN AND PELVIS WITH CONTRAST CLINICAL HISTORY: Epigastric pain and nausea. History of colon cancer. COMPARISON STUDY: CT of the abdomen and pelvis December 04, 2017. TECHNIQUE: Following IV administration of 70 mL of Optiray-320, axial images of the abdomen and pelvis were obtained from the lung bases to the proximal femurs. Images were reviewed in the axial, sagittal, and coronal planes. IV contrast was administered without complication. A dose lowering technique was utilized adhering to the principles of ALARA. CT DOSE: 230.15 mGycm FINDINGS: Lung bases are clear. No pneumatosis, free air or portal venous gas is noted. There has been significant progression of bilobar hepatic metastatic disease since exam of December 04, 2017. Index right hepatic lobe dominant mass measures 10.3 cm in maximal dimension. It previously measured 8.3 cm. A 2.4 cm lateral segment lesion previously measured 1.2 cm. Several hepatic lesions were not evident on prior exam. The spleen, adrenal glands, left kidney and pancreas are normal. There is no biliary or pancreatic ductal dilatation. Severe hydroureteronephrosis with abrupt caliber change of the mid right ureter within the right lower quadrant, is similar to prior exam of December 04, 2017. There has been interval development of moderate dilatation of the mid to distal small bowel which is fluid-filled. There is associated mesenteric infiltration and a small amount of ascites. A transition point is noted within the right lower quadrant on axial image 308 of 441. The distal small bowel is decompressed with associated wall thickening. Thickening of the cecum is again noted. These findings are in close proximity to the site of primary malignancy shown on initial exam. No suspicious osseous lesions are present. Marked right renal cortical thinning is unchanged. IMPRESSION: 1. Findings consistent with a moderate to high-grade small bowel obstruction. Transition point within the distal ileum with irregular wall thickening involving the terminal ileum and cecum. Possible associated soft tissue nodularity. Small bowel transition point is in close proximity to caliber change of the right ureter and the primary malignancy shown on initial imaging study. This small bowel obstruction could be due to tumor, postradiation change or adhesions. Associated mesenteric infiltration and a small amount of ascites. 2. Significant progression of extensive hepatic metastatic disease since CT of December 04, 2017. 3. No significant change in marked right hydroureteronephrosis since prior CT. Electronically signed by: Naeem Alvarado M.D. 12/19/2017 10:54 AM Dictated Date/Time: 12/19/2017 10:35 AM Laboratory Results 12/19/17 10:00 Red Blood Count 4.21, Mean Corpuscular Volume 76.2, Mean Corpuscular Hemoglobin 24.9, Mean Corpuscular Hemoglobin Concent 32.7, Mean Platelet Volume 8.5, Neutrophils (%) (Auto) 80.8, Lymphocytes (%) (Auto) 6.7, Monocytes (%) (Auto) 11.3, Eosinophils (%) (Auto) 0.4, Basophils (%) (Auto) 0.2, Neutrophils # (Auto ) 10.39, Lymphocytes # (Auto) 0.86, Monocytes # (Auto) 1.46, Eosinophils # (Auto ) 0.05, Basophils # (Auto) 0.03 12/19/17 10:00 Test 12/19/17 10:00 12/19/17 10:08 White Blood Count 12.87 K/uL (4.8-10.8) Red Blood Count 4.21 M/uL (4.7-6.1) Hemoglobin 10.5 g/dL (14.0-18.0) Hematocrit 32.1 % (42-52) Mean Corpuscular Volume 76.2 fL (80-100) Mean Corpuscular Hemoglobin 24.9 pg (25-34) Mean Corpuscular Hemoglobin Concent 32.7 g/dl (32-36) Platelet Count 610 K/uL (130-400) Mean Platelet Volume 8.5 fL (7.4-10.4) Neutrophils (%) (Auto) 80.8 % Lymphocytes (%) (Auto) 6.7 % Monocytes (%) (Auto) 11.3 % Eosinophils (%) (Auto) 0.4 % Basophils (%) (Auto) 0.2 % Neutrophils # (Auto) 10.39 K/uL (1.4-6.5) Lymphocytes # (Auto) 0.86 K/uL (1.2-3.4) Monocytes # (Auto) 1.46 K/uL (0.11-0.59) Eosinophils # (Auto) 0.05 K/uL (0-0.5) Basophils # (Auto) 0.03 K/uL (0-0.2) RDW Standard Deviation 44.4 fL (36.4-46.3) RDW Coefficient of Variation 15.8 % (11.5-14.5) Immature Granulocyte % (Auto) 0.6 % Immature Granulocyte # (Auto) 0.08 K/uL (0.00-0.02) Est Creatinine Clear Calc Drug Dose 126.6 ml/min Estimated GFR () > 150.0 Estimated GFR (Non- 136.0 BUN/Creatinine Ratio 11.4 (10-20) Calcium Level 9.1 mg/dl (8.5-10.1) Total Bilirubin 0.5 mg/dl (0.2-1) Direct Bilirubin 0.2 mg/dl (0-0.2) Aspartate Amino Transf (AST/SGOT) 67 U/L (15-37) Alanine Aminotransferase (ALT/SGPT) 74 U/L (12-78) Alkaline Phosphatase 337 U/L (45-117) Total Protein 7.2 gm/dl (6.4-8.2) Albumin 2.7 gm/dl (3.4-5.0) Lipase 52 U/L (73-393) Bedside Hemoglobin 10.9 g/dl (14.0-18.0) Bedside Hematocrit 32 % (42-52) Bedside Sodium 136 mEq/L (135-144) Bedside Potassium 3.8 mEq/L (3.3-5.0) Bedside Chloride 101 mEq/L (101-112) Bedside Total CO2 21 mEq/l (24-31) Anion Gap 19.0 mmol/L (16-25) Bedside Blood Urea Nitrogen 6 mg/dl (7-18) Bedside Creatinine 0.6 mg/dl (0.6-1.3) Bedside Glucose (other) 102 mg/dl (70-99) Bedside Ionized Calcium (Jayson) 1.14 mmol/l (1.12-1.32) Labs reviewed by ED physician. Medications Administered Medications (Trade) Dose Ordered Sig/Raúl Route Start Time Stop Time Status Last Admin Dose Admin Sodium Chloride 1,000 ml @ 999 mls/hr Q1H1M STAT IV 2/14/18 09:36 12/19/17 10:36 DC 12/19/17 09:48 999 MLS/HR Hydromorphone HCl (Dilaudid Inj) 1 mg NOW STAT IV 12/19/17 09:36 12/19/17 09:39 DC 12/19/17 09:46 1 MG Ondansetron HCl (Zofran Inj) 4 mg NOW STAT IV 12/19/17 09:36 12/19/17 09:39 DC 12/19/17 09:46 4 MG Hydromorphone HCl (Dilaudid Inj) 1 mg Q1HWA PRN IV 12/19/17 10:45 12/19/17 14:36 DC 12/19/17 10:57 1 MG Sodium Chloride 1,000 ml @ 999 mls/hr Q1H1M STAT IV 12/19/17 12:10 12/19/17 13:10 DC 12/19/17 12:40 999 MLS/HR ED Course 0928: Past medical records reviewed. The patient was evaluated in room B11B. A complete history and physical examination was performed. 0936: Ordered Zofran 4 mg IV, Dilaudid Inj 1 mg IV, Sodium Chloride 1000 mL @ 999 mL/hr IV. 1045: Ordered Dilaudid Inj 1 mg IV. 1156: I discussed the case with Dr. Wang - Hemology/Oncology. He suggested speaking with Dr. Winters. 1159: I discussed the case with Dr. Winters - [facility]. He asked me to please place a NG tube and transfer the patient. He will accept. The patient does not need to be transported via helicopter. 1210: Ordered Sodium Chloride 1000 mL @ 999 mL/hr IV. Medical Decision Differential diagnosis: Etiologies such as appendicitis, diverticulitis, PUD, biliary pathology, UTI, pancreatitis, obstruction, mesenteric ischemia, aortic pathology, infections, inflammatory bowel disease, renal colic, as well as others were entertained. This is a 27-year-old male who presents emergency department complaining of epigastric pain. The patient is not receiving radiation or chemotherapy for his colon cancer. The patient has been vomiting all night long therefore he was sent for a CAT scan of the abdomen pelvis. This is concerning for high- grade small bowel obstruction. For this reason an NG tube was placed. An IV was established, patient given normal saline bolus, 1 mg of Dilaudid 2. I did discuss the case with the surgical team as well as the oncology team at [facility] who readily accepted the patient. They felt that the patient could be transferred via ambulance. Patient and family were in agreement with the treatment plan. Medication Reconcilliation Current Medication List: was personally reviewed by me Blood Pressure Screening Patient's blood pressure: Normal blood pressure Consults Time Called: 1155 Consulting Physician: Dr. Wang - Hemology/Oncology Returned Call: 1156 I discussed the case with Dr. Wang - Hemology/Oncology. He suggested speaking with Dr. Winters. Additional Consults: Time Called: 1158 Consulted Physician: Dr. Vianey [facility] Returned Call: 1153 Additional Comments: I discussed the case with Dr. Winters - [facility]. He asked me to please place a NG tube and transfer the patient. He will accept. The patient does not need to be transported via helicopter. Impression Primary Impression: Abdominal pain Additional Impression: Small bowel obstruction Critical Care I have personally spent greater than 90 minutes of critical care time in the direct management of this patient. This includes bedside care, interpretation of diagnostic studies, and testing, discussion with consultants, patient, and family members, and other required patient management activities. This 90 minutes is in excess of all separately billable procedures. Scribe Attestation The scribe's documentation has been prepared under my direction and personally reviewed by me in its entirety. I confirm that the note above accurately reflects all work, treatment, procedures, and medical decision making performed by me. Departure Information Dispostion Transfer Acute Care Facility ([facility] ) Referrals Luisito Cheema D.O. (PCP) Patient Instructions [facility] Problem Qualifiers Primary Impression: Abdominal pain Abdominal location: unspecified location Qualified Codes: R10.9 - Unspecified abdominal pain
--- NOTE | 2017-12-19 10:12 | DIAGNOSTIC IMAGING REPORT ---
CHEST ONE VIEW PORTABLE CLINICAL HISTORY: Epigastric pain. COMPARISON STUDY: Chest radiograph December 14, [address] July 11, 2017. FINDINGS: A left-sided Wzyxsx-s-Vunv is in place. There is no pneumothorax or pleural effusion. No consolidation to suggest pneumonia. Cardiomediastinal silhouette is normal. Pulmonary vascularity is normal. The appearance of the chest is unchanged. IMPRESSION: No acute cardiopulmonary findings. Electronically signed by: Naeem Alvarado M.D. 12/19/2017 10:10 AM Dictated Date/Time: 12/19/2017 10:08 AM
[2017-12-19 10:20] LABS: BASO % 0.2 %; BASO ABS # 0.03 K/uL (0-0.2); EOS % 0.4 %; EOS ABS # 0.05 K/uL (0-0.5); HEMATOCRIT 32.1 % (42-52); HEMOGLOBIN 10.5 g/dL (14.0-18.0); IG# 0.08 K/uL (0.00-0.02); LYMPH % 6.7 %; LYMPH ABS # 0.86 K/uL (1.2-3.4); MEAN CELL VOLUME 76.2 fL (80-100); MEAN CORPUSCULAR HEMOGLOBIN 24.9 pg (25-34); MEAN CORPUSCULAR HGB CONC 32.7 g/dl (32-36); MEAN PLATELET VOLUME 8.5 fL (7.4-10.4); MONO % 11.3 %; MONO ABS # 1.46 K/uL (0.11-0.59); NEUT % 80.8 %; NEUT ABS # 10.39 K/uL (1.4-6.5); PLATELET COUNT 610 K/uL (130-400); RED CELL DISTRIBUTION WIDTH CV 15.8 % (11.5-14.5); RED CELL DISTRIBUTION WIDTH SD 44.4 fL (36.4-46.3); WHITE BLOOD COUNT 12.87 K/uL (4.8-10.8)
[2017-12-19 10:20] LABS: ISTAT CREATININE 0.6 mg/dl (0.6-1.3); ISTAT IONIZED CALCIUM 1.14 mmol/l (1.12-1.32); ISTAT POTASSIUM 3.8 mEq/L (3.3-5.0)
[2017-12-19 10:38] LABS: ALBUMIN 2.7 gm/dl (3.4-5.0); ALT/SGPT 74 U/L (12-78); BLOOD UREA NITROGEN 7 mg/dl (7-18); CALCIUM 9.1 mg/dl (8.5-10.1); CARBON DIOXIDE 22 mmol/L (21-32); CREATININE 0.62 mg/dl (0.60-1.40); GLUCOSE 92 mg/dl (70-99); LIPASE 52 U/L (73-393); POTASSIUM 3.8 mmol/L (3.5-5.1); SODIUM 135 mmol/L (136-145)
[2017-12-19 10:41] LABS: ALKALINE PHOSPHATASE 337 U/L (45-117); AST/SGOT 67 U/L (15-37); TOTAL PROTEIN 7.2 gm/dl (6.4-8.2)
[2017-12-19] MEDS ORDERED: HYDROmorphone INJ 1 MG/ML SYR IV PRN (10:45)
--- NOTE | 2017-12-19 10:55 | DIAGNOSTIC IMAGING REPORT ---
CT OF THE ABDOMEN AND PELVIS WITH CONTRAST CLINICAL HISTORY: Epigastric pain and nausea. History of colon cancer. COMPARISON STUDY: CT of the abdomen and pelvis December 04, 2017. TECHNIQUE: Following IV administration of 70 mL of Optiray-320, axial images of the abdomen and pelvis were obtained from the lung bases to the proximal femurs. Images were reviewed in the axial, sagittal, and coronal planes. IV contrast was administered without complication. A dose lowering technique was utilized adhering to the principles of ALARA. CT DOSE: 230.15 mGycm FINDINGS: Lung bases are clear. No pneumatosis, free air or portal venous gas is noted. There has been significant progression of bilobar hepatic metastatic disease since exam of December 04, 2017. Index right hepatic lobe dominant mass measures 10.3 cm in maximal dimension. It previously measured 8.3 cm. A 2.4 cm lateral segment lesion previously measured 1.2 cm. Several hepatic lesions were not evident on prior exam. The spleen, adrenal glands, left kidney and pancreas are normal. There is no biliary or pancreatic ductal dilatation. Severe hydroureteronephrosis with abrupt caliber change of the mid right ureter within the right lower quadrant, is similar to prior exam of December 04, 2017. There has been interval development of moderate dilatation of the mid to distal small bowel which is fluid-filled. There is associated mesenteric infiltration and a small amount of ascites. A transition point is noted within the right lower quadrant on axial image 308 of 441. The distal small bowel is decompressed with associated wall thickening. Thickening of the cecum is again noted. These findings are in close proximity to the site of primary malignancy shown on initial exam. No suspicious osseous lesions are present. Marked right renal cortical thinning is unchanged. IMPRESSION: 1. Findings consistent with a moderate to high-grade small bowel obstruction. Transition point within the distal ileum with irregular wall thickening involving the terminal ileum and cecum. Possible associated soft tissue nodularity. Small bowel transition point is in close proximity to caliber change of the right ureter and the primary malignancy shown on initial imaging study. This small bowel obstruction could be due to tumor, postradiation change or adhesions. Associated mesenteric infiltration and a small amount of ascites. 2. Significant progression of extensive hepatic metastatic disease since CT of December 04, 2017. 3. No significant change in marked right hydroureteronephrosis since prior CT. Electronically signed by: Naeem Alvarado M.D. 12/19/2017 10:54 AM Dictated Date/Time: 12/19/2017 10:35 AM
[2017-12-19 13:00] VITALS: BP 143/103; TEMP 36.7
[2017-12-19 14:10] VITALS: PULSE 100; O2SAT 96
== END 2017-12-19 14:11 | disposition short-term general hospital (02) ==
LOC: C.EDB 09:05
DX: R10.9 Unspecified abdominal pain (principal); K56.609 Unspecified intestinal obstruction, unspecified as to partial versus complete obstruction; F17.200 Nicotine dependence, unspecified, uncomplicated

== ENCOUNTER 2018-01-23 00:22 | Inpatient (IN) | payer OTHER ==
[2018-01-23] VITALS (18 sets, daily range): BP systolic 110–143; BP diastolic 73–94; PULSE 96–118; TEMP 36.6–37.4; O2SAT 96–100; Ht 175.3 cm; Wt 46.0 kg
[~2018-01-23] VITALS: Ht 175.3 cm; Wt 46.0 kg
[~2018-01-23 00:22] MED LIST changes: -MIRT15TA2 PO; -PHEN-905 PO
[2018-01-23] MEDS ORDERED: HYDROmorphone INJ 0.5 MG/0.5 ML SYR IV STA ×2 (00:47→02:56)
[2018-01-23 01:10] LABS: BASO % 0.3 %; BASO ABS # 0.06 K/uL (0-0.2); EOS % 0.1 %; EOS ABS # 0.02 K/uL (0-0.5); HEMATOCRIT 24.2 % (42-52); HEMOGLOBIN 7.7 g/dL (14.0-18.0); IG# 0.28 K/uL (0.00-0.02); LYMPH % 4.7 %; LYMPH ABS # 0.98 K/uL (1.2-3.4); MEAN CELL VOLUME 69.5 fL (80-100); MEAN CORPUSCULAR HEMOGLOBIN 22.1 pg (25-34); MEAN CORPUSCULAR HGB CONC 31.8 g/dl (32-36); MEAN PLATELET VOLUME 8.1 fL (7.4-10.4); MONO % 9.2 %; MONO ABS # 1.92 K/uL (0.11-0.59); NEUT % 84.4 %; NEUT ABS # 17.66 K/uL (1.4-6.5); PLATELET COUNT 826 K/uL (130-400); RED CELL DISTRIBUTION WIDTH CV 17.8 % (11.5-14.5); RED CELL DISTRIBUTION WIDTH SD 45.3 fL (36.4-46.3); WHITE BLOOD COUNT 20.92 K/uL (4.8-10.8)
--- NOTE | 2018-01-23 01:11 | EMERGENCY ROOM VISIT NOTE ---
History Report prepared by Jemma: Dashawn Diaz Under the Supervision of: Dr. Lucy Stark D.O. First contact with patient: 00:33 Chief Complaint: ABDOMINAL PAIN Stated Complaint: STOMACH PAIN,WEAKNESS,BLOOD STOOL WITN STOMA History of Present Illness The patient is a 27 year old male who presents to the Emergency Room with complaints of constant abdominal pain beginning three days ago. The patient currently rates his discomfort an 8/10. He states he was in [place] a month ago and received a stoma. The patient reports he still has his colon because they are too afraid to take it out. He notes he started passing flesh from his rectum that looks like a fleshy tumor. The patient states it has happened about 6 times in the past few days, and he passed most of them today. He reports blood was present when he wiped himself. The patient states he is having a normal output from his stoma. The patient notes he has become more tired even though he is able to eat normally. He states he cannot stand up or bend over because it worsens his abdominal discomfort. The patient reports his urine is foamy. He notes he is in a stand still for treatment with his chemotherapy for the past few months. The patient states he was taking Tramadol for pain and ran out three days ago. He reports he followed up with his PCP and his [facility] Oncologist after his stay at [place]. The patient notes he is on blood thinner shots, and his last dose is tomorrow. He denies rectal pain. Source of History: patient Onset: three days ago Position: abdomen Symptom Intensity: 8/10 Modifying Factors (Worsening): movement (standing up and bending over) Note: Associated symptoms: passing fleshy tumor like substances from rectum, blood when wiping himself, increased tiredness, foamy urine, Denies: trouble eating, rectal pain Review of Systems See HPI for pertinent positives & negatives. A total of 10 systems reviewed and were otherwise negative. Past Medical & Surgical Medical Problems: (1) Abdominal pain (2) Cecum mass (3) Colon cancer metastasized to liver (4) Episode of syncope (5) GI bleed (6) Hydronephrosis of left kidney (7) Hydronephrosis of right kidney (8) Kidney stone Surgical Problems: (1) History of ureter stent Family History FH: cardiovascular disease Social History Smoking Status: Never Smoker Alcohol Use: occasionally Drug Use: none Marital Status: in relationship Housing Status: lives with family Occupation Status: disabled Current/Historical Medications Scheduled Bifidobacterium (Align), 1 TAB PO DAILY Fentanyl (Fentanyl), 1 PATCH TD UD Ferrous Gluconate (Ferrous Gluconate), 324 MG PO BIDM Ropinirole HCl (Ropinirole HCl), 0.25 MG PO HS Sertraline (Zoloft), 50 MG PO DAILY Scheduled PRN Hydromorphone Hcl (Dilaudid), 1 TAB PO QID PRN for Severe Pain Ondansetron (Ondansetron HCl), 8 MG PO Q8 PRN for Nausea or Vomiting Simethicone (Mi-Acid Gas Relief), 80 MG PO Q6H PRN for gas/bloating Allergies Coded Allergies: Cranberry Extract (Verified Allergy, Severe, HIVES, 01/23/18) Oxaliplatin (Verified Allergy, Severe, THROAT CLOSING, 01/23/18) Lactose Intolerance (GI) (Verified Allergy, Unknown, UNKNOWN, 01/23/18) Physical Exam Vital Signs Date Time Temp Pulse Resp B/P (MAP) Pulse Ox O2 Delivery O2 Flow Rate FiO2 01/23/18 06:14 99 18 133/82 100 01/23/18 06:07 99 18 133/82 100 Room Air 01/23/18 05:11 94 16 125/85 98 Room Air 01/23/18 03:28 104 16 142/86 100 Room Air 01/23/18 02:01 37.6 120 20 129/80 99 Room Air 01/23/18 00:29 37.2 128 18 111/79 100 Room Air Physical Exam HEENT: Head - normocephalic and atraumatic Pupils are equal, round, and reactive to light. Extraocular eye muscles are intact, and sclera are anicteric. Nose - moist nasal mucosa without discharge. Mouth - moist buccal mucosa. Oropharynx is nonerythematous and there is no tonsillar exudate or edema noted. Neck: Supple; no JVD, nuchal rigidity, cervical lymphadenopathy. Heart: Tachycardic rate and regular rhythm. There is a normal S1 and S2 with no murmurs, clicks, or gallops appreciated. Lungs: Clear to auscultation bilaterally with no wheezes, rales, or rhonchi. Abdomen: Quite firm, mildly distended, diffusely tender, with good bowel sounds. There are no palpable pulsatile masses or hepatosplenomegaly. There is no guarding, rigidity, or rebound noted. Ostomy has good output. Extremities: No evidence of cyanosis, clubbing, or edema. There are easily palpable peripheral pulses. Skin: Pale, warm and dry with good turgor and no rashes. Medical Decision & Procedures ER Provider Diagnostic Interpretation: Radiology results as stated below per my review and the radiologist's interpretation: Obstruction Series X-rays: Mediport in place, no free air, no signs of obstruction. CT ABDOMEN & PELVIS With Contrast: Comparison: CT abdomen and pelvis 12/04/17. Increased size and number of hepatic metastases. Gallbladder, spleen, pancreas, and adrenal glands are unremarkable. Persistent severe right hydroureteronephrosis. Left kidney is unremarkable. Interval creation of right-sided ostomy. No bowel obstruction. Redemonstrated abnormal bowel wall thickening/heterogeneous mass at the ileocecal junction with appears worsened from prior exam. Mild free fluid in the pelvis. Urinary bladder and prostate are unremarkable. No acute Osseous findings. Radiologist: Natan Noel MD Study ready at 0329 and initial results transmitted at 0407. Laboratory Results Test 01/23/18 00:55 01/23/18 01:45 01/23/18 03:14 01/23/18 06:30 RDW Standard Deviation 45.3 fL (36.4-46.3) RDW Coefficient of Variation 17.8 % (11.5-14.5) White Blood Count 20.92 K/uL (4.8-10.8) Red Blood Count 3.48 M/uL (4.7-6.1) Hemoglobin 7.7 g/dL (14.0-18.0) Hematocrit 24.2 % (42-52) Mean Corpuscular Volume 69.5 fL (80-100) Mean Corpuscular Hemoglobin 22.1 pg (25-34) Mean Corpuscular Hemoglobin Concent 31.8 g/dl (32-36) Platelet Count 826 K/uL (130-400) Mean Platelet Volume 8.1 fL (7.4-10.4) Neutrophils (%) (Auto) 84.4 % Lymphocytes (%) (Auto) 4.7 % Monocytes (%) (Auto) 9.2 % Eosinophils (%) (Auto) 0.1 % Basophils (%) (Auto) 0.3 % Neutrophils # (Auto) 17.66 K/uL (1.4-6.5) Lymphocytes # (Auto) 0.98 K/uL (1.2-3.4) Monocytes # (Auto) 1.92 K/uL (0.11-0.59) Eosinophils # (Auto) 0.02 K/uL (0-0.5) Basophils # (Auto) 0.06 K/uL (0-0.2) Immature Granulocyte % (Auto) 1.3 % Immature Granulocyte # (Auto) 0.28 K/uL (0.00-0.02) Hypochromasia PRESENT Microcytosis PRESENT Prothrombin Time 13.5 SECONDS (9.0-12.0) Prothromb Time International Ratio 1.3 (0.9-1.1) Activated Partial Thromboplast Time 35.7 SECONDS (21.0-31.0) Partial Thromboplastin Ratio 1.4 Est Creatinine Clear Calc Drug Dose 71.1 ml/min Total Bilirubin 0.7 mg/dl (0.2-1) Direct Bilirubin 0.3 mg/dl (0-0.2) Aspartate Amino Transf (AST/SGOT) 99 U/L (15-37) Alanine Aminotransferase (ALT/SGPT) 54 U/L (12-78) Alkaline Phosphatase 520 U/L (45-117) Total Protein 7.5 gm/dl (6.4-8.2) Albumin 2.5 gm/dl (3.4-5.0) Urine Color DK YELLOW Urine Appearance CLEAR (CLEAR) Urine pH 5.5 (4.5-7.5) Urine Specific [place] 1.026 (1.000-1.030) Urine Protein 1+ (NEG) Urine Glucose (UA) NEG (NEG) Urine Ketones TRACE (NEG) Urine Occult Blood NEG (NEG) Urine Nitrite NEG (NEG) Urine Bilirubin NEG (NEG) Urine Urobilinogen NEG (NEG) Urine Leukocyte Esterase NEG (NEG) Urine WBC (Auto) 1-5 /hpf (0-5) Urine RBC (Auto) 0-4 /hpf (0-4) Urine Hyaline Casts (Auto) 0 /lpf (0-5) Urine Epithelial Cells (Auto) 20-30 /lpf (0-5) Urine Bacteria (Auto) NEG (NEG) Urine Pathogenic Casts /lpf (0) Urine Mucus PRESENT (NONE PRSENT) Urine Yeast (Auto) (NONE PRSENT) Bedside Lactic Acid Venous 1.41 mmol/L (0.90-1.70) Laboratory results per my review. Medications Administered Medications (Trade) Dose Ordered Sig/Raúl Route Start Time Stop Time Status Last Admin Dose Admin Hydromorphone HCl (Dilaudid Inj) 0.5 mg NOW STAT IV 01/23/18 00:47 01/23/18 00:48 DC 01/23/18 01:15 0.5 MG Sodium Chloride 1,000 ml @ 999 mls/hr Q1H1M STAT IV 01/23/18 02:56 01/23/18 03:56 DC 01/23/18 03:04 999 MLS/HR Hydromorphone HCl (Dilaudid Inj) 0.5 mg NOW STAT IV 01/23/18 02:56 01/23/18 02:57 DC 01/23/18 03:03 0.5 MG Imipenem/ Cilastatin Sodium 500 mg/Dextrose 110 ml @ 100 mls/hr NOW STAT IV 01/23/18 04:37 01/23/18 05:42 DC 01/23/18 05:04 100 MLS/HR Daptomycin 300 mg/ Sodium Chloride 56 ml @ 100 mls/hr NOW STAT IV 01/23/18 04:37 01/23/18 05:10 DC 01/23/18 05:04 100 MLS/HR Procedure 0047: Ordered Hydromorphone HCl 0.5mg IV 0256: Ordered Hydromorphone HCl 0.5mg IV, Sodium Chloride 1000 ml @ 999 mls/hr IV. 0437: Ordered Daptomycin 300 mg/Sodium Chloride 56ml @ 100 mls/hr, Imipenem/ Cilastatin Sodium 500mg/Dextrose 110ml @ 100 mls/hr IV ED Course 0038: The patient was evaluated in room B06. A complete history and physical examination were performed. Nursing notes and previous electronic medical records were reviewed. IV lock was established and labs were drawn as above. 0047: Ordered Hydromorphone HCl 0.5mg IV. 0150: The patient is feeling somewhat better at this time. 0307: I reevaluated the patient. I discussed his current lab and test results. He is experiencing more abdominal pain. He is going to receive a CT scan of his abdomen. Ordered Hydromorphone HCl 0.5mg IV, Sodium Chloride 1000 ml @ 999 mls/hr IV. 0427: Upon reevaluation, I discussed findings and results with resting peacefully. The patient verbalized agreement of the treatment plan. The patient will be evaluated for further management and care. 0434: I discussed the patient's case with the resident of Dr. Lynn, [facility] Hospitalist. The patient will be evaluated for further management and care. 0437: Ordered Daptomycin 300 mg/Sodium Chloride 56ml @ 100 mls/hr, Imipenem/ Cilastatin Sodium 500mg/Dextrose 110ml @ 100 mls/hr IV Medical Decision The patient is a 27 year old male with a history of metastatic colon cancer who presents to the ED with abdominal pain. Differential diagnosis includes bowel obstruction, ureteral obstruction, UTI, GI bleed. Lab results show: WBC of 20.9, hemoglobin of 7.7, platelet of 826, glucose of 108, BUN of 21, creatinine of 1, lactic acid of 1.41. Urinalysis had trace ketones and epithelial cells. INR of 1.3. This is a 27-year-old male patient with advanced metastatic colon cancer who presents to the emergency department with diffuse abdominal pain and passing fleshy tissue from his rectum. The patient does admit that he ran out of his tramadol approximately 3 days ago and that is when the pain started. The patient describes significant fatigue and weakness. The patient is anemic with a hemoglobin of 7.7 but this has been his baseline for the past couple of weeks. However, the patient has significant leukocytosis with a white count of 20.9. He is tachycardic. The patient has low-grade fever. There was concern for SIRS or sepsis. Blood cultures were obtained. The patient was treated with broad-spectrum antibiotics for this reason. I talked to the patient and his family about the overall status of his disease. On CT scan today, there is no evidence of an obstruction. The patient continues to have right-sided hydronephrosis. Metastatic disease appears to be more advanced. They state that he is currently awaiting evaluation at [place] for a second opinion. I discussed the case with the hospitalist and they will evaluate for further management. Medication Reconcilliation Current Medication List: was personally reviewed by me Blood Pressure Screening Patient's blood pressure: Normal blood pressure Blood pressure disposition: Did not require urgent referral Consults Time Called: [phone] Consulting Physician: resident of Dr. Lynn [facility] Hospitalist Returned Call: [phone] I discussed the patient's case with the resident of Dr. Lynn [facility] Hospitalist. The patient will be evaluated for further management and care. Impression Primary Impression: SIRS (systemic inflammatory response syndrome) Additional Impressions: Abdominal pain Anemia Metastatic colon cancer to liver Scribe Attestation The scribe's documentation has been prepared under my direction and personally reviewed by me in its entirety. I confirm that the note above accurately reflects all work, treatment, procedures, and medical decision making performed by me. Departure Information Dispostion Being Evaluated By Hospitalist Prescriptions Fentanyl (Fentanyl) 50 Mcg Tdsy 1 PATCH TD UD for 30 Days, #10 PATCH change every 72 hours Prov: Jacqui Vargas M.D. 01/24/18 Hydromorphone Hcl (DILAUDID) 4 Mg Tab 1 TAB PO QID Y for Severe Pain for 30 Days, #120 TAB Prov: Jacqui Vargas M.D. 01/24/18 Ferrous Gluconate (Ferrous Gluconate) 324 Mg Tab 324 MG PO BIDM for 30 Days, #30 TAB Prov: Jacqui Vargas M.D. 01/24/18 Bifidobacterium (Align) 4 Mg Cap 1 TAB PO DAILY, #30 TAB Prov: Jacqui Vargas M.D. 01/24/18 Simethicone (Mi-Acid Gas Relief) 80 Mg Chew 80 MG PO Q6H Y for gas/bloating for 30 Days, #120 TABS Prov: Jacqui Vargas M.D. 01/24/18 Ropinirole HCl (Ropinirole HCl) 0.25 Mg Tab 0.25 MG PO HS for 30 Days, #30 TAB Prov: Jacqui Vargas M.D. 01/24/18 Ondansetron (Ondansetron HCl) 8 Mg Tab 8 MG PO Q8 Y for Nausea or Vomiting for 30 Days, #90 TABS Prov: Jacqui Vargas M.D. 01/24/18 Referrals Luisito Cheema D.O. (PCP) Patient Instructions My [facility] Problem Qualifiers Additional Impressions: Abdominal pain Abdominal location: generalized Qualified Codes: R10.84 - Generalized abdominal pain Anemia Anemia type: unspecified type Qualified Codes: D64.9 - Anemia, unspecified
[2018-01-23 01:20] LABS: INR 1.3 (0.9-1.1); PTT PATIENT 35.7 SECONDS (21.0-31.0)
[2018-01-23 01:29] LABS: ALBUMIN 2.5 gm/dl (3.4-5.0); CALCIUM 9.3 mg/dl (8.5-10.1); CREATININE 1.06 mg/dl (0.60-1.40); POTASSIUM 3.9 mmol/L (3.5-5.1)
[2018-01-23 01:32] LABS: TOTAL PROTEIN 7.5 gm/dl (6.4-8.2)
[2018-01-23] MEDS ORDERED: SODIUM CHLORIDE 0.9% 1000ML 1,000 ML IV STA (02:56)
[2018-01-23] MEDS ORDERED: OPTIRAY 320 IV PRN (03:15)
[2018-01-23] MEDS ORDERED: DAPTOmycin IV 300 MG in SODIUM CHLORIDE 0.9% 50ML 50 ML IV STA (04:37)
[2018-01-23] MEDS ORDERED: IMIPENEM/CILASTATIN IV 500 MG in DEXTROSE 5% 100ML 100 ML IV STA (04:37)
[2018-01-23] MEDS ORDERED: ALUMINUM/MAGNESIUM/SIMETH (MAALOX MAX) 30 ML UDC PO PRN (05:45)
[2018-01-23] MEDS ORDERED: MAGNESIUM HYDROXIDE SUSP 30 ML UDC PO PRN (05:45)
[2018-01-23] MEDS ORDERED: ACETAMINOPHEN 325 MG TAB PO PRN (05:45)
[2018-01-23] MEDS ORDERED: ONDANSETRON INJ 2 MG/ML 2 ML VIAL IV PRN (05:45)
--- NOTE | 2018-01-23 05:46 | History and Physical ---
History & Physical Date & Time of Service: Jan 23, 2018 at 05:45 Chief Complaint: Stomach Pain,Weakness,Blood Stool Witn Stoma Primary Care Physician: Luisito Cheema D.O. History of Present Illness Source: patient, family 27yo male with known stage 4 colon cancer, original primary site was the ileocecal valve, s/p chemo/radiation and debulking surgery with creation of ostomy, who presented with progressively worsening abdominal pain x 3 days and expulsion of tumour/bowel tissue per rectum. He states the pain is worse in his RLQ, although felt diffusely. Pain is not exacerbated with PO intake or movement and is described as an intense throb with occasional sharp pain. He denies vomiting, but did have significant nausea which he attributes as secondary to the pain. He denies changes in his ostomy output, other than significant gassiness. He denies issues with voiding. He did note BRB [place] when wiping. He believes he had a fever but did take some Tylenol prior to arrival to the hospital. He otherwise denies fevers/chills, headaches, CP, palpitations, dyspnea, lower extremity swelling or rashes. ROS is unremarkable except as noted above. Past Medical/Surgical History Medical Problems: (1) Abdominal pain (2) Abdominal pain (3) Anemia (4) Anemia (5) Cecum mass (6) Cecum perforation (7) Chemotherapy adverse reaction (8) Colon cancer metastasized to liver (9) Corneal foreign body (10) Dehydration (11) Enteritis (12) Episode of syncope (13) Failure of outpatient treatment (14) GI bleed (15) Hematuria (16) Hydronephrosis (17) Hydronephrosis of left kidney (18) Hydronephrosis of right kidney (19) Immunocompromised patient (20) Influenza-like symptoms (21) Kidney stone (22) Liver cancer (23) Malnutrition (24) Muscle spasm of back (25) Nausea & vomiting (26) Personal history of colon cancer, stage IV (27) Right flank pain (28) Right flank pain (29) Sepsis (30) Small bowel obstruction (31) Syncope and collapse (32) Tachycardia (33) Ureteral obstruction (34) Ureteral stent retained (35) UTI (urinary tract infection) (36) UTI (urinary tract infection) (37) UTI (urinary tract infection) (38) Vertigo (39) Vomiting (40) Vomiting due to chemotherapy Surgical Problems: (1) History of ureter stent Family History FH: cardiovascular disease Social History Smoking Status: Never Smoker Drug Use: none Marital Status: in relationship Housing status: lives with family Occupational Status: disabled Immunizations History of Influenza Vaccine: Unknown History of Tetanus Vaccine?: Unknown History of Pneumococcal: Unknown History of Hepatitis B Vaccine: Unknown Allergies Coded Allergies: Cranberry Extract (Verified Allergy, Severe, HIVES, 01/23/18) Oxaliplatin (Verified Allergy, Severe, THROAT CLOSING, 01/23/18) Lactose Intolerance (GI) (Verified Allergy, Unknown, UNKNOWN, 01/23/18) Home Medications Scheduled Sertraline (Zoloft), 50 MG PO DAILY Scheduled PRN Naproxen (Aleve), 220-440 MG PO UD PRN for Pain Ondansetron (Ondansetron HCl), 8 MG PO Q8 PRN for Nausea or Vomiting Tramadol (Ultram), 50 MG PO Q6 PRN for Pain Physical Exam Vital Signs Date Time Temp Pulse Resp B/P (MAP) Pulse Ox O2 Delivery O2 Flow Rate FiO2 01/23/18 05:11 94 16 125/85 98 Room Air 01/23/18 03:28 104 16 142/86 100 Room Air 01/23/18 02:01 37.6 120 20 129/80 99 Room Air 01/23/18 00:29 37.2 128 18 111/79 100 Room Air General Appearance: WD/WN, no apparent distress, + cachetic Head: normocephalic, atraumatic Eyes: normal inspection, sclerae normal ENT: hearing grossly normal Neck: supple Respiratory/Chest: normal breath sounds, no respiratory distress, no accessory muscle use Cardiovascular: regular rate, rhythm, no murmur, normal peripheral pulses Abdomen/GI: + tenderness (Diffusley with light palpation), + abnormal bowel sounds (Hyperactive), + guarding (minimal) Back: normal inspection, no CVA tenderness, + pertinent finding (mid low back tenderness) Extremities/Musculoskelatal: no calf tenderness, no pedal edema Neurologic/Psych: alert, normal mood/affect, oriented x 3 Skin: normal color, warm/dry, no rash Diagnostics Laboratory Results Results Past 24 Hours Test 01/23/18 00:55 01/23/18 01:45 01/23/18 03:14 Range/Units White Blood Count 20.92 4.8-10.8 K/uL Red Blood Count 3.48 4.7-6.1 M/uL Hemoglobin 7.7 14.0-18.0 g/dL Hematocrit 24.2 42-52 % Mean Corpuscular Volume 69.5 80-100 fL Mean Corpuscular Hemoglobin 22.1 25-34 pg Mean Corpuscular Hemoglobin Concent 31.8 32-36 g/dl Platelet Count 826 130-400 K/uL Mean Platelet Volume 8.1 7.4-10.4 fL Neutrophils (%) (Auto) 84.4 % Lymphocytes (%) (Auto) 4.7 % Monocytes (%) (Auto) 9.2 % Eosinophils (%) (Auto) 0.1 % Basophils (%) (Auto) 0.3 % Neutrophils # (Auto) 17.66 1.4-6.5 K/uL Lymphocytes # (Auto) 0.98 1.2-3.4 K/uL Monocytes # (Auto) 1.92 0.11-0.59 K/uL Eosinophils # (Auto) 0.02 0-0.5 K/uL Basophils # (Auto) 0.06 0-0.2 K/uL RDW Standard Deviation 45.3 36.4-46.3 fL RDW Coefficient of Variation 17.8 11.5-14.5 % Immature Granulocyte % (Auto) 1.3 % Immature Granulocyte # (Auto) 0.28 0.00-0.02 K/uL Hypochromasia PRESENT Microcytosis PRESENT Prothrombin Time 13.5 9.0-12.0 SECONDS Prothromb Time International Ratio 1.3 0.9-1.1 Activated Partial Thromboplast Time 35.7 21.0-31.0 SECONDS Partial Thromboplastin Ratio 1.4 Sodium Level 132 136-145 mmol/L Potassium Level 3.9 3.5-5.1 mmol/L Chloride Level 101 98-107 mmol/L Carbon Dioxide Level 19 21-32 mmol/L Anion Gap 12.0 3-11 mmol/L Blood Urea Nitrogen 21 7-18 mg/dl Creatinine 1.06 0.60-1.40 mg/dl Est Creatinine Clear Calc Drug Dose 71.1 ml/min Estimated GFR () 110.9 Estimated GFR (Non- 95.7 BUN/Creatinine Ratio 20.1 10-20 Random Glucose 108 70-99 mg/dl Calcium Level 9.3 8.5-10.1 mg/dl Total Bilirubin 0.7 0.2-1 mg/dl Direct Bilirubin 0.3 0-0.2 mg/dl Aspartate Amino Transf (AST/SGOT) 99 15-37 U/L Alanine Aminotransferase (ALT/SGPT) 54 12-78 U/L Alkaline Phosphatase 520 45-117 U/L Total Protein 7.5 6.4-8.2 gm/dl Albumin 2.5 3.4-5.0 gm/dl Urine Color DK YELLOW Urine Appearance CLEAR CLEAR Urine pH 5.5 4.5-7.5 Urine Specific [place] 1.026 1.000-1.030 Urine Protein 1+ NEG Urine Glucose (UA) NEG NEG Urine Ketones TRACE NEG Urine Occult Blood NEG NEG Urine Nitrite NEG NEG Urine Bilirubin NEG NEG Urine Urobilinogen NEG NEG Urine Leukocyte Esterase NEG NEG Urine WBC (Auto) 1-5 0-5 /hpf Urine RBC (Auto) 0-4 0-4 /hpf Urine Hyaline Casts (Auto) 0 0-5 /lpf Urine Epithelial Cells (Auto) 20-30 0-5 /lpf Urine Bacteria (Auto) NEG NEG Urine Pathogenic Casts 0 /lpf Urine Mucus PRESENT NONE PRSENT Urine Yeast (Auto) NONE PRSENT Bedside Lactic Acid Venous 1.41 0.90-1.70 mmol/L Microbiology Results 01/23/18 Blood Culture, Received Pending 01/23/18 Blood Culture, Received Pending Impression Assessment and Plan 27yo male with known stage 4 colon cancer, original primary site was the ileocecal valve, s/p chemo/radiation and debulking surgery with creation of ostomy, who presented with progressively worsening abdominal pain x 3 days and expulsion of tumour/bowel tissue per rectum. Abdominal pain - CT abdo/pelvis done - stat rad report did not show significant changes from previous. Await final report. - Leukocytosis 20.92 on admission, but patient has had some degree of leukocytosis for last month - Given daptomycin and imipenem in the ER, but more likely to be secondary to sloughing bowel from c.diff given recent admission with c.diff colitis - Recheck for c.diff - Empirically commenced PO vancomycin - If symptoms worsen, can consider broadening antibiotics - IV morphine PRN breakthrough pain Anemia - Hb 7.7 on admission - Transfuse 2 units pRBC - Trend CBC Stage 4 colon cancer s/p debulking surgery with creation of ostomy - Evidence of disease/mets progression, with consistent findings on labs ( increased platelets and INR) - Pain management with naproxen and tramadol. Morphine added as above - Zofran PRN nausea - Consulted oncologist, Dr. Andres - Palliative consulted to discuss goals of care VTE ppx - SCDs FULL CODE Attending addendum: I have physically seen this patient, have supervised the medical residents activities, and agree with the H&P unless as otherwise noted. Assessment and Plan: Metastatic colon cancer stage IV/enlarging ileocecal mass/increased liver metastases/sloughing of distal colorectal remnant/C. difficile history-- We will send stool for culture, O&P and C. difficile. Due to history of C. difficile would empirically place on oral vancomycin. Given daptomycin and imipenem in the ER, would hold further for now. Consult Dr. Hayes from oncology. Consult palliative medicine. Persistent anemia-- Hemoglobin 7.7, is likely actually lower associated with hemoconcentration. He is agreeable to transfusion, will therefore transfer used 2 units packed RBCs. Repeat H&H in a.m.. Advanced Directives Existing Advance Directive: Yes Existing Living Will: Yes Resuscitation Status Full code VTE Prophylaxis Will order VTE Prophylaxis: Yes Social Service Consult Cancer Patient Under [place] Resident Tracking Resident Involvement: Resident Care Provided Care Provided: Adult Hospital Medicine
[2018-01-23] MEDS ORDERED: IV FLUIDS COMPLETED PRN (06:00)
[2018-01-23] MEDS ORDERED: TRAMADOL HCL 50 MG TAB PO PRN ×2 (06:00→19:15)
[2018-01-23] MEDS ORDERED: POLYETHYLENE (MIRALAX) 17 GM PACK PO PRN (06:45)
[2018-01-23] MEDS ORDERED: NAPROXEN 250 MG TAB PO PRN (07:00)
--- NOTE | 2018-01-23 07:02 | DIAGNOSTIC IMAGING REPORT ---
ABDOMEN 2VIEW W/PA CHEST RTN CLINICAL HISTORY: Abdominal pain COMPARISON STUDY: Chest x-ray dated December 19, 2017 FINDINGS: Erect chest reveals no free intraperitoneal air. There is no focal pulmonary consolidation. There is a trace right pleural effusion. There is a left-sided A-Port catheter present.] Supine views the abdomen reveal a relatively gasless abdomen. There is no pathologic bowel dilatation. There is an air-fluid level within the stomach and duodenum. IMPRESSION: Gastric air-fluid level. No evidence of significant bowel dilatation. No evidence of free air. Electronically signed by: Brandon Soto M.D. 01/23/2018 7:00 AM Dictated Date/Time: 01/23/2018 6:57 AM
[2018-01-23] MEDS: VANCOMYCIN HCL 125 MG/2.5ML SOLN PO SCH ×2 (07:44→12:22)
[2018-01-23] MEDS: RASPBERRY SYRUP 5 ML UDP PO SCH ×2 (07:44→12:22)
[2018-01-23] MEDS: SERTRALINE HCL 100 MG TAB PO SCH (07:44)
--- NOTE | 2018-01-23 07:44 | DIAGNOSTIC IMAGING REPORT ---
ABD/PELVIS IV CONTRAST ONLY CLINICAL HISTORY: 27 years-old Male presenting with firm/distended abdomen, known stage IV colon cancer. TECHNIQUE: Multidetector CT of the abdomen and pelvis was performed after the administration of intravenous contrast. IV contrast: 92 mL of Optiray 320. A dose lowering technique was used consistent with the principles of ALARA (as low as reasonably achievable). COMPARISON: 12/19/2017. CT DOSE (mGy.cm): The estimated cumulative dose is 286.14 mGy.cm. FINDINGS: Bottom Cager topogram: Unremarkable. Lung bases: Lungs and pleural spaces clear. Normal heart size. No pericardial or pleural effusion. Liver: The liver is enlarged by multiple centrally hypodense and peripherally hyperenhancing lesions. There has been significant interval increase in size and number of suspicious hepatic lesions. These are now resulting in mass effect at the liver hilum on the right portal vein and right hepatic duct. Patent hepatic vasculature though the hepatic veins are significantly displaced by the dominant conglomerate lesion occupying the majority of segments 7 and 8. Biliary: Interval development of mild intrahepatic biliary ductal dilatation involving segments 5 and 6. No extrahepatic biliary ductal dilatation. Normal gallbladder. Pancreas: Normal. Spleen: Normal. Adrenal glands: Normal. Kidneys and ureters: Chronic severe right hydronephrosis and right hydroureter with obstruction at the level of the right pelvic sidewall in the superior pelvis adjacent to the ileocecal valve. Severe atrophy of the right renal parenchyma. Left kidney normal. No nephrolithiasis or hydronephrosis. Left ureter normal. Bladder: Circumferentially thick-walled allowing for underdistention. Pelvic organs: Prostate and seminal vesicles normal. Slight prominence of the left seminal vesicle may relate to distention. Bowel: Chronic wall thickening of the cecum and terminal ileum. No small bowel obstruction. A mid abdominal/epigastric loop ileostomy noted, which is herniated and exposed to the atmosphere. Peritoneal cavity: No free fluid or intraperitoneal gas. Lymph nodes: Centrally necrotic lymph node immediately inferior to the left renal vein in the portacaval region measuring 10 mm in the short axis (series 3 image 171), new from prior. Vasculature: Aorta and IVC patent and normal in caliber. Abdominal wall: Few foci of gas in the right anterior abdominal wall likely related to injection. No abnormal fluid associated with the loop ileostomy. Slight herniation of the loop ileostomy. Musculoskeletal: Normal. IMPRESSION: 1. Chronic findings of malignant wall thickening of the cecum and terminal ileum consistent with known primary malignancy. Interval progression of disease evidenced by new centrally necrotic retroperitoneal lymphadenopathy and significant progression of size and number of hepatic metastatic lesions. 2. Chronic severe right hydroureteronephrosis secondary to stricture at the level of the right lower quadrant cecal mass. 3. Circumferentially thick-walled bladder could represent post radiation change or infectious cystitis. The appearance is not significantly changed from prior. The report will be called/faxed according to standard departmental protocol. Electronically signed by: Pancho Kendrick M.D. 01/23/2018 7:43 AM Dictated Date/Time: 01/23/2018 6:58 AM
[2018-01-23] MEDS: MoRPHine SULFATE 2 MG/ML CARP IV PRN ×2 (07:53→11:41)
[2018-01-23 08:51] LABS: BASO % 0.3 %; BASO ABS # 0.05 K/uL (0-0.2); EOS % 0.4 %; EOS ABS # 0.08 K/uL (0-0.5); HEMATOCRIT 23.4 % (42-52); HEMOGLOBIN 7.4 g/dL (14.0-18.0); IG# 0.33 K/uL (0.00-0.02); LYMPH % 4.4 %; LYMPH ABS # 0.87 K/uL (1.2-3.4); MEAN CELL VOLUME 71.1 fL (80-100); MEAN CORPUSCULAR HEMOGLOBIN 22.5 pg (25-34); MEAN CORPUSCULAR HGB CONC 31.6 g/dl (32-36); MEAN PLATELET VOLUME 8.2 fL (7.4-10.4); MONO % 10.4 %; MONO ABS # 2.04 K/uL (0.11-0.59); NEUT % 82.8 %; NEUT ABS # 16.19 K/uL (1.4-6.5); PLATELET COUNT 723 K/uL (130-400); RED CELL DISTRIBUTION WIDTH CV 17.5 % (11.5-14.5); RED CELL DISTRIBUTION WIDTH SD 44.9 fL (36.4-46.3); WHITE BLOOD COUNT 19.56 K/uL (4.8-10.8)
[2018-01-23] MEDS ORDERED: HEPARIN SOD 5000 UNIT/0.5 ML CARP SQ SCH (09:00)
[2018-01-23 09:21] LABS: CALCIUM 8.6 mg/dl (8.5-10.1); CREATININE 0.93 mg/dl (0.60-1.40); POTASSIUM 3.9 mmol/L (3.5-5.1)
[2018-01-23] MEDS: SIMETHICONE 80 MG CHEW PO PRN (11:46)
[2018-01-23] MEDS ORDERED: ENOXAPARIN 40 MG/0.4 ML SYR SQ ONE (12:15)
[2018-01-23] MEDS ORDERED: ENOXAPARIN 30 MG/0.3 ML SYR SQ ONE (12:30)
--- NOTE | 2018-01-23 12:31 | Family Medicine Progress Note ---
Progress Note Date of Service Jan 23, 2018. Subjective Spoke at length with pt and daren Graves at bedside. Pt reports increasing fatigue in the last few weeks, paleness, as well as abdominal pain that was previously controlled on daily tramadol but he ran out of the script 2 days ago. Pt also reports excessive gas. And also restless legs that have gotten worse in the last week. Pt says he "is done with chemo" that he feels awful when he does the treatments , and that he wants to be able to have enough energy to work on his cars at home. Denies swelling in his legs or difficulty breathing. Reports "foamy" urine for the last few days but denies pain or blood in urine. Also reports having painful bowel movements where he passes fleshy material from his anus, mixed with blood. ROS See HPI for pertinent positives and negatives. Objective Physical Exam Notes: GENERAL: Awake, alert, ill-appearing, in no distress. Cachectic. EYES: Normal conjunctiva. Sclera non-icteric. RESPIRATORY: Clear to auscultation. CARDIAC: Regular rate, normal rhythm. Extremities warm and well perfused. Pulses equal. ABDOMEN: Firm, non-distended. Diffusely tender to palpation. No rebound or guarding. LOWER EXTREMITIES: Calves are equal size bilaterally and non-tender. No edema. NEURO: No motor deficits noted. SKIN: No rash or jaundice noted. Pale. Assessment and Plan 27M admitted Mar for intractable abdominal pain, fatigue PMH: advanced metastatic colon cancer PSH: s/p diverting colostomy performed at [facility] in mid December 2017, insertion of stent into ureter 2014 and insertion of a MediPort. Abdominal pain/anorexia/weight loss 2/2 metastatic colorectal cancer - CT abdo/pelvis shows progressive growth of known colorectal cancer and liver metastases. Pain control: Morphine 4mg IV PRN breakthrough pain, Dilaudid 1mg IV q6, Tramadol 50mg and 100mg for severe pain. Palliative/Onc consulted, Dr. Andres will continue as his hospice physician, case management referral placed. Microcytic Anemia 2/2 metastatic colorectal cancer Hb 7.7 on admission. Likely 2/2 advanced cancer, liver mets and GIB 20Mar - transfused 2 units PRBC's, pt tolerated well. Will likely need weekly/ biweekly on discharge Restless legs Ropinirole and iron ordered. Appreciate onc recs: consider iron sucrose 300 mg intravenous prior to discharge to replete iron stores. DVT ppx: lovenox 30mg Code status changed to DNR today after discussion with Dr. Andres who will take on his hospice care. Resident Physician Supervision Note: I interviewed and examined the patient. Discussed with Dr. Vargas and agree with findings and plan as documented in the note. Any exceptions or clarifications are listed here: None Documented By: Ammon Mcbride pain better overall, restless legs vitals noted legs moving nad breathing unlabored no pallor or icterus metastatic colon cancer, pain, anemia from GI blood loss fatigue from anemia, restless legs possible iron deficiency -supportive care, pain control -otherwise as above -tomit mary Continued [facility] stay due to: multiple IV medications needed Discharge planning: home with Hospice Resident Tracking Resident Involvement: Resident Care Provided Care Provided: Adult Hospital Medicine
--- NOTE | 2018-01-23 13:02 | ONCOLOGY CONSULTATION ---
DATE OF CONSULTATION: 01/23/2018 REASON FOR CONSULTATION: Intractable pain in a very unfortunate 27-year-old gentleman, who suffers from terminal metastatic colorectal cancer. HISTORY OF PRESENT ILLNESS: Thomas is a pleasant, but unfortunate 27-year-old, well known to [facility], currently under my management with a diagnosis of metastatic colorectal cancer. Thomas has been heavily pretreated in the past and generally has poorly tolerated chemotherapy. Recently, was seen in the office in early January in the hopes of attempting salvage Lonsurf, which is a new novel agent for metastatic colorectal cancer. Unfortunately, he has been battling with intermittent abdominal pain. He recently underwent a surgery at [facility] to alleviate a mechanical obstruction brought on by disease progression. Surgery was performed by Dr. Winters on 12/20/2017. Thomas was hospitalized for several days thereafter; however, was actually looking reasonably well when I saw him on the 09 of January. At that time, he admitted that his abdominal pain had dramatically improved and his appetite had increased. Therefore, the recommendation was to proceed with Lonsurf 35 mg per metered squared twice daily on days 1 through 5 and 8 through 12 every 28-day cycle. He had not begun therapy prior to admission to the hospital. PAST MEDICAL HISTORY: Again significant for metastatic colorectal cancer and multiple chemotherapeutic regimens administered during the course of his disease. PAST SURGICAL HISTORY: Status post diverting colostomy performed at [facility] in mid December 2017, insertion of stent into ureter 2014 and insertion of a MediPort. MEDICATIONS: Include oxycodone 10 mg p.o. q. 4-6 hours p.r.n., Remeron 15 mg p.o. bedtime, tramadol 200 mg p.o. orally, Zoloft 100 mg p.o. daily, and Zofran 4 mg q. 6 hours p.r.n. for nausea. ALLERGIES: No known drug allergies. FAMILY HISTORY: Positive for colorectal cancer on the paternal side of his family. SOCIAL HISTORY: The patient is currently disabled, , occasional smoker, and nondrinker. REVIEW OF SYSTEMS: As per HPI, most notably for anorexia and weight loss and general clinical decline. SKIN: No rashes or lesions. No history of dermatoses. HEENT: Denies headaches, lightheadedness or dizziness. No dysphagia or sore throat. LYMPHATICS: No history of lymphadenopathy or lymphoproliferative disease. CARDIAC: Negative for coronary artery disease by history. No angina or palpitations. PULMONARY: Negative for COPD. No shortness of breath, dyspnea or orthopnea. No cough or hemoptysis. GASTROINTESTINAL: Positive for diffuse abdominal pain. Ostomy seems to be functional with sloughing of most likely necrotic debris. GENITOURINARY: No history of hematuria, dysuria, or urinary incontinence. PSYCHIATRIC: Positive for anxiety. Positive for depression. ENDOCRINE: Negative for diabetes or thyroid disease. NEUROLOGIC: Negative for seizure, stroke, or migraine headache. HEMATOLOGIC: Positive for anemia. PHYSICAL EXAMINATION: GENERAL: He is a cachectic appearing 27-year-old gentleman, in no acute distress. He is awake, alert and appropriate. VITAL SIGNS: Temperature 36.9, pulse 102, respiratory rate 18, and blood pressure 128/85. SKIN: Pale, warm, dry, and noncyanotic. Turgor is fair. HEENT: Head is atraumatic and normocephalic. Eyes: PERRLA and EOMI. Nares patent without rhinorrhea or discharge. Throat is clear. Tongue is midline. Mucous membranes are moist. NECK: Supple without JVD or thyromegaly. LYMPHATICS: No palpable cervical, supraclavicular or axillary nodes. HEART: Regular rate and rhythm. No clicks, rubs, murmurs, or gallops. LUNGS: Clear to auscultation bilaterally. ABDOMEN: Soft, nontender, and nondistended. Functional ileostomy. EXTREMITIES: No clubbing, cyanosis, or edema. Strength is equal in all 4 quadrants. NEUROLOGICAL: He is awake, alert and oriented x3. Cranial nerves are grossly intact. LABORATORY DATA: WBC count 19,560, hemoglobin 7.4, and platelet count 723. Sodium 132, potassium 3.9, chloride 103, carbon dioxide 19, creatinine 0.93, and BUN 17. IMPRESSIONS: 1. Intractable abdominal pain attributable to disease progression. 2. Microcytic anemia. 3. Reactive thrombocytosis. 4. Anorexia/weight loss. 5. Failing performance status. 6. Metastatic colorectal cancer. I met with Thomas at bedside today. Clearly, he continues in steady clinical decline as expected considering his diagnosis and prognosis. I had seen Thomas shortly after he was discharged from the [facility] after undergoing diverting colectomy and ileostomy. Initially, he had been doing quite well when I saw him in the office on the 09 of January and things appear to be looking up. At his request, I offered him a salvage Lonsurf. My staff is in the process of appropriating drug and unfortunately, he developed abdominal pain and what appears to be sloughing of a necrotic debris through his ostomy site. He was seen in the Emergency Room and subsequently admitted. Hospitalist team is doing an excellent job with his pain management. I had a lengthy discussion with Thomas today regarding where we go forward therapeutically. He has resigned to the fact that he will not survive his disease and has abandoned the desire to pursue any further chemotherapeutics. I explained outpatient hospice and its benefits. I also extensively discussed his code status and he understands. He will not pursue mechanical ventilation, intubation, CPR or hemodialysis at this juncture. His desire is to return home and to succumb with dignity and comfort. I would be more than happy to be his hospice physician upon discharge. His pain seems to be reasonably controlled at this juncture. Hopefully, the case finishing machine adjuster can accommodate Thomas's needs and expedite discharge to home as soon as possible. I have nothing further to add other than providing transfusional support and may even want to consider iron sucrose 300 mg intravenous prior to discharge to replete iron stores. Thank you again for assisting us in the care of this very pleasant, but unfortunate gentleman.
[2018-01-23] MEDS ORDERED: ROPINIROLE HCL 0.25 MG TAB PO PRN (13:45)
[2018-01-23] MEDS: MoRPHine SULFATE 4 MG/ML 1 ML CARP\\VIAL IV PRN ×2 (13:59→18:06)
[2018-01-23] MEDS: ONDANSETRON 8 MG TAB PO PRN (16:27)
--- NOTE | 2018-01-23 17:03 | Palliative Care Consultation ---
Consultation Date of Consultation: Jan 23, 2018. History of Present Illness This 27 year old male with stage 4 colon cancer, original primary site was the ileocecal valve, s/p chemo/radiation and debulking surgery with creation of ostomy, presented with progressively worsening abdominal pain x 3 days and expulsion of tumour/bowel tissue per rectum with some bright red blood. He states the pain is worse in his RLQ, although felt diffusely. CT abd/pelvis shows progressive disease with diffuse metastatic disease to liver. He had run out of his Tramadol for two days, so pain was worsened from that as well. Pain is not exacerbated with PO intake or movement and is described as an intense throb with occasional sharp pain. He has required IV morphine for the pain. Patient's hemoglobin 7, has received transfusion and already feels better with that. Unfortunately, patient has been deteriorating and losing weight over last few months. He voiced that he no longer wants to pursue further chemotherapy, and it is really not offered to him at this time any way. Palliative care is consulted to assist with establishing goals of care. I met with the patient in room 421. He is awake, alert and oriented x4. Very pleasant and talkative, well-spoken and calm about his situation. Patient is quite realistic and states that he knows further chemo for the cancer is not available to him nor does he want to go through it again. Patient would really like to focus on comfort and quality of life at this point. Patient's biggest complaint is the lack of energy and fatigue he experiences. He would like to be able to do some of his old hobbies. He does report feeling perkier since the blood transfusion, but has been experiencing the fatigue for some time. He tried Ritalin in the past and he did not like the way it made him feel. we discussed a possible trial of Vyvanse which he is agreeable to. Patient's pain is still acute and he feels he fell behind on his pain meds which contributed to his problem. He has tried oxycodone an fentanyl patches in the past and actually thought that his Tramadol 50mg BID worked better for him. We discussed goals of care as well as palliative vs. hospice. Patient stated to me that he didn't feel ready for hospice care yet but did want to follow up with palliative as an outpatient with Dr. Pinto. Later, I ran into Dr. Andres in the hallway who had just seen patient. He also discussed hospice care with the patient. Patient is now requesting to have hospice referral. I went back to the patient's room to discuss with him and he confirmed he would like to give hospice a try. I updated rehabilitation caseworker who will follow up. Past Medical/Surgical History Medical History: Anemia Cecal mass Metastatic colon cancer with mets to liver GI bleed Hematuria Hydronephrosis Kidney stone SBO UTI Ureteral stent Colostomy Social History Smoking Status: Former Smoker History of Alcohol Use: No Drug Use: none Marital Status: in relationship Housing Status: lives with family Occupation Status: disabled Review of Systems Constitutional: + weakness, + fatigue ENT: No trouble swallowing Respiratory: No cough, No shortness of breath Cardiac: No chest pain, No edema Abdomen: No pain, No nausea, No vomiting Male : No problem reported Psychiatric: No depression symptoms, No anxiety Allergies Coded Allergies: Cranberry Extract (Verified Allergy, Severe, HIVES, 01/23/18) Oxaliplatin (Verified Allergy, Severe, THROAT CLOSING, 01/23/18) Lactose Intolerance (GI) (Verified Allergy, Unknown, UNKNOWN, 01/23/18) Medications Current Inpatient Medications Medications (Trade) Dose Ordered Sig/Raúl Route Start Time Stop Time Status Last Admin Dose Admin Ioversol (Optiray 320) 100 ml UD PRN IV 01/23/18 03:15 01/27/18 03:14 Acetaminophen (Tylenol Tab) 650 mg Q4H PRN PO 01/23/18 05:45 02/22/18 05:44 Al Hydrox/Mg Hydrox/Simethicone (Maalox Max Susp) 15 ml Q4H PRN PO 01/23/18 05:45 02/22/18 05:44 Magnesium Hydroxide (Milk Of Magnesia Susp) 30 ml Q6H PRN PO 01/23/18 05:45 02/22/18 05:44 Polyethylene (Miralax Powder Packet) 17 gm DAILY PRN PO 01/23/18 06:45 02/22/18 06:44 Simethicone (Mylicon Chew Tab) 80 mg Q6H PRN PO 01/23/18 05:45 02/22/18 05:44 01/23/18 11:46 80 MG Miscellaneous (Iv Fluids Completed) 1 ea PRN PRN N/A 01/23/18 06:00 01/23/19 05:59 Ondansetron HCl (Zofran Tab) 8 mg Q8 PRN PO 01/23/18 06:00 02/22/18 05:59 01/23/18 16:27 8 MG Sertraline HCl (Zoloft Tab) 50 mg DAILY PO 01/23/18 08:00 02/22/18 08:59 01/23/18 07:44 50 MG Tramadol HCl (Ultram Tab) 50 mg Q6 PRN PO 01/23/18 06:00 02/22/18 05:59 Naproxen (Naprosyn Tab) 250 mg DAILY PRN PO 01/23/18 07:00 02/22/18 06:59 Morphine Sulfate (MoRPHine SULFATE INJ) 2 mg Q4H PRN IV 01/23/18 06:30 02/06/18 06:29 01/23/18 11:41 2 MG Enoxaparin Sodium (Lovenox Inj) 30 mg QAM SQ 01/24/18 08:00 02/23/18 07:59 Ropinirole HCl (Requip Tab) 0.25 mg HS PO 01/23/18 21:00 02/22/18 20:59 Morphine Sulfate (MoRPHine SULFATE INJ) 4 mg Q4 PRN IV 01/23/18 13:45 02/06/18 13:44 01/23/18 13:59 4 MG Ferrous Gluconate (Ferrous Gluconate Tab) 324 mg BIDM PO 01/23/18 17:00 02/22/18 16:59 Ropinirole HCl (Requip Tab) 0.25 mg DAILY PRN PO 01/23/18 13:45 02/22/18 13:44 01/23/18 14:27 0.25 MG Physical Exam Date Time Temp Pulse Resp B/P (MAP) Pulse Ox O2 Delivery O2 Flow Rate FiO2 01/23/18 14:31 36.7 99 16 143/92 100 01/23/18 13:19 36.9 105 16 120/82 01/23/18 12:41 37.0 99 18 127/83 01/23/18 12:20 37.0 105 16 135/90 01/23/18 12:00 36.9 102 18 128/85 96 01/23/18 11:58 36.9 102 18 128/85 01/23/18 11:40 37.4 100 18 119/79 01/23/18 10:21 37.1 109 16 133/86 01/23/18 09:40 37.4 118 16 130/93 01/23/18 09:10 37.0 108 18 115/78 01/23/18 08:50 37.0 108 18 110/73 01/23/18 08:27 37.0 108 18 130/88 99 01/23/18 08:07 37.2 96 20 121/82 (95) 100 Room Air 01/23/18 08:00 Room Air 01/23/18 07:35 100 Room Air 01/23/18 06:48 36.6 96 16 123/86 (98) 100 Room Air 01/23/18 06:14 99 18 133/82 100 01/23/18 06:07 99 18 133/82 100 Room Air 01/23/18 05:11 94 16 125/85 98 Room Air 01/23/18 03:28 104 16 142/86 100 Room Air 01/23/18 02:01 37.6 120 20 129/80 99 Room Air 01/23/18 00:29 37.2 128 18 111/79 100 Room Air General Appearance: no apparent distress, + thin ENT: hearing grossly normal Neck: supple, no JVD Respiratory: lungs clear, no respiratory distress, no accessory muscle use Cardiovascular: regular rate, rhythm, no edema, + normal peripheral pulses Abdomen: normal bowel sounds, soft, + tenderness (RUQ, non-distended), + pertinent finding (LLQ colostomy present) Neurologic/Psychiatric: alert, normal mood/affect, oriented x 3 Skin: + pallor Laboratory Results Last 24 Hours Test 01/23/18 00:55 01/23/18 01:45 01/23/18 03:14 01/23/18 08:28 White Blood Count 20.92 K/uL 19.56 K/uL Red Blood Count 3.48 M/uL 3.29 M/uL Hemoglobin 7.7 g/dL 7.4 g/dL Hematocrit 24.2 % 23.4 % Mean Corpuscular Volume 69.5 fL 71.1 fL Mean Corpuscular Hemoglobin 22.1 pg 22.5 pg Mean Corpuscular Hemoglobin Concent 31.8 g/dl 31.6 g/dl Platelet Count 826 K/uL 723 K/uL Mean Platelet Volume 8.1 fL 8.2 fL Neutrophils (%) (Auto) 84.4 % 82.8 % Lymphocytes (%) (Auto) 4.7 % 4.4 % Monocytes (%) (Auto) 9.2 % 10.4 % Eosinophils (%) (Auto) 0.1 % 0.4 % Basophils (%) (Auto) 0.3 % 0.3 % Neutrophils # (Auto) 17.66 K/uL 16.19 K/uL Lymphocytes # (Auto) 0.98 K/uL 0.87 K/uL Monocytes # (Auto) 1.92 K/uL 2.04 K/uL Eosinophils # (Auto) 0.02 K/uL 0.08 K/uL Basophils # (Auto) 0.06 K/uL 0.05 K/uL RDW Standard Deviation 45.3 fL 44.9 fL RDW Coefficient of Variation 17.8 % 17.5 % Immature Granulocyte % (Auto) 1.3 % 1.7 % Immature Granulocyte # (Auto) 0.28 K/uL 0.33 K/uL Hypochromasia PRESENT PRESENT Microcytosis PRESENT PRESENT Prothrombin Time 13.5 SECONDS Prothromb Time International Ratio 1.3 Activated Partial Thromboplast Time 35.7 SECONDS Partial Thromboplastin Ratio 1.4 Sodium Level 132 mmol/L 132 mmol/L Potassium Level 3.9 mmol/L 3.9 mmol/L Chloride Level 101 mmol/L 103 mmol/L Carbon Dioxide Level 19 mmol/L 19 mmol/L Anion Gap 12.0 mmol/L 9.0 mmol/L Blood Urea Nitrogen 21 mg/dl 17 mg/dl Creatinine 1.06 mg/dl 0.93 mg/dl Est Creatinine Clear Calc Drug Dose 71.1 ml/min 81.0 ml/min Estimated GFR () 110.9 129.9 Estimated GFR (Non- 95.7 112.1 BUN/Creatinine Ratio 20.1 18.6 Random Glucose 108 mg/dl 130 mg/dl Calcium Level 9.3 mg/dl 8.6 mg/dl Total Bilirubin 0.7 mg/dl Direct Bilirubin 0.3 mg/dl Aspartate Amino Transf (AST/SGOT) 99 U/L Alanine Aminotransferase (ALT/SGPT) 54 U/L Alkaline Phosphatase 520 U/L Total Protein 7.5 gm/dl Albumin 2.5 gm/dl Urine Color DK YELLOW Urine Appearance CLEAR Urine pH 5.5 Urine Specific Warren 1.026 Urine Protein 1+ Urine Glucose (UA) NEG Urine Ketones TRACE Urine Occult Blood NEG Urine Nitrite NEG Urine Bilirubin NEG Urine Urobilinogen NEG Urine Leukocyte Esterase NEG Urine WBC (Auto) 1-5 /hpf Urine RBC (Auto) 0-4 /hpf Urine Hyaline Casts (Auto) 0 /lpf Urine Epithelial Cells (Auto) 20-30 /lpf Urine Bacteria (Auto) NEG Urine Pathogenic Casts /lpf Urine Mucus PRESENT Urine Yeast (Auto) Bedside Lactic Acid Venous 1.41 mmol/L Ferritin 342.8 ng/ml Assessment & Plan Palliative Performance Scale: 60 % Problem list: Abdominal pain Fatigue Metastatic colon cancer Liver mets Anemia, blood loss Goals of care Palliative care recs: -Patient confirms that he no longer wants to go through chemotherapy. Dr. Andres saw patient as well who confirmed this. -Patient would like to give home hospice a try. I asked rehabilitation caseworker to follow up with finding an agency who accepts his insurance. -For now, while in hospital continue current medical management. -Morphine was increased to 4mg IV PRN. Can assess his 24 hours needs and possibly start fentanyl patch. Did ask that his tramadol 50mg PO be restarted as this worked well for him at home, it is now ordered at Q6h PRN. -Consider trial of Vyvanse 30mg PO once daily for the fatigue. Patient's wish is to have enough energy to do his favorite hobbies at home. -Patient lives with his fiance and mother who help him with any needs, but patient is currently still independent in care. Thank you kindly for this consult. I will follow as needed. Total time spent 70 minutes with >50% of time spent with patient at bedside discussing goals and plan of care.
[2018-01-23] MEDS: FERROUS GLUCONATE 324 MG TAB PO SCH (18:07)
[2018-01-23] MEDS: HYDROmorphone INJ 1 MG/ML SYR IV PRN (19:09)
[2018-01-23] MEDS ORDERED: ROPINIROLE HCL 0.25 MG TAB PO SCH (21:00)
[2018-01-24] MEDS: HYDROmorphone INJ 1 MG/ML SYR IV PRN ×3 (00:56→13:19)
[2018-01-24 06:17] LABS: HEMATOCRIT 30.1 % (42-52); HEMOGLOBIN 9.7 g/dL (14.0-18.0)
[2018-01-24] MEDS: SERTRALINE HCL 100 MG TAB PO SCH (07:16)
[2018-01-24] MEDS: FERROUS GLUCONATE 324 MG TAB PO SCH ×2 (07:17→17:01)
[2018-01-24 07:51] VITALS: BP 134/80; PULSE 101; TEMP 37.2; O2SAT 91
[2018-01-24 08:00] VITALS: O2SAT 93
[2018-01-24] MEDS ORDERED: ENOXAPARIN 40 MG/0.4 ML SYR SQ SCH (08:00)
[2018-01-24] MEDS ORDERED: ENOXAPARIN 30 MG/0.3 ML SYR SQ SCH (08:00)
--- NOTE | 2018-01-24 08:33 | HEME/ONC PROGRESS NOTE ---
DATE: 01/24/2018 DIAGNOSES: 1. Intractable abdominal pain secondary to disease progression. 2. Metastatic colorectal cancer. SUBJECTIVE: Thomas was examined at bedside, accompanied by his girlfriend today. He states that his pain is dramatically improved. He is actually tolerating diet and ambulating ad asim. Engaged in a lengthy conversation regarding his long-term goals. He clearly has been a poorly tolerant of previous chemotherapeutic regimens and has opted to not pursue further salvage therapy. Palliative team is on board and outpatient hospice is planned. Clinically, today he offers no specific complaints and is very pleased with his pain management. PHYSICAL EXAMINATION: GENERAL: He is in no acute distress. VITAL SIGNS: Temperature 37.2, pulse 101, respirations 18, and blood pressure 134/80. SKIN: Without rash or lesion. HEENT: Oral mucosa without erythema or ulceration. NECK: Supple. HEART: Regular rate and rhythm. LUNGS: Clear to auscultation. ABDOMEN: Soft, nontender, and nondistended. EXTREMITIES: No clubbing, cyanosis or edema. NEUROLOGIC: Grossly intact. LABORATORY DATA: Hemoglobin and hematocrit 9.7 and 30.1 respectively. IMPRESSION: 1. Intractable abdominal pain, attributable to disease progression. 2. Iron deficiency anemia. 3. Reactive thrombocytosis, secondary to #2. 4. Anorexia/weight loss. 5. Failing performance status. 6. Metastatic colorectal cancer. PLAN: Unfortunately, this 27-year-old gentleman is suffering from end-stage metastatic colorectal cancer. He has made the courageous decision not to pursue any further salvage chemotherapy and wishes to live out the remainder of his life in dignity and comfort. The patient agreed to no code status and the palliative care team is on board. At this juncture, I have nothing further to add and will be more than happy to manage Thomas's pain, anxiety and nutritional needs once he is discharged. Thank you for assisting us in the care of this very pleasant and unfortunate gentleman.
[2018-01-24] MEDS ORDERED: ONDA-63 PO (09:21)
[2018-01-24] MEDS ORDERED: MYL80 PO (09:21)
[2018-01-24] MEDS ORDERED: RQP25 PO (09:21)
[2018-01-24] MEDS: ONDANSETRON 8 MG TAB PO PRN (09:27)
--- NOTE | 2018-01-24 09:28 | Discharge Instructions ---
Discharge Instructions Date of Service Jan 24, 2018. Admission Reason for Admission: Abdominal Pain, Colon Cancer Metas. To Liver Discharge Discharge Diagnosis / Problem: Abdominal pain, Advanced Colon Cancer mets to Liver, anemia Discharge Goals Goal(s): Decrease discomfort, Improve function, Increase independence, Improve nutritional status Activity Recommendations Activity Limitations: per Instructions/Follow-up section . Instructions / Follow-Up Instructions / Follow-Up You were admitted due to weakness and abdominal pain which are due to your advanced cancer. We found that you were very anemic and transfused you with 2 units of blood. For your pain we used IV medications, but for home we will send you with new scripts for Fentanyl patch 50mcg - each patch is good for 3 days. For severe/break through pain not controlled by the patch, Dilaudid 4mg tablets can be taken every 4-6 hours as you need. You have consented to hospice care, for which your physician will be Dr. Andres -- he will help coordinate the medications you need. Please know that you can also reach out to your family physician's office (Dr. Cheema at [facility] [address]) should you need additional help in the meantime with medications or any other needs. Please do not hesitate to call. You may need additional transfusions in the future should you experience more bleeding or weakness. Dr. Andres or your family physician are available to help coordinate this on an outpatient basis, and will need to check your blood count every week or every other week. For your restless legs, a combination of iron supplementation and a medicine called ropinirole should help with this. This will be included in your medications sent to your pharmacy. Be well A [facility] Current Hospital Diet Patient's current hospital diet: Regular Diet Discharge Diet Recommended Diet: Regular Diet Pending Studies Studies pending at discharge: no Medical Emergencies . Who to Call and When: Medical Emergencies: If at any time you feel your situation is an emergency, please call 911 immediately. . Non-Emergent Contact Non-Emergency issues call your: Primary Care Provider, Oncologist . . "Provider Documentation" section prepared by Jacqui Vargas. .
[2018-01-24] MEDS ORDERED: IRON SUCROSE INJ 100 MG in SODIUM CHLORIDE 0.9% 100ML 100 ML IV SCH (09:30)
[2018-01-24] MEDS: SIMETHICONE 80 MG CHEW PO PRN (09:52)
[2018-01-24 11:30] VITALS: BP 124/80; PULSE 100; TEMP 37.3; O2SAT 99
[2018-01-24 13:54] VITALS: BP 124/80; PULSE 100; TEMP 37.3; O2SAT 99
[2018-01-24] MEDS ORDERED: ALG PO (14:09)
[2018-01-24] MEDS ORDERED: HYDR4TAB78 PO (14:27)
[2018-01-24] MEDS ORDERED: FRRG PO (14:27)
[2018-01-24] MEDS ORDERED: DRGTP50 TD (14:41)
[2018-01-24] MEDS ORDERED: FENTANYL 50 MCG/HR TDSY ONE (14:45)
--- NOTE | 2018-01-24 14:52 | Discharge Summary ---
Discharge Summary Date of Service Jan 24, 2018. Discharge Summary Admission Date: Jan 23, 2018 at 05:48 Discharge Date: Jan 24, 2018 Principal Diagnosis: Abdominal pain, advanced colorectal ca with mets to liver , fatigue, anemia Immunizations: Have You Had Influenza Vaccine: Unknown History of Tetanus Vaccine?: Unknown History of Pneumococcal: Unknown History of Hepatitis B Vaccine: Unknown Medication Reconciliation New Medications: Bifidobacterium (Align) 4 Mg Cap 1 TAB PO DAILY, #30 TAB Hydromorphone Hcl (Dilaudid) 4 Mg Tab 1 TAB PO QID PRN for Severe Pain for 30 Days, #120 TAB Ferrous Gluconate (Ferrous Gluconate) 324 Mg Tab 324 MG PO BIDM for 30 Days, #30 TAB Ropinirole HCl (Ropinirole HCl) 0.25 Mg Tab 0.25 MG PO HS for 30 Days, #30 TAB Simethicone (Mi-Acid Gas Relief) 80 Mg Chew 80 MG PO Q6H PRN for gas/bloating for 30 Days, #120 TABS Continued Medications: Ondansetron (Ondansetron HCl) 8 Mg Tab 8 MG PO Q8 PRN for Nausea or Vomiting for 30 Days, #90 TABS (This prescription has been renewed) Sertraline (Zoloft) 100 Mg Tab 50 MG PO DAILY, TAB Discontinued Medications: Naproxen (Aleve) 220 Mg Tab 220-440 MG PO UD PRN for Pain Tramadol (Ultram) 50 Mg Tab 50 MG PO Q6 PRN for Pain Discharge Exam Spoke with patient re: pain control, apparently the tramadol was not controlling the pain even before he ran out of it. Decision was made to consider better pain control options. Gas is still an issue for the patient, makes him very uncomfortable which can be exacerbated by the ileostomy bag. Lastly, pt reports significant improvement with the 2 units transfused yesterday. Discussed outpatient follow up for that, see below. Lastly, discussed his restless legs and ongoing treatment to help with that. Otherwise pt is in little to no pain upon interview, has had no more fleshy stool movements since admission, is eating and voiding well. Denies excessive drowsiness with current pain regimen of dilaudid. ROS See HPI for pertinent positives and negatives. GENERAL: Awake, alert, in no distress. Cachectic, pale. HENT: Normocephalic, atraumatic. EYES: Normal conjunctiva. Sclera non-icteric. NECK: FROM. No JVD. ABDOMINAL: ileostomy bag in tact. LOWER EXTREMITIES: No edema. No discoloration. NEURO: No motor deficits noted. CN II-XII grossly in tact. SKIN: No rash noted. Hospital Course 27M admitted 21Mar for intractable abdominal pain, fatigue PMH: advanced metastatic colon cancer PSH: s/p diverting colostomy performed at [facility] in mid December 2017, insertion of stent into ureter 2014 and insertion of a MediPort. Both oncology and palliative consulted. Plan while in hospital was to treat his anemia, establish goals of care, control pain, treat concomitant symptoms of gas and restless legs. Pt desires to be on hospice, understands that Dr. Andres will assume that care. Also understands that his PCP's office is available should he need for anything including medications/transfusions. Abdominal pain/anorexia/weight loss 2/2 metastatic colorectal cancer - CT abdo/pelvis shows progressive growth of known colorectal cancer and liver metastases. Tramadol no longer effective management. Sent home with 30 day supply of Fentanyl 50 mcg patches for baseline pain control, and PO Dilaudid 4mg QID for severe break through pain. Microcytic Anemia 2/2 metastatic colorectal cancer Hb 7.7 on admission. Likely 2/2 advanced cancer, liver mets and GIB 20Mar - transfused 2 units PRBC's, pt tolerated well. Will likely need weekly/ biweekly H&H and/or PRN for weakness on discharge. Restless legs Pt given 30 day supply of Ropinirole 0.25mg PO HS and ferrous gluconate. Appreciate onc recs: consider iron sucrose 300 mg intravenous prior to discharge to replete iron stores. Bloating/Gas trial of Align (bifidobacterium) cap daily - possibly then add lactobacillus if gas does not resolve. Also wrote for Simethicone chew tabs PRN. Resident Physician Supervision Note: I interviewed and examined the patient. Discussed with Dr. Vargas and agree with findings and plan as documented in the note. Any exceptions or clarifications are listed here: None Documented By: Ammon Mcbride feeling like pain control is better, feels up to going home - tramadol didn't help at all, dilauded helped a lot vitals noted nad breathing unlabored no pallor or icterus metastatic colon cancer -palliative plan overall cancer pain - escalate regimen - fentanyl patch, PO dilauded for breakthrough -d/w pt re risks/benefits of this kind of regimen - he expresses understanding anemia/fatigue/iron deficiency -improved post transfusion; replace iron, follow Hgb closely - for quality of life may need outpt transfusions in the future gas/bloating -trial of probiotics - d/w physician astute in CAM - initial trial of bifidobacteria - possibly then add lactobacillus if bifido alone is not adequate restless legs -replace iron, requip otherwise as above Total Time Spent: Greater than 30 minutes This includes examination of the patient, discharge planning, medication reconciliation, and communication with other providers. Discharge Instructions Please refer to the electronic Patient Visit Report (Discharge Instructions) for additional information. Additional Copies To Luisito Cheema D.O.; Wayne Andres D.O. Resident Tracking Resident Involvement: Resident Care Provided Care Provided: Adult Hospital Medicine
[2018-01-24] MEDS ORDERED: FENTANYL PATCH REMOVE & WASTE SCH (15:00)
[2018-01-24] MEDS ORDERED: FENTANYL 50 MCG/HR TDSY TD ONE (15:00)
[2018-01-24 15:44] VITALS: BP 137/97; PULSE 101; TEMP 36.6; O2SAT 98
[2018-01-24] MEDS ORDERED: CHECK FENTANYL PATCH PLACEMENT SCH (16:00)
[2018-01-24 19:37] VITALS: BP 123/92; PULSE 106; TEMP 36.7; O2SAT 99
== END 2018-01-24 19:59 | disposition hospice, home (50) | DRG 948 ==
LOC: C.EDB 00:23 → UNDOADMIN 05:48 → C.4E 05:48 → ENRESERV 06:02
PROVIDERS: ADMIT Student in an Organized Health Care Education/Training Program; ATTEND Hospitalist
DX: G89.3 Neoplasm related pain (acute) (chronic) (principal); C78.5 Secondary malignant neoplasm of large intestine and rectum; C78.7 Secondary malignant neoplasm of liver and intrahepatic bile duct; C18.9 Malignant neoplasm of colon, unspecified; G25.81 Restless legs syndrome; D63.0 Anemia in neoplastic disease; Z88.8 Allergy status to other drugs, medicaments and biological substances; R63.0 Anorexia; Z51.5 Encounter for palliative care; Z92.3 Personal history of irradiation; Z87.440 Personal history of urinary (tract) infections; Z85.038 Personal history of other malignant neoplasm of large intestine; Z93.2 Ileostomy status

== ENCOUNTER 2018-02-04 15:20 | Inpatient (IN) | payer OTHER ==
[~2018-02-04] VITALS: Ht 175.3 cm; Wt 49.0 kg
[~2018-02-04 15:20] MED LIST changes: +ALG PO; -DIPH1TAB87 PO; +DRGTP50 TD; +FRRG PO; +HYDR4TAB78 PO; +MYL80 PO; -NAPR1TAB9 PO; -REGO40TA PO; +RQP25 PO; -SERT-234 PO; -TRAM-10 PO; -[UNRECOGNIZED DRUG - CODE] PO
[2018-02-04] MEDS ORDERED: SODIUM CHLORIDE 0.9% 1000ML 1,000 ML IV STA (16:10)
[2018-02-04] MEDS ORDERED: OPTIRAY 320 IV PRN (16:15)
[2018-02-04] MEDS ORDERED: ONDANSETRON INJ 2 MG/ML 2 ML VIAL IV STA (16:18)
[2018-02-04] MEDS ORDERED: MoRPHine SULFATE 4 MG/ML 1 ML CARP\\VIAL IV STA ×2 (16:18→18:10)
[2018-02-04 17:03] LABS: INR 1.4 (0.9-1.1)
[2018-02-04 17:25] LABS: ALBUMIN 2.3 gm/dl (3.4-5.0); CREATININE 1.72 mg/dl (0.60-1.40); POTASSIUM 4.9 mmol/L (3.5-5.1); TOTAL PROTEIN 6.8 gm/dl (6.4-8.2)
[2018-02-04] MEDS ORDERED: SERT-234 PO (17:26)
[2018-02-04 17:32] LABS: HEMATOCRIT 29.8 % (42-52); HEMOGLOBIN 9.8 g/dL (14.0-18.0); MEAN CORPUSCULAR HEMOGLOBIN 23.7 pg (25-34); MEAN CORPUSCULAR HGB CONC 32.9 g/dl (32-36); MEAN PLATELET VOLUME 8.9 fL (7.4-10.4); PLATELET COUNT 535 K/uL (130-400); RED CELL DISTRIBUTION WIDTH CV 19.9 % (11.5-14.5)
[2018-02-04] MEDS ORDERED: FNTTP50 TOP (17:52)
[2018-02-04] MEDS ORDERED: SIME80CH11 PO (17:52)
[2018-02-04] MEDS ORDERED: MISC4CAP PO (17:52)
[2018-02-04] MEDS ORDERED: ONDA-170 PO (17:52)
[2018-02-04] MEDS ORDERED: HYDR4TAB2 PO (17:52)
--- NOTE | 2018-02-04 17:54 | DIAGNOSTIC IMAGING REPORT ---
CT SCAN OF THE BRAIN WITHOUT IV CONTRAST CLINICAL HISTORY: Change in mental status. COMPARISON STUDY: CT of the brain dated 07/11/2017. TECHNIQUE: Unenhanced axial CT scan of the brain is performed from the vertex to the skull base. A dose lowering technique was utilized adhering to the principles of ALARA. FINDINGS: Brain parenchyma: The brain parenchyma is normal in appearance. There is no hemorrhage, mass effect, or evidence of acute territorial ischemia by CT criteria. Malagon-white matter is preserved. No extra-axial fluid collection is seen. Ventricles, sulci, cisterns: Normal in configuration. Intracranial vasculature: The visualized intracranial vasculature at the skull base is normal in appearance. Calvarium: Unremarkable. Sinuses and mastoids: The visualized paranasal sinuses are clear. The mastoid air cells are well pneumatized. Orbits: The bony orbits are grossly intact. IMPRESSION: No acute intracranial abnormality. Electronically signed by: Damian Buitrago M.D. 02/04/2018 5:53 PM Dictated Date/Time: 02/04/2018 5:51 PM
[2018-02-04] MEDS ORDERED: FERR325T18 PO (17:55)
[2018-02-04] MEDS ORDERED: ROPI0.25 PO (17:55)
[2018-02-04 17:58] LABS: BASO % 0.2 %; BASO ABS # 0.05 K/uL (0-0.2); EOS ABS # 0.01 K/uL (0-0.5); IG# 0.74 K/uL (0.00-0.02); LYMPH ABS # 0.56 K/uL (1.2-3.4); MONO % 8.4 %; MONO ABS # 2.39 K/uL (0.11-0.59); NEUT % 86.8 %; NEUT ABS # 24.85 K/uL (1.4-6.5)
[2018-02-04 17:59] LABS: INFLUENZA B ANTIGEN Neg for Influ B (NEG)
--- NOTE | 2018-02-04 18:06 | DIAGNOSTIC IMAGING REPORT ---
CT SCAN OF THE ABDOMEN AND PELVIS WITHOUT IV CONTRAST CLINICAL HISTORY: Generalized abdominal pain. Colon cancer. COMPARISON STUDY: Abdominal CT dated 01/23/2018. TECHNIQUE: CT scan of the abdomen and pelvis is performed from the lung bases to the proximal femora. Images are reviewed in the axial, sagittal, and coronal planes. IV contrast was not administered for this examination as per the referring clinician. Note that the examination was performed in significantly suboptimal fashion without oral and IV contrast. A dose lowering technique was utilized adhering to the principles of ALARA. CT DOSE: 897.77 mGy.cm FINDINGS: Lung bases: The heart is normal in size and without pericardial effusion. There are at least 3 nodules identified in the right lower lobe measuring up to 4 mm. No airspace consolidation or pleural effusion is identified. Liver: The unenhanced liver is enlarged, measuring 20 cm in length. The liver is heterogeneous in attenuation and there are numerous low-attenuation hepatic masses consistent multifocal hepatic metastatic disease. There is no intrahepatic biliary ductal dilatation. Gallbladder: Unremarkable. Spleen: Normal in size and attenuation. Pancreas: The unenhanced pancreas is grossly unremarkable but not well assessed. Adrenal glands: Unremarkable. Kidneys: There is markedly asymmetric atrophy of the right kidney with severe right hydroureteronephrosis. This is unchanged from previous. The unenhanced left kidney demonstrates compensatory hypertrophy and is without hydronephrosis. There are no renal calculi identified. There is no evidence of contour deforming renal mass lesion. Abdominal vasculature: The abdominal aorta is normal in course and caliber. Bowel: There are postoperative changes from a diverting ileostomy in the left mid abdomen. Masslike wall thickening is again seen in the region of the cecum in the right pelvis. This measures at least 8 x 4.5 cm in aggregate dimension. No bowel obstruction is identified. The appendix is not clearly visualized. Peritoneum: There is a small amount of free fluid in the pelvis. No intraperitoneal free air is seen. Lymphadenopathy: Enlarged upper intracranial lymph nodes are again noted but difficult to discretely measure.. Pelvic viscera: The bladder, prostate, and seminal vesicles are normal as visualized. Skeletal structures: The skeletal structures are heterogeneously osteopenic. No lytic or blastic lesions are seen. Soft tissues: The patient is cachectic. IMPRESSION: 1. Significantly suboptimal examination without oral and IV contrast. 2. No significant change from 01/23/2018. 3. The liver is enlarged and there is evidence of diffuse/multifocal hepatic metastatic disease. 4. There is masslike wall thickening identified in the cecum and the right lower quadrant, possibly representing the patient's known colon cancer. 5. Again seen is severe right hydroureteronephrosis, with the ureter dilated to the right cecal lesion. 6. A diverting ileostomy is again noted. No bowel obstruction is identified. 7. Retroperitoneal lymphadenopathy is likely unchanged but not well visualized. 8. A small volume of free fluid is noted in the pelvis. 9. Small pulmonary nodules in the right lower lobe are nonspecific. Metastatic disease is not excluded. Electronically signed by: Damian Buitrago M.D. 02/04/2018 6:05 PM Dictated Date/Time: 02/04/2018 5:53 PM
--- NOTE | 2018-02-04 18:19 | DIAGNOSTIC IMAGING REPORT ---
PA CHEST RADIOGRAPH AND UPRIGHT AND SUPINE AP RADIOGRAPHS OF THE ABDOMEN CLINICAL HISTORY: Abdominal pain. Metastatic colon cancer. COMPARISON STUDY: CT of the abdomen and pelvis January 23, 2018 and February 04, 2018. FINDINGS: Elevation of the right hemidiaphragm is unchanged. A left subclavian [id number] is in place. There is no pneumothorax or pleural effusion. No evidence for pulmonary edema. No consolidation is identified to suggest pneumonia. There is no free air. The bowel gas pattern is normal. IMPRESSION: 1. No free air or evidence of bowel obstruction. 2. No acute cardiopulmonary findings. Electronically signed by: Naeem Alvarado M.D. 02/04/2018 6:18 PM Dictated Date/Time: 02/04/2018 6:15 PM
[2018-02-04] MEDS ORDERED: ONDANSETRON INJ 2 MG/ML 2 ML VIAL IV PRN (19:15)
[2018-02-04] MEDS ORDERED: ONDANSETRON 8 MG TAB PO PRN (19:15)
[2018-02-04] MEDS ORDERED: POLYETHYLENE (MIRALAX) 17 GM PACK PO PRN (19:15)
[2018-02-04] MEDS ORDERED: ACETAMINOPHEN 325 MG TAB PO PRN (19:15)
[2018-02-04] MEDS ORDERED: SIMETHICONE 80 MG CHEW PO PRN (19:15)
[2018-02-04] MEDS ORDERED: ALUMINUM/MAGNESIUM/SIMETH (MAALOX MAX) 30 ML UDC PO PRN (19:15)
[2018-02-04] MEDS ORDERED: MAGNESIUM HYDROXIDE SUSP 30 ML UDC PO PRN (19:15)
--- NOTE | 2018-02-04 19:26 | History and Physical ---
History & Physical Date & Time of Service: Feb 04, 2018 at 19:18 Chief Complaint: Lethargic,Lightheaded,Stoma Placement 01/2018 Primary Care Physician: Wayne Andres D.O. Past Medical/Surgical History Medical Problems: (1) Abdominal pain (2) Abdominal pain (3) Anemia (4) Anemia (5) Cecum mass (6) Cecum perforation (7) Chemotherapy adverse reaction (8) Colon cancer metastasized to liver (9) Corneal foreign body (10) Dehydration (11) Enteritis (12) Episode of syncope (13) Failure of outpatient treatment (14) GI bleed (15) Hematuria (16) Hydronephrosis (17) Hydronephrosis of left kidney (18) Hydronephrosis of right kidney (19) Immunocompromised patient (20) Influenza-like symptoms (21) Kidney stone (22) Liver cancer (23) Malnutrition (24) Metastatic colon cancer to liver (25) Muscle spasm of back (26) Nausea & vomiting (27) Personal history of colon cancer, stage IV (28) Right flank pain (29) Right flank pain (30) Sepsis (31) SIRS (systemic inflammatory response syndrome) (32) SIRS (systemic inflammatory response syndrome) (33) Small bowel obstruction (34) Syncope and collapse (35) Tachycardia (36) Ureteral obstruction (37) Ureteral stent retained (38) UTI (urinary tract infection) (39) UTI (urinary tract infection) (40) UTI (urinary tract infection) (41) Vertigo (42) Vomiting (43) Vomiting due to chemotherapy Surgical Problems: (1) History of ureter stent Family History FH: cardiovascular disease Social History Smoking Status: Former Smoker Drug Use: none Marital Status: in relationship Housing status: lives with family Occupational Status: disabled Immunizations History of Influenza Vaccine: Unknown History of Tetanus Vaccine?: Unknown History of Pneumococcal: Unknown History of Hepatitis B Vaccine: Unknown Allergies Coded Allergies: Cranberry Extract (Verified Allergy, Severe, HIVES, 02/04/18) Oxaliplatin (Verified Allergy, Severe, THROAT CLOSING, 02/04/18) Lactose Intolerance (GI) (Verified Allergy, Unknown, UNKNOWN, 02/04/18) Home Medications Scheduled Fentanyl (Duragesic), 50 MCG TOP [id number] Ferrous Gluconate (Ferrous Gluconate), 324 MG PO BIDM Probiotic Product (Align), 4 MG PO DAILY Ropinirole (Requip), 0.25 MG PO HS Sertraline (Zoloft), 50 MG PO DAILY Scheduled PRN Hydromorphone Hcl (Dilaudid), 2 MG PO QID PRN for Pain Ondansetron Hcl (Zofran), 8 MG PO Q8 PRN for Nausea or Vomiting Simethicone (Mi-Acid Gas Relief), 80 MG PO Q6H PRN for Gas/Bloating Physical Exam Vital Signs Date Time Temp Pulse Resp B/P (MAP) Pulse Ox O2 Delivery O2 Flow Rate FiO2 02/04/18 17:24 105 02/04/18 17:18 107 22 132/100 99 Room Air 02/04/18 15:30 36.6 126 20 118/87 98 Room Air Diagnostics Laboratory Results Results Past 24 Hours Test 02/04/18 16:33 02/04/18 17:03 02/04/18 17:10 02/04/18 19:11 Range/Units White Blood Count 28.60 4.8-10.8 K/uL Red Blood Count 4.14 4.7-6.1 M/uL Hemoglobin 9.8 14.0-18.0 g/dL Hematocrit 29.8 42-52 % Mean Corpuscular Volume 72.0 80-100 fL Mean Corpuscular Hemoglobin 23.7 25-34 pg Mean Corpuscular Hemoglobin Concent 32.9 32-36 g/dl Platelet Count 535 130-400 K/uL Mean Platelet Volume 8.9 7.4-10.4 fL Neutrophils (%) (Auto) 86.8 % Lymphocytes (%) (Auto) 2.0 % Monocytes (%) (Auto) 8.4 % Eosinophils (%) (Auto) 0.0 % Basophils (%) (Auto) 0.2 % Neutrophils # (Auto) 24.85 1.4-6.5 K/uL Lymphocytes # (Auto) 0.56 1.2-3.4 K/uL Monocytes # (Auto) 2.39 0.11-0.59 K/uL Eosinophils # (Auto) 0.01 0-0.5 K/uL Basophils # (Auto) 0.05 0-0.2 K/uL RDW Standard Deviation 52.0 36.4-46.3 fL RDW Coefficient of Variation 19.9 11.5-14.5 % Immature Granulocyte % (Auto) 2.6 % Immature Granulocyte # (Auto) 0.74 0.00-0.02 K/uL Polychromasia 1+ Microcytosis PRESENT Echinocytes 1+ Prothrombin Time 14.5 9.0-12.0 SECONDS Prothromb Time International Ratio 1.4 0.9-1.1 Activated Partial Thromboplast Time 42.0 21.0-31.0 SECONDS Partial Thromboplastin Ratio 1.6 Sodium Level 120 136-145 mmol/L Potassium Level 4.9 3.5-5.1 mmol/L Chloride Level 88 98-107 mmol/L Carbon Dioxide Level 18 21-32 mmol/L Anion Gap 14.0 3-11 mmol/L Blood Urea Nitrogen 50 7-18 mg/dl Creatinine 1.72 0.60-1.40 mg/dl Est Creatinine Clear Calc Drug Dose 43.5 ml/min Estimated GFR () 61.8 Estimated GFR (Non- 53.3 BUN/Creatinine Ratio 29.1 10-20 Random Glucose 74 70-99 mg/dl Lactic Acid Level 2.2 0.4-2.0 mmol/L Calcium Level 9.0 8.5-10.1 mg/dl Total Bilirubin 1.6 0.2-1 mg/dl Direct Bilirubin 1.0 0-0.2 mg/dl Aspartate Amino Transf (AST/SGOT) 252 15-37 U/L Alanine Aminotransferase (ALT/SGPT) 140 12-78 U/L Alkaline Phosphatase 727 45-117 U/L Total Creatine Kinase 203 39-308 U/L Total Protein 6.8 6.4-8.2 gm/dl Albumin 2.3 3.4-5.0 gm/dl Lipase 56 73-393 U/L Venous Blood pH 7.34 7.36-7.41 Venous Blood Partial Pressure CO2 40 38.0-50.0 mmHg Venous Blood Partial Pressure O2 39 mmHg Venous Blood HCO3 21 mmol/L Venous Blood Oxygen Saturation 67.6 % Venous Blood Base Excess -4.4 mEq/L Ammonia < 10.0 11-32 umol/L Influenza Type A Antigen Neg for Influ A NEG Influenza Type B Antigen Neg for Influ B NEG Microbiology Results 02/04/18 Blood Culture, Received Pending 02/04/18 Blood Culture, Received Pending Impression Assessment and Plan admit #[id number] Resuscitation Status VTE Prophylaxis Will order VTE Prophylaxis: Yes Reason for no VTE drug order: Contraindicated
[2018-02-04 19:29] VITALS: BP 126/88; PULSE 103; TEMP 36.6; O2SAT 99; BMI 15.7
[2018-02-04 20:07] VITALS: O2SAT 99
[2018-02-04 20:17] LABS: CALCIUM 8.6 mg/dl (8.5-10.1); CREATININE 1.62 mg/dl (0.60-1.40); POTASSIUM 4.8 mmol/L (3.5-5.1)
--- NOTE | 2018-02-04 20:19 | HISTORY & PHYSICAL EXAMINATION ---
DATE OF ADMISSION: 02/04/2018 ADMISSION HISTORY AND PHYSICAL CHIEF COMPLAINT: Confusion. SECONDARY COMPLAINT: Abdominal pain. HISTORY OF PRESENT ILLNESS: The patient is a very pleasant 27-year-old male accompanied by his significant other who noted that this morning he was not acting right, she had a hard time describing it but then given a directed question, she relates it to being kind of almost a drunk and delirious type stay where he was talking in ways not making sense. He realized this was going on as well, but was not really able to change it. They brought him here to the ER for further evaluation. He was found to be significantly hyponatremic with an elevated creatinine. On directed questioning, he notes over the last 24 hours or so, he has had a significant increase in through his stoma in his stool has been green. He has been able to eat and drink okay, although he notes over the last week or so his p.o. intake has significantly declined it seems to relate to a dry mouth and just a general early satiety, but not for many postprandial pain, nausea or vomiting. He has not had fevers, chills, or sweats. His only other notable symptom is foot edema which has worsened. REVIEW OF SYSTEMS: Otherwise negative, except for as above. PAST MEDICAL HISTORY: Includes metastatic colorectal cancer. PAST SURGICAL HISTORY: Diverting colostomy, ureteral stents and MediPort. ALLERGIES: No known drug allergies. FAMILY HISTORY: Positive for colorectal cancer on the paternal side of the family. SOCIAL HISTORY: Disabled, has significant other, no significant alcohol. MEDICATIONS: His current medication list includes 50 mcg Duragesic patch, Iron gluconate 325 b.i.d., Dilaudid 2 mg q.i.d. p.r.n. pain, Zofran 8 mg q. 8 hours p.r.n. nausea, probiotic 4 mg daily, Requip 0.25 mg at bedtime, Zoloft 50 mg daily, and simethicone 80 mg q. 6 hours p.r.n. gas. ALLERGIES: INCLUDE CRANBERRY GIVING HIM HIVES, CAUSING HIS THROAT TO CLOSE AND LACTOSE INTOLERANCE. PHYSICAL EXAMINATION: VITAL SIGNS: Temp 36.6, pulse 126, respiratory rate 20, blood pressure 118/87, 98% on room air. GENERAL: He is awake, alert, now oriented x3, appears fatigued but otherwise in no acute distress. HEENT: Normocephalic, atraumatic. Mucous membranes are slightly dry. CARDIOVASCULAR: Distant, tachycardic. No rubs, murmurs, or gallops. LUNGS: Clear to auscultation bilaterally. No rales, rhonchi, or wheezes with good effort. ABDOMEN: Diffusely firm. He notes upper abdominal firmness and tightness, ongoing over the last week or two. His upper abdomen is actually nontender. There is no discrete masses is just diffuse firmness, actually somewhat difficult to tell where his rib cage and is in his upper abdomen begins without a very careful palpation. He also has tenderness just to the right lower quadrant right below his stoma without guarding or rebound. His lower abdomen is soft. EXTREMITIES: Without cyanosis or clubbing. He has bilateral lower extremity edema, probably 2+ pedal edema lessening up his calf. It is equal bilaterally. No erythema. No cords. No calf tenderness. SKIN: Shows no rashes, no pallor or icterus. NEUROLOGIC: Shows cranial nerves II-XII to be grossly intact. Gross motor and sensory are intact. MENTAL STATE: Shows good recent and remote recall. Normal mood and affect. Good judgment and insight. MUSCULOSKELETAL: Yields no gross lesions. LABORATORY AND DIAGNOSTICS: CBC shows a white count of 28.6, hemoglobin 9.8, and platelets 535. Complete metabolic panel with sodium 120, potassium 4.9, chloride 88, CO2 18, BUN 50, creatinine 1.72, lactate 2.2, random glucose of 74, calcium 9. Total bilirubin 1.6 with a direct of 1.0, AST 252, ALT 140, alkaline phosphatase 727. Ammonia less than 10, CK total of 203, total protein 6.8, albumin 2.3, lipase 56. PT of 14.5, PTT of 42. Flu swabs are negative. IMAGING DATA: CT abdomen and pelvis reviewed by radiology as well as myself shows lower lobe lung nodules, a very enlarged liver, diffuse with metastatic disease, asymmetric atrophy of the right kidney with severe right hydroureteronephrosis, unchanged from previous, postoperative changes from a diverting ileostomy in the left mid abdomen mass-like wall thickening in the region of the cecum of the right pelvis, seems unchanged predominantly from the CT from about [address] shows no acute intracranial pathology. Chest x-ray and abdomen x-ray shows no acute cardiopulmonary findings and no free air or evidence of bowel obstruction. ASSESSMENT AND PLAN: 1. Altered mental status. This appears to be a metabolic encephalopathy due to his hyponatremic dehydration. See below. 2. Hyponatremic dehydration. He is very brittle in terms of his nutrition and hydration status on a good day and it is likely that his recent diminished p.o. intake combined with his acute diarrhea has been enough to cause salt and fluid wasting, cause his hyponatremic dehydration as well as acute renal failure. He has been given saline bolus in the Emergency Room, will slow this down to 75 an hour of saline with 20 of K and follow basic metabolic panel in a few hours to make sure he is not correcting in a rate that is too fast and then continue to adjust fluids as appropriate. We will check a stool for Clostridium difficile as a possible cause of the diarrhea just to be on the safe side. 3. Diarrhea. Check a stool for Clostridium difficile. It is likely either just through part related to his cancer or possibly viral gastroenteritis, but obviously with his compromised immune system and recent hospital stay as well as his white count, there were needs to be concern on Clostridium difficile. 4. Rule out sepsis. He does meet systemic inflammatory response syndrome criteria; however, he does not have any overt signs or symptoms of infection. I suspect his white count demargination and his tachycardia is from dehydration and the lactic acid from dehydration and poor perfusion. We will repeat a lactate. We will follow him clinically. Follow up a white count in the morning and check a CRP. No empiric antibiotics appear to be warranted at this time. 5. Upper abdominal firmness. I fear this relates to his massively enlarged metastatic liver and his very small frame. Follow with serial exams. discussed with him my concerns and certainly his posturing and his difficulty with movement, etc. fit with this. 6. Dry mouth and poor appetite, did to seem to go hand in hand, likely relative to his overall decline from the cancer, try to maintain nutrition and hydration status as best as possible. 7. Deep venous thrombosis prophylaxis. He has a propensity towards gastrointestinal blood loss anemia; therefore, pharmacologic deep venous thrombosis prophylaxis is contraindicated. We will utilize mechanical prophylaxis with sequential compression devices. 8. Lower extremity edema, probably venous back pressure from his abdominal mets combined with poor nutritional status. 9. Moderate to severe protein calorie malnutrition related to the cancer. 10. Acute renal failure likely related to the dehydration. His metabolic acidosis relates to this as well. Anticipate improvement with IV fluids. 11. Metastatic colon cancer. Overall, he has expressed desires to be predominantly palliative care, although it sounds like he was also getting possibly further opinions about his cancer in [place]. I will ask the palliative care service to talk with him to help further discussions as he felt they were very helpful last time he was here. LAILA
[2018-02-04 20:43] VITALS: BP 126/88; PULSE 103; TEMP 36.6; O2SAT 99
[2018-02-04] MEDS: HYDROmorphone INJ 2 MG/ML SYR/VIAL IV PRN ×2 (20:44→23:47)
[2018-02-04] MEDS ORDERED: FENTANYL PATCH REMOVE & WASTE SCH (20:59)
[2018-02-04] MEDS ORDERED: FENTANYL 50 MCG/HR TDSY TD SCH (21:00)
[2018-02-04] MEDS: NSS + 20MEQ KCL 1000ML 1,000 ML IV SCH ×2 (21:36→22:03)
[2018-02-04] MEDS: ROPINIROLE HCL 0.25 MG TAB PO SCH (21:37)
[2018-02-04] MEDS: CHECK FENTANYL PATCH PLACEMENT SCH (23:49)
--- NOTE | 2018-02-04 23:54 | EMERGENCY ROOM VISIT NOTE ---
History Report prepared by Jemma: Carlos Manuel Wahl Under the Supervision of: Dr. Galo Meyers M.D. First contact with patient: 16:02 Chief Complaint: LETHARGIC Stated Complaint: LETHARGIC,LIGHTHEADED,STOMA PLACEMENT 01/2018 History of Present Illness The patient is a 27 year old male who presents to the Emergency Room with multiple complaints including increasing confusion and swelling in the bilateral lower extremities. The patient currently has a diagnosis of colon cancer with metastasis to his liver. The patient's mother notes that he has been increasingly confused over the past several days and has been "talking jibberish." The patient himself is complaining of significant abdominal pain, unusual shortness of breath, and swelling in his bilateral lower extremities. He does note having a fever of 100.4 sometime last week. The patient is not currently getting Chemotherapy, and recently had an Ostomy bag placed. He also has a history of intractable pain due to his colon cancer, iron deficiency, anemia, GI Bleeds, and sepsis. Source of History: patient, parent Onset: Several Days Position: abdomen, leg (bilateral), foot (bilateral) Symptom Intensity: significant Quality: other (Swelling in LE, confusion) Timing: worsening Associated Symptoms: + SOB Review of Systems See HPI for pertinent positives and negatives. A total of ten systems were reviewed and were otherwise negative. Past Medical & Surgical Medical Problems: (1) Abdominal pain (2) Cecum mass (3) Colon cancer metastasized to liver (4) Episode of syncope (5) GI bleed (6) Hydronephrosis of left kidney (7) Hydronephrosis of right kidney (8) Kidney stone Surgical Problems: (1) History of ureter stent Family History FH: cardiovascular disease Social History Smoking Status: Former Smoker Alcohol Use: occasionally Drug Use: none Marital Status: in relationship Housing Status: lives with family Occupation Status: disabled Current/Historical Medications Scheduled Fentanyl (Duragesic), 50 MCG TOP [id number] Ferrous Gluconate (Ferrous Gluconate), 324 MG PO BIDM Probiotic Product (Align), 4 MG PO DAILY Ropinirole (Requip), 0.25 MG PO HS Sertraline (Zoloft), 50 MG PO DAILY Scheduled PRN Hydromorphone Hcl (Dilaudid), 2 MG PO QID PRN for Pain Ondansetron Hcl (Zofran), 8 MG PO Q8 PRN for Nausea or Vomiting Simethicone (Mi-Acid Gas Relief), 80 MG PO Q6H PRN for Gas/Bloating Allergies Coded Allergies: Cranberry Extract (Verified Allergy, Severe, HIVES, 02/04/18) Oxaliplatin (Verified Allergy, Severe, THROAT CLOSING, 02/04/18) Lactose Intolerance (GI) (Verified Allergy, Unknown, UNKNOWN, 02/04/18) Physical Exam Vital Signs Date Time Temp Pulse Resp B/P (MAP) Pulse Ox O2 Delivery O2 Flow Rate FiO2 02/04/18 17:24 105 02/04/18 17:18 107 22 132/100 99 Room Air 02/04/18 15:30 36.6 126 20 118/87 98 Room Air Physical Exam Physical Exam GENERAL: he is oriented to person, place, and time. He appears ill and cachectic. HENT: Exam performed. Head: Normocephalic and atraumatic. Right Ear: External ear normal. No mastoid tenderness. Left Ear: External ear normal. No mastoid tenderness. Mouth/Throat: The oropharynx is clear and moist. No trismus in the jaw. No dental abscesses or uvula swelling. No oropharyngeal exudate or tonsillar abscesses. ____ EYES: Conjunctivae and EOM are normal. Pupils are equal, round, and reactive to light. Right eye exhibits no discharge. Left eye exhibits no discharge. No scleral icterus. ____ NECK: Normal range of motion. Neck supple. No JVD present. No spinous process tenderness present. No carotid bruit present. No rigidity. No tracheal deviation and normal range of motion present. No Brudzinski's sign and no Kernig 's sign noted. ____ CV: Tachycardic rate, regular rhythm, normal heart sounds and intact distal pulses. Palpable radial pulses bue. ____ PULM/CHEST: Effort normal and breath sounds normal. No respiratory distress. No stridor. He has no wheezes. He has no rales. Chest Wall: He exhibits no tenderness. ____ ABD: There is an ostomy bag in place that is draining. There is diffuse pain on palpation across the abdomen. MUSC/SKEL: Normal range of motion. There is no enderness or deformity. There is swelling to the bilateral feet. LYMPH: No cervical adenopathy. ____ NEURO: He is alert and oriented to person, place, and time. He has normal strength. No cranial nerve deficit or sensory deficit. Coordination and gait normal. GCS eye subscore is 4. GCS verbal subscore is 5. GCS motor subscore is 6. Cerebellar tests wnl. ____ SKIN: Skin is warm and dry. He is not diaphoretic. There are erythematous lesions covering the entire body, non-draining, Nikolsky Negative. Non-vesicular ____ PSYCH: He has a normal mood and affect. His behavior is normal. Judgment and thought content normal. ____ Medical Decision & Procedures ER Provider Diagnostic Interpretation: Radiology results as stated below per my review and radiologist interpretation: CT SCAN OF THE ABDOMEN AND PELVIS WITHOUT IV CONTRAST CLINICAL HISTORY: Generalized abdominal pain. Colon cancer. COMPARISON STUDY: Abdominal CT dated 01/23/2018. TECHNIQUE: CT scan of the abdomen and pelvis is performed from the lung bases to the proximal femora. Images are reviewed in the axial, sagittal, and coronal planes. IV contrast was not administered for this examination as per the referring clinician. Note that the examination was performed in significantly suboptimal fashion without oral and IV contrast. A dose lowering technique was utilized adhering to the principles of ALARA. CT DOSE: 897.77 mGy.cm FINDINGS: Lung bases: The heart is normal in size and without pericardial effusion. There are at least 3 nodules identified in the right lower lobe measuring up to 4 mm. No airspace consolidation or pleural effusion is identified. Liver: The unenhanced liver is enlarged, measuring 20 cm in length. The liver is heterogeneous in attenuation and there are numerous low-attenuation hepatic masses consistent multifocal hepatic metastatic disease. There is no intrahepatic biliary ductal dilatation. Gallbladder: Unremarkable. Spleen: Normal in size and attenuation. Pancreas: The unenhanced pancreas is grossly unremarkable but not well assessed. Adrenal glands: Unremarkable. Kidneys: There is markedly asymmetric atrophy of the right kidney with severe right hydroureteronephrosis. This is unchanged from previous. The unenhanced left kidney demonstrates compensatory hypertrophy and is without hydronephrosis. There are no renal calculi identified. There is no evidence of contour deforming renal mass lesion. Abdominal vasculature: The abdominal aorta is normal in course and caliber. Bowel: There are postoperative changes from a diverting ileostomy in the left mid abdomen. Masslike wall thickening is again seen in the region of the cecum in the right pelvis. This measures at least 8 x 4.5 cm in aggregate dimension. No bowel obstruction is identified. The appendix is not clearly visualized. Peritoneum: There is a small amount of free fluid in the pelvis. No intraperitoneal free air is seen. Lymphadenopathy: Enlarged upper intracranial lymph nodes are again noted but difficult to discretely measure.. Pelvic viscera: The bladder, prostate, and seminal vesicles are normal as visualized. Skeletal structures: The skeletal structures are heterogeneously osteopenic. No lytic or blastic lesions are seen. Soft tissues: The patient is cachectic. IMPRESSION: 1. Significantly suboptimal examination without oral and IV contrast. 2. No significant change from 01/23/2018. 3. The liver is enlarged and there is evidence of diffuse/multifocal hepatic metastatic disease. 4. There is masslike wall thickening identified in the cecum and the right lower quadrant, possibly representing the patient's known colon cancer. 5. Again seen is severe right hydroureteronephrosis, with the ureter dilated to the right cecal lesion. 6. A diverting ileostomy is again noted. No bowel obstruction is identified. 7. Retroperitoneal lymphadenopathy is likely unchanged but not well visualized. 8. A small volume of free fluid is noted in the pelvis. 9. Small pulmonary nodules in the right lower lobe are nonspecific. Metastatic disease is not excluded. Electronically signed by: Damian Buitrago M.D. 02/04/2018 6:05 PM Dictated Date/Time: 02/04/2018 5:53 PM PA CHEST RADIOGRAPH AND UPRIGHT AND SUPINE AP RADIOGRAPHS OF THE ABDOMEN CLINICAL HISTORY: Abdominal pain. Metastatic colon cancer. COMPARISON STUDY: CT of the abdomen and pelvis January 23, 2018 and February 04, 2018. FINDINGS: Elevation of the right hemidiaphragm is unchanged. A left subclavian [id number] is in place. There is no pneumothorax or pleural effusion. No evidence for pulmonary edema. No consolidation is identified to suggest pneumonia. There is no free air. The bowel gas pattern is normal. IMPRESSION: 1. No free air or evidence of bowel obstruction. 2. No acute cardiopulmonary findings. Electronically signed by: Naeem Alvarado M.D. 02/04/2018 6:18 PM Dictated Date/Time: 02/04/2018 6:[address] SCAN OF THE BRAIN WITHOUT IV CONTRAST CLINICAL HISTORY: Change in mental status. COMPARISON STUDY: CT of the brain dated 07/11/2017. TECHNIQUE: Unenhanced axial CT scan of the brain is performed from the vertex to the skull base. A dose lowering technique was utilized adhering to the principles of ALARA. FINDINGS: Brain parenchyma: The brain parenchyma is normal in appearance. There is no hemorrhage, mass effect, or evidence of acute territorial ischemia by CT criteria. Malagon-white matter is preserved. No extra-axial fluid collection is seen. Ventricles, sulci, cisterns: Normal in configuration. Intracranial vasculature: The visualized intracranial vasculature at the skull base is normal in appearance. Calvarium: Unremarkable. Sinuses and mastoids: The visualized paranasal sinuses are clear. The mastoid air cells are well pneumatized. Orbits: The bony orbits are grossly intact. IMPRESSION: No acute intracranial abnormality. Electronically signed by: Damian Buitrago M.D. 02/04/2018 5:53 PM Dictated Date/Time: 02/04/2018 5:51 PM Laboratory Results 02/04/18 16:33 Red Blood Count 4.14, Mean Corpuscular Volume 72.0, Mean Corpuscular Hemoglobin 23.7, Mean Corpuscular Hemoglobin Concent 32.9, Mean Platelet Volume 8.9, Neutrophils (%) (Auto) 86.8, Lymphocytes (%) (Auto) 2.0, Monocytes (%) (Auto) 8.4, Eosinophils (%) (Auto) 0.0, Basophils (%) (Auto) 0.2, Neutrophils # (Auto) 24.85, Lymphocytes # (Auto) 0.56, Monocytes # (Auto) 2.39, Eosinophils # (Auto) 0.01, Basophils # (Auto) 0.05 Test 02/04/18 16:33 02/04/18 17:03 02/04/18 17:10 White Blood Count 28.60 K/uL (4.8-10.8) Red Blood Count 4.14 M/uL (4.7-6.1) Hemoglobin 9.8 g/dL (14.0-18.0) Hematocrit 29.8 % (42-52) Mean Corpuscular Volume 72.0 fL (80-100) Mean Corpuscular Hemoglobin 23.7 pg (25-34) Mean Corpuscular Hemoglobin Concent 32.9 g/dl (32-36) Platelet Count 535 K/uL (130-400) Mean Platelet Volume 8.9 fL (7.4-10.4) Neutrophils (%) (Auto) 86.8 % Lymphocytes (%) (Auto) 2.0 % Monocytes (%) (Auto) 8.4 % Eosinophils (%) (Auto) 0.0 % Basophils (%) (Auto) 0.2 % Neutrophils # (Auto) 24.85 K/uL (1.4-6.5) Lymphocytes # (Auto) 0.56 K/uL (1.2-3.4) Monocytes # (Auto) 2.39 K/uL (0.11-0.59) Eosinophils # (Auto) 0.01 K/uL (0-0.5) Basophils # (Auto) 0.05 K/uL (0-0.2) RDW Standard Deviation 52.0 fL (36.4-46.3) RDW Coefficient of Variation 19.9 % (11.5-14.5) Immature Granulocyte % (Auto) 2.6 % Immature Granulocyte # (Auto) 0.74 K/uL (0.00-0.02) Polychromasia 1+ Microcytosis PRESENT Echinocytes 1+ Prothrombin Time 14.5 SECONDS (9.0-12.0) Prothromb Time International Ratio 1.4 (0.9-1.1) Activated Partial Thromboplast Time 42.0 SECONDS (21.0-31.0) Partial Thromboplastin Ratio 1.6 Total Bilirubin 1.6 mg/dl (0.2-1) Direct Bilirubin 1.0 mg/dl (0-0.2) Aspartate Amino Transf (AST/SGOT) 252 U/L (15-37) Alanine Aminotransferase (ALT/SGPT) 140 U/L (12-78) Alkaline Phosphatase 727 U/L (45-117) Total Creatine Kinase 203 U/L (39-308) Total Protein 6.8 gm/dl (6.4-8.2) Albumin 2.3 gm/dl (3.4-5.0) Lipase 56 U/L (73-393) Venous Blood pH 7.34 (7.36-7.41) Venous Blood Partial Pressure CO2 40 mmHg (38.0-50.0) Venous Blood Partial Pressure O2 39 mmHg Venous Blood HCO3 21 mmol/L Venous Blood Oxygen Saturation 67.6 % Venous Blood Base Excess -4.4 mEq/L Ammonia < 10.0 umol/L (11-32) Influenza Type A Antigen Neg for Influ A (NEG) Influenza Type B Antigen Neg for Influ B (NEG) Laboratory results reviewed by me Medications Administered Medications (Trade) Dose Ordered Sig/Raúl Route Start Time Stop Time Status Last Admin Dose Admin Sodium Chloride 1,000 ml @ 999 mls/hr Q1H1M STAT IV 02/04/18 16:10 02/04/18 17:10 DC 02/04/18 16:10 999 MLS/HR Morphine Sulfate (MoRPHine SULFATE INJ) 4 mg NOW STAT IV 02/04/18 16:18 02/04/18 16:19 DC 02/04/18 17:02 4 MG Ondansetron HCl (Zofran Inj) 4 mg NOW STAT IV 02/04/18 16:18 02/04/18 16:19 DC 02/04/18 17:02 4 MG Morphine Sulfate (MoRPHine SULFATE INJ) 4 mg NOW STAT IV 02/04/18 18:10 02/04/18 18:12 DC 02/04/18 18:10 4 MG ECG Per My Interpretation Indication: other (Arrythmia ) Rate (beats per minute): 110 Rhythm: sinus tachycardia Findings: other (QTC, QRS, GA intervals within normal limits. no MARIA E/STD) ED Course 1603: The patient was evaluated in room B5. A complete history and physical exam was performed. 1610: Ordered Sodium Chloride 1000 mL @ 999 mL/hr IV. 1618: Ordered Zofran 4 mg IV, Morphine Sulfate 4 mg IV. 1810: Ordered Morphine Sulfate 4 mg IV. 1820:Labs show white count of 28.6, sodium of 120, lactic acid of 2.2. Patient alert and oriented 3 at this point, we will not push hypertonic saline at this point. Increasing creatinine to 1.72, BUN 50. Findings are consistent with hyponatremia and acute kidney injury. CT of the abdomen showed no significant changes. CT head are within normal limits. EMR was reviewed and the patient has had palliative care discussions in the past visit due to his worsening cancer. I discussed the case with Gregory Bernard [facility] Hospitalist. He will evaluate the patient for further treatment. Medical Decision Labs show white count of 28.6, sodium of 120, lactic acid of 2.2. Patient alert and oriented 3 at this point, we will not push hypertonic saline at this point. Increasing creatinine to 1.72, BUN 50. Findings are consistent with hyponatremia and acute kidney injury. CT of the abdomen showed no significant changes. CT head are within normal limits. EMR was reviewed and the patient has had palliative care discussions in the past visit due to his worsening cancer. I discussed the case with Gregory COLBY Hospitalist. He will evaluate the patient for further treatment. Medication Reconcilliation Current Medication List: was personally reviewed by me Blood Pressure Screening Patient's blood pressure: Elevated blood pressure Referred to Hospitalist service. Consults Time Called: 1816 Consulting Physician: Gregory COLBY Hospitalist Returned Call: [phone] I discussed the case with Gregory COLBY Hospitalist. He will evaluate the patient for further treatment. Impression Primary Impression: Hyponatremia Additional Impressions: Acute kidney injury Intractable pain Scribe Attestation The scribe's documentation has been prepared under my direction and personally reviewed by me in its entirety. I confirm that the note above accurately reflects all work, treatment, procedures, and medical decision making performed by me. The chart was completed utilizing [employer] Speech voice recognition software. Grammatical errors, random word insertions, pronoun errors, and incomplete sentences are an occasional consequence of this system due to software limitations, ambient noise, and hardware issues. Any formal questions or concerns about the content, text, or information contained within the body of this dictation should be directly addressed to the physician for clarification. Departure Information Dispostion Being Evaluated By Hospitalist Referrals Luisito Cheema D.O. (PCP) Patient Instructions My [facility] Problem Qualifiers
[2018-02-05] MEDS ORDERED: RASPBERRY SYRUP 5 ML UDP PO STA (02:13)
[2018-02-05] MEDS ORDERED: VANCOMYCIN HCL 125 MG/2.5ML SOLN PO STA (02:13)
[2018-02-05] MEDS: HYDROmorphone INJ 2 MG/ML SYR/VIAL IV PRN ×4 (02:33→19:59)
[2018-02-05] MEDS: HYDROmorphone HCL 2 MG TAB PO PRN ×3 (02:43→23:24)
[2018-02-05 04:24] VITALS: BP 115/72; PULSE 106; TEMP 36.7; O2SAT 96
[2018-02-05 05:59] LABS: HEMATOCRIT 28.5 % (42-52); HEMOGLOBIN 9.1 g/dL (14.0-18.0); MEAN CELL VOLUME 73.6 fL (80-100); MEAN CORPUSCULAR HEMOGLOBIN 23.5 pg (25-34); MEAN CORPUSCULAR HGB CONC 31.9 g/dl (32-36); MEAN PLATELET VOLUME 8.4 fL (7.4-10.4); PLATELET COUNT 425 K/uL (130-400); RED CELL DISTRIBUTION WIDTH CV 19.8 % (11.5-14.5); WHITE BLOOD COUNT 25.34 K/uL (4.8-10.8)
[2018-02-05] MEDS: VANCOMYCIN HCL 125 MG/2.5ML SOLN PO SCH ×4 (06:18→23:23)
[2018-02-05] MEDS: RASPBERRY SYRUP 5 ML UDP PO SCH ×4 (06:18→23:22)
[2018-02-05 06:33] LABS: CALCIUM 8.7 mg/dl (8.5-10.1); CREATININE 1.41 mg/dl (0.60-1.40); POTASSIUM 4.9 mmol/L (3.5-5.1)
[2018-02-05 06:49] LABS: BASO % 0.2 %; BASO ABS # 0.05 K/uL (0-0.2); EOS % 0.1 %; EOS ABS # 0.03 K/uL (0-0.5); IG# 0.45 K/uL (0.00-0.02); LYMPH % 2.2 %; LYMPH ABS # 0.55 K/uL (1.2-3.4); MONO % 8.6 %; MONO ABS # 2.17 K/uL (0.11-0.59); NEUT % 87.1 %; NEUT ABS # 22.09 K/uL (1.4-6.5)
--- NOTE | 2018-02-05 07:27 | Family Medicine Progress Note ---
Progress Note Date of Service Feb 05, 2018. Subjective Pt evaluation today including: conversation w/ patient, conversation w/ family (significant other in room) Found patient awake, resting in the bed, watching tv. Says that he's had some increased gas and stool output into his ostomy bag in the last day or so, ongoing this morning. Otherwise says his abdomen is presently sore, about 3/10 on pain scale. Also notes that the bilateral leg swelling is a new occurrence in the past two or so days. No other acute concerns. Patient's significant other at bedside says that he (patient) appears back at his baseline mental status this morning. Constitutional: No fever, No chills Respiratory: No cough, No shortness of breath Cardiovascular: + edema, No chest pain Abdomen: + pain, + diarrhea, No nausea, No vomiting Medications Current Inpatient Medications Medications (Trade) Dose Ordered Sig/Raúl Route Start Time Stop Time Status Last Admin Dose Admin Ioversol (Optiray 320) 111 ml UD PRN IV 02/04/18 16:15 02/08/18 16:14 Acetaminophen (Tylenol Tab) 650 mg Q4H PRN PO 02/04/18 19:15 03/06/18 19:14 Al Hydrox/Mg Hydrox/Simethicone (Maalox Max Susp) 15 ml Q4H PRN PO 02/04/18 19:15 03/06/18 19:14 Magnesium Hydroxide (Milk Of Magnesia Susp) 30 ml Q6H PRN PO 02/04/18 19:15 03/06/18 19:14 Polyethylene (Miralax Powder Packet) 17 gm DAILY PRN PO 02/04/18 19:15 03/06/18 19:14 Ondansetron HCl (Zofran Inj) 4 mg Q6H PRN IV 02/04/18 19:15 03/06/18 19:14 Potassium Chloride/Sodium Chloride 1,000 ml @ 75 mls/hr [id number] IV 02/04/18 21:00 03/06/18 20:59 02/04/18 22:03 75 MLS/HR Hydromorphone HCl (Dilaudid Inj) 1 mg Q2HWA PRN IV 02/04/18 19:15 02/18/18 19:14 02/05/18 02:33 1 MG Fentanyl (Duragesic Patch) 50 mcg Q3D@2100 TD 02/04/18 21:00 02/18/18 20:59 02/04/18 21:35 50 MCG Ferrous Gluconate (Ferrous Gluconate Tab) 324 mg BIDM PO 02/05/18 08:00 03/07/18 07:59 Hydromorphone HCl (Dilaudid Tab) 2 mg QID PRN PO 02/04/18 19:15 02/18/18 19:14 02/05/18 02:43 2 MG Ondansetron HCl (Zofran Tab) 8 mg Q8 PRN PO 02/04/18 19:15 03/06/18 19:14 Ropinirole HCl (Requip Tab) 0.25 mg HS PO 02/04/18 21:00 03/06/18 20:59 02/04/18 21:37 0.25 MG Sertraline HCl (Zoloft Tab) 50 mg DAILY PO 02/05/18 08:00 03/07/18 08:59 Simethicone (Mylicon Chew Tab) 80 mg Q6H PRN PO 02/04/18 19:15 03/06/18 19:14 Miscellaneous (Fentanyl Patch Remove & Waste) 1 ea Q3D@2059 N/A 02/04/18 20:59 03/06/18 20:58 Miscellaneous Information (Check Fentanyl Patch Placement) 1 ea QS N/A 02/05/18 00:00 03/07/18 00:00 02/04/18 23:49 1 EA Vancomycin HCl (Vancomycin Oral Soln) 125 mg Q6H PO 02/05/18 06:00 02/15/18 05:59 02/05/18 06:18 125 MG Raspberry (Raspberry Syrup 5ml Cup) 5 ml Q6H PO 02/05/18 06:00 02/19/18 05:59 02/05/18 06:18 5 ML Objective Vital Signs Date Time Temp Pulse Resp B/P (MAP) Pulse Ox O2 Delivery O2 Flow Rate FiO2 02/05/18 04:24 36.7 106 18 115/72 (86) 96 Room Air 02/05/18 00:00 Room Air 02/04/18 20:43 36.6 103 18 126/88 (101) 99 Room Air 02/04/18 20:07 36.6 102 16 138/94 99 02/04/18 19:29 36.6 103 18 126/88 99 Room Air 02/04/18 19:23 102 16 138/94 99 Room Air 02/04/18 17:24 105 02/04/18 17:18 107 22 132/100 99 Room Air 02/04/18 15:30 36.6 126 20 118/87 98 Room Air Physical Exam Notes: General Appearance: Awake, alert & oriented, comfortable in general, cachetic, NAD. CV: +S1S2 regular but tachycardic, no murmur. Left upper mediport accessed. Pulm: Clear to auscultation throughout. Abdomen: + bowel sounds. In left verna-abdomen: Soft, non-tender, non- distended. LUQ ostomy in place, no surrounding erythema/edema, with gas + green stool in bag. In right verna-abdomen, much more firm particularly in RUQ, non-tender, non-distended. Extremities: Moving all extremities naturally and easily. 1+ bilateral pedal and pretibial edema. Neuro: No gross neuro deficits. Laboratory Results 02/05/18 05:51 Red Blood Count 3.87, Mean Corpuscular Volume 73.6, Mean Corpuscular Hemoglobin 23.5, Mean Corpuscular Hemoglobin Concent 31.9, Mean Platelet Volume 8.4, Neutrophils (%) (Auto) 87.1, Lymphocytes (%) (Auto) 2.2, Monocytes (%) (Auto) 8.6, Eosinophils (%) (Auto) 0.1, Basophils (%) (Auto) 0.2, Neutrophils # (Auto) 22.09, Lymphocytes # (Auto) 0.55, Monocytes # (Auto) 2.17, Eosinophils # (Auto) 0.03, Basophils # (Auto) 0.05 02/05/18 05:51 Test 02/04/18 16:33 02/04/18 17:03 02/04/18 17:10 02/04/18 19:21 Microcytosis PRESENT Echinocytes 1+ Prothrombin Time 14.5 SECONDS (9.0-12.0) Prothromb Time International Ratio 1.4 (0.9-1.1) Activated Partial Thromboplast Time 42.0 SECONDS (21.0-31.0) Partial Thromboplastin Ratio 1.6 Total Bilirubin 1.6 mg/dl (0.2-1) Direct Bilirubin 1.0 mg/dl (0-0.2) Aspartate Amino Transf (AST/SGOT) 252 U/L (15-37) Alanine Aminotransferase (ALT/SGPT) 140 U/L (12-78) Alkaline Phosphatase 727 U/L (45-117) Total Creatine Kinase 203 U/L (39-308) Total Protein 6.8 gm/dl (6.4-8.2) Albumin 2.3 gm/dl (3.4-5.0) Lipase 56 U/L (73-393) Venous Blood pH 7.34 (7.36-7.41) Venous Blood Partial Pressure CO2 40 mmHg (38.0-50.0) Venous Blood Partial Pressure O2 39 mmHg Venous Blood HCO3 21 mmol/L Venous Blood Oxygen Saturation 67.6 % Venous Blood Base Excess -4.4 mEq/L Ammonia < 10.0 umol/L (11-32) Influenza Type A Antigen Neg for Influ A (NEG) Influenza Type B Antigen Neg for Influ B (NEG) C-Reactive Protein 15.70 mg/dl (0-0.29) Test 02/04/18 21:50 02/04/18 22:45 02/05/18 05:51 Lactic Acid Level 1.1 mmol/L (0.4-2.0) Bedside Glucose 100 mg/dl (70-99) White Blood Count 25.34 K/uL (4.8-10.8) Red Blood Count 3.87 M/uL (4.7-6.1) Hemoglobin 9.1 g/dL (14.0-18.0) Hematocrit 28.5 % (42-52) Mean Corpuscular Volume 73.6 fL (80-100) Mean Corpuscular Hemoglobin 23.5 pg (25-34) Mean Corpuscular Hemoglobin Concent 31.9 g/dl (32-36) Platelet Count 425 K/uL (130-400) Mean Platelet Volume 8.4 fL (7.4-10.4) Neutrophils (%) (Auto) 87.1 % Lymphocytes (%) (Auto) 2.2 % Monocytes (%) (Auto) 8.6 % Eosinophils (%) (Auto) 0.1 % Basophils (%) (Auto) 0.2 % Neutrophils # (Auto) 22.09 K/uL (1.4-6.5) Lymphocytes # (Auto) 0.55 K/uL (1.2-3.4) Monocytes # (Auto) 2.17 K/uL (0.11-0.59) Eosinophils # (Auto) 0.03 K/uL (0-0.5) Basophils # (Auto) 0.05 K/uL (0-0.2) RDW Standard Deviation 52.0 fL (36.4-46.3) RDW Coefficient of Variation 19.8 % (11.5-14.5) Immature Granulocyte % (Auto) 1.8 % Immature Granulocyte # (Auto) 0.45 K/uL (0.00-0.02) Toxic Granulation 1+ Polychromasia 1+ Hypochromasia PRESENT Poikilocytosis PRESENT Anisocytosis PRESENT Anion Gap 10.0 mmol/L (3-11) Est Creatinine Clear Calc Drug Dose 53.7 ml/min Estimated GFR () 78.6 Estimated GFR (Non- 67.8 BUN/Creatinine Ratio 28.3 (10-20) Calcium Level 8.7 mg/dl (8.5-10.1) Date/Time Source Procedure Growth Status 02/05/18 00:00 Stool C.difficile Toxin B Gene (PCR) - Final Positive for C. difficile toxin B gene Complete Assessment and Plan 27 yo male admitted on [id number] for altered mental status. PMH: Metastatic colon cancer to liver, hydronephrosis, malnutrition. PSH: Diverting colostomy, ureteral stents, MediPort. Altered mental status: Related to metabolic encephalopathy from hyponatremic dehydration (see below). Presently AMS has resolved. Apr CT head noted nothing acute. Hyponatremic dehydration: Likely due to combo acute diarrhea and poor PO intake. Min Na 120, since improving. Provided initial IVF boluses and follow- on drip. Monitoring for proper Na correction rate. Oral thrush: As noted on exam. 03Apr started nystatin suspension and magic mouthwash prn. C diff diarrhea: Positive for same on Apr, started on vancomycin PO same date. Leukocytosis: Max WBC 28, likely combination due to C diff and demargination from dehydration. Lactate from 2.1 to 1.1 s/p IVF. MAIDA: Current Cr 1.41 (max 1.72), likely related to his dehydration. Improving. Has history of right hydroureteronephrosis as well. Bilateral lower extremity edema: Likely combination of venous stasis due to abdominal metastatic disease in combination with poor nutrition. Metastatic colon cancer: - Moderate to severe protein calorie malnutrition: Poor appetite overall. Working to encourage same. - Upper abdominal mass/firmness: Multiple hepatic masses on 02Apr CT a/p. No noted ductal issues. - Pulmonary nodules: Seen on 02Apr CT a/p. Cannot exclude metastatic disease. - Anemia: Hb 9.1, down acutely from 9.8, likely dilutional. Monitoring. - Anxiety: Patient says particularly at night due to 'thinking' about things. Rx'ed ativan prn anxiety. Acute overall plan: Consult palliative care (please see their note). Patient signed POLST form with them. Patient is also pursuing opinions in [place]. Code status: DNR. Diet: Regular. DVT prophy: SCD's. Chemical prophy contraindicated due to GI bleeding risk and baseline anemia. PT/OT: Deferred. Disbo: Admit to med/surg. Resident Physician Supervision Note: I interviewed and examined the patient. Discussed with Dr. Cortez and agree with findings and plan as documented in the note. Any exceptions or clarifications are listed here: None Documented By: Ammon Mcbride feeling better doing better eating and drinking better vitals noted nad breathing unlabored no pallor or icterus, abdominal exam similar to last night metastatic colon cancer cdiff colitis w resultant hyponatremic dehydration encephalopathy due to hyponatremia resolved thrush ARF venous stasis edema (likely from hepatic mets causing back pressure and malnutrition causing low oncotic pressure) ---improving - continue current care, hopefully home tomorrow. ongoing discussions of goals of care, right now he expresses a desire to just take care of today's problems and worry about what comes next after, although did want DNR status and filled out advanced directives paperwork Resident Tracking Resident Involvement: Resident Care Provided Care Provided: Adult Hospital Medicine (inpatient)
[2018-02-05 07:52] VITALS: BP 123/78; PULSE 106; TEMP 36.5; O2SAT 97
[2018-02-05] MEDS ORDERED: NON-FORMULARY MEDICATION (Probiotic Product (Align) 4 MG) PO SCH (08:00)
[2018-02-05] MEDS: CHECK FENTANYL PATCH PLACEMENT SCH ×3 (08:10→23:25)
[2018-02-05] MEDS: FERROUS GLUCONATE 324 MG TAB PO SCH ×2 (08:11→16:30)
[2018-02-05] MEDS: SERTRALINE HCL 50 MG TAB PO SCH (08:11)
[2018-02-05] MEDS: NSS + 20MEQ KCL 1000ML 1,000 ML IV SCH ×2 (10:52→23:22)
[2018-02-05 11:32] VITALS: BP 118/76; PULSE 71; TEMP 36.5; O2SAT 97
--- NOTE | 2018-02-05 13:13 | Palliative Care Consultation ---
Consultation Date of Consultation: Feb 05, 2018. Requesting Physician: Dr. Mcbride Attending Physician: Dr. Mcbride Reason for Consultation: Goals of Care History of Present Illness Pt is a 27 year male known to the Palliative Care Consult Service from previous admissions. Patient has metastatic colorectal CA. He presented to the hospital with mental status changes which have been contributing from hyponatremia (120) and a creatinine of 1.7. Additional labs resulted in leukocytosis with a WBC elevation in the low 20k. A stool sample was obtained as mucousy malodorous stool was noted and it tested positive for CDiff. Lengthy discussion was held with patient, patient daren, and patient mother, Tisha, regarding goals of care and Hospice. Patient has stated that he does not want to come back to the hospital, but then further on in discussion states he wants to live as long as he can. Myself and case management discussed hospice options for him and pt and family will decide this afternoon which hospice to proceed with. We discussed that hospice benefit can be terminated at any time. I would like to speak with patient tomorrow / without family in the room as it appears there may be some dynamic and influence of his decisions from them. Past Medical/Surgical History Medical History: metastatic colorectal ca hyponatremia mental status changes cancer related pain Social History Smoking Status: Former Smoker History of Alcohol Use: No Drug Use: none Marital Status: in relationship Housing Status: lives with family Occupation Status: disabled Review of Systems Constitutional: No see HPI, No fever, No chills, No sweats, No weight loss, No weakness, No fatigue, No problem reported Eyes: No see HPI, No worsening of vision, No eye pain, No redness, No discharge , No diplopia, No problem reported ENT: + sore throat (pt with sore throat on right side when swallowing) Respiratory: No see HPI, No cough, No sputum, No wheezing, No shortness of breath, No dyspnea on exertion, No dyspnea at rest, No hemoptysis, No problem reported Cardiac: + edema (B/L +2 LE edema) Abdomen: + problem reported (lower abdominal pain and stool from colostomy mucousy and malodorous) Musculoskeletal: No see HPI, No joint pain, No muscle pain, No swelling, No calf pain, No problem reported Male : No see HPI, No dysuria, No urinary frequency, No incontinence, No nocturia more than once/night, No slowing stream, No hematuria, No sexual dysfunction, No problem reported Neurologic: No see HPI, No memory loss, No paralysis, No weakness, No numbness/ tingling, No vertigo, No balance problems, No problem reported Psychiatric: + insomnia (pt states he tosses and turns at night and is thinking about life but is not uncomfortable) Heme: No see HPI, No abnormal bleeding/bruising, No clotting problems, No swollen lymph nodes, No night sweats, No problem reported Endo: + excessive thirst (has dry mouth) Allergies Coded Allergies: Cranberry Extract (Verified Allergy, Severe, HIVES, 02/04/18) Oxaliplatin (Verified Allergy, Severe, THROAT CLOSING, 02/04/18) Lactose Intolerance (GI) (Verified Allergy, Unknown, UNKNOWN, 02/04/18) Medications Current Inpatient Medications Medications (Trade) Dose Ordered Sig/Raúl Route Start Time Stop Time Status Last Admin Dose Admin Ioversol (Optiray 320) 111 ml UD PRN IV 02/04/18 16:15 02/08/18 16:14 Acetaminophen (Tylenol Tab) 650 mg Q4H PRN PO 02/04/18 19:15 03/06/18 19:14 Al Hydrox/Mg Hydrox/Simethicone (Maalox Max Susp) 15 ml Q4H PRN PO 02/04/18 19:15 03/06/18 19:14 Magnesium Hydroxide (Milk Of Magnesia Susp) 30 ml Q6H PRN PO 02/04/18 19:15 03/06/18 19:14 Polyethylene (Miralax Powder Packet) 17 gm DAILY PRN PO 02/04/18 19:15 03/06/18 19:14 Ondansetron HCl (Zofran Inj) 4 mg Q6H PRN IV 02/04/18 19:15 03/06/18 19:14 Potassium Chloride/Sodium Chloride 1,000 ml @ 75 mls/hr [id number] IV 02/04/18 21:00 03/06/18 20:59 02/05/18 10:52 75 MLS/HR Hydromorphone HCl (Dilaudid Inj) 1 mg Q2HWA PRN IV 02/04/18 19:15 02/18/18 19:14 02/05/18 08:03 1 MG Fentanyl (Duragesic Patch) 50 mcg Q3D@2100 TD 02/04/18 21:00 02/18/18 20:59 02/04/18 21:35 50 MCG Ferrous Gluconate (Ferrous Gluconate Tab) 324 mg BIDM PO 02/05/18 08:00 03/07/18 07:59 02/05/18 08:11 324 MG Hydromorphone HCl (Dilaudid Tab) 2 mg QID PRN PO 02/04/18 19:15 02/18/18 19:14 02/05/18 02:43 2 MG Ondansetron HCl (Zofran Tab) 8 mg Q8 PRN PO 02/04/18 19:15 03/06/18 19:14 Ropinirole HCl (Requip Tab) 0.25 mg HS PO 02/04/18 21:00 03/06/18 20:59 02/04/18 21:37 0.25 MG Sertraline HCl (Zoloft Tab) 50 mg DAILY PO 02/05/18 08:00 03/07/18 08:59 02/05/18 08:11 50 MG Simethicone (Mylicon Chew Tab) 80 mg Q6H PRN PO 02/04/18 19:15 03/06/18 19:14 Miscellaneous (Fentanyl Patch Remove & Waste) 1 ea Q3D@2059 N/A 02/04/18 20:59 03/06/18 20:58 Miscellaneous Information (Check Fentanyl Patch Placement) 1 ea QS N/A 02/05/18 00:00 03/07/18 00:00 02/05/18 08:10 1 EA Vancomycin HCl (Vancomycin Oral Soln) 125 mg Q6H PO 02/05/18 06:00 02/15/18 05:59 02/05/18 12:40 125 MG Raspberry (Raspberry Syrup 5ml Cup) 5 ml Q6H PO 02/05/18 06:00 02/19/18 05:59 02/05/18 12:40 5 ML Nystatin (Mycostatin Susp) 5 ml QID PO 02/05/18 17:00 02/15/18 16:59 Dexamethasone/ Nystatin/ Diphenhydramine HCl/Sucrose/ Microcrystalline Cellulose/Barcode TIDM PO 02/05/18 17:00 03/07/18 16:59 Physical Exam Date Time Temp Pulse Resp B/P (MAP) Pulse Ox O2 Delivery O2 Flow Rate FiO2 02/05/18 11:32 36.5 71 15 118/76 (90) 97 02/05/18 08:30 Room Air 02/05/18 07:52 36.5 106 15 123/78 (93) 97 Room Air 02/05/18 04:24 36.7 106 18 115/72 (86) 96 Room Air 02/05/18 00:00 Room Air 02/04/18 20:43 36.6 103 18 126/88 (101) 99 Room Air 02/04/18 20:07 36.6 102 16 138/94 99 02/04/18 19:29 36.6 103 18 126/88 99 Room Air 02/04/18 19:23 102 16 138/94 99 Room Air 02/04/18 17:24 105 02/04/18 17:18 107 22 132/100 99 Room Air 02/04/18 15:30 36.6 126 20 118/87 98 Room Air General Appearance: no apparent distress Eyes: normal inspection, PERRL ENT: + pertinent finding (white patches noted on tongue) Respiratory: lungs clear, normal breath sounds, no accessory muscle use Cardiovascular: regular rate, rhythm, + normal peripheral pulses, + pertinent finding (B/L LE edema ) Abdomen: normal bowel sounds, + distended, + pertinent finding (firm lower abdomen related to frail stature and tumor growth) Musculoskeletal: normal strength (5/5 throughout) Neurologic/Psychiatric: alert, oriented x 3 Skin: warm/dry Laboratory Results Last 24 Hours Test 02/04/18 16:33 02/04/18 17:03 02/04/18 17:10 02/04/18 19:21 White Blood Count 28.60 K/uL Red Blood Count 4.14 M/uL Hemoglobin 9.8 g/dL Hematocrit 29.8 % Mean Corpuscular Volume 72.0 fL Mean Corpuscular Hemoglobin 23.7 pg Mean Corpuscular Hemoglobin Concent 32.9 g/dl Platelet Count 535 K/uL Mean Platelet Volume 8.9 fL Neutrophils (%) (Auto) 86.8 % Lymphocytes (%) (Auto) 2.0 % Monocytes (%) (Auto) 8.4 % Eosinophils (%) (Auto) 0.0 % Basophils (%) (Auto) 0.2 % Neutrophils # (Auto) 24.85 K/uL Lymphocytes # (Auto) 0.56 K/uL Monocytes # (Auto) 2.39 K/uL Eosinophils # (Auto) 0.01 K/uL Basophils # (Auto) 0.05 K/uL RDW Standard Deviation 52.0 fL RDW Coefficient of Variation 19.9 % Immature Granulocyte % (Auto) 2.6 % Immature Granulocyte # (Auto) 0.74 K/uL Polychromasia 1+ Microcytosis PRESENT Echinocytes 1+ Prothrombin Time 14.5 SECONDS Prothromb Time International Ratio 1.4 Activated Partial Thromboplast Time 42.0 SECONDS Partial Thromboplastin Ratio 1.6 Sodium Level 120 mmol/L 121 mmol/L Potassium Level 4.9 mmol/L 4.8 mmol/L Chloride Level 88 mmol/L 91 mmol/L Carbon Dioxide Level 18 mmol/L 18 mmol/L Anion Gap 14.0 mmol/L 12.0 mmol/L Blood Urea Nitrogen 50 mg/dl 46 mg/dl Creatinine 1.72 mg/dl 1.62 mg/dl Est Creatinine Clear Calc Drug Dose 43.5 ml/min 46.2 ml/min Estimated GFR () 61.8 66.4 Estimated GFR (Non- 53.3 57.3 BUN/Creatinine Ratio 29.1 28.1 Random Glucose 74 mg/dl 69 mg/dl Lactic Acid Level 2.2 mmol/L Calcium Level 9.0 mg/dl 8.6 mg/dl Total Bilirubin 1.6 mg/dl Direct Bilirubin 1.0 mg/dl Aspartate Amino Transf (AST/SGOT) 252 U/L Alanine Aminotransferase (ALT/SGPT) 140 U/L Alkaline Phosphatase 727 U/L Total Creatine Kinase 203 U/L Total Protein 6.8 gm/dl Albumin 2.3 gm/dl Lipase 56 U/L Venous Blood pH 7.34 Venous Blood Partial Pressure CO2 40 mmHg Venous Blood Partial Pressure O2 39 mmHg Venous Blood HCO3 21 mmol/L Venous Blood Oxygen Saturation 67.6 % Venous Blood Base Excess -4.4 mEq/L Ammonia < 10.0 umol/L Influenza Type A Antigen Neg for Influ A Influenza Type B Antigen Neg for Influ B C-Reactive Protein 15.70 mg/dl Test 02/04/18 21:50 02/04/18 22:45 02/05/18 05:51 4/3/18 08:20 Lactic Acid Level 1.1 mmol/L Bedside Glucose 100 mg/dl White Blood Count 25.34 K/uL Red Blood Count 3.87 M/uL Hemoglobin 9.1 g/dL Hematocrit 28.5 % Mean Corpuscular Volume 73.6 fL Mean Corpuscular Hemoglobin 23.5 pg Mean Corpuscular Hemoglobin Concent 31.9 g/dl Platelet Count 425 K/uL Mean Platelet Volume 8.4 fL Neutrophils (%) (Auto) 87.1 % Lymphocytes (%) (Auto) 2.2 % Monocytes (%) (Auto) 8.6 % Eosinophils (%) (Auto) 0.1 % Basophils (%) (Auto) 0.2 % Neutrophils # (Auto) 22.09 K/uL Lymphocytes # (Auto) 0.55 K/uL Monocytes # (Auto) 2.17 K/uL Eosinophils # (Auto) 0.03 K/uL Basophils # (Auto) 0.05 K/uL RDW Standard Deviation 52.0 fL RDW Coefficient of Variation 19.8 % Immature Granulocyte % (Auto) 1.8 % Immature Granulocyte # (Auto) 0.45 K/uL Toxic Granulation 1+ Polychromasia 1+ Hypochromasia PRESENT Poikilocytosis PRESENT Anisocytosis PRESENT Sodium Level 125 mmol/L Potassium Level 4.9 mmol/L Chloride Level 95 mmol/L Carbon Dioxide Level 20 mmol/L Anion Gap 10.0 mmol/L Blood Urea Nitrogen 40 mg/dl Creatinine 1.41 mg/dl Est Creatinine Clear Calc Drug Dose 53.7 ml/min Estimated GFR () 78.6 Estimated GFR (Non- 67.8 BUN/Creatinine Ratio 28.3 Random Glucose 69 mg/dl Calcium Level 8.7 mg/dl Urine Color YELLOW Urine Appearance CLEAR Urine pH 5.0 [address]rine Specific [place] 1.019 Urine Protein TRACE Urine Glucose (UA) NEG Urine Ketones 1+ Urine Occult Blood NEG Urine Nitrite NEG Urine Bilirubin NEG Urine Urobilinogen NEG Urine Leukocyte Esterase NEG Urine WBC (Auto) 1-5 /hpf Urine RBC (Auto) 0-4 /hpf Urine Hyaline Casts (Auto) 5-10 /lpf Urine Epithelial Cells (Auto) 10-20 /lpf Urine Bacteria (Auto) NEG Urine Pathogenic Casts 20-30 GRANULAR CASTS /lpf Urine Yeast (Auto) Assessment & Plan Palliative Performance Scale: 50 % Goals of care Metastatic colorectal ca Hyponatremia Thrush C-Diff Goals of care: - lengthy discussion held with patient, fiance, and family - plan for case management to follow up with which hospice agency they are choosing - patient would like to have a living will started, prior to discharge. We can print 5 wishes document for him - POLST form signed and is on the chart Metastatic colorectal CA: -Edema associated with progressing disease - Suggest knee high compression stockings Hyponatremia: -Resolving -Mental status has improved Thrush -Suggest starting Nystatin swish and swallow as this may have extended into his esophagus I thank you kindly for this consult and will follow with this pleasant patient and assist accordingly Total time spent 50 minutes with > 75% of this time at the bedside discussing goals of care, filling out a POLST form and discussing plan of care with patient , fiance, and pt mother.
[2018-02-05] MEDS ORDERED: LORAZEPAM 2 MG/ML 1 ML VIAL IV PRN (14:30)
[2018-02-05] MEDS ORDERED: NURSING DECISION MEDICATION ORDER SCH (14:45)
[2018-02-05] MEDS ORDERED: LORAZEPAM INJ 1 MG in SYRINGE 0.5 ML IV PRN (14:45)
[2018-02-05] MEDS ORDERED: COUGH DROP (SUGAR FREE) LOZ 24 LOZ/1 BOX LOZ ONE (14:47)
[2018-02-05] MEDS ORDERED: COUGH DROP (SUGAR FREE) LOZ 24 LOZ/1 BOX LOZ PRN (15:15)
[2018-02-05 15:36] VITALS: BMI 15.7
[2018-02-05 15:58] VITALS: BP 111/75; PULSE 99; TEMP 36.5; O2SAT 100
[2018-02-05] MEDS ORDERED: TRIAMCINOLONE ACET 0.1% OINT 15 GM TUBE EXT PRN (16:00)
[2018-02-05] MEDS: NYSTATIN SUSP 500,000 U/5 ML UDC PO SCH ×2 (16:30→20:05)
[2018-02-05] MEDS: DEXAMETHASONE CONC SOLN 3.75 MG, NYSTATIN SUSP 30 ML, DiphenhydrAMINE HCL SYRUP 300 MG,... PO SCH ×5 (16:34)
[2018-02-05] MEDS ORDERED: MAGIC MOUTHWASH PO SCH (17:00)
[2018-02-05 19:20] VITALS: BP 113/77; PULSE 106; TEMP 36.7; O2SAT 95
[2018-02-05] MEDS: ROPINIROLE HCL 0.25 MG TAB PO SCH (20:05)
[2018-02-05 23:19] VITALS: BP 119/77; PULSE 113; TEMP 37; O2SAT 99
[2018-02-06] VITALS (11 sets, daily range): BP systolic 117–133; BP diastolic 77–91; PULSE 94–116; TEMP 36.5–37.1; O2SAT 92–99; Ht 175.3 cm; Wt 49.0 kg
[2018-02-06] MEDS: HYDROmorphone INJ 2 MG/ML SYR/VIAL IV PRN ×5 (03:18→18:36)
[2018-02-06 05:37] LABS: HEMATOCRIT 26.1 % (42-52); HEMOGLOBIN 8.4 g/dL (14.0-18.0); MEAN CELL VOLUME 73.9 fL (80-100); MEAN CORPUSCULAR HEMOGLOBIN 23.8 pg (25-34); MEAN CORPUSCULAR HGB CONC 32.2 g/dl (32-36); MEAN PLATELET VOLUME 8.4 fL (7.4-10.4); PLATELET COUNT 350 K/uL (130-400); RED CELL DISTRIBUTION WIDTH CV 20.6 % (11.5-14.5); RED CELL DISTRIBUTION WIDTH SD 54.1 fL (36.4-46.3); WHITE BLOOD COUNT 24.14 K/uL (4.8-10.8)
[2018-02-06] MEDS: VANCOMYCIN HCL 125 MG/2.5ML SOLN PO SCH ×3 (05:37→17:10)
[2018-02-06] MEDS: RASPBERRY SYRUP 5 ML UDP PO SCH ×3 (05:37→17:11)
[2018-02-06] MEDS: HYDROmorphone HCL 2 MG TAB PO PRN (05:38)
[2018-02-06 06:07] LABS: BASO % 0.2 %; BASO ABS # 0.04 K/uL (0-0.2); EOS % 0.2 %; EOS ABS # 0.05 K/uL (0-0.5); IG# 0.43 K/uL (0.00-0.02); LYMPH % 2.2 %; LYMPH ABS # 0.52 K/uL (1.2-3.4); MONO % 8.7 %; MONO ABS # 2.11 K/uL (0.11-0.59); NEUT % 86.9 %; NEUT ABS # 20.99 K/uL (1.4-6.5)
[2018-02-06 06:21] LABS: ALBUMIN 1.9 gm/dl (3.4-5.0); CALCIUM 8.6 mg/dl (8.5-10.1); POTASSIUM 4.8 mmol/L (3.5-5.1); TOTAL PROTEIN 5.9 gm/dl (6.4-8.2)
--- NOTE | 2018-02-06 08:03 | Family Medicine Progress Note ---
Progress Note Date of Service Feb 06, 2018. Subjective Found patient awake, sitting up in bed. Says that the ativan last night for sleep helped a great deal. Overall says he feels unchanged from yesterday, with the same 3-4/10 abdominal discomfort, but that the magic mouthwash helped with the oral thrush. No particular acute patient medical concerns. Constitutional: No fever, No chills ENT: + problem reported (thrush) Respiratory: No cough, No shortness of breath Cardiovascular: + edema (resolving), No chest pain Abdomen: + pain, + diarrhea, No nausea, No vomiting Medications Current Inpatient Medications Medications (Trade) Dose Ordered Sig/Raúl Route Start Time Stop Time Status Last Admin Dose Admin Ioversol (Optiray 320) 111 ml UD PRN IV 02/04/18 16:15 02/08/18 16:14 Acetaminophen (Tylenol Tab) 650 mg Q4H PRN PO 02/04/18 19:15 03/06/18 19:14 Al Hydrox/Mg Hydrox/Simethicone (Maalox Max Susp) 15 ml Q4H PRN PO 02/04/18 19:15 03/06/18 19:14 Magnesium Hydroxide (Milk Of Magnesia Susp) 30 ml Q6H PRN PO 02/04/18 19:15 03/06/18 19:14 Polyethylene (Miralax Powder Packet) 17 gm DAILY PRN PO 02/04/18 19:15 03/06/18 19:14 Ondansetron HCl (Zofran Inj) 4 mg Q6H PRN IV 02/04/18 19:15 03/06/18 19:14 02/05/18 19:58 4 MG Potassium Chloride/Sodium Chloride 1,000 ml @ 75 mls/hr [id number] IV 02/04/18 21:00 03/06/18 20:59 02/05/18 23:22 75 MLS/HR Hydromorphone HCl (Dilaudid Inj) 1 mg Q2HWA PRN IV 02/04/18 19:15 02/18/18 19:14 02/06/18 03:18 1 MG Fentanyl (Duragesic Patch) 50 mcg Q3D@2100 TD 02/04/18 21:00 02/18/18 20:59 02/04/18 21:35 50 MCG Ferrous Gluconate (Ferrous Gluconate Tab) 324 mg BIDM PO 02/05/18 08:00 03/07/18 07:59 02/05/18 16:30 324 MG Hydromorphone HCl (Dilaudid Tab) 2 mg QID PRN PO 02/04/18 19:15 02/18/18 19:14 02/06/18 05:38 2 MG Ondansetron HCl (Zofran Tab) 8 mg Q8 PRN PO 02/04/18 19:15 03/06/18 19:14 Ropinirole HCl (Requip Tab) 0.25 mg HS PO 02/04/18 21:00 03/06/18 20:59 02/05/18 20:05 0.25 MG Sertraline HCl (Zoloft Tab) 50 mg DAILY PO 02/05/18 08:00 03/07/18 08:59 02/05/18 08:11 50 MG Simethicone (Mylicon Chew Tab) 80 mg Q6H PRN PO 02/04/18 19:15 03/06/18 19:14 Miscellaneous (Fentanyl Patch Remove & Waste) 1 ea Q3D@2058 N/A 02/04/18 20:59 03/06/18 20:58 Miscellaneous Information (Check Fentanyl Patch Placement) 1 ea QS N/A 02/05/18 00:00 03/07/18 00:00 02/05/18 23:25 1 EA Vancomycin HCl (Vancomycin Oral Soln) 125 mg Q6H PO 02/05/18 06:00 02/15/18 05:59 02/06/18 05:37 125 MG Raspberry (Raspberry Syrup 5ml Cup) 5 ml Q6H PO 02/05/18 06:00 02/19/18 05:59 02/06/18 05:37 5 ML Nystatin (Mycostatin Susp) 5 ml QID PO 02/05/18 17:00 02/15/18 16:59 02/05/18 20:05 5 ML Dexamethasone/ Nystatin/ Diphenhydramine HCl/Sucrose/ Microcrystalline Cellulose/Barcode TIDM PO 02/05/18 17:00 03/07/18 16:59 02/05/18 16:34 5 ML Lorazepam (Ativan Inj) 1 mg QPM PRN IV 02/05/18 14:30 03/07/18 14:29 Lorazepam 1 mg/ Syringe 1 ml @ 1 mls/min QPM PRN IV 02/05/18 14:45 03/07/18 14:44 Menthol (Nice Eloina) 1 eloina PRN PRN ELOINA 02/05/18 15:15 03/07/18 15:14 Triamcinolone Acetonide (Kenalog 0.1% Oint) 1 appln TID PRN EXT 02/05/18 16:00 03/07/18 15:59 02/05/18 17:28 1 APPLN Objective Vital Signs Date Time Temp Pulse Resp B/P (MAP) Pulse Ox O2 Delivery O2 Flow Rate FiO2 02/06/18 07:23 36.8 102 19 130/78 (95) 98 02/06/18 03:41 36.8 107 20 133/79 (97) 98 Room Air 02/06/18 00:00 Room Air 02/05/18 23:19 37.0 113 18 119/77 (91) 99 Room Air 02/05/18 19:20 36.7 106 16 113/77 (89) 95 Room Air 02/05/18 16:00 Room Air 02/05/18 15:58 36.5 99 16 111/75 (87) 100 Room Air 02/05/18 11:32 36.5 71 15 118/76 (90) 97 02/05/18 08:30 Room Air Physical Exam Notes: General Appearance: Awake, alert & oriented, comfortable in general, cachetic, NAD. Mouth: Mild oral thrush. Mild eczema-like rash pancho-orally. CV: +S1S2 regular but tachycardic, no murmur. Left upper mediport accessed. Pulm: Clear to auscultation throughout. Abdomen: + bowel sounds. In left verna-abdomen: Soft, non-tender, non- distended. LUQ ostomy in place, no surrounding erythema/edema, with gas + green stool in bag. In right verna-abdomen, much more firm particularly in RUQ, non-tender, non-distended. [Exam unchanged from yesterday.] Extremities: Moving all extremities naturally and easily. Trace bilateral pedal and pretibial edema (improved from yesterday). Neuro: No gross neuro deficits. Laboratory Results 02/06/18 05:03 Red Blood Count 3.53, Mean Corpuscular Volume 73.9, Mean Corpuscular Hemoglobin 23.8, Mean Corpuscular Hemoglobin Concent 32.2, Mean Platelet Volume 8.4, Neutrophils (%) (Auto) 86.9, Lymphocytes (%) (Auto) 2.2, Monocytes (%) (Auto) 8.7, Eosinophils (%) (Auto) 0.2, Basophils (%) (Auto) 0.2, Neutrophils # (Auto) 20.99, Lymphocytes # (Auto) 0.52, Monocytes # (Auto) 2.11, Eosinophils # (Auto) 0.05, Basophils # (Auto) 0.04 02/06/18 05:03 Test 02/05/18 08:20 02/06/18 05:03 Urine Color YELLOW Urine Appearance CLEAR (CLEAR) Urine pH 5.0 (4.5-7.5) Urine Specific Widen 1.019 (1.000-1.030) Urine Protein TRACE (NEG) Urine Glucose (UA) NEG (NEG) Urine Ketones 1+ (NEG) Urine Occult Blood NEG (NEG) Urine Nitrite NEG (NEG) Urine Bilirubin NEG (NEG) Urine Urobilinogen NEG (NEG) Urine Leukocyte Esterase NEG (NEG) Urine WBC (Auto) 1-5 /hpf (0-5) Urine RBC (Auto) 0-4 /hpf (0-4) Urine Hyaline Casts (Auto) 5-10 /lpf (0-5) Urine Epithelial Cells (Auto) 10-20 /lpf (0-5) Urine Bacteria (Auto) NEG (NEG) Urine Pathogenic Casts 20-30 GRANULAR CASTS /lpf (0) Urine Yeast (Auto) (NONE PRSENT) White Blood Count 24.14 K/uL (4.8-10.8) Red Blood Count 3.53 M/uL (4.7-6.1) Hemoglobin 8.4 g/dL (14.0-18.0) Hematocrit 26.1 % (42-52) Mean Corpuscular Volume 73.9 fL (80-100) Mean Corpuscular Hemoglobin 23.8 pg (25-34) Mean Corpuscular Hemoglobin Concent 32.2 g/dl (32-36) Platelet Count 350 K/uL (130-400) Mean Platelet Volume 8.4 fL (7.4-10.4) Neutrophils (%) (Auto) 86.9 % Lymphocytes (%) (Auto) 2.2 % Monocytes (%) (Auto) 8.7 % Eosinophils (%) (Auto) 0.2 % Basophils (%) (Auto) 0.2 % Neutrophils # (Auto) 20.99 K/uL (1.4-6.5) Lymphocytes # (Auto) 0.52 K/uL (1.2-3.4) Monocytes # (Auto) 2.11 K/uL (0.11-0.59) Eosinophils # (Auto) 0.05 K/uL (0-0.5) Basophils # (Auto) 0.04 K/uL (0-0.2) RDW Standard Deviation 54.1 fL (36.4-46.3) RDW Coefficient of Variation 20.6 % (11.5-14.5) Immature Granulocyte % (Auto) 1.8 % Immature Granulocyte # (Auto) 0.43 K/uL (0.00-0.02) Toxic Granulation OCCASIONAL Toxic Vacuolation OCCASIONAL Hypochromasia PRESENT Anisocytosis PRESENT Anion Gap 8.0 mmol/L (3-11) Est Creatinine Clear Calc Drug Dose 76.9 ml/min Estimated GFR () 119.0 Estimated GFR (Non- 102.7 BUN/Creatinine Ratio 26.6 (10-20) Calcium Level 8.6 mg/dl (8.5-10.1) Total Bilirubin 1.6 mg/dl (0.2-1) Aspartate Amino Transf (AST/SGOT) 243 U/L (15-37) Alanine Aminotransferase (ALT/SGPT) 109 U/L (12-78) Alkaline Phosphatase 783 U/L (45-117) Total Protein 5.9 gm/dl (6.4-8.2) Albumin 1.9 gm/dl (3.4-5.0) Globulin 4.0 gm/dl (2.5-4.0) Albumin/Globulin Ratio 0.5 (0.9-2) Assessment and Plan IN PROGRESS 27 yo male admitted on [id number] for altered mental status. PMH: Metastatic colon cancer to liver, hydronephrosis, malnutrition. PSH: Diverting colostomy, ureteral stents, MediPort. Altered mental status: Related to metabolic encephalopathy from hyponatremic dehydration (see below). Presently AMS has resolved. 02Apr CT head noted nothing acute. Hyponatremic dehydration: Likely due to combo acute diarrhea and poor PO intake. Min Na 120, since improving. Provided initial IVF boluses and follow- on drip. Monitoring for proper Na correction rate. Oral thrush and perioral rash: As noted on exam. 03Apr started nystatin suspension and magic mouthwash prn. For mild eczema-like rash, started triamcinolone prn. C diff diarrhea: Positive for same on 03Apr, started on vancomycin PO same date. Anemia: Hb 8.4, down acutely from 9.8, likely dilutional, but patient does have a history of GI bleeds. Patient says himself he does not have any abdominal pain similar to when he had a bleed before. No overtly dark solids in the ostomy fluid. Monitoring. Leukocytosis: Max WBC 28, likely combination due to C diff and demargination from dehydration. Lactate from 2.1 to 1.1 s/p IVF. MAIDA: Current Cr 1.41 (max 1.72), likely related to his dehydration. Improving. Has history of right hydroureteronephrosis as well. Bilateral lower extremity edema: Likely combination of venous stasis due to abdominal metastatic disease in combination with poor nutrition. Somewhat improved this morning. May continue to improve with ambulation. Metastatic colon cancer: - Moderate to severe protein calorie malnutrition: Poor appetite overall. Working to encourage same. - Upper abdominal mass/firmness: Multiple hepatic masses on 02Apr CT a/p. No noted ductal issues. - Pulmonary nodules: Seen on 02Apr CT a/p. Cannot exclude metastatic disease. - Anxiety: Patient says particularly at night due to 'thinking' about things. Rx'ed ativan prn anxiety. Acute overall plan: Consult palliative care (please see their note). Patient signed POLST form with them. Patient is also pursuing opinions in [place]. Code status: DNR. Diet: Regular. DVT prophy: SCD's. Chemical prophy contraindicated due to GI bleeding risk and baseline anemia. PT/OT: Deferred. Disbo: Admit to med/surg. Resident Tracking Resident Involvement: Resident Care Provided Care Provided: Adult Hospital Medicine (inpatient)
[2018-02-06] MEDS: DEXAMETHASONE CONC SOLN 3.75 MG, NYSTATIN SUSP 30 ML, DiphenhydrAMINE HCL SYRUP 300 MG,... PO SCH ×15 (08:07→17:12)
[2018-02-06] MEDS: SERTRALINE HCL 50 MG TAB PO SCH (08:07)
[2018-02-06] MEDS: FERROUS GLUCONATE 324 MG TAB PO SCH ×2 (08:07→17:13)
[2018-02-06] MEDS: NYSTATIN SUSP 500,000 U/5 ML UDC PO SCH ×3 (08:07→17:13)
[2018-02-06] MEDS: CHECK FENTANYL PATCH PLACEMENT SCH ×2 (08:07→15:53)
[2018-02-06] MEDS: NSS + 20MEQ KCL 1000ML 1,000 ML IV SCH (11:37)
--- NOTE | 2018-02-06 11:58 | Palliative Care Progress Note ---
Palliative Care Progress Note Date of Service Feb 06, 2018. Subjective Pt evaluation today including: conversation w/ patient, physical exam Pain: 210 PO Intake: pt tolerated his breakfast and had an appetite Voiding: no voiding problems Pt seen and evaluated with Samantha from Case Management. Patient was alone in the room and seemed pleasant. Pt stated that he was able to rest well last night with the Ativan that was ordered and his thoughts were not racing. Pt stated that he was able to review hospice options presented yesterday and he has decided to proceed with [facility]. We reiterated that Hospice can be stopped if he would improve to the point where a treatment option would be available. He stated he would like to go next week to [place] for another opinion, but wants to proceed with Hospice at this time. The swelling in his legs have significantly improved from yesterday and his abdomen was much less rigid and firm from yesterday as well. He did comment that he lives in a 2 story home and his bedroom is in the basement with steps while the bathroom is on the main floor. He stated he currently does not have any difficulty with steps, but we stated that if he would find to have a need for a bedside commode or hospital bed that Hospice can arrange that. He did express that he feels ' good' about moving forward with Hospice at home. He has the expectation that he may be discharged today which is supported by Palliative Care as well. All questions were answered and he was made aware to contact us as needed while in the hospital. Review of Systems Constitutional: No see HPI, No fever, No chills, No sweats, No weight loss, No weakness, No fatigue, No problem reported ENT: + problem reported (pain with swallowing improving) Respiratory: No see HPI, No cough, No sputum, No wheezing, No shortness of breath, No dyspnea on exertion, No dyspnea at rest, No hemoptysis, No problem reported Cardiac: No see HPI, No chest pain, No orthopnea, No PND, No edema, No claudication, No palpitations, No problem reported Abdomen: + problem reported (abdominal firmness) Musculoskeletal: No see HPI, No joint pain, No muscle pain, No swelling, No calf pain, No problem reported Neurologic: No see HPI, No memory loss, No paralysis, No weakness, No numbness/ tingling, No vertigo, No balance problems, No problem reported Psychiatric: No see HPI, No depression symptoms, No anhedonism, No anxiety, No insomnia, No substance abuse, No problem reported Heme: No see HPI, No abnormal bleeding/bruising, No clotting problems, No swollen lymph nodes, No night sweats, No problem reported Skin: + problem reported (eczema on face improving) Objective Vital Signs Date Time Temp Pulse Resp B/P (MAP) Pulse Ox O2 Delivery O2 Flow Rate FiO2 02/06/18 11:15 37.1 116 19 132/91 (105) 95 02/06/18 08:30 Room Air 02/06/18 07:23 36.8 102 19 130/78 (95) 98 02/06/18 03:41 36.8 107 20 133/79 (97) 98 Room Air 02/06/18 00:00 Room Air 02/05/18 23:19 37.0 113 18 119/77 (91) 99 Room Air 02/05/18 19:20 36.7 106 16 113/77 (89) 95 Room Air 02/05/18 16:00 Room Air 02/05/18 15:58 36.5 99 16 111/75 (87) 100 Room Air Physical Exam General Appearance: WD/WN, no apparent distress ENT: + pertinent finding (oral white patches) Neck: no adenopathy, thyroid normal, no JVD Respiratory/Chest: chest non-tender, lungs clear, normal breath sounds, no respiratory distress, no accessory muscle use Cardiovascular: regular rate, rhythm, + pertinent finding (trace pedal edema) Abdomen: normal bowel sounds, + pertinent finding (LLQ colostomy draining liquid brown) Extremities: normal range of motion, non-tender, + pedal edema Neurologic/Psychiatric: alert, normal mood/affect, oriented x 3 Skin: + pertinent finding (facial eczema patches) Laboratory Results Last 24 Hours Test 02/06/18 05:03 White Blood Count 24.14 K/uL Red Blood Count 3.53 M/uL Hemoglobin 8.4 g/dL Hematocrit 26.1 % Mean Corpuscular Volume 73.9 fL Mean Corpuscular Hemoglobin 23.8 pg Mean Corpuscular Hemoglobin Concent 32.2 g/dl Platelet Count 350 K/uL Mean Platelet Volume 8.4 fL Neutrophils (%) (Auto) 86.9 % Lymphocytes (%) (Auto) 2.2 % Monocytes (%) (Auto) 8.7 % Eosinophils (%) (Auto) 0.2 % Basophils (%) (Auto) 0.2 % Neutrophils # (Auto) 20.99 K/uL Lymphocytes # (Auto) 0.52 K/uL Monocytes # (Auto) 2.11 K/uL Eosinophils # (Auto) 0.05 K/uL Basophils # (Auto) 0.04 K/uL RDW Standard Deviation 54.1 fL RDW Coefficient of Variation 20.6 % Immature Granulocyte % (Auto) 1.8 % Immature Granulocyte # (Auto) 0.43 K/uL Toxic Granulation OCCASIONAL Toxic Vacuolation OCCASIONAL Hypochromasia PRESENT Anisocytosis PRESENT Sodium Level 127 mmol/L Potassium Level 4.8 mmol/L Chloride Level 99 mmol/L Carbon Dioxide Level 20 mmol/L Anion Gap 8.0 mmol/L Blood Urea Nitrogen 27 mg/dl Creatinine 1.00 mg/dl Est Creatinine Clear Calc Drug Dose 76.9 ml/min Estimated GFR () 119.0 Estimated GFR (Non- 102.7 BUN/Creatinine Ratio 26.6 Random Glucose 72 mg/dl Calcium Level 8.6 mg/dl Total Bilirubin 1.6 mg/dl Aspartate Amino Transf (AST/SGOT) 243 U/L Alanine Aminotransferase (ALT/SGPT) 109 U/L Alkaline Phosphatase 783 U/L Total Protein 5.9 gm/dl Albumin 1.9 gm/dl Globulin 4.0 gm/dl Albumin/Globulin Ratio 0.5 Assessment and Plan metastatic colorectal ca cancer related pain Clostridium Difficile Palliative Care recs: -Continue with medicinal regimen -Plan to approach [facility] for home Hospice qualifications -Offer supportive care as needed -POLST form is signed and on chart Happy to follow as needed during hospitalization. Total time spent 25 minutes with greater than 50% of the time spent assessing patient and discussing hospice options Palliative Performance Scale: 40 % Discharge planning: home with Hospice (referral made to [facility])
[2018-02-06] MEDS ORDERED: NYSS5 PO (13:24)
[2018-02-06] MEDS ORDERED: VANC1SUS PO (13:24)
[2018-02-06] MEDS ORDERED: ATV/1 PO (13:24)
--- NOTE | 2018-02-06 13:32 | Discharge Instructions ---
Discharge Instructions Date of Service Feb 06, 2018. Admission Reason for Admission: Abdominal Pain Discharge Discharge Diagnosis / Problem: low sodium related to diarrhea caused by Cdiff Discharge Goals Goal(s): Diagnostic testing, Therapeutic intervention Activity Recommendations Activity Limitations: resume your previous activity . Instructions / Follow-Up Instructions / Follow-Up Cdiff colitis -this is an overgrowth of a bacteria that produces toxin - the toxin causes diarrhea. diarrhea is very rich in sodium, so in addition to getting dehydrated , it can cause sodium loss - the low sodium levels are why you weren't acting/ feeling like yourself. this fortunately has improved a good deal - things aren' t totally back to normal yet, but certainly good enough to be safe - especially since the diarrhea is slowing down as it's being treated -we'll treat for another 10 days with vancomycin - vanco almost always works to "reign in" the infection - the problem (as we discussed) since Cdiff forms spores, the spores can hide from the antibiotics -- because of this, about 20% of people who get Cdiff infections will "look better" while they're on the antibiotics, but then worsen after the antibiotics are done. in that respect pay close attention to your stool output once you're off the antibiotics --> if it happens, usually we'll see the recurrence around 7 days after the antibiotics have been stopped. should you have worsening diarrhea after the antibiotics have been stopped, we'll want to restart vancomycin right away (and possibly treat indefinitely) -Dr Vargas may need to repeat electrolyte labs in the office, depending on how you're doing - but the main portion of the low sodium and dehydration is back to normal anxiety -you can use the ativan (lorazepam) at bedtime for insomnia, and up to three times a day as needed for anxiety. it kicks in fairly quickly and then lasts for about 4-6hours, but once it wears off it doesn't have lasting effect for anxiety after that. depending on how you're doing, Dr Vargas may consider continuing it versus changing you over to a longer-acting anxiety medicine (the downside being that it takes a while to take effect, so the ativan working quickly makes more sense overall) -ativan can make you groggy/sleepy/sedated - so be careful about that ( especially while you see how it's working for you) -- if it does, you can always try a 1/2 dose; also make sure you don't take it at the same time as your pain medications (dilauded, hydromorphone) because the two can certainly combine for even more sedation (and rarely an overdose-like appearance) Current Hospital Diet Patient's current hospital diet: Regular Diet Discharge Diet Recommended Diet: Regular Diet Pending Studies Studies pending at discharge: no Medical Emergencies . Who to Call and When: Medical Emergencies: If at any time you feel your situation is an emergency, please call 911 immediately. . Non-Emergent Contact Non-Emergency issues call your: Primary Care Provider (Dr Vargas next week) . . "Provider Documentation" section prepared by Ammon Mcbride. .
--- NOTE | 2018-02-06 17:51 | Discharge Summary ---
Discharge Summary Date of Service Feb 06, 2018. Discharge Summary Admission Date: Feb 04, 2018 at 19:39 Discharge Date: Feb 06, 2018 Discharge Disposition: Home Principal Diagnosis: Altered mental status Problems/Secondary Diagnoses: - Hyponatremic dehydration - Oral thrush - C difficile diarrhea - Leukocytosis - Acute kidney injury - Bilateral lower extremity edema - Metastatic colon cancer Immunizations: Have You Had Influenza Vaccine: Unknown History of Tetanus Vaccine?: Unknown History of Pneumococcal: Unknown History of Hepatitis B Vaccine: Unknown Procedures: 04Feb2018 - CT SCAN OF THE BRAIN WITHOUT IV CONTRAST IMPRESSION: No acute intracranial abnormality. 04Feb2018 - PA CHEST RADIOGRAPH AND UPRIGHT AND SUPINE AP RADIOGRAPHS OF THE ABDOMEN IMPRESSION: 1. No free air or evidence of bowel obstruction. 2. No acute cardiopulmonary findings. 04Feb2018 - CT SCAN OF THE ABDOMEN AND PELVIS WITHOUT IV CONTRAST IMPRESSION: 1. Significantly suboptimal examination without oral and IV contrast. 2. No significant change from 01/23/2018. 3. The liver is enlarged and there is evidence of diffuse/multifocal hepatic metastatic disease. 4. There is masslike wall thickening identified in the cecum and the right lower quadrant, possibly representing the patient's known colon cancer. 5. Again seen is severe right hydroureteronephrosis, with the ureter dilated to the right cecal lesion. 6. A diverting ileostomy is again noted. No bowel obstruction is identified. 7. Retroperitoneal lymphadenopathy is likely unchanged but not well visualized. 8. A small volume of free fluid is noted in the pelvis. 9. Small pulmonary nodules in the right lower lobe are nonspecific. Metastatic disease is not excluded. Consultations: 06Feb2018 - Palliative care (partial note) Subjective Pt seen and evaluated with Samantha from Case Management. Patient was alone in the room and seemed pleasant. Pt stated that he was able to rest well last night with the Ativan that was ordered and his thoughts were not racing. Pt stated that he was able to review hospice options presented yesterday and he has decided to proceed with [facility]. We reiterated that Hospice can be stopped if he would improve to the point where a treatment option would be available. He stated he would like to go next week to [place] for another opinion, but wants to proceed with Hospice at this time. The swelling in his legs have significantly improved from yesterday and his abdomen was much less rigid and firm from yesterday as well. He did comment that he lives in a 2 story home and his bedroom is in the basement with steps while the bathroom is on the main floor. He stated he currently does not have any difficulty with steps, but we stated that if he would find to have a need for a bedside commode or hospital bed that Hospice can arrange that. He did express that he feels ' good' about moving forward with Hospice at home. He has the expectation that he may be discharged today which is supported by Palliative Care as well. All questions were answered and he was made aware to contact us as needed while in the hospital. Assessment and Plan - metastatic colorectal ca - cancer related pain - Clostridium Difficile Palliative Care recs: - Continue with medicinal regimen - Plan to approach [facility] for home Hospice qualifications - Offer supportive care as needed - POLST form is signed and on chart Medication Reconciliation New Medications: Lorazepam (Ativan) 1 Mg Tab 1 MG PO TID PRN for anxiety/insomnia, #60 TAB Nystatin (Nystatin) 5 Ml Susp 5 ML PO QID for 10 Days Vancomycin HCl (Vancomycin HCl + Syrspend) 50 Mg/Ml Magali 125 MG PO Q6H for 10 Days Continued Medications: Fentanyl (Duragesic) 50 Mcg Tdsy 50 MCG TOP CQ72HR Ferrous Gluconate (Ferrous Gluconate) 324 Mg Tab 324 MG PO BIDM, TAB Hydromorphone Hcl (Dilaudid) 4 Mg Tab 2 MG PO QID PRN for Pain Ondansetron Hcl (Zofran) 8 Mg Tab 8 MG PO Q8 PRN for Nausea or Vomiting, TAB Probiotic Product (Align) 4 Mg Cap 4 MG PO DAILY Ropinirole (Requip) 0.25 Mg Tab 0.25 MG PO HS, TAB Sertraline (Zoloft) 100 Mg Tab 50 MG PO DAILY, TAB Simethicone (Mi-Acid Gas Relief) 80 Mg Chw 80 MG PO Q6H PRN for Gas/Bloating Discharge Exam General Appearance: Awake, alert & oriented, comfortable in general, cachetic, NAD. Mouth: Mild oral thrush. Mild eczema-like rash pancho-orally. CV: +S1S2 regular but tachycardic, no murmur. Left upper mediport accessed. Pulm: Clear to auscultation throughout. Abdomen: + bowel sounds. In left verna-abdomen: Soft, non-tender, non- distended. LUQ ostomy in place, no surrounding erythema/edema, with gas + green stool in bag. In right verna-abdomen, much more firm particularly in RUQ, non-tender, non-distended. [Exam unchanged from yesterday.] Extremities: Moving all extremities naturally and easily. Trace bilateral pedal and pretibial edema (improved from yesterday). Neuro: No gross neuro deficits. Review of Systems: Constitutional: No fever, No chills Respiratory: No cough, No shortness of breath Cardiovascular: + edema, No chest pain Abdomen: + pain, + nausea, + diarrhea, No vomiting, No constipation Endocrine: + fatigue Hospital Course HPI at time of admission on Feb 04, 2018 at 19:18 HISTORY OF PRESENT ILLNESS: The patient is a very pleasant 27-year-old male accompanied by his significant other who noted that this morning he was not acting right, she had a hard time describing it but then given a directed question, she relates it to being kind of almost a drunk and delirious type stay where he was talking in ways not making sense. He realized this was going on as well, but was not really able to change it. They brought him here to the ER for further evaluation. He was found to be significantly hyponatremic with an elevated creatinine. On directed questioning, he notes over the last 24 hours or so, he has had a significant increase in through his stoma in his stool has been green. He has been able to eat and drink okay, although he notes over the last week or so his p.o. intake has significantly declined it seems to relate to a dry mouth and just a general early satiety, but not for many postprandial pain, nausea or vomiting. He has not had fevers, chills, or sweats. His only other notable symptom is foot edema which has worsened. Discharge summary on 06Feb2018 27 yo male admitted on 04Feb2018 for altered mental status. PMH: Metastatic colon cancer to liver, hydronephrosis, malnutrition. PSH: Diverting colostomy, ureteral stents, MediPort. Altered mental status: Related to metabolic encephalopathy from hyponatremic dehydration (see below). Presently AMS has resolved. CT head noted nothing acute. Hyponatremic dehydration: Likely due to combo acute diarrhea and poor PO intake. Min Na 120, since improving and up to 127 at discharge. Provided initial IVF boluses and follow-on drip while inpatient. Oral thrush and perioral rash: As noted on exam. 03Apr started nystatin suspension (planned 10 day course) and magic mouthwash prn. For mild eczema- like rash, started triamcinolone prn. C diff diarrhea: Positive for same on 03Apr, started on vancomycin PO same date. Planned 10 day course. Anemia: Hb 8.4, down acutely from 9.8, likely dilutional, but patient does have a history of GI bleeds. Patient says himself he does not have any abdominal pain similar to when he had a bleed before. No overtly dark solids in the ostomy fluid. Transfused single unit of PRBCs on day of discharge. Leukocytosis: Max WBC 28, likely combination due to C diff and demargination from dehydration. Lactate from 2.1 to 1.1 s/p IVF. MAIDA: Current Cr 1.0 (max 1.72), likely related to his dehydration. Resolved. Has history of right hydroureteronephrosis as well. Bilateral lower extremity edema: Likely combination of venous stasis due to abdominal metastatic disease in combination with poor nutrition. Somewhat improved during hospitalization. May continue to improve with ambulation. Metastatic colon cancer: - Moderate to severe protein calorie malnutrition: [id number] appetite overall. Encouraged the same. - Upper abdominal mass/firmness: Multiple hepatic masses on 02Apr CT a/p. No noted ductal issues. - Pulmonary nodules: Seen on 02Apr CT a/p. Cannot exclude metastatic disease. - Anxiety: Patient says particularly at night due to 'thinking' about things. Rx'ed ativan prn anxiety. Acute overall plan: Consult palliative care (please see their note). Patient signed POLST form with them. Patient is also pursuing opinions in [place]. At time of discharge was interested in pursuing hospice. Resident Physician Supervision Note: I interviewed and examined the patient. Discussed with Dr. Cortez and agree with findings and plan as documented in the note. Any exceptions or clarifications are listed here: None Documented By: Ammon Mcbride generallly feeling better (later noted that he felt much better post transfusion ) extensive d/w pt on goals treatment plans anxiety, cdiff, thrush and overall poor prognosis vitals noted nad breathing unlabored no pallor or icterus hyponatremic dehydration w metabolic encephalopathy from cdiff - ipmroved symptomatic anemia - from GI blood loss - transfused thrush - nystatin stable for home otherwise as above Total Time Spent: Greater than 30 minutes This includes examination of the patient, discharge planning, medication reconciliation, and communication with other providers. Discharge Instructions Please refer to the electronic Patient Visit Report (Discharge Instructions) for additional information. Additional Copies To Wayne Andres D.O.
== END 2018-02-06 19:40 | disposition hospice, home (50) | DRG 371 ==
LOC: C.EDB 15:23 → UNDOADMIN 18:39 → C.4E 18:39 → ENRESERV 19:12 → C.4E 19:39
PROVIDERS: ADMIT Family Medicine; ATTEND Family Medicine
DX: A04.72 Enterocolitis due to Clostridium difficile, not specified as recurrent (principal); G93.41 Metabolic encephalopathy; E43 Unspecified severe protein-calorie malnutrition; N17.9 Acute kidney failure, unspecified; E87.1 Hypo-osmolality and hyponatremia; B37.0 Candidal stomatitis; C18.9 Malignant neoplasm of colon, unspecified; C78.7 Secondary malignant neoplasm of liver and intrahepatic bile duct; Z68.1 Body mass index [BMI] 19.9 or less, adult; Z51.5 Encounter for palliative care; D72.829 Elevated white blood cell count, unspecified; R60.0 Localized edema; D50.0 Iron deficiency anemia secondary to blood loss (chronic); G89.3 Neoplasm related pain (acute) (chronic); R21 Rash and other nonspecific skin eruption; F41.9 Anxiety disorder, unspecified; R91.8 Other nonspecific abnormal finding of lung field; I87.8 Other specified disorders of veins; E73.9 Lactose intolerance, unspecified; Z79.899 Other long term (current) drug therapy; Z79.891 Long term (current) use of opiate analgesic; Z66 Do not resuscitate; Z93.3 Colostomy status; Z87.442 Personal history of urinary calculi; Z87.891 Personal history of nicotine dependence; Z88.8 Allergy status to other drugs, medicaments and biological substances; Z91.018 Allergy to other foods; Z80.0 Family history of malignant neoplasm of digestive organs; Z82.49 Family history of ischemic heart disease and other diseases of the circulatory system

== ENCOUNTER 2018-02-27 23:46 | Inpatient (IN) | payer OTHER ==
[~2018-02-27] VITALS: Ht 175.3 cm; Wt 46.5 kg
[~2018-02-27 23:46] MED LIST changes: -ALG PO; -DRGTP50 TD; +FERR325T18 PO; +FNTTP50 TOP; -FRRG PO; +HYDR4TAB2 PO; -HYDR4TAB78 PO; +MISC4CAP PO; -MYL80 PO; +NYSS5 PO; +ONDA-170 PO; -ONDA-63 PO; +ROPI0.25 PO; -RQP25 PO; +SERT-234 PO; +SIME80CH11 PO; +VANC1SUS PO
[2018-02-28] VITALS (9 sets, daily range): BP systolic 104–117; BP diastolic 74–88; PULSE 16–112; TEMP 36.2–36.7; O2SAT 95–99; Ht 175.3 cm; Wt 46.5 kg
[2018-02-28] MEDS ORDERED: HYDROmorphone INJ 1 MG/ML SYR IV STA (00:14)
[2018-02-28] MEDS ORDERED: HYDROmorphone INJ 1 MG/ML SYR IV PRN (00:15)
--- NOTE | 2018-02-28 00:17 | EMERGENCY ROOM VISIT NOTE ---
History Report prepared by Jemma: Dakotah Saenz Under the Supervision of: Dr. Ritesh Conklin M.D. First contact with patient: 00:02 Chief Complaint: OTHER COMPLAINT Stated Complaint: DELUSIONAL,OSTOMY FILLING WITH BLOOD,VERY TIRED History of Present Illness The patient is a 28 year old male who presents to the Emergency Room with complaints of constant blood in his ostomy bag beginning tonight. Per friend, the patient has had blood in his ostomy bag before, but states that the blood was watery and stopped within a few hours. She notes that the patient was sleeping all day today and seemed to have a bloated ostomy bag. She states that she took the patient's ostomy bag upstairs to change it, and notes that there was blood that appeared thick. She reports that the patient has been on hospice for a few weeks, and states that the patient's hospice nurse told them to come to the emergency department if the blood in the patient's ostomy bag appeared thick. The patient also complains of abdominal pain, neck pain, and diarrhea. He denies any fever, SOB, LOC, and headache. He notes that he has a history of metastatic colon cancer. He reports that he fell into the wall yesterday and hit his shoulder. The patient states that he took hydromorphone with no relief of his pain. He notes that he also has a fentanyl patch. Source of History: patient Onset: tonight Position: other (ostomy bag) Quality: other (thick blood in his ostomy bag) Timing: constant Associated Symptoms: + neck pain, + abdominal pain, + diarrhea, No LOC, No fevers, No headache, No SOB Review of Systems See HPI for pertinent positives & negatives. A total of 10 systems reviewed and were otherwise negative. Past Medical & Surgical Medical Problems: (1) Abdominal pain (2) Cecum mass (3) Colon cancer metastasized to liver (4) Episode of syncope (5) GI bleed (6) Hydronephrosis of left kidney (7) Hydronephrosis of right kidney (8) Kidney stone Surgical Problems: (1) History of ureter stent Family History FH: cardiovascular disease FHx: cancer FHx: heart disease Hypertension Kidney disease Kidney stones Seizures Social History Smoking Status: Former Smoker Alcohol Use: occasionally Drug Use: none Marital Status: Housing Status: lives with family Occupation Status: disabled Current/Historical Medications Scheduled Fentanyl (Duragesic), 50 MCG TOP CQ72HR Ferrous Gluconate (Ferrous Gluconate), 324 MG PO BIDM Probiotic Product (Align), 4 MG PO DAILY Ropinirole (Requip), 0.25 MG PO HS Sertraline (Zoloft), 50 MG PO DAILY Scheduled PRN Hydromorphone Hcl (Dilaudid), 2 MG PO QID PRN for Pain Nystatin (Nystatin Suspension), 5 ML PO QID PRN for thrush Ondansetron Hcl (Zofran), 8 MG PO Q8 PRN for Nausea or Vomiting Simethicone (Mi-Acid Gas Relief), 80 MG PO Q6H PRN for Gas/Bloating Allergies Coded Allergies: Cranberry Extract (Verified Allergy, Severe, HIVES, 02/28/18) Oxaliplatin (Verified Allergy, Severe, THROAT CLOSING, 02/28/18) Lactose Intolerance (GI) (Verified Allergy, Unknown, UNKNOWN, 02/28/18) Physical Exam Vital Signs Date Time Temp Pulse Resp B/P (MAP) Pulse Ox O2 Delivery O2 Flow Rate FiO2 02/28/18 01:30 110 16 107/70 100 Room Air 02/28/18 00:30 110 02/27/18 23:55 36.6 117 24 100/70 100 Room Air Physical Exam GENERAL: Patient is chronically unwell appearing and in no acute distress, cachectic, severely malnourished. EYES: No scleral icterus, unremarkable pupils. ENT: Mucous membranes dry, no nasal congestion. NECK: No masses appreciated, no meningismus, trachea is midline. RESPIRATORY: No dyspnea. Clear to auscultation and equal bilaterally. No wheeze , no rhonchi. CARDIOVASCULAR: Tachycardic and regular rhythm. No murmurs, rubs, gallops appreciated. GASTROINTESTINAL: Abdomen soft, no peritonitis. Bowel sounds positive. No masses appreciated. Ostomy in lower mid abdomen with bloody clots within ostomy , diffuse tenderness to abdomen (chronic). BACK: No midline tenderness, no CVA tenderness EXTREMITIES: Normal motion all extremities, no cyanosis, no edema. Abrasion over left elbow, nontender, full ROM. NEUROLOGIC: Alert and oriented, no acute motor or sensory deficits, no focal weakness, cranial nerves grossly intact. SKIN: No rash, no jaundice, no diaphoresis. Medical Decision & Procedures Laboratory Results Test 02/28/18 00:24 RDW Standard Deviation 62.5 fL (36.4-46.3) RDW Coefficient of Variation 22.5 % (11.5-14.5) White Blood Count 27.65 K/uL (4.8-10.8) Red Blood Count 4.18 M/uL (4.7-6.1) Hemoglobin 10.6 g/dL (14.0-18.0) Hematocrit 32.2 % (42-52) Mean Corpuscular Volume 77.0 fL (80-100) Mean Corpuscular Hemoglobin 25.4 pg (25-34) Mean Corpuscular Hemoglobin Concent 32.9 g/dl (32-36) Platelet Count 222 K/uL (130-400) Mean Platelet Volume 9.0 fL (7.4-10.4) Neutrophils (%) (Auto) 87.4 % Lymphocytes (%) (Auto) 2.4 % Monocytes (%) (Auto) 7.6 % Eosinophils (%) (Auto) 0.4 % Basophils (%) (Auto) 0.2 % Neutrophils # (Auto) 24.19 K/uL (1.4-6.5) Lymphocytes # (Auto) 0.66 K/uL (1.2-3.4) Monocytes # (Auto) 2.10 K/uL (0.11-0.59) Eosinophils # (Auto) 0.11 K/uL (0-0.5) Basophils # (Auto) 0.05 K/uL (0-0.2) Immature Granulocyte % (Auto) 2.0 % Immature Granulocyte # (Auto) 0.54 K/uL (0.00-0.02) Polychromasia 1+ Hypochromasia PRESENT Anisocytosis PRESENT Prothrombin Time 17.1 SECONDS (9.0-12.0) Prothromb Time International Ratio 1.6 (0.9-1.1) Activated Partial Thromboplast Time 99.3 SECONDS (21.0-31.0) Partial Thromboplastin Ratio 3.8 Phosphorus Level 4.8 mg/dl (2.5-4.9) Magnesium Level 2.3 mg/dl (1.8-2.4) Lipase 57 U/L (73-393) Laboratory results as reviewed by me. Medications Administered Medications (Trade) Dose Ordered Sig/Raúl Route Start Time Stop Time Status Last Admin Dose Admin Hydromorphone HCl (Dilaudid Inj) 1 mg NOW STAT IV 02/28/18 00:14 02/28/18 00:16 DC 02/28/18 00:32 1 MG Sodium Chloride 1,000 ml @ 999 mls/hr Q1H1M STAT IV 02/28/18 00:39 02/28/18 01:39 DC 02/28/18 00:51 999 MLS/HR Sodium Bicarbonate (Sodium Bicarbonate 8.4% Inj) 50 ml NOW STAT IV 02/28/18 01:11 02/28/18 01:12 DC 02/28/18 01:22 50 ML Calcium Gluconate (Calcium Gluconate 10%) 1,000 mg NOW STAT IV 02/28/18 01:11 02/28/18 01:12 DC 02/28/18 01:22 1,000 MG Insulin Human Regular (novoLIN-R U-100 PER UNIT) 10 units NOW STAT IV 02/28/18 01:11 02/28/18 01:12 DC 02/28/18 01:23 10 UNITS Dextrose (Dextrose 50% 50ML Syringe) 50 ml NOW STAT IV 02/28/18 01:11 02/28/18 01:12 DC 02/28/18 01:22 50 ML ECG Per My Interpretation Indication: weakness Rate (beats per minute): 105 Rhythm: sinus tachycardia Findings: no acute ischemic change, no ectopy, other (Questional peaking of T waves, QTC 438) ED Course 0008: The patient was evaluated in room B6. A complete history and physical exam was performed. 0050: I reevaluated and updated the patient. He states that he is feeling better after receiving Dilaudid. His heart rate is 109. One of the patient's family members at bedside was recording the conversation. I asked her not to do so, and she noted that she would stop recording. She reported that she would delete anything that she recorded. I further discussed the patient's hospice status with him. He agrees that he does not want any life sustaining interventions other than things that may improve his comfort. He notes that he feels that he is weak on the left side of his body, and reports that his weakness has been progressing over the last week. After this discussion, we have decided to not have any imaging of the head or abdomen done at this time. 0108: Upon reevaluation, the patient is stable. Discussed results and treatment plan with the patient. He verbalized understanding and agreement with the treatment plan. Discussed the patient's case with SATNAM López. The patient will be evaluated for further management. 0112: I rechecked the patient and discussed findings. He and his family do not feel comfortable caring for him at home. They would like everything possible to be done at this time regarding his elevated potassium and renal failure. Medical Decision Differential: Sepsis, Infectious (UTI/Pneumonia/Meningitis/etc), Metabolic/ Electrolyte Abnormality, Cardiac, Dehydration, Anemia, Hepatic, Endocrine, Toxicologic, Neurologic, amongst other pathologies entertained. 28 yr old male with metastatic colon cancer who has been on hospice for the last 2 weeks since most recent admission/discharge from the hospital. Arrives in quite poor condition for evaluation of weakness and gi bleed. He is quite ill appearing, even more than the previous times I have seen him. Apparently he has not been eating/drinking very much and his dehydration on exam is consistent with that. His is moderately tachy and with OK Hgb went ahead with hydration starting. Labs remarkable for multisystem organ failure and elevated K. Discussed just keeping comfortable vs aggressive therapy, and patient and family want to go ahead with aggressive therapy despite he is hospice. EKG did reveal some minor t wave peaking thus Ca given with above treatment. GI bleed likely from increasing pt/ptt due to multisystemt failure. He does have reported left sided weakness which very much could be brain met related but he declines having imaging. He had fall a day or so ago without evidence trauma to abdomen and again he declines imaging. With the K issues, already bleeding will defer further management GI bleed in to inpatient service. I asked hospitalist to evaluate further. Medication Reconcilliation Current Medication List: was personally reviewed by me Blood Pressure Screening Patient's blood pressure: Normal blood pressure Blood pressure disposition: Did not require urgent referral Consults Time Called: [phone] Consulting Physician: SATNAM López Returned Call: [phone] Discussed the patient's case. The patient will be evaluated for further treatment and disposition. Impression Primary Impression: GI bleed Additional Impressions: Acute renal failure Acute liver failure Hyperkalemia Metastatic colorectal cancer Left-sided weakness Hyponatremia Scribe Attestation The scribe's documentation has been prepared under my direction and personally reviewed by me in its entirety. I confirm that the note above accurately reflects all work, treatment, procedures, and medical decision making performed by me. Departure Information Dispostion Being Evaluated By Hospitalist Referrals Wayne Andres D.O. (PCP) Patient Instructions My [facility] Problem Qualifiers
[2018-02-28 00:34] LABS: HEMATOCRIT 32.2 % (42-52); HEMOGLOBIN 10.6 g/dL (14.0-18.0); MEAN CORPUSCULAR HEMOGLOBIN 25.4 pg (25-34); MEAN CORPUSCULAR HGB CONC 32.9 g/dl (32-36); PLATELET COUNT 222 K/uL (130-400); RED CELL DISTRIBUTION WIDTH CV 22.5 % (11.5-14.5); RED CELL DISTRIBUTION WIDTH SD 62.5 fL (36.4-46.3); WHITE BLOOD COUNT 27.65 K/uL (4.8-10.8)
[2018-02-28] MEDS ORDERED: NYSS/ PO (00:34)
[2018-02-28] MEDS ORDERED: SODIUM CHLORIDE 0.9% 1000ML 1,000 ML IV STA (00:39)
[2018-02-28 00:51] LABS: ALBUMIN 1.7 gm/dl (3.4-5.0); CREATININE 2.26 mg/dl (0.60-1.40)
[2018-02-28 00:55] LABS: PHOSPHORUS 4.8 mg/dl (2.5-4.9); TOTAL PROTEIN 5.8 gm/dl (6.4-8.2)
[2018-02-28 01:04] LABS: INR 1.6 (0.9-1.1)
[2018-02-28 01:07] LABS: PTT PATIENT 99.3 SECONDS (21.0-31.0)
[2018-02-28] MEDS ORDERED: CALCIUM GLUCONATE 10% 10 ML VIAL IV STA (01:11)
[2018-02-28] MEDS ORDERED: DEXTROSE 50% 50 ML SYR IV STA (01:11)
[2018-02-28] MEDS ORDERED: SODIUM BICARB 8.4% INJ 50 MEQ/50 ML SYR IV STA (01:11)
[2018-02-28] MEDS ORDERED: NovoLIN-R INSULIN PER UNIT CHARGE IV STA (01:11)
[2018-02-28 01:17] LABS: BASO % 0.2 %; BASO ABS # 0.05 K/uL (0-0.2); EOS % 0.4 %; EOS ABS # 0.11 K/uL (0-0.5); IG# 0.54 K/uL (0.00-0.02); LYMPH % 2.4 %; LYMPH ABS # 0.66 K/uL (1.2-3.4); MONO % 7.6 %; NEUT % 87.4 %; NEUT ABS # 24.19 K/uL (1.4-6.5)
--- NOTE | 2018-02-28 03:17 | HISTORY & PHYSICAL EXAMINATION ---
DATE OF ADMISSION: 02/28/2018 HISTORY OF PRESENT ILLNESS: This is a 28-year-old male with a history of stage IV colorectal cancer, currently on hospice. The patient is being managed at home by family. He presented to the hospital primarily as he has a colostomy bag which filled with blood. He was initially evaluated in the Emergency Department, and several lab abnormalities were noted including acute renal failure, hyperkalemia, LFT abnormalities, leukocytosis, and anemia. Some of these are chronic; however, the numbers do appear to be worsening. The patient additionally complains of progressive weakness on his left side and states that he has fallen 3 times over the last 2 weeks, which is unusual for him. He does not complain of pain above baseline. On arrival to the hospital, the patient stated that he would like to be a full code at present and has temporarily at least revoked his hospice status. He was treated emergently for hyperkalemia in the Emergency Department and will be admitted to the medical service, therefore. PAST MEDICAL HISTORY: Limited to colorectal cancer diagnosed in 2014, stage IV. The patient had a colostomy placed shortly after and had been on several chemotherapy modalities before transitioning to hospice. He has metastases to his liver and invasion of his left ureter leading to chronic hydronephrosis and a degree of renal impairment. CURRENT MEDICATIONS: 1. Fentanyl 50 mcg q.72 h. 2. Iron 324 mg b.i.d. 3. Hydromorphone 2 mg q.i.d. p.r.n. 4. Nystatin 5 mL p.o. q.i.d. p.r.n. thrush. 5. Ondansetron 8 mg p.o. q.8 h. p.r.n. nausea. 6. Ropinirole 0.25 mg at bedtime. 7. Sertraline 50 mg daily. 8. Simethicone 80 mg q.6 h. p.r.n. 9. Probiotic daily. SOCIAL HISTORY: The patient is currently looked after by family. He is on home hospice care prior to arrival to the hospital. He does not currently smoke or drink. FAMILY HISTORY: Noncontributory to the current complaint. REVIEW OF SYSTEMS: GENERAL: Weakness and a poor appetite is noted. Weight loss is chronic. CARDIOVASCULAR: Denies chest pain, palpitations, PND, orthopnea. RESPIRATORY: Denies shortness of breath, productive cough, or wheezing. GASTROINTESTINAL: Positive for blood in the colostomy bag as above. NEUROLOGIC: The patient reports left-sided weakness pronounced in his left upper extremity and also states that his balance has been impaired having fallen 3 times over the last 2 weeks. All other systems are reviewed and negative. PHYSICAL EXAMINATION: VITAL SIGNS: Temperature is 36.6, pulse 117, respiration rate 24, blood pressure 100/70, saturating at 100% on room air. GENERAL: This is a very thin, pleasant young male. He is awake, alert, and oriented, appears slightly lethargic but in no distress. HEAD AND NECK: No JVD, no bruits. Mild icterus is noted. HEART: S1 and S2 regular. No murmurs. LUNGS: Clear to auscultation bilaterally on poor effort. GASTROINTESTINAL: The abdomen is nontender. There is no evidence of inflammation surrounding the colostomy bag. The bag did contain gross blood. EXTREMITIES: No clubbing, cyanosis, or edema. NEUROLOGIC: Exam shows a pronator drift on the left side. Gait was not tested. The patient is awake and oriented. No additional focal deficits are noted. SKIN: No acute rashes or ulcers. LABORATORY DATA: White count 27.6, hemoglobin 10, platelets 222. Sodium 123, potassium 6, chloride 94, CO2 of 21, BUN 48, creatinine 2.26, and glucose 104. AST 343, ALT 100, alkaline phosphatase 501, total bilirubin 3.4 with 2.5 direct bilirubin. An EKG shows sinus tachycardia, rightward axis. There are no specific changes that are consistent with hyperkalemia. ASSESSMENT AND PLAN: This is a 28-year-old male with a history of stage IV colon carcinoma who was on home hospice prior to arrival at the hospital. He presented primarily due to blood in his colostomy bag. Several lab abnormalities were noted on arrival including acute renal failure, hyperkalemia, hyponatremia, liver function test abnormalities, and leukocytosis. The patient is admitted with followin. Acute renal failure and hyperkalemia. He was treated for hyperkalemia in the ER. We are aggressively hydrating him, and we will trend his BMP. He will be monitored on telemetry until the time as to which his potassium is corrected. 2. Acute gastrointestinal bleed, blood in the colostomy bag. We will trend his hemoglobin, consult the GI service as he does wish to be treated and transfuse as necessary. His blood pressure is currently stable. He has a history of C - diff which will be ruled out 3. Hyponatremia, likely hypovolemic. Again, the patient is being hydrated, and we will trend his sodium to avoid overly rapid correction. 4. Regarding his advanced carcinoma, there are metastases into the liver, likely causing his elevated LFTs. It is unclear if we can assist him in this matter. He is receiving IV fluids, and we will trend his numbers pending consultation by the GI and hematology service. 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 I spent an extensive time discussing this case with the patient and family at bedside. They have indicated that they would like to proceed with full treatment for the time being understanding that they have at least temporarily revoked the hospice status. We will do our best to keep this patient comfortable while he is in the hospital, he is aware that his prognosis overall is poor. Total time for this admit including review of chart, labs, EKG, previous records and consultations, discussion with the patient, family, and ER attending is 40 minutes. LAILA
[2018-02-28 04:21] LABS: HEMATOCRIT 28.2 % (42-52); HEMOGLOBIN 9.1 g/dL (14.0-18.0)
[2018-02-28] MEDS ORDERED: ONDANSETRON INJ 2 MG/ML 2 ML VIAL IV PRN (04:45)
[2018-02-28] MEDS ORDERED: SIMETHICONE 80 MG CHEW PO PRN (04:45)
[2018-02-28 04:49] LABS: CALCIUM 7.9 mg/dl (8.5-10.1); CREATININE 2.1 mg/dl (0.60-1.40); POTASSIUM 5.7 mmol/L (3.5-5.1)
[2018-02-28] MEDS: D5W AND NSS 1,000 ML IV SCH ×2 (05:10→10:21)
[2018-02-28] MEDS: HYDROmorphone INJ 2 MG/ML SYR/VIAL IV PRN ×3 (05:22→14:36)
[2018-02-28] MEDS ORDERED: FENTANYL PATCH REMOVE & WASTE SCH (05:59)
[2018-02-28] MEDS ORDERED: FENTANYL 50 MCG/HR TDSY TD SCH (06:00)
[2018-02-28] MEDS: CHECK FENTANYL PATCH PLACEMENT SCH ×2 (08:00→15:39)
[2018-02-28 08:20] LABS: HEMATOCRIT 28.6 % (42-52); HEMOGLOBIN 9.2 g/dL (14.0-18.0); MEAN CELL VOLUME 77.3 fL (80-100); MEAN CORPUSCULAR HEMOGLOBIN 24.9 pg (25-34); MEAN CORPUSCULAR HGB CONC 32.2 g/dl (32-36); MEAN PLATELET VOLUME 9.6 fL (7.4-10.4); PLATELET COUNT 182 K/uL (130-400); RED CELL DISTRIBUTION WIDTH CV 22.5 % (11.5-14.5); RED CELL DISTRIBUTION WIDTH SD 62.9 fL (36.4-46.3); WHITE BLOOD COUNT 25.15 K/uL (4.8-10.8)
[2018-02-28 08:59] LABS: ALBUMIN 1.6 gm/dl (3.4-5.0); CALCIUM 7.7 mg/dl (8.5-10.1); CREATININE 1.99 mg/dl (0.60-1.40); POTASSIUM 5.6 mmol/L (3.5-5.1)
[2018-02-28] MEDS: SERTRALINE HCL 100 MG TAB PO SCH (09:00)
[2018-02-28 09:02] LABS: TOTAL PROTEIN 5.1 gm/dl (6.4-8.2)
[2018-02-28 11:42] LABS: HEMATOCRIT 27.4 % (42-52)
--- NOTE | 2018-02-28 11:42 | Gastrointestinal Consultation ---
Gastrointestinal Consultation Date of Consultation: Feb 28, 2018 Attending Physician: DR Grey Consulting Physician: Dr Guerrero Caldwell Reason for Consultation: GI bleeding History of Present Illness Patient is a 28 year old male with blood in ostomy. Fiancee present for H and P who provided most of history. HPI Pt with stage IV colon cancer who has exhausted all his treatment options for cancer and was at home with hospice care noted blood in ostomy and apparently told by hospice nurse to go to ER. Pt has revoked his hospice status and wants everything done for this GI bleed. Cecal tumor in place and he has diverting ileostomy. Ostomy output normally brown/yellow/ or green but overnight became dark red color. He has baseline chronic RLQ pain which is somewhat worse over the last 24 hours per patient. Also noted WBC 25 k and was high on 02/06 also. No xrays done this admit but CT showed lung nodules, liver mets, cecal mass, retroperitoneal adenopathy. He has history of cdiff but cdiff this admit negative. Stool output less per fiancee and Hgb is stable. Noted burgundy liquid stool present in ostomy. Past Medical/Surgical History Medical Problems: (1) Abdominal pain Status: Acute (2) Acute kidney injury Status: Acute (3) Acute liver failure Status: Acute (4) Acute renal failure Status: Acute (5) Anemia Status: Acute (6) Chemotherapy adverse reaction Status: Acute (7) Corneal foreign body Status: Acute (8) Enteritis Status: Acute (9) Hydronephrosis Status: Acute (10) Hyperkalemia Status: Acute (11) Hyponatremia Status: Acute (12) Hyponatremia Status: Acute (13) Influenza-like symptoms Status: Acute (14) Intractable pain Status: Acute (15) Left-sided weakness Status: Acute (16) Liver cancer Status: Acute (17) Malnutrition Status: Acute (18) Metastatic colon cancer to liver Status: Acute (19) Metastatic colorectal cancer Status: Acute (20) Muscle spasm of back Status: Acute (21) Nausea & vomiting Status: Acute (22) Personal history of colon cancer, stage IV Status: Acute (23) Right flank pain Status: Acute (24) Right flank pain Status: Acute (25) SIRS (systemic inflammatory response syndrome) Status: Acute (26) SIRS (systemic inflammatory response syndrome) Status: Acute (27) Syncope and collapse Status: Acute (28) Tachycardia Status: Acute (29) Ureteral stent retained Status: Acute (30) Vertigo Status: Acute (31) Vomiting Status: Acute Family History FH: cardiovascular disease FHx: cancer FHx: heart disease Hypertension Kidney disease Kidney stones Seizures Social History Smoking Status: Former Smoker Alcohol Use: occasionally Drug Use: none Marital Status: Housing Status: lives with family Occupation Status: disabled Allergies Coded Allergies: Cranberry Extract (Verified Allergy, Severe, HIVES, 02/28/18) Oxaliplatin (Verified Allergy, Severe, THROAT CLOSING, 02/28/18) Lactose Intolerance (GI) (Verified Allergy, Unknown, UNKNOWN, 02/28/18) Current Medications Home Meds and Scripts Medications Dose Route/Sig Max Daily Dose Days Date Category Dose Instructions Nystatin Suspension (Nystatin) 1 Ml Susp 5 Ml PO QID PRN 02/28/18 Reported Requip (Ropinirole HCl) 0.25 Mg Tab 0.25 Mg PO HS 02/04/18 Reported Ferrous Gluconate 324 Mg Tab 324 Mg PO BIDM 02/04/18 Reported has this med prescribed but not taking it right now Mi-Acid Gas Relief (Simethicone) 80 Mg Chw 80 Mg PO Q6H PRN 02/04/18 Reported Zofran (Ondansetron HCl) 8 Mg Tab 8 Mg PO Q8 PRN 02/04/18 Reported Align (Probiotic Product) 4 Mg Cap 4 Mg PO DAILY 02/04/18 Reported Dilaudid (Hydromorphone Hcl) 4 Mg Tab 2 Mg PO QID PRN 02/04/18 Reported Duragesic (Fentanyl) 50 Mcg Tdsy 50 Mcg TOP [id number] 02/04/18 Reported pt presently with 50mcg patch on couldn't find 25mcg patch Zoloft (Sertraline HCl) 100 Mg Tab 50 Mg PO DAILY 12/04/17 Reported Review of Systems see HPI. Otherwise 10 ROS negative. Physical Exam Date Time Temp Pulse Resp B/P (MAP) Pulse Ox O2 Delivery O2 Flow Rate FiO2 02/28/18 08:00 98 Room Air 02/28/18 07:09 36.5 112 16 108/79 (89) 98 02/28/18 04:00 Room Air 02/28/18 02:50 36.2 111 16 111/76 97 Room Air 02/28/18 01:30 110 16 107/70 100 Room Air 02/28/18 00:30 110 02/27/18 23:55 36.6 117 24 100/70 100 Room Air General Appearance: no apparent distress, + cachetic Eyes: normal inspection, PERRL ENT: hearing grossly normal, pharynx normal Neck: supple, trachea midline Respiratory/Chest: lungs clear, no respiratory distress Cardiovascular: regular rate, rhythm, no edema Abdomen: normal bowel sounds, soft, no organomegaly, + pertinent finding ( subjective RLQ pain but no guarding nor rebound, ostomy noted. 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, normal mood/affect, oriented x 3 Skin: normal color, warm/dry Laboratory Results Last 24 Hours Test 02/28/18 00:24 02/28/18 03:20 02/28/18 05:30 02/28/18 07:29 White Blood Count 27.65 K/uL 25.15 K/uL Red Blood Count 4.18 M/uL 3.70 M/uL Hemoglobin 10.6 g/dL 9.1 g/dL 9.2 g/dL Hematocrit 32.2 % 28.2 % 28.6 % Mean Corpuscular Volume 77.0 fL 77.3 fL Mean Corpuscular Hemoglobin 25.4 pg 24.9 pg Mean Corpuscular Hemoglobin Concent 32.9 g/dl 32.2 g/dl Platelet Count 222 K/uL 182 K/uL Mean Platelet Volume 9.0 fL 9.6 fL Neutrophils (%) (Auto) 87.4 % Lymphocytes (%) (Auto) 2.4 % Monocytes (%) (Auto) 7.6 % Eosinophils (%) (Auto) 0.4 % Basophils (%) (Auto) 0.2 % Neutrophils # (Auto) 24.19 K/uL Lymphocytes # (Auto) 0.66 K/uL Monocytes # (Auto) 2.10 K/uL Eosinophils # (Auto) 0.11 K/uL Basophils # (Auto) 0.05 K/uL RDW Standard Deviation 62.5 fL 62.9 fL RDW Coefficient of Variation 22.5 % 22.5 % Immature Granulocyte % (Auto) 2.0 % Immature Granulocyte # (Auto) 0.54 K/uL Polychromasia 1+ Hypochromasia PRESENT Anisocytosis PRESENT Prothrombin Time 17.1 SECONDS Prothromb Time International Ratio 1.6 Activated Partial Thromboplast Time 99.3 SECONDS Partial Thromboplastin Ratio 3.8 Sodium Level 123 mmol/L 128 mmol/L 128 mmol/L Potassium Level 6.0 mmol/L 5.7 mmol/L 5.6 mmol/L Chloride Level 94 mmol/L 96 mmol/L 96 mmol/L Carbon Dioxide Level 21 mmol/L 26 mmol/L 23 mmol/L Anion Gap 8.0 mmol/L 6.0 mmol/L 9.0 mmol/L Blood Urea Nitrogen 48 mg/dl 47 mg/dl 44 mg/dl Creatinine 2.26 mg/dl 2.10 mg/dl 1.99 mg/dl Est Creatinine Clear Calc Drug Dose 33.0 ml/min 34.4 ml/min 36.3 ml/min Estimated GFR () 44.1 48.2 51.4 Estimated GFR (Non- 38.1 41.6 44.4 BUN/Creatinine Ratio 21.3 22.3 22.1 Random Glucose 109 mg/dl 51 mg/dl 117 mg/dl Calcium Level 8.0 mg/dl 7.9 mg/dl 7.7 mg/dl Phosphorus Level 4.8 mg/dl Magnesium Level 2.3 mg/dl Total Bilirubin 3.4 mg/dl 3.0 mg/dl Direct Bilirubin 2.5 mg/dl 2.4 mg/dl Aspartate Amino Transf (AST/SGOT) 343 U/L 327 U/L Alanine Aminotransferase (ALT/SGPT) 160 U/L 145 U/L Alkaline Phosphatase 501 U/L 421 U/L Total Protein 5.8 gm/dl 5.1 gm/dl Albumin 1.7 gm/dl 1.6 gm/dl Lipase 57 U/L Bedside Glucose 100 mg/dl Test 02/28/18 11:00 Impression GI bleeding--UGI or SB source since this is ileostomy. Protonix 40 IV bid to cover PUD. Because of worsening abd and markedly elevated WBC recommend CT a/p to assess for etiology of bleeding but more importantly asess for safety to do EGD. EGD timing dependent on CT results but Hgb is stable. acute blood loss anemia--stable abd pain--as above stage IV Colon cancer--unfortunately no matter what short term improvement to his condition, this will result in his demise in the very near future. I am going off service tomorrow 03/01/[address] Montes is on schedule to be assuming GI care then.
[2018-02-28 12:08] LABS: CALCIUM 7.6 mg/dl (8.5-10.1); CREATININE 1.93 mg/dl (0.60-1.40); POTASSIUM 4.9 mmol/L (3.5-5.1)
--- NOTE | 2018-02-28 12:17 | DIAGNOSTIC IMAGING REPORT ---
CT SCAN OF THE ABDOMEN AND PELVIS WITHOUT CONTRAST CLINICAL HISTORY: colon cancer, GI bleed, WBC 25 LEUKOCYTOSIS COMPARISON STUDY: 02/04/2018 TECHNIQUE: CT scan of the abdomen and pelvis was performed from the lung bases to the proximal femurs. Images are reviewed in the axial, sagittal, and coronal planes. IV contrast was not administered for this examination. A dose lowering technique was utilized adhering to the principles of ALARA. CT DOSE: 300.59 mGy.cm FINDINGS: Lower chest: There are small bilateral pleural effusions right greater than left. There are minor left basilar opacities, likely atelectatic. Liver: There are in numerable space-occupying hepatic masses consistent with extensive metastatic disease. There is been slight enlargement of the masses when compared the prior study. An index left lobe lesion currently measures 47 mm. A previously measured 25 mm. Gallbladder: Unremarkable. Spleen: Normal in size and attenuation. Pancreas: Unremarkable. Adrenal glands: Unremarkable. Kidneys: There is severe right-sided hydronephrosis and hydroureter. Bowel: There are no transition zone to indicate bowel obstruction. There is a left lower quadrant ostomy. There is a suspected cecal mass which is not well demonstrated on the current study. Peritoneum: No free air is visualized. There is ascites present. Vasculature: The abdominal aorta is normal in course and caliber. Adenopathy: The previous identified adenopathy is difficult to visualize given the anasarca ascites and lack of intravenous contrast. Pelvic viscera: The bladder, and pelvic viscera are unremarkable. Skeletal structures: There is evidence for anasarca. IMPRESSION: 1. Significantly limited study due to the lack of intravenous and oral contrast 2. Hepatomegaly. Multiple hepatic masses. Progressive metastatic disease. 3. No evidence of bowel obstruction. 4. Severe right-sided hydroureteronephrosis 5. Left lower quadrant ostomy 6. Anasarca 7. Cecal mass 8. Interval development of ascites 9. Small bilateral pleural effusions Electronically signed by: Brandon Soto M.D. 02/28/2018 12:16 PM Dictated Date/Time: 02/28/2018 12:08 PM
[2018-02-28] MEDS: PANTOprazole INJ 40 MG in SYRINGE 0 ML IV SCH ×2 (14:37→21:20)
--- NOTE | 2018-02-28 16:09 | Hospitalist Progress Note ---
Hospitalist Progress Note Date of Service Feb 28, 2018. (Samantha Grey .LASHA) Subjective Pt evaluation today including: conversation w/ patient, physical exam, chart review, lab review, review of inpatient medication list Voiding: no voiding problems Mr. Maldonado is emaciated and frail, drowsy while talking. He has abdominal pain , he is unsure if there is any further bleeding. He also is experiencing heart palpitations at times. He does state that he wishes to remain a DNR and restart hospice when he gets home. His main concern is stopping his bleeding ROS Constitutional: no chills, aches, sweats or fever Respiratory: no sob,cough, sputum, or wheezing Cardiac: no chest pain, edema, orthopnea or lightheadedness GI: no nausea, vomiting, diarrhea or constipation : no dysuria or hesitancy Extremities: no joint pain or weakness Skin: no rash All other systems reviewed and negative (Samantha Grey .LASHA) Medications Medications Administered Medications (Trade) Dose Ordered Sig/Raúl Route Start Time Stop Time Status Last Admin Dose Admin Hydromorphone HCl (Dilaudid Inj) 1 mg NOW STAT IV 02/28/18 00:14 02/28/18 00:16 DC 02/28/18 00:32 1 MG Sodium Chloride 1,000 ml @ 999 mls/hr Q1H1M STAT IV 02/28/18 00:39 02/28/18 01:39 DC 02/28/18 00:51 999 MLS/HR Sodium Bicarbonate (Sodium Bicarbonate 8.4% Inj) 50 ml NOW STAT IV 02/28/18 01:11 02/28/18 01:12 DC 02/28/18 01:22 50 ML Calcium Gluconate (Calcium Gluconate 10%) 1,000 mg NOW STAT IV 02/28/18 01:11 02/28/18 01:12 DC 02/28/18 01:22 1,000 MG Insulin Human Regular (novoLIN-R U-100 PER UNIT) 10 units NOW STAT IV 02/28/18 01:11 02/28/18 01:12 DC 02/28/18 01:23 10 UNITS Dextrose (Dextrose 50% 50ML Syringe) 50 ml NOW STAT IV 02/28/18 01:11 02/28/18 01:12 DC 02/28/18 01:22 50 ML Dextrose/Sodium Chloride 1,000 ml @ 200 mls/hr Q5H IV 02/28/18 04:45 02/28/18 14:44 02/28/18 10:21 200 MLS/HR Hydromorphone HCl (Dilaudid Inj) FOR MODERATE TO SEV... Q3H PRN IV 02/28/18 04:45 03/14/18 04:44 02/28/18 09:35 2 MG Fentanyl (Duragesic Patch) 50 mcg Q72H TD 02/28/18 06:00 03/14/18 05:59 02/28/18 05:18 50 MCG Miscellaneous (Fentanyl Patch Remove & Waste) 1 ea Q72H N/A 02/28/18 05:59 03/30/18 05:58 02/28/18 05:16 1 EA Miscellaneous Information (Check Fentanyl Patch Placement) 1 ea QS N/A 02/28/18 08:00 03/30/18 07:59 02/28/18 08:00 1 EA (Samantha Grey CRNP) Objective Vital Signs Date Time Temp Pulse Resp B/P (MAP) Pulse Ox O2 Delivery O2 Flow Rate FiO2 02/28/18 12:00 99 Room Air 02/28/18 11:51 36.7 108 16 104/74 (84) 99 Room Air 02/28/18 08:00 98 Room Air 02/28/18 07:09 36.5 112 16 108/79 (89) 98 02/28/18 04:00 Room Air 02/28/18 02:50 36.2 111 16 111/76 97 Room Air 02/28/18 01:30 110 16 107/70 100 Room Air 02/28/18 00:30 110 02/27/18 23:55 36.6 117 24 100/70 100 Room Air (Samantha Grey CRNP) Physical Exam Notes: General: no distress, frail Eyes: normal inspection, PERLL Respiratory: chest non tender, clear to auscultation, normal breath sounds, no respiratory distress, no accessory muscle use Cardiac: regular rate and rhythm, no rub or gallop, no murmur, no edema, no jvd GI/: active bowel sounds, no abd pain or tenderness, soft, non distended Extremities: normal range of motion, normal strength, non tender Neuro/Psych:drowsy and oriented x 3, normal mood and affect Skin: pale, dry (Samantha Grey ., LASHA) Laboratory Results Last 24 Hours Test 02/28/18 00:24 02/28/18 03:20 02/28/18 05:30 02/28/18 07:29 White Blood Count 27.65 K/uL 25.15 K/uL Red Blood Count 4.18 M/uL 3.70 M/uL Hemoglobin 10.6 g/dL 9.1 g/dL 9.2 g/dL Hematocrit 32.2 % 28.2 % 28.6 % Mean Corpuscular Volume 77.0 fL 77.3 fL Mean Corpuscular Hemoglobin 25.4 pg 24.9 pg Mean Corpuscular Hemoglobin Concent 32.9 g/dl 32.2 g/dl Platelet Count 222 K/uL 182 K/uL Mean Platelet Volume 9.0 fL 9.6 fL Neutrophils (%) (Auto) 87.4 % Lymphocytes (%) (Auto) 2.4 % Monocytes (%) (Auto) 7.6 % Eosinophils (%) (Auto) 0.4 % Basophils (%) (Auto) 0.2 % Neutrophils # (Auto) 24.19 K/uL Lymphocytes # (Auto) 0.66 K/uL Monocytes # (Auto) 2.10 K/uL Eosinophils # (Auto) 0.11 K/uL Basophils # (Auto) 0.05 K/uL RDW Standard Deviation 62.5 fL 62.9 fL RDW Coefficient of Variation 22.5 % 22.5 % Immature Granulocyte % (Auto) 2.0 % Immature Granulocyte # (Auto) 0.54 K/uL Polychromasia 1+ Hypochromasia PRESENT Anisocytosis PRESENT Prothrombin Time 17.1 SECONDS Prothromb Time International Ratio 1.6 Activated Partial Thromboplast Time 99.3 SECONDS Partial Thromboplastin Ratio 3.8 Sodium Level 123 mmol/L 128 mmol/L 128 mmol/L Potassium Level 6.0 mmol/L 5.7 mmol/L 5.6 mmol/L Chloride Level 94 mmol/L 96 mmol/L 96 mmol/L Carbon Dioxide Level 21 mmol/L 26 mmol/L 23 mmol/L Anion Gap 8.0 mmol/L 6.0 mmol/L 9.0 mmol/L Blood Urea Nitrogen 48 mg/dl 47 mg/dl 44 mg/dl Creatinine 2.26 mg/dl 2.10 mg/dl 1.99 mg/dl Est Creatinine Clear Calc Drug Dose 33.0 ml/min 34.4 ml/min 36.3 ml/min Estimated GFR () 44.1 48.2 51.4 Estimated GFR (Non- 38.1 41.6 44.4 BUN/Creatinine Ratio 21.3 22.3 22.1 Random Glucose 109 mg/dl 51 mg/dl 117 mg/dl Calcium Level 8.0 mg/dl 7.9 mg/dl 7.7 mg/dl Phosphorus Level 4.8 mg/dl Magnesium Level 2.3 mg/dl Total Bilirubin 3.4 mg/dl 3.0 mg/dl Direct Bilirubin 2.5 mg/dl 2.4 mg/dl Aspartate Amino Transf (AST/SGOT) 343 U/L 327 U/L Alanine Aminotransferase (ALT/SGPT) 160 U/L 145 U/L Alkaline Phosphatase 501 U/L 421 U/L Total Protein 5.8 gm/dl 5.1 gm/dl Albumin 1.7 gm/dl 1.6 gm/dl Lipase 57 U/L Bedside Glucose 100 mg/dl Test 02/28/18 11:31 Hemoglobin 9.0 g/dL Hematocrit 27.4 % Sodium Level 127 mmol/L Potassium Level 4.9 mmol/L Chloride Level 97 mmol/L Carbon Dioxide Level 23 mmol/L Anion Gap 7.0 mmol/L Blood Urea Nitrogen 42 mg/dl Creatinine 1.93 mg/dl Est Creatinine Clear Calc Drug Dose 37.5 ml/min Estimated GFR () 53.4 Estimated GFR (Non- 46.1 BUN/Creatinine Ratio 21.6 Random Glucose 120 mg/dl Calcium Level 7.6 mg/dl (Samantha Grey, LASHA) Assessment and Plan This is a 28-year-old male with a history of stage IV colon carcinoma who was on home hospice prior to arrival at the hospital. He presented primarily due to blood in his colostomy bag. Several lab abnormalities were noted on arrival including acute renal failure, hyperkalemia, hyponatremia, liver function test abnormalities, and leukocytosis. Acute renal failure and hyperkalemia. - He was treated for hyperkalemia in the ER with dextrose and insulin as well as IVF - Potassium is trending down from six, now 4.9 - Creatinine 2.26 on admission, now trended down to 1.9 Acute gastrointestinal bleed, blood in the colostomy bag. - hgb has been stable around 9 - repeat hgb this afternoon - GI consulted - started IV protonix and CT abs/pelvis - C.diff negative Hyponatremia - sodium hovering around 127/128, up from 123, was receiving D5NSS @200 mls overnight, will start NSS @100 mls and recheck prp this afternoon Advanced carcinoma, - there are metastases into the liver, likely causing his elevated LFTs, which are trending down - consult GI (Samantha Grey, LASHA) Supervising Note Dr. Lo I performed a history and physical examination on the patient. I reviewed above note and agree with it. I discussed plan with APC and patient. During my face to face encounter with the patient, I answered all of the patient's questions. GI scope were negative for bleeding. Hemoglobin has not dropped either. I updated spouse on his anemia. Hem Onc discussed with team that his prognosis is very poor. Will discuss disposition tomorrow with patient if he wants more interventions done or if he would like to return to home hospice. (Reji Lo M.D.)
[2018-02-28] MEDS ORDERED: LIDOCAINE HCL 2% 2 ML VIAL (20MG/ML) ONE (17:32)
[2018-02-28] MEDS ORDERED: PROPOFOL IV EMULSION 10 MG/ML 20 ML VIAL IV ONE (17:32)
--- NOTE | 2018-02-28 18:05 | Anesthesiology Progress Note ---
Anesthesia Post Op Note Date & Time Feb 28, 2018 at 18:05 Vital Signs Pain Intensity: 0.0 Vital Signs Past 12 Hours Date Time Temp Pulse Resp B/P (MAP) Pulse Ox O2 Delivery O2 Flow Rate FiO2 02/28/18 17:50 99 16 112/81 (91) 100 Mask 5 02/28/18 17:35 98 16 107/83 (91) 99 Mask 10 02/28/18 16:08 36.7 112 16 115/81 (92) 98 Room Air 02/28/18 16:00 Room Air 02/28/18 15:23 36.3 108 16 115/79 (91) 99 Room Air 02/28/18 12:00 99 Room Air 02/28/18 11:51 36.7 108 16 104/74 (84) 99 Room Air 02/28/18 08:00 98 Room Air 02/28/18 07:09 36.5 112 16 108/79 (89) 98 Notes Mental Status: alert / awake / arousable, participated in evaluation Pt Amnestic to Procedure: Yes Nausea / Vomiting: adequately controlled Pain: adequately controlled Airway Patency, RR, SpO2: stable & adequate BP & HR: stable & adequate Hydration State: stable & adequate Anesthetic Complications: no major complications apparent
--- NOTE | 2018-02-28 18:16 | GI REPORT ---
Patient Name: Thomas Maldonado Procedure Date: 02/28/2018 4:55 PM Date of : 1990 Admit Type: Inpatient Age: 28 Gender: Male Attending MD: Dashawn Holland MD Procedure: Small bowel enteroscopy Providers: Dashawn Holland MD Referring MD: Reji Lo M.d. Indications: Obscure gastrointestinal bleeding Medicines: Propofol per Anesthesia Complications: No immediate complications. Estimated blood loss: None. Estimated Blood Loss: Estimated blood loss: none. Procedure: Pre-Anesthesia Assessment: - Prior to the procedure, a History and Physical was performed, and patient medications and allergies were reviewed. The patient's tolerance of previous anesthesia was also reviewed. The risks and benefits of the procedure and the sedation options and risks were discussed with the patient. All questions were answered, and informed consent was obtained. Prior Anticoagulants: The patient has taken no previous anticoagulant or antiplatelet agents. ASA Grade Assessment: III - A patient with severe systemic disease. After reviewing the risks and benefits, the patient was deemed in satisfactory condition to undergo the procedure. After obtaining informed consent, the endoscope was passed under direct vision. Throughout the procedure, the patient's blood pressure, pulse, and oxygen saturations were monitored continuously. The scope was introduced through the mouth, and advanced to the mid-jejunum. After obtaining informed consent, the endoscope was passed under direct vision. Throughout the procedure, the patient's blood pressure, pulse, and oxygen saturations were monitored continuously.The small bowel enteroscopy was accomplished without difficulty. The patient tolerated the procedure well. Findings: The examined esophagus was normal. Diffuse mildly erythematous mucosa without bleeding was found in the gastric fundus and in the gastric body. The exam of the stomach was otherwise normal. The cardia and gastric fundus were normal on retroflexion. There was no evidence of significant pathology in the entire examined duodenum. There was no evidence of significant pathology in the mid-jejunum. Impression: - Normal esophagus. - Erythematous mucosa in the gastric fundus and gastric body. This may reflect mild portal gastropathy. - Normal examined duodenum. - The examined portion of the jejunum was normal. - No specimens collected. Recommendation: - Return patient to [facility] for ongoing care. MD Dashawn Fuentes MD 02/28/2018 6:16:00 PM This report has been signed electronically. Note Initiated On: 02/28/2018 4:55 PM Number of Addenda: 0 I attest to the content of the Intraoperative Record and orders documented therein, exceptions below {[id number]}
[2018-02-28] MEDS: SODIUM CHLORIDE 0.9% 1000ML 1,000 ML IV SCH (18:31)
--- NOTE | 2018-02-28 18:42 | GI REPORT ---
Patient Name: Thomas Maldonado Procedure Date: 02/28/2018 4:56 PM Date of : 1990 Admit Type: Inpatient Age: 28 Gender: Male Attending MD: Dashawn Holland MD Procedure: Ileoscopy Providers: Dashawn Holland MD Referring MD: Reji Lo M.d. Indications: History of colectomy, Pt appears to have a loop ileostomy with two orifices identified. Neither had bleeding from the lumen. Small amount of blood of base of stoma but wiped away and no obvious bleeding source. Medicines: Propofol per Anesthesia Complications: No immediate complications. Estimated blood loss: None. Estimated Blood Loss: Estimated blood loss: none. Procedure: Pre-Anesthesia Assessment: - Prior to the procedure, a History and Physical was performed, and patient medications and allergies were reviewed. The patient's tolerance of previous anesthesia was also reviewed. The risks and benefits of the procedure and the sedation options and risks were discussed with the patient. All questions were answered, and informed consent was obtained. Prior Anticoagulants: The patient has taken no previous anticoagulant or antiplatelet agents. ASA Grade Assessment: III - A patient with severe systemic disease. After reviewing the risks and benefits, the patient was deemed in satisfactory condition to undergo the procedure. After I obtained informed consent, the scope was passed under direct vision. Throughout the procedure, the patient's blood pressure, pulse, and oxygen saturations were monitored continuously. The scope was introduced through the ileostomy and advanced to the laurie-terminal ileum. The Endoscope was introduced through the ileostomy and advanced to 70 cm into the ileum. After I obtained informed consent, the scope was passed under direct vision. Throughout the procedure, the patient's blood pressure, pulse, and oxygen saturations were monitored continuously.The ileoscopy was performed without difficulty. The patient tolerated the procedure well. The quality of the bowel preparation was fair. Findings: Patient is status-post colon resection with a surgical anastomosis. Introduction into the apex of the prolapsed bowel of stoma represents lumen superiorly directed (toward stomach). A small amount of stool was found at 70 cm proximal to the stoma, without interference to visualization. Blood is not detected. Ulceration or mucosal lesions are not detected. Bile present. At the skin bowel interface a second opening is identified and represents lumen toward the cecum. The cecum however is not identified/reached. Blood,clots are not detected. The scope was advanced approximately 30 cm into the stoma and appeared normal. Impression: - Preparation of the colon was fair. - Stool in the area at 70 cm proximal to the stoma. - The examined portion of the ileum was normal. - No specimens collected. Recommendation: - Return patient to [facility] for ongoing care. - follow H/H; if bleeding returns, consider tagged red cell scan. -Pt also with development of ascites on today's CT scan and may need diagnostic paracentesis followed by empiric ABX given leucocytosis. MD Dashawn Fuentes MD 02/28/2018 6:41:56 PM This report has been signed electronically. Note Initiated On: 02/28/2018 4:56 PM Number of Addenda: 0 I attest to the content of the Intraoperative Record and orders documented therein, exceptions below {[id number]}
[2018-02-28 19:10] LABS: HEMATOCRIT 29.8 % (42-52); HEMOGLOBIN 9.6 g/dL (14.0-18.0)
[2018-02-28 19:34] LABS: CALCIUM 7.4 mg/dl (8.5-10.1); CREATININE 1.74 mg/dl (0.60-1.40); POTASSIUM 4.9 mmol/L (3.5-5.1)
--- NOTE | 2018-02-28 20:01 | GASTROENTEROLOGY PROGRESS NOTE ---
DATE: 02/28/2018 This is a gastroenterology inpatient update note. The patient underwent upper endoscopy, small bowel enteroscopy with pediatric colonoscope. Except for mild gastritis changes in the upper stomach which may represent early portal gastropathy, no other bleeding sources, active or recent bleeding, was identified. The patient also underwent ileoscopy. The patient's anatomy appears to represent a loop ileostomy with one limb going back towards the stomach proximally. The XP gastroscope was advanced to approximately 70 cm. There were no blood sources of bleeding or clots identified. Bilious stained stool remnants were identified in this area. Reinspection identified an orifice at the prolapse bowel at the stomal site at the skin interface and this was instrumented and directed towards the small bowel distally towards the colon. This was next inspected for 30 cm and no active bleeding was identified, although the cecum was not reached. A small rim of fresh heme was noted at the skin interface, but when wiped away, there were no mucosal lesions or bleeding that recurred after cleansing. IMPRESSION: No obvious source of bleeding with the above post-surgical anatomy. 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 If bleeding returns, it may be reasonable to do a tagged red cell scan to better isolate this area. Additionally, the CT scan before this procedure demonstrated new accumulation of ascites and with his leukocytosis, it may be reasonable for the patient to have diagnostic paracentesis and empiric antibiotics and no cultures available. This may represent malignant ascites as well. Lastly, the patient's initial PTT was elevated and this should be rechecked. INR was not significantly abnormal. Sources of elevated PTT, including DIC may need exclusion. The results were discussed with the patient. Dr. Montes will be rounding on the service on Sunday.
[2018-02-28] MEDS ORDERED: ROPINIROLE HCL 0.25 MG TAB PO SCH (21:00)
[2018-03-01] MEDS: CHECK FENTANYL PATCH PLACEMENT SCH ×3 (01:33→16:24)
[2018-03-01] MEDS: HYDROmorphone INJ 2 MG/ML SYR/VIAL IV PRN ×3 (02:36→14:54)
[2018-03-01] MEDS: SODIUM CHLORIDE 0.9% 1000ML 1,000 ML IV SCH ×2 (04:43→11:48)
[2018-03-01 06:10] LABS: HEMATOCRIT 29.1 % (42-52); HEMOGLOBIN 9.2 g/dL (14.0-18.0); MEAN CELL VOLUME 78.6 fL (80-100); MEAN CORPUSCULAR HEMOGLOBIN 24.9 pg (25-34); MEAN CORPUSCULAR HGB CONC 31.6 g/dl (32-36); MEAN PLATELET VOLUME 9.1 fL (7.4-10.4); PLATELET COUNT 162 K/uL (130-400); RED CELL DISTRIBUTION WIDTH CV 23.1 % (11.5-14.5); RED CELL DISTRIBUTION WIDTH SD 65.8 fL (36.4-46.3); WHITE BLOOD COUNT 26.13 K/uL (4.8-10.8)
[2018-03-01 06:26] LABS: INR 1.6 (0.9-1.1); PTT PATIENT 42.2 SECONDS (21.0-31.0)
[2018-03-01 06:47] LABS: ALBUMIN 1.5 gm/dl (3.4-5.0); CALCIUM 7.4 mg/dl (8.5-10.1); CREATININE 1.67 mg/dl (0.60-1.40)
[2018-03-01 06:48] LABS: BASO % 0.1 %; BASO ABS # 0.03 K/uL (0-0.2); EOS % 0.4 %; LYMPH % 2.5 %; LYMPH ABS # 0.65 K/uL (1.2-3.4); MONO % 7.3 %; NEUT % 88.2 %; NEUT ABS # 23.05 K/uL (1.4-6.5)
[2018-03-01 06:55] LABS: TOTAL PROTEIN 5.2 gm/dl (6.4-8.2)
[2018-03-01 07:51] VITALS: BP 100/72; PULSE 112; TEMP 36.6
[2018-03-01] MEDS: PANTOprazole INJ 40 MG in SYRINGE 0 ML IV SCH (09:05)
[2018-03-01] MEDS: SERTRALINE HCL 100 MG TAB PO SCH (09:05)
[2018-03-01] MEDS ORDERED: NURSING VERBAL MED ORDER ONE (10:00)
[2018-03-01 11:12] VITALS: BP 95/69; PULSE 114; TEMP 36.7; O2SAT 100
[2018-03-01] MEDS: DEXAMETHASONE CONC SOLN 3.75 MG, NYSTATIN SUSP 30 ML, DiphenhydrAMINE HCL SYRUP 300 MG,... PO SCH ×10 (11:44→16:29)
--- NOTE | 2018-03-01 13:14 | PROGRESS NOTE ---
DATE: 03/01/2018 SUBJECTIVE: The patient is complaining of left-sided weakness, although his appetite is improving. OBJECTIVE: Vital signs shows slight tachycardia at 114, blood pressure is 95/69. He is afebrile. LABORATORY DATA: Shows hemoglobin stable at 9.2. Yesterday, he underwent an EGD into the small bowel with a push enteroscopy as well as an afferent and efferent inspection of the ileostomy and no bleeding source was identified. 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 IMPRESSION AND PLAN: The patient has left-sided weakness and family states that the hospitalist is planning to schedule an MRI of the brain for prognostic purposes. In addition, they were discussing doing a paracentesis to check for spontaneous bacterial peritonitis or whether there may be signs of malignant ascites present again for prognostic purposes. I think eventual goal is to have the patient go back home on hospice. I will continue to follow the patient.
[2018-03-01 14:51] VITALS: BP 103/73; PULSE 114; TEMP 36.7; O2SAT 94
--- NOTE | 2018-03-01 15:36 | Hospitalist Progress Note ---
Hospitalist Progress Note Date of Service Mar 01, 2018. (Samantha Grey ., LASHA) Subjective Pt evaluation today including: conversation w/ patient, conversation w/ family , physical exam, chart review, lab review, review of inpatient medication list Voiding: no voiding problems Mr. Maldonado is concerned about left arm weakness and and left leg weakness. He also is interested in having paracentesis done as suggested by GI. We did discuss that there is not really any intervention at this point that will extend his life as he has exhausted his chemo/oncology treatment options. I did ask if he had considered going home again with hospice and using his remaining time to be with family and focusing on comfortable. He stated that his home situation is not comfortable and that he is also not interested in inpatient hospice. He would like imaging for his brain. I did discuss this with Dr. Lo and we will make sure patient truly understands the risks and benefits of continued testing and treatment before preceding. ROS Constitutional: no chills, aches, sweats or fever Respiratory: no sob,cough, sputum, or wheezing Cardiac: no chest pain, palpitations, edema, orthopnea or lightheadedness GI: no abdominal pain, nausea, vomiting, diarrhea or constipation : no dysuria or hesitancy Extremities: severe generalized weakness, left more than right Skin: no rash All other systems reviewed and negative (Samantha Grey .LASHA) Medications Medications Administered Medications (Trade) Dose Ordered Sig/Raúl Route Start Time Stop Time Status Last Admin Dose Admin Hydromorphone HCl (Dilaudid Inj) 1 mg NOW STAT IV 02/28/18 00:14 02/28/18 00:16 DC 02/28/18 00:32 1 MG Sodium Chloride 1,000 ml @ 999 mls/hr Q1H1M STAT IV 02/28/18 00:39 02/28/18 01:39 DC 02/28/18 00:51 999 MLS/HR Sodium Bicarbonate (Sodium Bicarbonate 8.4% Inj) 50 ml NOW STAT IV 02/28/18 01:11 02/28/18 01:12 DC 02/28/18 01:22 50 ML Calcium Gluconate (Calcium Gluconate 10%) 1,000 mg NOW STAT IV 02/28/18 01:11 02/28/18 01:12 DC 02/28/18 01:22 1,000 MG Insulin Human Regular (novoLIN-R U-100 PER UNIT) 10 units NOW STAT IV 02/28/18 01:11 02/28/18 01:12 DC 02/28/18 01:23 10 UNITS Dextrose (Dextrose 50% 50ML Syringe) 50 ml NOW STAT IV 02/28/18 01:11 02/28/18 01:12 DC 02/28/18 01:22 50 ML Dextrose/Sodium Chloride 1,000 ml @ 200 mls/hr Q5H IV 02/28/18 04:45 02/28/18 14:44 DC 02/28/18 10:21 200 MLS/HR Hydromorphone HCl (Dilaudid Inj) FOR MODERATE TO SEV... Q3H PRN IV 02/28/18 04:45 03/14/18 04:44 03/01/18 14:54 2 MG Ropinirole HCl (Requip Tab) 0.25 mg HS PO 02/28/18 21:00 03/30/18 20:59 02/28/18 21:21 0.25 MG Sertraline HCl (Zoloft Tab) 100 mg DAILY PO 02/28/18 09:00 03/30/18 08:59 03/01/18 09:05 100 MG Fentanyl (Duragesic Patch) 50 mcg Q72H TD 02/28/18 06:00 03/14/18 05:59 02/28/18 05:18 50 MCG Miscellaneous (Fentanyl Patch Remove & Waste) 1 ea Q72H N/A 02/28/18 05:59 03/30/18 05:58 02/28/18 05:16 1 EA Miscellaneous Information (Check Fentanyl Patch Placement) 1 ea QS N/A 02/28/18 08:00 03/30/18 07:59 03/01/18 07:32 1 EA Pantoprazole Sodium 40 mg/ Syringe 10 ml @ 5 mls/min BID@0900,2100 IV 02/28/18 12:00 03/30/18 11:59 03/01/18 09:05 5 MLS/MIN Sodium Chloride 1,000 ml @ 100 mls/hr Q10H IV 02/28/18 15:45 03/30/18 15:44 03/01/18 11:48 100 MLS/HR Dexamethasone/ Nystatin/ Diphenhydramine HCl/Sucrose/ Microcrystalline Cellulose/Barcode Q4 PO 03/01/18 12:00 03/31/18 11:59 03/01/18 11:44 5 ML (Samantha Grey CRNP) Objective Vital Signs Date Time Temp Pulse Resp B/P (MAP) Pulse Ox O2 Delivery O2 Flow Rate FiO2 03/01/18 14:51 36.7 114 20 103/73 (83) 94 03/01/18 11:12 36.7 114 20 95/69 (78) 100 03/01/18 09:30 Room Air 03/01/18 07:51 36.6 112 20 100/72 (81) 03/01/18 00:00 Room Air 02/28/18 23:08 36.5 109 18 106/77 (87) 95 Room Air 02/28/18 20:23 108 16 106/75 (85) 98 Room Air 02/28/18 20:00 Room Air 02/28/18 19:05 36.3 108 18 117/88 (98) 98 Room Air 02/28/18 18:05 100 16 115/80 (92) 98 Room Air 02/28/18 17:50 99 16 112/81 (91) 100 Mask 5 02/28/18 17:35 98 16 107/83 (91) 99 Mask 10 02/28/18 16:08 36.7 112 16 115/81 (92) 98 Room Air 02/28/18 16:00 Room Air 02/28/18 15:23 36.3 108 16 115/79 (91) 99 Room Air (Samantha Grey CRNP) Physical Exam Notes: General: no distress Eyes: normal inspection, PERLL Respiratory: chest non tender, clear to auscultation, normal breath sounds, no respiratory distress, no accessory muscle use Cardiac: regular rate and rhythm, no rub or gallop, no murmur, no edema, no jvd GI/: active bowel sounds, mild diffuse abd pain or tenderness, soft, non distended Extremities: normal range of motion, normal strength, non tender Neuro/Psych: drowsy and oriented x 3, normal mood and affect Skin: normal color, dry (Samantha Grey CRNP) Laboratory Results Last 24 Hours Test 02/28/18 18:31 02/28/18 18:35 02/28/18 18:58 03/01/18 05:55 Bedside Glucose 83 mg/dl Urine Color DK YELLOW Urine Appearance CLOUDY Urine pH 5.5 Urine Specific [place] 1.019 Urine Protein TRACE Urine Glucose (UA) NEG Urine Ketones NEG Urine Occult Blood NEG Urine Nitrite NEG Urine Bilirubin 1+ Urine Urobilinogen NEG Urine Leukocyte Esterase NEG Urine WBC (Auto) 1-5 /hpf Urine RBC (Auto) 0-4 /hpf Urine Hyaline Casts (Auto) 1-5 /lpf Urine Epithelial Cells (Auto) 5-10 /lpf Urine Bacteria (Auto) NEG Urine Crystals AMORPHOUS SEDIMENT Urine Yeast (Auto) Hemoglobin 9.6 g/dL 9.2 g/dL Hematocrit 29.8 % 29.1 % Sodium Level 128 mmol/L 130 mmol/L Potassium Level 4.9 mmol/L 5.0 mmol/L Chloride Level 100 mmol/L 100 mmol/L Carbon Dioxide Level 22 mmol/L 22 mmol/L Anion Gap 6.0 mmol/L 8.0 mmol/L Blood Urea Nitrogen 37 mg/dl 36 mg/dl Creatinine 1.74 mg/dl 1.67 mg/dl Est Creatinine Clear Calc Drug Dose 41.6 ml/min 43.3 ml/min Estimated GFR () 60.5 63.6 Estimated GFR (Non- 52.2 54.9 BUN/Creatinine Ratio 21.5 21.3 Random Glucose 95 mg/dl 71 mg/dl Calcium Level 7.4 mg/dl 7.4 mg/dl White Blood Count 26.13 K/uL Red Blood Count 3.70 M/uL Mean Corpuscular Volume 78.6 fL Mean Corpuscular Hemoglobin 24.9 pg Mean Corpuscular Hemoglobin Concent 31.6 g/dl Platelet Count 162 K/uL Mean Platelet Volume 9.1 fL Neutrophils (%) (Auto) 88.2 % Lymphocytes (%) (Auto) 2.5 % Monocytes (%) (Auto) 7.3 % Eosinophils (%) (Auto) 0.4 % Basophils (%) (Auto) 0.1 % Neutrophils # (Auto) 23.05 K/uL Lymphocytes # (Auto) 0.65 K/uL Monocytes # (Auto) 1.90 K/uL Eosinophils # (Auto) 0.10 K/uL Basophils # (Auto) 0.03 K/uL RDW Standard Deviation 65.8 fL RDW Coefficient of Variation 23.1 % Immature Granulocyte % (Auto) 1.5 % Immature Granulocyte # (Auto) 0.40 K/uL Toxic Granulation 1+ Hypochromasia PRESENT Anisocytosis PRESENT Prothrombin Time 16.6 SECONDS Prothromb Time International Ratio 1.6 Activated Partial Thromboplast Time 42.2 SECONDS Partial Thromboplastin Ratio 1.6 Total Bilirubin 3.7 mg/dl Aspartate Amino Transf (AST/SGOT) 318 U/L Alanine Aminotransferase (ALT/SGPT) 140 U/L Alkaline Phosphatase 349 U/L Total Protein 5.2 gm/dl Albumin 1.5 gm/dl Globulin 3.7 gm/dl Albumin/Globulin Ratio 0.4 (Samantha Grey CRNP) Assessment and Plan This is a 28-year-old male with a history of stage IV colon carcinoma who was on home hospice prior to arrival at the hospital. He presented primarily due to blood in his colostomy bag. Several lab abnormalities were noted on arrival including acute renal failure, hyperkalemia, hyponatremia, liver function test abnormalities, and leukocytosis. Acute renal failure and hyperkalemia. - He was treated for hyperkalemia in the ER with dextrose and insulin as well as IVF - Potassium is trending down from six, now wnl - Creatinine 2.26 on admission, now trended down to 1.6 Acute gastrointestinal bleed, blood in the colostomy bag. - hgb has been stable around 9 - GI consulted - started IV protonix and CT abs/pelvis - C.diff negative Hyponatremia - sodium 130, up from 123, continue NSS @100 mls - prp am Advanced carcinoma, - there are metastases into the liver, likely causing his elevated LFTs, which are trending down - consult GI Leukocytosis - WBCs in 20s - no other apparent s/s of infection, afebrile, no aches or chills , C.diff negative - likely due to neoplastic process however patient requesting paracentesis for diagnosis of infection vs malignancy I did discuss this case with Dr. Lo especially patient's request for further diagnostic workup despite likely futility of these measures given his advanced cancer and lack of oncology treatment options. Dr. Lo will discuss with patient and place orders following. DNR (Samantha Grey CRNP) Supervising Note Dr. Lo I performed a history and physical examination on the patient. I reviewed above note and agree with it. I discussed plan with APC and patient. During my face to face encounter with the patient, I answered all of the patient's questions. Had long conversation with patient. Patient was told his prognosis which is likely to be weeks after discussing with ONC. Explained that further imaging will likely bring more adverse effects that any benefits. Patient decided to return to home hospice. D/W with traffic incident management manager and palliative. Patient will contact home hospice when he returns home. Will discharge patient with pain medicine. Enough to cover him until being seen by home hospice. Patient will try to complete his final wishes before he passes, which is go to beach, and perhaps drive a fast car. (Reji Lo M.D.)
[2018-03-01] MEDS ORDERED: HYDR4TAB2 PO ×2 (18:15→18:18)
--- NOTE | 2018-03-01 18:26 | Discharge Instructions ---
Discharge Instructions Date of Service Mar 01, 2018. Admission Reason for Admission: Gi Bleed Discharge Discharge Diagnosis / Problem: Advanced colon cancer; anemia Discharge Goals Goal(s): Decrease discomfort, Improve function Activity Recommendations Activity Limitations: resume your previous activity . Instructions / Follow-Up Instructions / Follow-Up Please call [facility] Tonight on day of discharge so they can see you in AM. I am prescribing 10 tablets of dialudid 4 mg with instructions for as needed doses up to every 4 hours. Take 1 full tablet if pain is severe, half tablet if pain is sensitive. Hospice will follow up with your pain medicine. Dr. Hayes visited you during your hospital stay. He told the team that he suspects the that the end is near. His life expectancy estimation was weeks. We discussed on some wishes: Perhaps having the beach vacation sooner this year. Be sure to have enough pain medicine for the trip and also have stop for rest. In regards to the car experience, [employer] is a website offers some experience for a reasonable valladares. Will discuss with case management tomorrow if it is possible to help out with this experience. Current Hospital Diet Patient's current hospital diet: Regular Diet Discharge Diet Recommended Diet: Regular Diet Pending Studies Studies pending at discharge: no Medical Emergencies . Who to Call and When: Medical Emergencies: If at any time you feel your situation is an emergency, please call 911 immediately. . Non-Emergent Contact Non-Emergency issues call your: Primary Care Provider, Specialist (hospice) Call Non-Emergent contact if: your pain is worsening . . "Provider Documentation" section prepared by Reji Lo. .
[2018-03-01 18:41] VITALS: BP 103/73; PULSE 114; TEMP 36.7; O2SAT 94
--- NOTE | 2018-03-06 07:21 | Discharge Summary ---
Discharge Summary Date of Service March 01, 2018. Discharge Summary Admission Date: Feb 28, 2018 at 02:02 Discharge Date: Mar 01, 2018 Discharge Disposition: Home with services (Home hospice) Principal Diagnosis: Advanced gastric cancer. Immunizations: Have You Had Influenza Vaccine: Unknown History of Tetanus Vaccine?: Unknown History of Pneumococcal: Unknown History of Hepatitis B Vaccine: Unknown Medication Reconciliation Continued Medications: Fentanyl (Duragesic) 50 Mcg Tdsy 50 MCG TOP [id number] pt presently with 50mcg patch on couldn't find 25mcg patch Ferrous Gluconate (Ferrous Gluconate) 324 Mg Tab 324 MG PO BIDM, TAB has this med prescribed but not taking it right now Hydromorphone Hcl (Dilaudid) 4 Mg Tab 4 MG PO Q4H PRN for Pain for 2 Days, #10 TAB 0 Refills (This prescription has been renewed) Take half a tablet for moderate pain Take one tablet for severity pain Nystatin (Nystatin Suspension) 1 Ml Susp 5 ML PO QID PRN for thrush Ondansetron Hcl (Zofran) 8 Mg Tab 8 MG PO Q8 PRN for Nausea or Vomiting, TAB Probiotic Product (Align) 4 Mg Cap 4 MG PO DAILY Ropinirole (Requip) 0.25 Mg Tab 0.25 MG PO HS, TAB Sertraline (Zoloft) 100 Mg Tab 50 MG PO DAILY, TAB Simethicone (Mi-Acid Gas Relief) 80 Mg Chw 80 MG PO Q6H PRN for Gas/Bloating Discharge Exam ROS Constitutional: no chills, aches, sweats or fever Respiratory: no sob,cough, sputum, or wheezing Cardiac: no chest pain, palpitations, edema, orthopnea or lightheadedness GI: no abdominal pain, nausea, vomiting, diarrhea or constipation : no dysuria or hesitancy Extremities: severe generalized weakness, left more than right Skin: no rash All other systems reviewed and negative Physical Exam Notes: General: no distress Eyes: normal inspection, PERLL Respiratory: chest non tender, clear to auscultation, normal breath sounds, no respiratory distress, no accessory muscle use Cardiac: regular rate and rhythm, no rub or gallop, no murmur, no edema, no jvd GI/: active bowel sounds, mild diffuse abd pain or tenderness, soft, non distended Extremities: normal range of motion, normal strength, non tender Neuro/Psych: drowsy and oriented x 3, normal mood and affect Skin: normal color, dry Hospital Course Assessment and Plan This is a 28-year-old male with a history of stage IV colon carcinoma who was on home hospice prior to arrival at the hospital. He presented primarily due to blood in his colostomy bag. Several lab abnormalities were noted on arrival including acute renal failure, hyperkalemia, hyponatremia, liver function test abnormalities, and leukocytosis. Acute renal failure and hyperkalemia. - He was treated for hyperkalemia in the ER with dextrose and insulin as well as IVF - Potassium is trending down from six, now wnl - Creatinine 2.26 on admission, now trended down to 1.6 Acute gastrointestinal bleed, blood in the colostomy bag. - hgb has been stable around 9 - GI consulted - started IV protonix and CT abs/pelvis - C.diff negative Hyponatremia - sodium 130, up from 123, continue NSS @100 mls - prp am Advanced carcinoma, - there are metastases into the liver, likely causing his elevated LFTs, which are trending down - consult GI Leukocytosis - WBCs in 20s - no other apparent s/s of infection, afebrile, no aches or chills , C.diff negative - likely due to neoplastic process however patient requesting paracentesis for diagnosis of infection vs malignancy I did discuss this case with Dr. Lo especially patient's request for further diagnostic workup despite likely futility of these measures given his advanced cancer and lack of oncology treatment options. Dr. Lo will discuss with patient and place orders following. DNR (Samantha Grey CRNP) Supervising Note Dr. Lo I performed a history and physical examination on the patient. I reviewed above note and agree with it. I discussed plan with APC and patient. During my face to face encounter with the patient, I answered all of the patient's questions. Had long conversation with patient. Patient was told his prognosis which is likely to be weeks after discussing with ONC. Explained that further imaging will likely bring more adverse effects that any benefits. Patient decided to return to home hospice. D/W with regulatory manager and palliative. Patient will contact home hospice when he returns home. Will discharge patient with pain medicine. Enough to cover him until being seen by home hospice. Patient will try to complete his final wishes before he passes, which is go to beach, and perhaps drive a fast car. (Reji Lo M.D.) Total Time Spent: Greater than 30 minutes This includes examination of the patient, discharge planning, medication reconciliation, and communication with other providers. Discharge Instructions Please refer to the electronic Patient Visit Report (Discharge Instructions) for additional information.
== END 2018-03-01 19:17 | disposition hospice, home (50) | DRG 374 ==
LOC: C.EDB 23:48 → C.MED 02-28 02:02 → C.4E 02-28 22:50
PROVIDERS: ADMIT Internal Medicine; ATTEND Internal Medicine Sports Medicine
PROC: 0DJD8ZZ Inspection of Lower Intestinal Tract, Via Natural or Artificial Opening Endoscopic (ICD-10-PCS; principal; 2018-02-28 16:00)
PROC: 0DJ08ZZ Inspection of Upper Intestinal Tract, Via Natural or Artificial Opening Endoscopic (ICD-10-PCS; principal; 2018-02-28 16:00)
DX: C18.9 Malignant neoplasm of colon, unspecified (principal); E43 Unspecified severe protein-calorie malnutrition; N17.9 Acute kidney failure, unspecified; K92.2 Gastrointestinal hemorrhage, unspecified; C78.7 Secondary malignant neoplasm of liver and intrahepatic bile duct; E87.1 Hypo-osmolality and hyponatremia; D62 Acute posthemorrhagic anemia; Z68.1 Body mass index [BMI] 19.9 or less, adult; E87.5 Hyperkalemia; R29.6 Repeated falls; Z51.5 Encounter for palliative care; Z66 Do not resuscitate; Z79.891 Long term (current) use of opiate analgesic; Z79.899 Other long term (current) drug therapy; Z86.19 Personal history of other infectious and parasitic diseases; Z87.891 Personal history of nicotine dependence; Z91.81 History of falling; Z93.2 Ileostomy status; Z88.8 Allergy status to other drugs, medicaments and biological substances; Z91.011 Allergy to milk products

== ENCOUNTER 2018-03-15 23:42 | Inpatient (IN) | payer OTHER ==
[~2018-03-15] VITALS: Ht 175.3 cm; Wt 49.0 kg
[~2018-03-15 23:42] MED LIST changes: +NYSS/ PO; -NYSS5 PO; -VANC1SUS PO
[2018-03-15] MEDS ORDERED: LORAZEPAM 2 MG/ML 1 ML VIAL ONE (23:48)
--- NOTE | 2018-03-15 23:51 | EMERGENCY ROOM VISIT NOTE ---
History Report prepared by Jemma: Bre Goodman Under the Supervision of: Dr. Lucy Stark D.O. First contact with patient: 23:37 Stated Complaint: CARDIAC ARREST History of Present Illness The patient is a 28 year old male who presents to the Emergency Room with complaints of possible cardiac arrest occurring just prior to arrival. Per EMS, the patient was taking a shower with the help of his fiance when he became unresponsive. The patient has a history of renal failure and metastatic rectal cancer. The patient has a power port in place. The family performed CPR on the patient for five minutes before he started to breathe again. The patient was on hospice but the family wants everything done. The patient states " I have pain everywhere". The patient was given Narcan by EMS LICENSE DISTRIBUTOR because he had previously had a fentanyl patch on his body. Per fiance, she was giving the patient a shower when he started to "zone out" and his breathing changed. The fiance stared to do CPR until EMS arrived. The patient is not currently undergoing any treatment for his metastatic cancer. The patient's fiance is his POA. Source of History: EMS Onset: just prior to arrival Position: other (generalized) Quality: other (possible cardiac arrest) Timing: other (episode) Review of Systems See HPI for pertinent positives & negatives. A total of 10 systems reviewed and were otherwise negative. Past Medical & Surgical Medical Problems: (1) Abdominal pain (2) Cardiac arrest (3) Cecum mass (4) Colon cancer metastasized to liver (5) Episode of syncope (6) GI bleed (7) Hydronephrosis of left kidney (8) Hydronephrosis of right kidney (9) Kidney stone Surgical Problems: (1) History of ureter stent Family History FH: cardiovascular disease FHx: cancer FHx: heart disease Hypertension Kidney disease Kidney stones Seizures Social History Marital Status: in relationship Housing Status: lives with family Current/Historical Medications Scheduled Amphetamine-Dextroamphetamine (Adderall), 1 TAB PO BID Fentanyl (Duragesic), 25 MCG TD Q72HRS Ferrous Gluconate (Ferrous Gluconate), 324 MG PO BIDM Probiotic Product (Align), 4 MG PO DAILY/PRN Scheduled PRN Hydromorphone Hcl (Dilaudid), 4 MG PO Q4-6HRS PRN for Pain Nystatin (Nystatin Suspension), 5 ML PO QID PRN for thrush Ondansetron Hcl (Zofran), 8 MG PO Q8 PRN for Nausea or Vomiting Phenazopyridine HCl (Pyridium), 200 MG PO TID PRN for Pain Simethicone (Mi-Acid Gas Relief), 80 MG PO Q6H PRN for Gas/Bloating Allergies Coded Allergies: Cranberry Extract (Verified Allergy, Severe, HIVES, 02/28/18) Oxaliplatin (Verified Allergy, Severe, THROAT CLOSING, 02/28/18) Lactose Intolerance (GI) (Verified Allergy, Unknown, UNKNOWN, 02/28/18) Physical Exam Vital Signs Date Time Temp Pulse Resp B/P (MAP) Pulse Ox O2 Delivery O2 Flow Rate FiO2 03/16/18 01:10 105 25 116/70 100 Nasal Cannula 3.0 03/16/18 00:47 105 23 98/88 96 Nasal Cannula 3.0 03/16/18 00:41 105 23 172/140 99 Nasal Cannula 6.0 03/16/18 00:36 103 27 106/80 03/16/18 00:32 105 29 117/72 03/16/18 00:22 117 29 03/16/18 00:17 110 32 03/16/18 00:13 107 36 67/46 03/16/18 00:11 113 33 99/78 03/16/18 00:02 114 30 03/15/18 23:59 34.7 109 18 112/87 Nasal Cannula 6.0 03/15/18 23:57 116 27 03/15/18 23:52 105 28 03/15/18 23:50 105 28 112/87 03/15/18 23:50 104 Physical Exam General: Patient is cachetic and slightly agitated and confused. HEENT: Head - normocephalic and atraumatic Pupils are equal, round, and reactive to light. Extraocular eye muscles are intact, and scleral icterus. Nose - moist nasal mucosa without discharge. Mouth - extremely dry Oropharynx is nonerythematous and there is no tonsillar exudate or edema noted. Neck: Supple; no JVD, nuchal rigidity, cervical lymphadenopathy. Heart: Tachycardic rate and regular rhythm. There is a normal S1 and S2 with no murmurs, clicks, or gallops appreciated. Lungs: Clear to auscultation bilaterally with no wheezes, rales, or rhonchi. Abdomen: Abdomen is distended. Soft, completely nontender, with good bowel sounds. There are no palpable pulsatile masses or hepatosplenomegaly. There is no guarding, rigidity, or rebound noted. Extremities: Edema in lower extremities. No evidence of cyanosis, clubbing. There are easily palpable peripheral pulses. Skin is pale and cool Medical Decision & Procedures ER Provider Diagnostic Interpretation: Radiology results as stated below per my review: Chest X-Ray: Diffuse haziness of right lung, no obvious pulmonary consolidation or infiltrate Laboratory Results 03/15/18 23:56 Red Blood Count 3.82, Mean Corpuscular Volume 82.5, Mean Corpuscular Hemoglobin 26.2, Mean Corpuscular Hemoglobin Concent 31.7, Mean Platelet Volume 9.8, Neutrophils (%) (Auto) 90.9, Lymphocytes (%) (Auto) 2.0, Monocytes (%) (Auto) 5.2, Eosinophils (%) (Auto) 0.1, Basophils (%) (Auto) 0.1, Neutrophils # (Auto) 21.44, Lymphocytes # (Auto) 0.47, Monocytes # (Auto) 1.22, Eosinophils # (Auto) 0.02, Basophils # (Auto) 0.03 03/15/18 23:56 Test 03/15/18 23:56 White Blood Count 23.59 K/uL (4.8-10.8) Red Blood Count 3.82 M/uL (4.7-6.1) Hemoglobin 10.0 g/dL (14.0-18.0) Hematocrit 31.5 % (42-52) Mean Corpuscular Volume 82.5 fL (80-100) Mean Corpuscular Hemoglobin 26.2 pg (25-34) Mean Corpuscular Hemoglobin Concent 31.7 g/dl (32-36) Platelet Count 121 K/uL (130-400) Mean Platelet Volume 9.8 fL (7.4-10.4) Neutrophils (%) (Auto) 90.9 % Lymphocytes (%) (Auto) 2.0 % Monocytes (%) (Auto) 5.2 % Eosinophils (%) (Auto) 0.1 % Basophils (%) (Auto) 0.1 % Neutrophils # (Auto) 21.44 K/uL (1.4-6.5) Lymphocytes # (Auto) 0.47 K/uL (1.2-3.4) Monocytes # (Auto) 1.22 K/uL (0.11-0.59) Eosinophils # (Auto) 0.02 K/uL (0-0.5) Basophils # (Auto) 0.03 K/uL (0-0.2) RDW Standard Deviation 66.5 fL (36.4-46.3) RDW Coefficient of Variation 22.0 % (11.5-14.5) Immature Granulocyte % (Auto) 1.7 % Immature Granulocyte # (Auto) 0.41 K/uL (0.00-0.02) Toxic Vacuolation OCCASIONAL Anisocytosis PRESENT Echinocytes 2+ Anion Gap 16.0 mmol/L (3-11) Estimated GFR () 55.8 Estimated GFR (Non- 48.2 BUN/Creatinine Ratio 32.6 (10-20) Calcium Level 7.2 mg/dl (8.5-10.1) Magnesium Level 2.4 mg/dl (1.8-2.4) Total Bilirubin 6.8 mg/dl (0.2-1) Direct Bilirubin 5.8 mg/dl (0-0.2) Aspartate Amino Transf (AST/SGOT) 479 U/L (15-37) Alanine Aminotransferase (ALT/SGPT) 163 U/L (12-78) Alkaline Phosphatase 340 U/L (45-117) Total Protein 4.8 gm/dl (6.4-8.2) Albumin 1.3 gm/dl (3.4-5.0) Laboratory results per my review. Medications Administered Medications (Trade) Dose Ordered Sig/Raúl Route Start Time Stop Time Status Last Admin Dose Admin Lorazepam (Ativan Inj) 2 mg STK-MED ONCE .ROUTE 03/15/18 23:48 03/15/18 23:49 DC 03/15/18 23:51 0.5 MG Sodium Chloride 1,000 ml @ 200 mls/hr Q5H STAT IV 03/15/18 23:52 03/16/18 02:48 DC 03/16/18 00:04 200 MLS/HR Fentanyl Citrate (Fentanyl Inj) 50 mcg NOW STAT IV 03/15/18 23:54 03/15/18 23:55 DC 03/16/18 00:04 50 MCG Fentanyl Citrate (Fentanyl Inj) 25 mcg NOW STAT IV 03/16/18 00:36 03/16/18 00:37 DC 03/16/18 00:40 25 MCG Procedure Ativan Inj IV 2, NSS IV, Fentanyl Inj IV 2. ECG Per My Interpretation Indication: other (cardiac arrest) Rate (beats per minute): 107 Rhythm: sinus tachycardia Findings: no acute ischemic change, other (poo baseline) ED Course 2342: Past medical records reviewed. The patient was evaluated in room B1. A complete history and physical exam was performed. His Mediport was accessed and labs were drawn as above. 2348: Ordered Ativan Inj 0.5 mg IV. 2352: Ordered Sodium Chloride 1000 ml @ 200 mls/hr IV, Ativan Inj 0.5 mg IV. 2354: Ordered Fentanyl Inj 50 mcg IV. The patient's family and friends have arrived here in the emergency department. I had an extensive conversation with them about the patient's condition. The patient's fianc is the power of sports attorney. [id number]: Ordered Fentanyl Inj 50 mcg IV 0012: The patient's fianc and son at bedside. The patient's blood pressure is now 67/46. Patient was given another bolus of normal saline solution. 0022: The patient's fianc does not want artificial pressors but she is agreeable to fluid resuscitation. 0036: Ordered Fentanyl Inj 25 mcg IV. 0038: [facility] The patient will be evaluated for further management. 0054: The patient's pressure is in the 90's systolically. He is more comfortable after last does of fentanyl. I updated the family. 0125: The patient is becoming more responsive. 0142: The patient's mother is now at bedside. I answered all of her questions. 0156: The patient is now complaining of diffuse body pain. 0158: Ordered Fentanyl Inj 50 mcg IV. Medical Decision The patient is a 28 year old male who presents to the Emergency Room with complaints of possible cardiac arrest occurring just prior to arrival. Differential diagnosis includes cardiac arrest renal failure, hyperkalemia, sepsis, pneumonia, UTI, liver failure, seizure. Lab results show: white blood cell count 23.5, hemoglobin 10, platelet count 121 , 90% neutrophils, potassium 6.6, BUN 61, creatinine 1.8, glucose 62, total bilirubin 6.8, direct bilirubin 5.8, magnesium 2.4, AST 479, ALT 163. This is a 28-year-old male patient with a history of metastatic rectal cancer on hospice who seems to have suffered a cardiac arrest at home. The patient received CPR for approximately 5 minutes before he began to breathe again according to the family. Patient has a history of renal failure and was found to have a potassium greater than 6. This could have accounted for a cardiac dysrhythmia as the cause of the cardiac arrest. The family's description of his episode of unresponsiveness may seem consistent with a seizure. It is difficult to tell exactly what happened. I spent a great deal time with the patient's family and friends and the power of sports attorney has decided on comfort measures. I discussed the case with the [facility] Hospitalist and they will evaluate for further management. Medication Reconcilliation Current Medication List: was personally reviewed by me Blood Pressure Screening Patient's blood pressure: Low blood pressure Consults Time Called: 29 Consulting Physician: Dr. Duran Returned Call: 37 Discussed the patient's case with Dr. Duran. The patient will be evaluated for further management. Impression Primary Impression: Cardiac arrest Additional Impressions: Hyperkalemia Colon cancer Critical Care I have personally spent greater than 60 minutes of critical care time in the direct management of this patient. This includes bedside care, interpretation of diagnostic studies, and testing, discussion with consultants, patient, and family members, and other required patient management activities. This 60 minutes is in excess of all separately billable procedures. Scribe Attestation The scribe's documentation has been prepared under my direction and personally reviewed by me in its entirety. I confirm that the note above accurately reflects all work, treatment, procedures, and medical decision making performed by me. Departure Information Dispostion Being Evaluated By Hospitalist Problem Qualifiers Additional Impressions: Colon cancer Colon location: unspecified part of colon Qualified Codes: C18.9 - Malignant neoplasm of colon, unspecified
[2018-03-15] MEDS ORDERED: SODIUM CHLORIDE 0.9% 1000ML 1,000 ML IV STA (23:52)
[2018-03-15] MEDS ORDERED: LORAZEPAM 2 MG/ML 1 ML VIAL IV STA (23:52)
[2018-03-15] MEDS ORDERED: FENTANYL CITRATE INJ 50 MCG/1 ML 2 ML VIAL IV STA (23:54)
[2018-03-15] MEDS ORDERED: FENTANYL CITRATE INJ 50 MCG/1 ML 2 ML VIAL ONE (23:55)
[2018-03-16 00:06] LABS: HEMATOCRIT 31.5 % (42-52); MEAN CELL VOLUME 82.5 fL (80-100); MEAN CORPUSCULAR HEMOGLOBIN 26.2 pg (25-34); MEAN CORPUSCULAR HGB CONC 31.7 g/dl (32-36); MEAN PLATELET VOLUME 9.8 fL (7.4-10.4); PLATELET COUNT 121 K/uL (130-400); RED CELL DISTRIBUTION WIDTH SD 66.5 fL (36.4-46.3); WHITE BLOOD COUNT 23.59 K/uL (4.8-10.8)
[2018-03-16] MEDS ORDERED: FENT25DI10 TD (00:18)
[2018-03-16] MEDS ORDERED: HYDR4TAB78 PO (00:21)
[2018-03-16 00:26] LABS: ALBUMIN 1.3 gm/dl (3.4-5.0); ALT/SGPT 163 U/L (12-78); AST/SGOT 479 U/L (15-37); BLOOD UREA NITROGEN 61 mg/dl (7-18); CALCIUM 7.2 mg/dl (8.5-10.1); CARBON DIOXIDE 13 mmol/L (21-32); CREATININE 1.86 mg/dl (0.60-1.40); GLUCOSE 62 mg/dl (70-99); POTASSIUM 6.6 mmol/L (3.5-5.1); SODIUM 129 mmol/L (136-145)
[2018-03-16] MEDS ORDERED: AMPH12.5 PO (00:26)
[2018-03-16] MEDS ORDERED: PHEN-876 PO (00:28)
[2018-03-16 00:31] LABS: ALKALINE PHOSPHATASE 340 U/L (45-117); TOTAL PROTEIN 4.8 gm/dl (6.4-8.2)
[2018-03-16] MEDS ORDERED: FENTANYL CITRATE INJ 50 MCG/1 ML 2 ML VIAL IV STA ×2 (00:36→01:58)
[2018-03-16 00:49] LABS: BASO % 0.1 %; BASO ABS # 0.03 K/uL (0-0.2); EOS % 0.1 %; EOS ABS # 0.02 K/uL (0-0.5); IG# 0.41 K/uL (0.00-0.02); LYMPH ABS # 0.47 K/uL (1.2-3.4); MONO % 5.2 %; MONO ABS # 1.22 K/uL (0.11-0.59); NEUT % 90.9 %; NEUT ABS # 21.44 K/uL (1.4-6.5)
[2018-03-16] MEDS ORDERED: ONDANSETRON INJ 2 MG/ML 2 ML VIAL IV PRN (02:00)
[2018-03-16] MEDS ORDERED: MoRPHine SULFATE 4 MG/ML 1 ML CARP\\VIAL IV PRN ×2 (02:00→04:30)
[2018-03-16 02:19] VITALS: TEMP 35.2; Ht 175.3 cm; Wt 49.0 kg
--- NOTE | 2018-03-16 02:21 | History and Physical ---
History & Physical Date & Time of Service: March 16, 2018 at 01:58 Chief Complaint: Cardiac Arrest Primary Care Physician: Wayne Andres D.O. History of Present Illness Source: family, hospital records Patient is an unfortunate 28yo male with history of metastatic rectal cancer on home hospice presenting to the ER after a possible cardiac arrest at home. Patient was taking a bath when he became unresponsive with erratic breathing. His fiance administered CPR until EMS arrived and provided CPR x 5 minutes with ROSC. He had his Fentanyl patch removed and Narcan given. Upon arrival to the ER he was responsive, hypothermic and hypotensive. He was given IVF and a Sergio hugger placed. Ativan and Fentanyl given. Dr. Stark conducted meeting with the family to discuss goals of care. The decision was made to place the patient on comfort measures. Past Medical/Surgical History Medical Problems: 1. Rectal cancer - end stage 2. MAIDA 3. Anemia Surgical Problems: (1) History of ureter stent Family History FH: cardiovascular disease FHx: cancer FHx: heart disease Hypertension Kidney disease Kidney stones Seizures Social History Smoking Status: Unknown if Ever Smoked Drug Use: none Marital Status: in relationship Housing status: lives with family Occupational Status: disabled Immunizations History of Influenza Vaccine: Unknown History of Tetanus Vaccine?: Unknown History of Pneumococcal: Unknown History of Hepatitis B Vaccine: Unknown Allergies Coded Allergies: Cranberry Extract (Verified Allergy, Severe, HIVES, 02/28/18) Oxaliplatin (Verified Allergy, Severe, THROAT CLOSING, 02/28/18) Lactose Intolerance (GI) (Verified Allergy, Unknown, UNKNOWN, 02/28/18) Home Medications Scheduled Amphetamine-Dextroamphetamine (Adderall), 1 TAB PO BID Fentanyl (Duragesic), 25 MCG TD Q72HRS Ferrous Gluconate (Ferrous Gluconate), 324 MG PO BIDM Probiotic Product (Align), 4 MG PO DAILY/PRN Scheduled PRN Hydromorphone Hcl (Dilaudid), 4 MG PO Q4-6HRS PRN for Pain Nystatin (Nystatin Suspension), 5 ML PO QID PRN for thrush Ondansetron Hcl (Zofran), 8 MG PO Q8 PRN for Nausea or Vomiting Phenazopyridine HCl (Pyridium), 200 MG PO TID PRN for Pain Simethicone (Mi-Acid Gas Relief), 80 MG PO Q6H PRN for Gas/Bloating Review of Systems Unable to obtain secondary to altered mental status Physical Exam Vital Signs Date Time Temp Pulse Resp B/P (MAP) Pulse Ox O2 Delivery O2 Flow Rate FiO2 03/16/18 01:43 34.5 111 25 96/70 100 Nasal Cannula 3.0 03/16/18 01:10 105 25 116/70 100 Nasal Cannula 3.0 03/16/18 00:47 105 23 98/88 96 Nasal Cannula 3.0 03/16/18 00:41 105 23 172/140 99 Nasal Cannula 6.0 03/16/18 00:36 103 27 106/80 03/16/18 00:32 105 29 117/72 03/16/18 00:22 117 29 03/16/18 00:17 110 32 03/16/18 00:13 107 36 67/46 03/16/18 00:11 113 33 99/78 03/16/18 00:02 114 30 03/15/18 23:59 34.7 109 18 112/87 Nasal Cannula 6.0 03/15/18 23:57 116 27 03/15/18 23:52 105 28 03/15/18 23:50 105 28 112/87 03/15/18 23:50 104 General: cachectic, ill appearing male, NAD Skin: pale, intact HEENT: NC/AT, PERRL, +scleral icterus, dry mucus membranes, neck supple Heart: +S1/S2, regular, tachycardic, bruising on anterior chest wall present Lungs: limited exam, equal air entry bilaterally, no rales/rhonchi/wheezing Abd: +BS Extremities: palpable pulses, edema of bilateral feet Diagnostics Laboratory Results Results Past 24 Hours Test 03/15/18 23:56 Range/Units White Blood Count 23.59 4.8-10.8 K/uL Red Blood Count 3.82 4.7-6.1 M/uL Hemoglobin 10.0 14.0-18.0 g/dL Hematocrit 31.5 42-52 % Mean Corpuscular Volume 82.5 80-100 fL Mean Corpuscular Hemoglobin 26.2 25-34 pg Mean Corpuscular Hemoglobin Concent 31.7 32-36 g/dl Platelet Count 121 130-400 K/uL Mean Platelet Volume 9.8 7.4-10.4 fL Neutrophils (%) (Auto) 90.9 % Lymphocytes (%) (Auto) 2.0 % Monocytes (%) (Auto) 5.2 % Eosinophils (%) (Auto) 0.1 % Basophils (%) (Auto) 0.1 % Neutrophils # (Auto) 21.44 1.4-6.5 K/uL Lymphocytes # (Auto) 0.47 1.2-3.4 K/uL Monocytes # (Auto) 1.22 0.11-0.59 K/uL Eosinophils # (Auto) 0.02 0-0.5 K/uL Basophils # (Auto) 0.03 0-0.2 K/uL RDW Standard Deviation 66.5 36.4-46.3 fL RDW Coefficient of Variation 22.0 11.5-14.5 % Immature Granulocyte % (Auto) 1.7 % Immature Granulocyte # (Auto) 0.41 0.00-0.02 K/uL Toxic Vacuolation OCCASIONAL Anisocytosis PRESENT Echinocytes 2+ Sodium Level 129 136-145 mmol/L Potassium Level 6.6 3.5-5.1 mmol/L Chloride Level 100 98-107 mmol/L Carbon Dioxide Level 13 21-32 mmol/L Anion Gap 16.0 3-11 mmol/L Blood Urea Nitrogen 61 7-18 mg/dl Creatinine 1.86 0.60-1.40 mg/dl Estimated GFR () 55.8 Estimated GFR (Non- 48.2 BUN/Creatinine Ratio 32.6 10-20 Random Glucose 62 70-99 mg/dl Calcium Level 7.2 8.5-10.1 mg/dl Magnesium Level 2.4 1.8-2.4 mg/dl Total Bilirubin 6.8 0.2-1 mg/dl Direct Bilirubin 5.8 0-0.2 mg/dl Aspartate Amino Transf (AST/SGOT) 479 15-37 U/L Alanine Aminotransferase (ALT/SGPT) 163 12-78 U/L Alkaline Phosphatase 340 45-117 U/L Total Protein 4.8 6.4-8.2 gm/dl Albumin 1.3 3.4-5.0 gm/dl Impression Assessment and Plan 28yo male with end stage metastatic colon cancer on hospice care at home presenting s/p cardiac arrest with ROSC. Fiance and family at bedside. Patient to be placed on comfort care measures. - Morphine 2mg IV q 2 hours as needed for pain or air hunger -Ativan 1mg IV q hour as needed for anxiety -Scopolamine patch -Zofran as needed for nausea -Sergio jackson in place Resuscitation Status DNR/DNI VTE Prophylaxis Will order VTE Prophylaxis: No Reason for no VTE drug order: Treatment not indicated Reason no Mechanical VTE Order: Treatment not indicated
[2018-03-16 02:30] VITALS: BP 97/79; PULSE 108; O2SAT 97
[2018-03-16] MEDS ORDERED: SCOPOLAMINE 1.5 MG TDSY TD ONE (03:00)
[2018-03-16] MEDS ORDERED: LIDOCAINE HCL 2% JELLY 30 ML TUBE EXT PRN (03:15)
[2018-03-16] MEDS ORDERED: NURSING VERBAL MED ORDER ONE ×2 (04:30→05:45)
[2018-03-16] MEDS: MoRPHine SULFATE 4 MG/ML 1 ML CARP\\VIAL IV PRN ×4 (05:53→15:48)
--- NOTE | 2018-03-16 06:40 | DIAGNOSTIC IMAGING REPORT ---
CHEST ONE VIEW PORTABLE HISTORY: 28 years-old Male s/p cpr acute shortness of breath COMPARISON: Acute abdominal series radiographs 02/04/2018, CT abdomen and pelvis 02/28/2018 TECHNIQUE: Supine AP view of the chest FINDINGS: Cardiac silhouette is within normal limits. The patient is slightly rotated to the right. Left subclavian [id number] catheter is again noted with distal tip terminating in the expected region of the superior cavoatrial junction. Lateral left costophrenic angle is excluded from the [id number]. No pneumothorax. There are trace bilateral pleural effusions with hazy right basilar opacities. No overt pulmonary edema. Bones of the chest appear grossly intact. IMPRESSION: Trace pleural effusions with hazy right basilar opacities suggesting atelectasis. The above report was generated using voice recognition software. It may contain grammatical, syntax or spelling errors. Electronically signed by: David Schneider M.D. 03/16/2018 6:39 AM Dictated Date/Time: 03/16/2018 6:35 AM
[2018-03-16 08:00] VITALS: TEMP 34.8
[2018-03-16] MEDS: LORAZEPAM 2 MG/ML 1 ML VIAL IV PRN ×3 (08:01→15:48)
[2018-03-16] MEDS ORDERED: SCOPOLAMINE 1.5 MG TDSY TD SCH (09:00)
[2018-03-16] MEDS ORDERED: CHECK SCOPOLAMINE PATCH PLACEMENT SCH (16:00)
--- NOTE | 2018-03-16 17:10 | Family Medicine Progress Note ---
Progress Note Date of Service March 16, 2018. Subjective It sounds as if pt syncopized at home while in the shower, but daren thought he was dying and began chest compressions. EMS brought him here. Initially family wanted "everything done" but have now agreed to comfort measures. Discussed with mother and daren that patient is actively dying. Daren (and POA) relayed that pt does not want to at home "in the basement", that he wants to here in the hospital, and that is why they came. Pt is laying in bed, somnolent. It appears that pt's pain and anxiety is under control with morphine 4mg q1h, 1mg ativan, scopolamine patch (adm 16 March), and zofran 1mg IV q4h. ROS limited due to pt's mental status, however appears comfortable. Objective Physical Exam Notes: GENERAL: Somnolent, in no distress, does not respond to voice or pain stimulation. Extremely cachectic. HENT: Normocephalic, atraumatic. EYES: Normal conjunctiva. RESPIRATORY: + Agonal breathing. CARDIAC: Regular rate, normal rhythm. ABDOMEN: Soft, non-distended. NEURO: Somnolent. SKIN: No rash or jaundice noted. Assessment and Plan 28M well known to the service here with weakness and abdominal pain. End stage metastatic colon cancer, s/p colectomy. On hospice at home. Per pt's daren and POA, pt did not wish to at home, and desires to in hospital. End stage metastatic colon cancer/failure to thrive - pt on hospice - comfort measures - palliative consult ordered Abdominal pain, nausea - It appears under control with morphine 4mg q1h, 1mg ativan, scopolamine patch (adm 16 March), and zofran 1mg IV q4h. Hyperkalemia - 6.6 on arrival, likely 2/2 renal failure and tumor burden VTE ppx: not indicated Dispo: comfort measures Current Inpatient Medications Medications (Trade) Dose Ordered Sig/Raúl Route Start Time Stop Time Status Last Admin Dose Admin Ondansetron HCl (Zofran Inj) 4 mg Q4H PRN IV 03/16/18 02:00 04/15/18 01:59 Lorazepam (Ativan Inj) 1 mg Q1HWA PRN IV 03/16/18 02:00 04/15/18 01:59 03/16/18 15:48 1 MG Lidocaine HCl (Xylocaine Jelly 2%) UD PRN EXT 03/16/18 03:15 04/15/18 03:14 03/16/18 05:36 5 ML Morphine Sulfate (MoRPHine SULFATE INJ) 4 mg Q1H PRN IV 03/16/18 06:00 03/30/18 05:59 03/16/18 15:48 4 MG Heparin Sodium (Porcine) (Heparin 100 Unit/ml 5ml Flush) 5 ml PRN PRN IV 03/16/18 06:15 04/15/18 06:14 03/16/18 15:48 5 ML Scopolamine (Transderm-Scop Patch) 1.5 mg Q72H TD 03/16/18 09:00 04/15/18 08:59 03/16/18 11:27 1.5 MG Miscellaneous (Remove Transderm-Scop Patch) 1 ea Q72H N/A 03/19/18 08:59 04/18/18 08:58 Miscellaneous Information (Check Scopolamine Patch Placement) 1 ea QS N/A 03/16/18 16:00 04/15/18 15:59 03/16/18 15:47 1 EA Date Time Temp Pulse Resp B/P (MAP) Pulse Ox O2 Delivery O2 Flow Rate FiO2 03/16/18 08:00 34.8 03/16/18 08:00 Room Air 03/16/18 02:30 108 22 97/79 97 03/16/18 02:19 35.2 Room Air 03/16/18 02:10 114 22 113/75 100 Room Air 03/16/18 01:43 34.5 111 25 96/70 100 Nasal Cannula 3.0 03/16/18 01:10 105 25 116/70 100 Nasal Cannula 3.0 03/16/18 00:47 105 23 98/88 96 Nasal Cannula 3.0 03/16/18 00:41 105 23 172/140 99 Nasal Cannula 6.0 03/16/18 00:36 103 27 106/80 03/16/18 00:32 105 29 117/72 03/16/18 00:22 117 29 03/16/18 00:17 110 32 03/16/18 00:13 107 36 67/46 03/16/18 00:11 113 33 99/78 03/16/18 00:02 114 30 03/15/18 23:59 34.7 109 18 112/87 Nasal Cannula 6.0 03/15/18 23:57 116 27 03/15/18 23:52 105 28 03/15/18 23:50 105 28 112/87 03/15/18 23:50 104 Continued [facility] stay due to: inadequate oral pain control Discharge planning: other Resident Tracking Resident Involvement: Resident Care Provided Care Provided: Adult Hospital Medicine Reviewed: Pt Seen/Exam by Me History comfortably somnolent in bed. family at bedside Constitutional: denies: fever General Appearance: no apparent distress Respiratory: no respiratory distress Cardiovascular: regular rate, rhythm Neurologic/Psychiatric: other (somnolent) Skin Characteristics: warm/dry Assessment/Plan Resident Physician Supervision Note: I independently interviewed and examined the patient and verified the gregory history and physical, reviewed labs and image studies, discussed the case with the resident Dr. Vargas and agree with the findings and care plan.
--- NOTE | 2018-03-18 11:40 | Death Summary ---
Summary of Admission Date March 16, 2018 at 01:42 Date & Time of March 16, 2018. 20:33 Cause of Cardiac arrest Secondary Diagnoses End stage metastatic colon cancer Hospital Course Pt was admitted at the behest of his family according to his wishes to not at home, and rather to in hospital. On day of patient was kept comfort measures, and pain was controlled with IV morphine, scopolamine patch and anxiety managed with IV ativan. Family was at bedside. At 20:33 nursing pronounced Mr. Maldonado noting his apical pulse was absent. No spontaneous respirations noted. Pupils fixed and dilated. A Sam Copy To Luisito Cheema D.O.; Jacqui Vargas M.D.; Wayne Andres D.O. Resident Tracking Resident Involvement: Resident Care Provided Care Provided: Adult Hospital Medicine
== END 2018-03-16 20:33 | disposition expired | DRG 376 ==
LOC: EDBD 23:42 → C.EDB 23:43 → C.4E 03-16 01:42 → EDBEDREQ 03-16 01:46 → ENRESERV 03-16 01:51 → C.4E 03-16 02:30
PROVIDERS: ADMIT Internal Medicine; ATTEND Family Medicine
DX: C20 Malignant neoplasm of rectum (principal); I46.8 Cardiac arrest due to other underlying condition; R62.7 Adult failure to thrive; Z51.5 Encounter for palliative care; Z66 Do not resuscitate; R10.9 Unspecified abdominal pain; R11.0 Nausea; E87.5 Hyperkalemia; Z79.891 Long term (current) use of opiate analgesic; Z79.899 Other long term (current) drug therapy; Z88.8 Allergy status to other drugs, medicaments and biological substances; E73.9 Lactose intolerance, unspecified; Z91.048 Other nonmedicinal substance allergy status; Z82.49 Family history of ischemic heart disease and other diseases of the circulatory system; Z84.1 Family history of disorders of kidney and ureter; Z82.0 Family history of epilepsy and other diseases of the nervous system